=== PATIENT | female | born 1935 | race Caucasian/White ===

== ENCOUNTER → 2017-02-10 | Outpatient (CLI) | payer BC ==
[~2017-02-10] MED LIST: ACET-1311 PO; ADVIN50/60 INH; AMOX500T PO; APIX1TAB3 PO; ASPITAB71 PO; BUPR-79 PO; CLBCRM30 EXT; CLR10 PO; CYNI1000 IM; DIPH1TAB PO; DOCU100C31 PO; ENOX100I SC; ESCI10TA17 PO; ESTR10TA PV; FRRS300 PO; GABA-112 PO; IPRA1AER2 INH; LCTX PO; LEVO100T35 PO; LEVO75TA PO; LISI5TAB3 PO; LORA-741 PO; LSX20 PO; LTHSR/300 PO; LVNIS100 SQ; MICO4CRE PV; MYR25 PO; NMN10 PO; POTA20TA16 PO; PRLSR20 PO; RIVA6CAP4 PO; SNG10 PO; SYN88 PO; TIOTCAP INH; TRIA1SPR10 NAE; VNCAQN NAE; [UNRECOGNIZED DRUG - CODE] PO
[2017-02-10 16:46] LABS: BASO % 0.5 %; BASO ABS # 0.04 K/uL (0-0.2); COMPLETE YES; EOS % 4.1 %; HEMATOCRIT 44.2 % (37-47); IG% 0.3 %; LYMPH % 18.2 %; LYMPH ABS # 1.59 K/uL (1.2-3.4); MEAN CELL VOLUME 98.2 fL (80-100); MEAN CORPUSCULAR HEMOGLOBIN 32.7 pg (25-34); MEAN CORPUSCULAR HGB CONC 33.3 g/dl (32-36); MEAN PLATELET VOLUME 10.4 fL (7.4-10.4); MONO % 9.1 %; NEUT % 67.8 %; PLATELET COUNT 213 K/uL (130-400); WHITE BLOOD COUNT 8.75 K/uL (4.8-10.8)
[2017-02-10 17:20] LABS: ALT/SGPT 23 U/L (12-78); BLOOD UREA NITROGEN 21 mg/dl (7-18); CARBON DIOXIDE 23 mmol/L (21-32); CHLORIDE 110 mmol/L (98-107); CHOLESTEROL 225 mg/dl (0-200); GLUCOSE 123 mg/dl (70-99); POTASSIUM 3.9 mmol/L (3.5-5.1); SODIUM 143 mmol/L (136-145)
[2017-02-10 17:30] LABS: ALB/GLOB RATIO 1.2 (0.9-2); ALKALINE PHOSPHATASE 77 U/L (45-117); AST/SGOT 27 U/L (15-37); CHOLESTEROL/HDL RATIO 3.5; HDL CHOLESTEROL 64 mg/dl; LDL CHOLESTEROL CALCULATED 125 mg/dl; TRIGLYCERIDES 180 mg/dl (0-150); VERY LOW DENSITY LIPOPROT CALC 36 mg/dl
[2017-02-10 17:39] LABS: CALCIUM 10.2 mg/dl (8.5-10.1)
== END | disposition home or self-care (01) ==
LOC: C.LAB 16:19
PROVIDERS: ATTEND Nurse Practitioner Family
DX: E03.9 Hypothyroidism, unspecified (principal); I10 Essential (primary) hypertension; F03.90 Unspecified dementia, unspecified severity, without behavioral disturbance, psychotic disturbance, mood disturbance, and anxiety; E78.5 Hyperlipidemia, unspecified; R10.9 Unspecified abdominal pain

== ENCOUNTER → 2017-02-11 | Outpatient (CLI) | payer BC ==
--- NOTE | 2017-02-11 16:37 | DIAGNOSTIC IMAGING REPORT ---
ABDOMEN 2VIEW W/PA CHEST RTN CLINICAL HISTORY: K59.09 Chronic constipation LLQ abd pain and tenderness. R/o con COMPARISON STUDY: 02/10/2016 FINDINGS: nonobstructive bowel pattern. Mild fecal material throughout the colon. No secondary signs of free air. Mild bibasilar atelectatic change. Lungs otherwise appear clear. IMPRESSION: Nonobstructive bowel pattern. Mild bibasilar atelectasis. Electronically signed by: Luigi Peters M.D. 02/11/2017 4:35 PM Dictated Date/Time: 02/11/2017 4:34 PM
[2017-02-11 17:03] LABS: URINE APPEARANCE CLEAR (CLEAR); URINE BILIRUBIN NEG (NEG); URINE COLOR YELLOW; URINE EPITHELIAL CELL AUTO 0-5 /lpf (0-5); URINE NITRITE NEG (NEG); URINE PH 5.5 (4.5-7.5); URINE SPECIFIC GRAVITY 1.007 (1.000-1.030); UROBILINOGEN NEG (NEG)
[2017-02-11 17:06] LABS: MANUAL MICROSCOPIC REQUIRED? NO; REVIEW REQ? NO
== END | disposition home or self-care (01) ==
LOC: C.RAD 15:47
PROVIDERS: ATTEND Family Medicine
DX: R10.9 Unspecified abdominal pain (principal); K59.09 Other constipation

== ENCOUNTER → 2017-03-26 | Outpatient (CLI) | payer BC ==
[2017-03-26 11:01] LABS: BLOOD UREA NITROGEN 23 mg/dl (7-18); GLUCOSE 103 mg/dl (70-99)
[2017-03-26 11:02] LABS: BUN/CREATININE RATIO 19.3 (10-20); CALCIUM 9.2 mg/dl (8.5-10.1); CARBON DIOXIDE 23 mmol/L (21-32); CHLORIDE 114 mmol/L (98-107); POTASSIUM 3.9 mmol/L (3.5-5.1); SODIUM 145 mmol/L (136-145)
== END | disposition home or self-care (01) ==
LOC: C.LAB 09:31
PROVIDERS: ATTEND Student in an Organized Health Care Education/Training Program
DX: Z79.899 Other long term (current) drug therapy (principal)

== ENCOUNTER → 2017-04-28 | Outpatient (CLI) | payer BC ==
[~2017-04-28] MED LIST changes: -ACET-1311 PO; -AMOX500T PO; -CYNI1000 IM; -DIPH1TAB PO; -ENOX100I SC; -FRRS300 PO; -LSX20 PO; -LVNIS100 SQ; -MICO4CRE PV; -MYR25 PO; -POTA20TA16 PO; -SYN88 PO; -VNCAQN NAE
[2017-04-28 17:28] LABS: URINE APPEARANCE CLEAR (CLEAR); URINE BILIRUBIN NEG (NEG); URINE COLOR YELLOW; URINE EPITHELIAL CELL AUTO >30 /lpf (0-5); URINE NITRITE NEG (NEG); URINE SPECIFIC GRAVITY 1.014 (1.000-1.030); UROBILINOGEN NEG (NEG)
[2017-04-28 17:36] LABS: MANUAL MICROSCOPIC REQUIRED? NO; REVIEW REQ? YES
== END | disposition home or self-care (01) ==
LOC: C.LABSPEC 16:52
PROVIDERS: ATTEND Nurse Practitioner Family
DX: R30.0 Dysuria (principal)

== ENCOUNTER 2017-07-04 14:58 | Emergency (ER) | payer BC ==
[~2017-07-04] VITALS: Ht 165.1 cm; Wt 89.1 kg
[~2017-07-04 14:58] MED LIST changes: -APIX1TAB3 PO; -ASPITAB71 PO; -CLBCRM30 EXT; -CLR10 PO; -DOCU100C31 PO; -ESCI10TA17 PO; -ESTR10TA PV; -GABA-112 PO; -LEVO75TA PO; -LTHSR/300 PO; -NMN10 PO; -PRLSR20 PO; -SNG10 PO; -TRIA1SPR10 NAE; -[UNRECOGNIZED DRUG - CODE] PO
[2017-07-04 15:06] VITALS: TEMP 36.6; Ht 165.1 cm; Wt 89.1 kg
[2017-07-04] MEDS ORDERED: NMN10 PO (15:11)
[2017-07-04] MEDS ORDERED: LTHSR/300 PO (15:12)
--- NOTE | 2017-07-04 15:21 | EMERGENCY ROOM VISIT NOTE ---
History Report prepared by Damaris: Annita Thornton Under the Supervision of: Dr. Grabiel Breen M.D. First contact with patient: 15:10 Chief Complaint: CALF PAIN Stated Complaint: PAIN IN R CALF, HX OF BLOOD CLOTS History of Present Illness The patient is an 81 year old female who presents to the Emergency Room with complaints of persistent right calf pain for the past 2 days. She reports she was up to use the bathroom 2 nights ago, when she began to feel a "pulled muscle sensation" in her right calf. She rates her discomfort as a 1/10 in severity. The patient admits to a history of 2 previous DVT's, but states the most recent one was "at least 10 years ago". She is not on daily blood thinners but notes she has taken them in the past "as needed" when she's experienced a clot. She denies any recent falls or trauma to her right leg. She denies any fevers. She admits to some recent difficulty breathing but states "it's always bad". Source of History: patient Onset: 2 days HELMET [employer] Position: leg (right) Symptom Intensity: 1/10 Timing: other (persistent) Associated Symptoms: + SOB, No fevers Review of Systems See HPI for pertinent positives & negatives. A total of 10 systems reviewed and were otherwise negative. Past Medical & Surgical Medical Problems: (1) Asthma (2) Bipolar disorder (3) Carpal tunnel surgery (4) Chest pain (5) COPD (chronic obstructive pulmonary disease) (6) Dizziness (7) Dyspnea on exertion (8) GERD (gastroesophageal reflux disease) (9) History of DVT (deep vein thrombosis) (10) Hypertension (11) Hypothyroidism (12) Irritable bowel syndrome (13) Mild dementia (14) Pneumonia (15) Shock therapy (16) Urinary tract infection (17) Urinary tract infection Surgical Problems: (1) History of hysterectomy (2) Hx of cholecystectomy Family History FH: cancer Social History Smoking Status: Former Smoker Alcohol Use: none Drug Use: none Marital Status: single Housing Status: unknown Occupation Status: retired Current/Historical Medications Scheduled Apixaban (Eliquis), 10 MG PO BID Apixaban (Eliquis), 5 MG PO BID Aspirin Effervescent (Shanae-[place]), 1 TAB PO PRN Bupropion (Wellbutrin Sr), 150 MG PO BID Clobetasol Propionate (Clobetasol Propionate Cream 0.05%), 1 APPLN EXT BID Docusate Sodium (Docusate Sodium), 1 CAP PO BID Escitalopram (Lexapro), 1 TAB PO DAILY Estradiol Vaginal (Vagifem), 1 TAB PV 2XWK Gabapentin (Neurontin), 100 MG PO DAILY Ipratropium-Albuterol (Combivent Respimat), 1 PUFFS INH QID Levothyroxine Sodium (Synthroid), 75 MCG PO DAILY [place] Carbonate ([place] Carbonate), 300 MG PO BID Loratadine (Claritin), 10 MG PO DAILY Memantine (Namenda), 10 MG PO BID Omeprazole (Prilosec), 20 MG PO DAILY Rivastigmine Tartrate (Rivastigmine Tartrate), 6 MG PO BID Simethicone (Gas-X Extra Strength), 1 CAP PO PRN Triamcinolone Acetonide (Nasal (Nasal Allergy 24 Hour), 1 SPRAY ANUPAM PRN UD Allergies Coded Allergies: Clarithromycin (Verified Allergy, Severe, ANAPHYLAXIS, 06/27/14) Fluoxetine (Verified Allergy, Unknown, 06/23/14) Gabapentin (Verified Allergy, Unknown, RASH, 06/23/14) Hydrocortisone (Verified Allergy, Unknown, CORTIZONE, 06/23/14) Nitrofurantoin (Verified Allergy, Unknown, RASH, 06/23/14) Sulfa Drugs (Verified Allergy, Unknown, rash, 06/23/14) Moxifloxacin (Unverified Adverse Reaction, Unknown, "very shakey", 06/27/14) Physical Exam Vital Signs Date Time Temp Pulse Resp B/P (MAP) Pulse Ox O2 Delivery O2 Flow Rate FiO2 07/04/17 18:47 68 18 183/107 96 Room Air 07/04/17 17:46 63 20 146/80 96 Room Air 07/04/17 16:13 64 20 156/81 96 Room Air 07/04/17 15:06 36.6 90 20 148/77 93 Room Air Physical Exam GENERAL: Patient is in no acute distress. HEENT: No acute trauma, normocephalic atraumatic, mucous membranes moist, no nasal congestion, no scleral icterus. NECK: No stridor, no adenopathy, no meningismus, trachea is midline. LUNGS: Clear to auscultation bilaterally, no wheeze, no rhonchi, breath sounds equal. HEART: Without murmurs gallops or rubs, regular rate and rhythm. ABDOMEN: Soft, nontender, bowel sounds positive, no hernias, no peritonitis. EXTREMITIES: No cellulitis or significant edema. Varicose veins noted in both calves. Some mild discomfort to palpate the proximal posterior right calf, no contusion. NEUROLOGIC: Oriented x 3, no acute motor or sensory deficits, no focal weakness. SKIN: No rash, no jaundice, no diaphoresis. Medical Decision & Procedures ER Provider Diagnostic Interpretation: Radiology results as stated below per my review and radiologist interpretation: RIGHT LOWER EXTREMITY VENOUS DOPPLER HISTORY: Right leg pain, swelling, hist of dvt Right COMPARISON STUDY: None. FINDINGS: There is thrombus seen within one of 2 posterior tibial veins which is occlusive. Otherwise, the remaining deep venous structures demonstrate normal compressibility, flow, and augmentation. IMPRESSION: Occlusive thrombus within one of 2 posterior tibial veins consistent with a deep venous thrombosis. Electronically signed by: Edward Dave M.D. 07/04/2017 5:41 PM Medications Administered Medications (Trade) Dose Ordered Sig/Della Route Start Time Stop Time Status Last Admin Dose Admin Apixaban (Eliquis Tab) 10 mg NOW STAT PO 07/04/17 18:30 07/04/17 18:32 DC 07/04/17 18:47 10 MG ED Course 1511: The patient was evaluated in room C1. A complete history and physical exam was performed. 1754: I reevaluated the patient. She is feeling well and resting comfortably. 0: Eliquis 10 mg PO. 183: I reevaluated the patient. I discussed her results and discharge instructions and she verbalized complete understanding and agreement. Medical Decision The differential diagnoses considered include DVT, cellulitis, muscle strain and superficial thrombophlebitis. The patient presents with some pain behind her right proximal calf. She has a history of DVT. There was no cellulitis on exam, no significant leg edema. Right leg ultrasound does show a DVT in one of 2 calf veins. The patient will be discharged on anticoagulation. We will use Eliquis as recommended by our pharmacist. She will need to follow with her doctors office. Leg elevation was suggested. If she is worsening or feels short of breath, she will need to return to the ER. Medication Reconcilliation Current Medication List: was personally reviewed by me Blood Pressure Screening Patient's blood pressure: Elevated blood pressure Blood pressure disposition: Elevated BP felt to be situational Impression Primary Impression: Deep vein thrombosis (DVT) Scribe Attestation The scribe's documentation has been prepared under my direction and personally reviewed by me in its entirety. I confirm that the note above accurately reflects all work, treatment, procedures, and medical decision making performed by me. Departure Information Dispostion Home / Self-Care Prescriptions Apixaban (ELIQUIS) 5 Mg Tab 5 MG PO BID for 7 Days, #14 TAB Prov: Grabiel Breen M.D. 07/04/17 Apixaban (ELIQUIS) 5 Mg Tab 10 MG PO BID for 7 Days, #14 TAB Prov: Grabiel Breen M.D. 07/04/17 Referrals Susan Garcia DO (PCP) Patient Instructions My [facility] Additional Instructions Eliquis 10 mg 2x per day for 1 week and then 5 mg 2x per day until your doctor makes any changes you have been given scripts for 2 weeks of the blood thinner, your doctor will need to write prescriptions for the rest of the course return for worsening symptoms no aspirin, aleve, motrin, ibuprofen, advil while on the Eliquis see your doctor this week for a followup appt and further advice
[2017-07-04] MEDS ORDERED: LEVO75TA PO (15:32)
[2017-07-04] MEDS ORDERED: GABA-112 PO (16:29)
[2017-07-04] MEDS ORDERED: CLBCRM30 EXT (16:29)
[2017-07-04] MEDS ORDERED: CLR10 PO (16:29)
[2017-07-04] MEDS ORDERED: DOCU100C31 PO (16:29)
[2017-07-04] MEDS ORDERED: IPRA1AER2 INH (16:29)
[2017-07-04] MEDS ORDERED: PRLSR20 PO (16:29)
[2017-07-04] MEDS ORDERED: TRIA1SPR10 NAE (16:29)
[2017-07-04] MEDS ORDERED: ASPITAB71 PO (16:29)
[2017-07-04] MEDS ORDERED: ESCI10TA17 PO (16:29)
[2017-07-04] MEDS ORDERED: [UNRECOGNIZED DRUG - CODE] PO (16:29)
[2017-07-04] MEDS ORDERED: ESTR10TA PV (16:29)
--- NOTE | 2017-07-04 17:43 | DIAGNOSTIC IMAGING REPORT ---
RIGHT LOWER EXTREMITY VENOUS DOPPLER HISTORY: Right leg pain, swelling, hist of dvt Right COMPARISON STUDY: None. FINDINGS: There is thrombus seen within one of 2 posterior tibial veins which is occlusive. Otherwise, the remaining deep venous structures demonstrate normal compressibility, flow, and augmentation. IMPRESSION: Occlusive thrombus within one of 2 posterior tibial veins consistent with a deep venous thrombosis. Electronically signed by: Edward Dave M.D. 07/04/2017 5:41 PM Dictated Date/Time: 07/04/2017 5:40 PM
[2017-07-04] MEDS ORDERED: APIXABAN 2.5 MG TAB PO STA (18:30)
[2017-07-04] MEDS ORDERED: APIX1TAB3 PO (18:36)
[2017-07-04 18:47] VITALS: BP 183/107; PULSE 68; O2SAT 96
== END 2017-07-04 18:56 | disposition home or self-care (01) ==
LOC: C.EDB 15:00 → C.EDC 18:56
DX: I82.4Z1 Acute embolism and thrombosis of unspecified deep veins of right distal lower extremity (principal); Z86.718 Personal history of other venous thrombosis and embolism; J45.909 Unspecified asthma, uncomplicated; F31.9 Bipolar disorder, unspecified; J44.9 Chronic obstructive pulmonary disease, unspecified; K21.9 Gastro-esophageal reflux disease without esophagitis; I10 Essential (primary) hypertension; E03.9 Hypothyroidism, unspecified; K58.9 Irritable bowel syndrome, unspecified; F03.90 Unspecified dementia, unspecified severity, without behavioral disturbance, psychotic disturbance, mood disturbance, and anxiety; Z87.01 Personal history of pneumonia (recurrent); Z87.440 Personal history of urinary (tract) infections; Z80.9 Family history of malignant neoplasm, unspecified; Z87.891 Personal history of nicotine dependence; Z79.899 Other long term (current) drug therapy

== ENCOUNTER → 2017-07-06 | Outpatient (CLI) | payer BC ==
[~2017-07-06] MED LIST changes: -ADVIN50/60 INH; +APIX1TAB3 PO; +ASPITAB71 PO; +CLBCRM30 EXT; +CLR10 PO; +CYNI1000 IM; +DOCU100C31 PO; +ESCI10TA17 PO; +ESTR10TA PV; +FRRS300 PO; +GABA-112 PO; -LCTX PO; -LEVO100T35 PO; +LEVO75TA PO; -LISI5TAB3 PO; -LORA-741 PO; +LSX20 PO; +LTHSR/300 PO; +LVNIS100 SQ; +MYR25 PO; +NMN10 PO; +PRLSR20 PO; +SNG10 PO; +SYN88 PO; -TIOTCAP INH; +TRIA1SPR10 NAE; +[UNRECOGNIZED DRUG - CODE] PO
--- NOTE | 2017-07-06 12:45 | DIAGNOSTIC IMAGING REPORT ---
HEAD WITHOUT CONTRAST (CT) CLINICAL HISTORY: 81 years-old Female presenting with headache after starting blood thinner 2 days ago. TECHNIQUE: Multidetector CT imaging of the head was performed without the use of intravenous contrast. IV contrast: None. A dose lowering technique was used consistent with the principles of ALARA (as low as reasonably achievable). COMPARISON: 04/10/2013. CT DOSE (mGy.cm): The estimated cumulative dose is 638.56 mGycm. FINDINGS: Business Support Specialist topogram: Unremarkable. Proportional ventricular and sulcal prominence, likely age-related parenchymal volume loss. Slight asymmetry of the occipital horns of the lateral ventricles likely within the range of normal. Brain parenchyma normal in appearance with preserved smiley-white differentiation. No mass effect or midline shift. No hemorrhage or acute territorial infarct. No extra-axial fluid collection. Paranasal sinuses and mastoid air cells clear. Calvarium intact. IMPRESSION: 1. No acute intracranial pathology. Electronically signed by: Reymundo Ram M.D. 07/06/2017 12:44 PM Dictated Date/Time: 07/06/2017 12:35 PM
== END | disposition home or self-care (01) ==
LOC: C.CTS 12:22
PROVIDERS: ATTEND Nurse Practitioner Family
DX: R51 Headache (principal)

== ENCOUNTER → 2017-07-07 | Outpatient (CLI) | payer BC ==
[~2017-07-07] MED LIST changes: -CYNI1000 IM; -FRRS300 PO; -LSX20 PO; -LVNIS100 SQ; -SYN88 PO
[2017-07-07 15:36] LABS: BASO % 0.4 %; BASO ABS # 0.04 K/uL (0-0.2); COMPLETE YES; EOS % 5.1 %; HEMATOCRIT 44.8 % (37-47); IG% 0.5 %; LYMPH % 17.9 %; LYMPH ABS # 1.69 K/uL (1.2-3.4); MEAN CELL VOLUME 98.9 fL (80-100); MEAN CORPUSCULAR HEMOGLOBIN 32.5 pg (25-34); MEAN CORPUSCULAR HGB CONC 32.8 g/dl (32-36); MEAN PLATELET VOLUME 10.4 fL (7.4-10.4); NEUT % 68.1 %; PLATELET COUNT 221 K/uL (130-400); RED BLOOD COUNT 4.53 M/uL (4.2-5.4); WHITE BLOOD COUNT 9.45 K/uL (4.8-10.8)
[2017-07-07 15:57] LABS: PROTHROMBIN TIME (PATIENT) 10.4 SECONDS (9.0-12.0)
[2017-07-07 16:13] LABS: ALT/SGPT 24 U/L (12-78); AST/SGOT 26 U/L (15-37); BLOOD UREA NITROGEN 24 mg/dl (7-18); BUN/CREATININE RATIO 18.7 (10-20); CALCIUM 9.4 mg/dl (8.5-10.1); CARBON DIOXIDE 25 mmol/L (21-32); CHLORIDE 112 mmol/L (98-107); GLUCOSE 91 mg/dl (70-99); SODIUM 143 mmol/L (136-145)
[2017-07-07 16:15] LABS: ALKALINE PHOSPHATASE 77 U/L (45-117)
== END | disposition home or self-care (01) ==
LOC: C.LAB 14:22
PROVIDERS: ATTEND Family Medicine Adult Medicine
DX: R31.9 Hematuria, unspecified (principal)

== ENCOUNTER → 2017-07-12 | Outpatient (CLI) | payer BC ==
[~2017-07-12] MED LIST changes: +CYNI1000 IM; +FRRS300 PO; +LSX20 PO; +LVNIS100 SQ; +SYN88 PO
--- NOTE | 2017-07-12 14:03 | DIAGNOSTIC IMAGING REPORT ---
CT SCAN OF THE ABDOMEN AND PELVIS WITHOUT IV CONTRAST CLINICAL HISTORY: Hematuria. COMPARISON STUDY: Abdominal radiographs dated 02/11/2017. Chest CT dated 02/01/2013. TECHNIQUE: CT scan of the abdomen and pelvis is performed from the lung bases to the proximal femora. Images are reviewed in the axial, sagittal, and coronal planes. IV contrast was not administered for this examination as per the referring clinician. A dose lowering technique was utilized adhering to the principles of ALARA. CT DOSE: 1004.90 mGycm FINDINGS: Lung bases: The heart is normal in size and without pericardial effusion. There are coronary artery calcifications. No airspace consolidation or pleural effusion is seen. There is evidence of chronic interstitial lung disease at both lung bases. A 5 m pleural-based nodules present at the right lung base on image #2. This is unchanged from the [address] and of doubtful significance. Liver: The unenhanced liver is normal in size, contour, and attenuation. There is no intrahepatic biliary ductal dilatation. Gallbladder: Surgically absent. Spleen: Normal in size and attenuation. Pancreas: The unenhanced pancreas is atrophic and grossly unremarkable. Adrenal glands: Unremarkable. Kidneys: The unenhanced kidneys are atrophic and without hydronephrosis. There are no renal calculi identified. A 1.5 cm cyst is noted in the interpolar right kidney. Additional subcentimeter cortical hypodensities also likely represent cysts but are too small for definitive characterization. Abdominal vasculature: The abdominal aorta is normal in course and caliber noting advanced atherosclerotic calcification. Bowel: A large duodenal diverticulum is identified. No bowel obstruction is seen. There is moderate colonic diverticulosis without CT evidence of acute diverticulitis. The appendix is normal in appearance. Peritoneum: There is no intraperitoneal free air or abdominal ascites. Lymphadenopathy: None. Pelvic viscera: The the bladder is decompressed. Asymmetric bladder wall thickening suggested posteriorly on the right, best seen on axial image #395. The uterus is surgically absent. No adnexal lesion is seen. Skeletal structures: The skeletal structures are heterogeneously osteopenic. There is moderate to advanced lumbosacral spondylosis. Degenerative change is also seen in the sacroiliac joints and hips. No lytic or blastic lesions are seen. IMPRESSION: 1. No renal calculi are identified. 2. Although the bladder is decompressed, asymmetric bladder wall thickening is suggested posteriorly on the right. This is indeterminant, and a bladder neoplasm is not excluded. Correlation with urine cytology is recommended. Consider follow-up with urology for definitive characterization with cystoscopy 3. Moderate colonic diverticulosis without CT evidence of acute diverticulitis. 4. Additional findings as above. Electronically signed by: Grabiel Urena M.D. 07/12/2017 2:01 PM Dictated Date/Time: 07/12/2017 1:51 PM
== END | disposition home or self-care (01) ==
LOC: C.CTS 13:23
PROVIDERS: ATTEND Family Medicine Adult Medicine
DX: R31.9 Hematuria, unspecified (principal); K57.30 Diverticulosis of large intestine without perforation or abscess without bleeding

== ENCOUNTER 2017-07-20 15:00 | Inpatient (IN) | payer BC, OTHER ==
[~2017-07-20] VITALS: Ht 165.1 cm; Wt 96.7 kg
[~2017-07-20 15:00] MED LIST changes: -APIX1TAB3 PO; -CYNI1000 IM; -FRRS300 PO; -LSX20 PO; -LVNIS100 SQ; -MYR25 PO; -SNG10 PO; -SYN88 PO
[2017-07-20] MEDS ORDERED: SNG10 PO (16:17)
[2017-07-20] MEDS ORDERED: APIX1TAB3 PO (16:17)
[2017-07-20 16:39] LABS: BASO % 0.6 %; BASO ABS # 0.05 K/uL (0-0.2); COMPLETE YES; EOS % 4.7 %; IG% 0.3 %; LYMPH % 18.4 %; LYMPH ABS # 1.65 K/uL (1.2-3.4); MEAN CELL VOLUME 97.7 fL (80-100); MEAN CORPUSCULAR HEMOGLOBIN 32.8 pg (25-34); MEAN CORPUSCULAR HGB CONC 33.6 g/dl (32-36); MEAN PLATELET VOLUME 10.3 fL (7.4-10.4); MONO % 10.2 %; NEUT % 65.8 %; PLATELET COUNT 201 K/uL (130-400); WHITE BLOOD COUNT 8.96 K/uL (4.8-10.8)
[2017-07-20 16:48] LABS: INR 0.9 (0.9-1.1); PARTIAL THROMBOPLASTIN RATIO 0.9; PROTHROMBIN TIME (PATIENT) 9.8 SECONDS (9.0-12.0)
[2017-07-20 17:12] LABS: ALKALINE PHOSPHATASE 84 U/L (45-117); ALT/SGPT 28 U/L (12-78); BLOOD UREA NITROGEN 19 mg/dl (7-18); BUN/CREATININE RATIO 14.8 (10-20); CALCIUM 9.8 mg/dl (8.5-10.1); CARBON DIOXIDE 21 mmol/L (21-32); CHLORIDE 113 mmol/L (98-107); GLUCOSE 85 mg/dl (70-99)
[2017-07-20 17:14] LABS: POTASSIUM 4.1 mmol/L (3.5-5.1); SODIUM 144 mmol/L (136-145)
[2017-07-20 17:19] LABS: AST/SGOT 29 U/L (15-37)
--- NOTE | 2017-07-20 17:47 | DIAGNOSTIC IMAGING REPORT ---
VENOUS DOPPLER LW EXT BILAT HISTORY: Pain. Edema. lle pain and known clot on r not taking meds COMPARISON STUDY: 07/04/2017 FINDINGS: Venous Doppler right leg currently is unremarkable. Previously described thrombus is no longer identified. Evaluation of left leg shows evidence for echogenic thrombus within left common femoral vein, proximal to distal femoral vein, as well as popliteal vein. This appears to be a combination of acute and chronic thrombophlebitis. IMPRESSION: 1. 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 2. The right leg currently is negative for acute DVT The above report was generated using voice recognition software. It may contain grammatical, syntax or spelling errors. Electronically signed by: Luigi Peters M.D. 07/20/2017 5:45 PM Dictated Date/Time: 07/20/2017 5:42 PM
[2017-07-20] MEDS ORDERED: HEPARIN IV LOW DOSE NO BOLUS STA (18:17)
[2017-07-20] MEDS ORDERED: OPTIRAY 320 IV PRN (18:30)
--- NOTE | 2017-07-20 18:50 | DIAGNOSTIC IMAGING REPORT ---
(CHEST FOR PE) ANGIO WITH CLINICAL HISTORY: 81 years-old Female presenting with shortness of breath with deep venous thrombosis, not taking factor X a. TECHNIQUE: Multidetector CT angiography of the chest was performed after administration of intravenous contrast. 3-D volumetric and/or maximum intensity projection (MIP) images were subsequently reconstructed for review. IV contrast: Optiray 320. A dose lowering technique was used consistent with the principles of ALARA (as low as reasonably achievable). COMPARISON: 02/01/2013. CT DOSE (mGy.cm): The estimated cumulative dose is 559.46 mGycm. FINDINGS: Loader Demolder topogram: Unremarkable. Pulmonary vasculature: The study is suboptimal secondary to patient body habitus. No filling defect within the pulmonary arteries to suggest embolus. Main pulmonary artery is not enlarged. No flattening of the interventricular septum. No intracardiac intracardiac filling defect. No reflux of contrast into the hepatic veins. Remaining chest: On soft tissue windows, normal thyroid and thoracic inlet. No axillary, supraclavicular, hilar, or mediastinal lymphadenopathy. Atherosclerosis of aortic arch. Normal heart size. Coronary stents may be in place. Normal coronary artery calcification. No pericardial or pleural effusion. Upper abdomen normal. On lung windows, scattered bandlike opacities likely atelectasis or scarring. Minimal subpleural consolidation in the right middle lobe likely also scarring or atelectasis. No other focal infiltrate. Airways patent. On bone windows, degenerative changes of the bilateral glenohumeral joints. Degenerative changes of the thoracic spine. IMPRESSION: 1. No evidence of pulmonary embolus. 2. Scattered areas of scarring or atelectasis. No convincing evidence of acute intrathoracic pathology. Electronically signed by: Reymundo Ram M.D. 07/20/2017 6:49 PM Dictated Date/Time: 07/20/2017 6:42 PM
--- NOTE | 2017-07-20 18:59 | History and Physical ---
History & Physical Date & Time of Service: Jul 20, 2017 at 18:59 Chief Complaint: Possible Cbt -Blood Currently Has A Blood Clot Primary Care Physician: Sima Zaragoza MD History of Present Illness Source: patient, family The patient is an 81-year-old female who presents to the emergency department with left calf pain that began earlier in the day prior to arrival. She was diagnosed with a right lower extremity DVT on July 04 at this emergency department, and had similar pain at that time. The patient has been started on Eliquis on July 05, had was thought to be vaginal bleeding at that time, and then the patient stopped taking the Eliquis and the bleeding stopped. In the interim she has had a normal pelvic examination. She reportedly also had an ultrasound of her kidneys did not show kidney stones. In the emergency department tonight, she had a CT suggestive of bladder lesion. Past Medical/Surgical History Medical Problems: (1) Asthma Status: Chronic (2) Bipolar disorder Status: Chronic (3) Carpal tunnel surgery Status: Resolved (4) Chest pain Status: Resolved (5) COPD (chronic obstructive pulmonary disease) Status: Chronic (6) Dizziness Status: Resolved (7) Dyspnea on exertion Status: Resolved (8) GERD (gastroesophageal reflux disease) Status: Chronic (9) History of DVT (deep vein thrombosis) Status: Resolved (10) Hypertension Status: Chronic (11) Hypothyroidism Status: Chronic (12) Irritable bowel syndrome Status: Chronic (13) Mild dementia Status: Chronic (14) Pneumonia Status: Resolved (15) Shock therapy Status: Resolved (16) Urinary tract infection Status: Resolved (17) Urinary tract infection Status: Resolved Surgical Problems: (1) History of hysterectomy Status: Resolved (2) Hx of cholecystectomy Status: Resolved Family History FH: cancer Social History Smoking Status: Former Smoker Smokeless Tobacco Use: No Alcohol Use: none Drug Use: none Marital Status: single Housing status: lives alone Occupational Status: retired Immunizations History of Influenza Vaccine: No History of Tetanus Vaccine?: No History of Pneumococcal: Yes Pneumococcal Date: Nov 21, 2009 History of Hepatitis B Vaccine: No Multi-Drug Resistant Organisms History of MDRO: No Allergies Coded Allergies: Clarithromycin (Verified Allergy, Severe, ANAPHYLAXIS, 07/20/17) Fluoxetine (Verified Allergy, Unknown, 07/20/17) Gabapentin (Verified Allergy, Unknown, RASH, 07/20/17) Hydrocortisone (Verified Allergy, Unknown, CORTIZONE, 07/20/17) Nitrofurantoin (Verified Allergy, Unknown, RASH, 07/20/17) Sulfa Drugs (Verified Allergy, Unknown, rash, 07/20/17) Moxifloxacin (Unverified Adverse Reaction, Unknown, "very shakey", 07/20/17 ) Home Medications Scheduled Apixaban (Eliquis), 5 MG PO UNKNOWN Aspirin Effervescent (Shanae-[place]), 1 TAB PO PRN Bupropion (Wellbutrin Sr), 150 MG PO BID Clobetasol Propionate (Clobetasol Propionate Cream 0.05%), 1 APPLN EXT BID Docusate Sodium (Docusate Sodium), 1 CAP PO BID Escitalopram (Lexapro), 1 TAB PO DAILY Estradiol Vaginal (Vagifem), 1 TAB PV 2XWK Gabapentin (Neurontin), 100 MG PO DAILY Ipratropium-Albuterol (Combivent Respimat), 1 PUFFS INH QID Levothyroxine Sodium (Synthroid), 75 MCG PO DAILY [place] Carbonate ([place] Carbonate), 300 MG PO BID Memantine (Namenda), 10 MG PO BID Montelukast Sod (Montelukast Sodium), 10 MG PO DAILY Omeprazole (Prilosec), 20 MG PO DAILY Rivastigmine Tartrate (Rivastigmine Tartrate), 6 MG PO BID Simethicone (Gas-X Extra Strength), 1 CAP PO PRN Triamcinolone Acetonide (Nasal (Nasal Allergy 24 Hour), 1 SPRAY ANUPAM PRN UD Scheduled PRN Loratadine (Claritin), 10 MG PO DAILY PRN for ALLERGIC REACTION Review of Systems The patient denies chest pain, palpitations, shortness of breath, cough, vision change, hearing change, sore throat, fevers, chills, sweats, weight change, fatigue, nausea, vomiting, diarrhea or constipation, abdominal pain, pelvic pain, blood in stool, dysuria, urinary frequency or urgency, lightheadedness, dizziness, headache, memory loss, rash, abnormal bruising, imbalance, focal or generalized weakness, numbness or tingling in arms or legs, generalized arthralgias or myalgias, back or neck pain, night sweats, or allergy symptoms. The review of systems is otherwise negative other than for that already noted above, and at least 10 systems have been reviewed. Physical Exam Vital Signs Date Time Temp Pulse Resp B/P (MAP) Pulse Ox O2 Delivery O2 Flow Rate FiO2 07/20/17 18:07 86 18 152/79 94 Room Air 07/20/17 15:03 36.8 89 18 128/65 95 Room Air The patient is awake, well-developed and adequately nourished, alert and oriented 3, normocephalic and atraumatic, lying in bed and in no acute distress. HEENT--PERRL, EOMI, mucous membranes and oropharynx dry. Neck--supple, no JVD or bruits, thyroid normal, trachea midline, no adenopathy. Heart--normal S1 and S2, no extra beats, no murmurs, rubs or gallops. Lungs--clear bilaterally with good air movement, no respiratory distress, no accessory muscle use. Abdomen--normal bowel sounds and soft, nontender and nondistended, no hernias or masses, no organomegaly. Extremities--no cyanosis, clubbing or edema. There are good distal pulses b/l. Dermatologic--normal skin turgor, normal color, warm and dry, no abnormal lymph nodes, no rash. Neurologic--cranial nerves II through XII grossly intact. Rheumatologic--normal range of motion, nontender, muscles and joints. Psychiatric--normal affect. Diagnostics Laboratory Results Results Past 24 Hours Test 07/20/17 16:27 Range/Units White Blood Count 8.96 4.8-10.8 K/uL Red Blood Count 4.30 4.2-5.4 M/uL Hemoglobin 14.1 12.0-16.0 g/dL Hematocrit 42.0 37-47 % Mean Corpuscular Volume 97.7 80-100 fL Mean Corpuscular Hemoglobin 32.8 25-34 pg Mean Corpuscular Hemoglobin Concent 33.6 32-36 g/dl Platelet Count 201 130-400 K/uL Mean Platelet Volume 10.3 7.4-10.4 fL Neutrophils (%) (Auto) 65.8 % Lymphocytes (%) (Auto) 18.4 % Monocytes (%) (Auto) 10.2 % Eosinophils (%) (Auto) 4.7 % Basophils (%) (Auto) 0.6 % Neutrophils # (Auto) 5.90 1.4-6.5 K/uL Lymphocytes # (Auto) 1.65 1.2-3.4 K/uL Monocytes # (Auto) 0.91 0.11-0.59 K/uL Eosinophils # (Auto) 0.42 0-0.5 K/uL Basophils # (Auto) 0.05 0-0.2 K/uL RDW Standard Deviation 47.4 36.4-46.3 fL RDW Coefficient of Variation 13.3 11.5-14.5 % Immature Granulocyte % (Auto) 0.3 % Immature Granulocyte # (Auto) 0.03 0.00-0.02 K/uL Prothrombin Time 9.8 9.0-12.0 SECONDS Prothromb Time International Ratio 0.9 0.9-1.1 Activated Partial Thromboplast Time 22.7 21.0-31.0 SECONDS Partial Thromboplastin Ratio 0.9 Sodium Level 144 136-145 mmol/L Potassium Level 4.1 3.5-5.1 mmol/L Chloride Level 113 98-107 mmol/L Carbon Dioxide Level 21 21-32 mmol/L Anion Gap 10.0 3-11 mmol/L Blood Urea Nitrogen 19 7-18 mg/dl Creatinine 1.30 0.60-1.20 mg/dl Est Creatinine Clear Calc Drug Dose 37.8 ml/min Estimated GFR () 44.9 Estimated GFR (Non- 38.7 BUN/Creatinine Ratio 14.8 10-20 Random Glucose 85 70-99 mg/dl Calcium Level 9.8 8.5-10.1 mg/dl Total Bilirubin 0.1 0.2-1 mg/dl Direct Bilirubin < 0.1 0-0.2 mg/dl Aspartate Amino Transf (AST/SGOT) 29 15-37 U/L Alanine Aminotransferase (ALT/SGPT) 28 12-78 U/L Alkaline Phosphatase 84 45-117 U/L Total Protein 6.9 6.4-8.2 gm/dl Albumin 3.7 3.4-5.0 gm/dl Lipase 604 73-393 U/L Diagnostic Radiology Patient Name: MAIK FOLEY Unit Number: [id number] Dictated: 07/20/171741 Transcribed: 07/20/171741 MS Printed Date/Time: [~ rep prt dt]/[~ rep prt tm] [~ rep ct labl] - [~ rep ct ivnm] [facility] Radiology Department [place], [place] [id number] Dictated: 07/20/171741 Transcribed: 07/20/171741 MS Printed Date/Time: [~ rep prt dt]/[~ rep prt tm] [~ rep ct labl] - [~ rep ct ivnm] [~ rep ct add3]] VENOUS DOPPLER LW EXT BILAT HISTORY: Pain. Edema. lle pain and known clot on r not taking meds COMPARISON STUDY: 07/04/2017 FINDINGS: Venous Doppler right leg currently is unremarkable. Previously described thrombus is no longer identified. Evaluation of left leg shows evidence for echogenic thrombus within left common femoral vein, proximal to distal femoral vein, as well as popliteal vein. This appears to be a combination of acute and chronic thrombophlebitis. IMPRESSION: 1. 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 2. The right leg currently is negative for acute DVT The above report was generated using voice recognition software. It may contain grammatical, syntax or spelling errors. Electronically signed by: Luigi Peters M.D. 07/20/2017 5:45 PM Dictated Date/Time: 07/20/2017 5:42 PM The status of this report is Signed. Draft = Not yet reviewed or approved by Radiologist. Signed = Reviewed and approved by Radiologist. <AttendingPhy></AttendingPhy> <FamilyPhy>Sima Zaragoza MD</FamilyPhy> < PrimaryPhy>Sima Zaragoza MD</PrimaryPhy> <UnitNumber>[id number]</UnitNumber > <VisitNumber>[id number]</VisitNumber> <PatientName>MAIK FOLEY</ PatientName> <DateOfBirth>1935</DateOfBirth> <Location>[facility]</Location> < ServiceDate>07/20/17</ServiceDate> <MNE>ESINDI</MNE> <OrderingPhy>Dieter Lockett DO</OrderingPhy> <OrderingPhyMNE>f rep ord dr mne</OrderingPhyMNE> < DictatingPhyMNE>f rep dict dr cooney</DictatingPhyMNE> <CCListMNE>f rep ct mne</ CCListMNE> <AdmittingPhyMNE>f pt admit dr cooney</AdmittingPhyMNE> <AttendingPhyMNE >f pt attend dr cooney</AttendingPhyMNE> <ConsultingPhyMNE>f pt consult dr cooney</ConsultingPhyMNE> <FamilyPhyMNE>f pt fam dr cooney</FamilyPhyMNE> <OtherPhyMNE>f pt other dr cooney</OtherPhyMNE> < PrimaryPhyMNE>f pt prim care dr cooney</PrimaryPhyMNE> <ReferringPhyMNE>f pt referring dr cooney</ReferringPhyMNE> Patient Name: MAIK FOLEY Unit Number: [id number] Dictated: 07/20/171841 Transcribed: 07/20/171846 PBS Printed Date/Time: [~ rep prt dt]/[~ rep prt tm] [~ rep ct labl] - [~ rep ct ivnm] [facility] [place] [address] Dictated: 07/20/171841 Transcribed: 07/20/171846 PBS Printed Date/Time: [~ rep prt dt]/[~ rep prt tm] [~ rep ct labl] - [~ rep ct ivnm] (CHEST FOR PE) ANGIO WITH CLINICAL HISTORY: 81 years-old Female presenting with shortness of breath with deep venous thrombosis, not taking factor X a. TECHNIQUE: Multidetector CT angiography of the chest was performed after administration of intravenous contrast. 3-D volumetric and/or maximum intensity projection (MIP) images were subsequently reconstructed for review. IV contrast: Optiray 320. A dose lowering technique was used consistent with the principles of ALARA (as low as reasonably achievable). COMPARISON: 02/01/2013. CT DOSE (mGy.cm): The estimated cumulative dose is 559.46 mGycm. FINDINGS: Senior User Experience Architect topogram: Unremarkable. Pulmonary vasculature: The study is suboptimal secondary to patient body habitus. No filling defect within the pulmonary arteries to suggest embolus. Main pulmonary artery is not enlarged. No flattening of the interventricular septum. No intracardiac intracardiac filling defect. No reflux of contrast into the hepatic veins. Remaining chest: On soft tissue windows, normal thyroid and thoracic inlet. No axillary, supraclavicular, hilar, or mediastinal lymphadenopathy. Atherosclerosis of aortic arch. Normal heart size. Coronary stents may be in place. Normal coronary artery calcification. No pericardial or pleural effusion. Upper abdomen normal. On lung windows, scattered bandlike opacities likely atelectasis or scarring. Minimal subpleural consolidation in the right middle lobe likely also scarring or atelectasis. No other focal infiltrate. Airways patent. On bone windows, degenerative changes of the bilateral glenohumeral joints. Degenerative changes of the thoracic spine. IMPRESSION: 1. No evidence of pulmonary embolus. 2. Scattered areas of scarring or atelectasis. No convincing evidence of acute intrathoracic pathology. Electronically signed by: Reymundo Ram M.D. 07/20/2017 6:49 PM Dictated Date/Time: 07/20/2017 6:42 PM The status of this report is Signed. Draft = Not yet reviewed or approved by Radiologist. Signed = Reviewed and approved by Radiologist. <AttendingPhy></AttendingPhy> <FamilyPhy>Sima Zaragoza MD</FamilyPhy> < PrimaryPhy>Sima Zaragoza MD</PrimaryPhy> <UnitNumber>[id number]</UnitNumber > <VisitNumber>[id number]</VisitNumber> <PatientName>FOLEYMAIK</ PatientName> <DateOfBirth>1935</DateOfBirth> <Location>[facility]</Location> < ServiceDate>07/20/17</ServiceDate> <MNE>ESINDI</MNE> <OrderingPhy>Dieter Lockett DO</OrderingPhy> <OrderingPhyMNE>f rep ord dr cooney</OrderingPhyMNE> < DictatingPhyMNE>f rep dict dr cooney</DictatingPhyMNE> <CCListMNE>f rep ct jeanninee</ CCListMNE> <AdmittingPhyMNE>f pt admit dr cooney</AdmittingPhyMNE> <AttendingPhyMNE >f pt attend dr cooney</AttendingPhyMNE> <ConsultingPhyMNE>f pt consult dr cooney</ConsultingPhyMNE> <FamilyPhyMNE>f pt fam dr cooney</FamilyPhyMNE> <OtherPhyMNE>f pt other dr cooney</OtherPhyMNE> < PrimaryPhyMNE>f pt prim care dr cooney</PrimaryPhyMNE> <ReferringPhyMNE>f pt referring dr cooney</ReferringPhyMNE> Patient Name: MAIK FOLEY Unit Number: [id number] Dictated: 07/20/171901 Transcribed: 07/20/171901 MS Printed Date/Time: [~ rep prt dt]/[~ rep prt tm] [~ rep ct labl] - [~ rep ct ivnm] [facility] [place] [address] Dictated: 07/20/171901 Transcribed: 07/20/171901 MS Printed Date/Time: [~ rep prt dt]/[~ rep prt tm] [~ rep ct labl] - [~ rep ct ivnm] [~ rep ct add3]] (BLADE) RETROPERITONEAL LTD CLINICAL HISTORY: abnormal CT, possible bladder neoplasm TECHNIQUE: Ultrasound COMPARISON STUDY: CT dated 07/12/2017 FINDINGS: Possible nodule posterior aspect bladder on the right measuring 2.5 x 2.3 cm. Remainder the bladder is unremarkable by ultrasound criteria. IMPRESSION: Potential polypoid lesion right posterior inferior bladder wall measuring 2.5 x 2.3 cm. Cystoscopy is again recommended. The above report was generated using voice recognition software. It may contain grammatical, syntax or spelling errors. Electronically signed by: Luigi Peters M.D. 07/20/2017 7:04 PM Dictated Date/Time: 07/20/2017 7:02 PM The status of this report is Signed. Draft = Not yet reviewed or approved by Radiologist. Signed = Reviewed and approved by Radiologist. <AttendingPhy></AttendingPhy> <FamilyPhy>Sima Zaragoza MD</FamilyPhy> < PrimaryPhy>Sima Zaragoza MD</PrimaryPhy> <UnitNumber>[id number]</UnitNumber > <VisitNumber>[id number]</VisitNumber> <PatientName>MAIK FOLEY</ PatientName> <DateOfBirth>1935</DateOfBirth> <Location>[facility]</Location> < ServiceDate>07/20/17</ServiceDate> <MNE>ESINDI</MNE> <OrderingPhy>Anup Wall M.D.</OrderingPhy> <OrderingPhyMNE>f rep ord dr cooney</OrderingPhyMNE> < DictatingPhyMNE>f rep dict dr cooney</DictatingPhyMNE> <CCListMNE>f rep ct eros</ CCListMNE> <AdmittingPhyMNE>f pt admit dr cooney</AdmittingPhyMNE> <AttendingPhyMNE >f pt attend dr cooney</AttendingPhyMNE> <ConsultingPhyMNE>f pt consult dr cooney</ConsultingPhyMNE> <FamilyPhyMNE>f pt fam dr cooney</FamilyPhyMNE> <OtherPhyMNE>f pt other dr cooney</OtherPhyMNE> < PrimaryPhyMNE>f pt prim care dr cooney</PrimaryPhyMNE> <ReferringPhyMNE>f pt referring dr cooney</ReferringPhyMNE> EKG EKG shows normal sinus rhythm at 68 bpm, first-degree heart block, no acute ST- T changes Impression Assessment and Plan DVT left lower extremity, new since July 04/DVT right lower extremity seen on July 04 no longer present-- We did order a CT angiography of the chest, which was negative for PE. Anticoagulation will be held tonight, as patient has had hematuria when on one treatment of Eliquis. Patient will kept at relative bedrest. Bladder lesion will need to be further assessed to see if this is a cause of bleeding. Patient may need to be considered for an IVC filter if she cannot be put on anticoagulation. Bladder lesion-- Demonstrated on both CT and bladder ultrasound. Consult urology for possible cystoscopy. That this is a type of bladder cancer, this may also be the source of her hypercoagulability. The patient will be nothing by mouth except medications after midnight for possible procedure. Depression/dementia-- Continue bupropion, Lexapro, gabapentin, lithium carbonate, Namenda, Exelon. Hypothyroidism-- Continue levothyroxine sodium. GERD-- Change omeprazole to pantoprazole. COPD-- Continue Combivent and montelukast. Level of Care Telemetry Advanced Directives Existing Advance Directive: No Existing Living Will: No Existing Power of Chief Of Anesthesiology: No Resuscitation Status FULL RESUSCITATION VTE Prophylaxis VTE Risk Assessment Done? Y/N: Yes Risk Level: High Given or contraindicated: Contraindicated
--- NOTE | 2017-07-20 19:05 | DIAGNOSTIC IMAGING REPORT ---
(BLADE) RETROPERITONEAL LTD CLINICAL HISTORY: abnormal CT, possible bladder neoplasm TECHNIQUE: Ultrasound COMPARISON STUDY: CT dated 07/12/2017 FINDINGS: Possible nodule posterior aspect bladder on the right measuring 2.5 x 2.3 cm. Remainder the bladder is unremarkable by ultrasound criteria. IMPRESSION: Potential polypoid lesion right posterior inferior bladder wall measuring 2.5 x 2.3 cm. Cystoscopy is again recommended. The above report was generated using voice recognition software. It may contain grammatical, syntax or spelling errors. Electronically signed by: Luigi Peters M.D. 07/20/2017 7:04 PM Dictated Date/Time: 07/20/2017 7:02 PM
--- NOTE | 2017-07-20 19:46 | EMERGENCY ROOM VISIT NOTE ---
History Report prepared by Damaris: Jono Louis Under the Supervision of: Dr. Dieter Lockett D.O. First contact with patient: 15:50 Chief Complaint: ABNORMAL LABS Stated Complaint: POSSIBLE CBT -BLOOD CURRENTLY HAS A BLOOD CLOT History of Present Illness The patient is an 81 year old female who presents to the Emergency Room with complaints of persistent left calf pain that started earlier today. She was diagnosed with a right calf blood clot on July 04 here, and she notes that she was having pain in that leg at that time. The patient says that she is now having pain in the left calf, and wants to know if she has a blood clot in that leg. Per the patient's daughter, the patient last took Eliquis on July 05 due to some vaginal bleeding on the , and the patient notes that the bleeding ceased after stopping the Eliquis. The patient recently saw her primary care physician and had a pelvic exam done, and was sent for an ultrasound, which ruled out any kidney stones or brain bleed. She did have a CT scan of her abdomen/pelvis on the . The patient denies any chest pain, worsened shortness of breath, or urinary symptoms. She also denies any recent trauma or falls Source of History: patient, family Onset: Earlier today Position: leg (left calf) Timing: other (persistent) Associated Symptoms: No chest pain, No SOB (any worsened), No urinary symptoms Note: No other associated symptoms noted. Review of Systems See HPI for pertinent positives & negatives. A total of 10 systems reviewed and were otherwise negative. Past Medical & Surgical Medical Problems: (1) Asthma (2) Bipolar disorder (3) Carpal tunnel surgery (4) Chest pain (5) COPD (chronic obstructive pulmonary disease) (6) Dizziness (7) Dyspnea on exertion (8) GERD (gastroesophageal reflux disease) (9) History of DVT (deep vein thrombosis) (10) Hypertension (11) Hypothyroidism (12) Irritable bowel syndrome (13) Left leg DVT (14) Lesion of bladder (15) Mild dementia (16) Pneumonia (17) Shock therapy (18) Urinary tract infection (19) Urinary tract infection Surgical Problems: (1) History of hysterectomy (2) Hx of cholecystectomy Family History FH: cancer Social History Smoking Status: Former Smoker Alcohol Use: none Drug Use: none Marital Status: single Housing Status: unknown Occupation Status: retired Current/Historical Medications Scheduled Apixaban (Eliquis), 5 MG PO UNKNOWN Aspirin Effervescent (Shanae-[place]), 1 TAB PO PRN Bupropion (Wellbutrin Sr), 150 MG PO BID Clobetasol Propionate (Clobetasol Propionate Cream 0.05%), 1 APPLN EXT BID Docusate Sodium (Docusate Sodium), 1 CAP PO BID Escitalopram (Lexapro), 1 TAB PO DAILY Estradiol Vaginal (Vagifem), 1 TAB PV 2XWK Gabapentin (Neurontin), 100 MG PO DAILY Ipratropium-Albuterol (Combivent Respimat), 1 PUFFS INH QID Levothyroxine Sodium (Synthroid), 75 MCG PO DAILY [place] Carbonate ([place] Carbonate), 300 MG PO BID Memantine (Namenda), 10 MG PO BID Montelukast Sod (Montelukast Sodium), 10 MG PO DAILY Omeprazole (Prilosec), 20 MG PO DAILY Rivastigmine Tartrate (Rivastigmine Tartrate), 6 MG PO BID Simethicone (Gas-X Extra Strength), 1 CAP PO PRN Triamcinolone Acetonide (Nasal (Nasal Allergy 24 Hour), 1 SPRAY ANUPAM PRN UD Scheduled PRN Loratadine (Claritin), 10 MG PO DAILY PRN for ALLERGIC REACTION Allergies Coded Allergies: Clarithromycin (Verified Allergy, Severe, ANAPHYLAXIS, 07/20/17) Fluoxetine (Verified Allergy, Unknown, 07/20/17) Gabapentin (Verified Allergy, Unknown, RASH, 07/20/17) Hydrocortisone (Verified Allergy, Unknown, CORTIZONE, 07/20/17) Nitrofurantoin (Verified Allergy, Unknown, RASH, 07/20/17) Sulfa Drugs (Verified Allergy, Unknown, rash, 07/20/17) Moxifloxacin (Unverified Adverse Reaction, Unknown, "very shakey", 07/20/17 ) Physical Exam Vital Signs Date Time Temp Pulse Resp B/P (MAP) Pulse Ox O2 Delivery O2 Flow Rate FiO2 07/20/17 18:07 86 18 152/79 94 Room Air 07/20/17 15:03 36.8 89 18 128/65 95 Room Air Physical Exam GENERAL: sitting up in bed, disheveled, chronically ill-appearing EYE EXAM: normal conjunctiva OROPHARYNX: no exudate, no erythema, lips, buccal mucosa, and tongue normal and mucous membranes are moist NECK: supple, no nuchal rigidity, no adenopathy, non-tender LUNGS: Clear to auscultation. Normal chest wall mechanics HEART: no murmurs, S1 normal and S2 normal ABDOMEN: abdomen soft, non-tender, normo-active bowel sounds, no masses, no rebound or guarding. BACK: Back is symmetrical on inspection and there is no deformity, no midline tenderness, no CVA tenderness. SKIN: no rashes and no bruising UPPER EXTREMITIES: upper extremities are grossly normal. LOWER EXTREMITIES: Left calf larger than right. NEURO EXAM: Normal sensorium, cranial nerves II-XII grossly intact, normal speech, no gross weakness of arms, no gross weakness of legs. Medical Decision & Procedures ER Provider Diagnostic Interpretation: CT:Per my review, radiologist interpretation. VENOUS DOPPLER LW EXT BILAT HISTORY: Pain. Edema. lle pain and known clot on r not taking meds COMPARISON STUDY: 07/04/2017 FINDINGS: Venous Doppler right leg currently is unremarkable. Previously described thrombus is no longer identified. Evaluation of left leg shows evidence for echogenic thrombus within left common femoral vein, proximal to distal femoral vein, as well as popliteal vein. This appears to be a combination of acute and chronic thrombophlebitis. IMPRESSION: 1. 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 2. The right leg currently is negative for acute DVT The above report was generated using voice recognition software. It may contain grammatical, syntax or spelling errors. Electronically signed by: Luigi Peters M.D. 07/20/2017 5:45 PM Dictated Date/Time: 07/20/2017 5:42 PM Laboratory Results 07/20/17 16:27 Red Blood Count 4.30, Mean Corpuscular Volume 97.7, Mean Corpuscular Hemoglobin 32.8, Mean Corpuscular Hemoglobin Concent 33.6, Mean Platelet Volume 10.3, Neutrophils (%) (Auto) 65.8, Lymphocytes (%) (Auto) 18.4, Monocytes (%) (Auto) 10.2, Eosinophils (%) (Auto) 4.7, Basophils (%) (Auto) 0.6, Neutrophils # (Auto ) 5.90, Lymphocytes # (Auto) 1.65, Monocytes # (Auto) 0.91, Eosinophils # (Auto ) 0.42, Basophils # (Auto) 0.05 07/20/17 16:27 Test 07/20/17 16:27 White Blood Count 8.96 K/uL (4.8-10.8) Red Blood Count 4.30 M/uL (4.2-5.4) Hemoglobin 14.1 g/dL (12.0-16.0) Hematocrit 42.0 % (37-47) Mean Corpuscular Volume 97.7 fL (80-100) Mean Corpuscular Hemoglobin 32.8 pg (25-34) Mean Corpuscular Hemoglobin Concent 33.6 g/dl (32-36) Platelet Count 201 K/uL (130-400) Mean Platelet Volume 10.3 fL (7.4-10.4) Neutrophils (%) (Auto) 65.8 % Lymphocytes (%) (Auto) 18.4 % Monocytes (%) (Auto) 10.2 % Eosinophils (%) (Auto) 4.7 % Basophils (%) (Auto) 0.6 % Neutrophils # (Auto) 5.90 K/uL (1.4-6.5) Lymphocytes # (Auto) 1.65 K/uL (1.2-3.4) Monocytes # (Auto) 0.91 K/uL (0.11-0.59) Eosinophils # (Auto) 0.42 K/uL (0-0.5) Basophils # (Auto) 0.05 K/uL (0-0.2) RDW Standard Deviation 47.4 fL (36.4-46.3) RDW Coefficient of Variation 13.3 % (11.5-14.5) Immature Granulocyte % (Auto) 0.3 % Immature Granulocyte # (Auto) 0.03 K/uL (0.00-0.02) Prothrombin Time 9.8 SECONDS (9.0-12.0) Prothromb Time International Ratio 0.9 (0.9-1.1) Activated Partial Thromboplast Time 22.7 SECONDS (21.0-31.0) Partial Thromboplastin Ratio 0.9 Anion Gap 10.0 mmol/L (3-11) Est Creatinine Clear Calc Drug Dose 37.8 ml/min Estimated GFR () 44.9 Estimated GFR (Non- 38.7 BUN/Creatinine Ratio 14.8 (10-20) Calcium Level 9.8 mg/dl (8.5-10.1) Total Bilirubin 0.1 mg/dl (0.2-1) Direct Bilirubin < 0.1 mg/dl (0-0.2) Aspartate Amino Transf (AST/SGOT) 29 U/L (15-37) Alanine Aminotransferase (ALT/SGPT) 28 U/L (12-78) Alkaline Phosphatase 84 U/L (45-117) Total Protein 6.9 gm/dl (6.4-8.2) Albumin 3.7 gm/dl (3.4-5.0) Lipase 604 U/L (73-393) Laboratory results per my review. ED Course ED COURSE: Vital signs were reviewed and showed normal vitals. The patients medical record was reviewed The above diagnostic studies were performed and reviewed. ED treatments and interventions as stated above. 1601: The patient was evaluated in room A4B. A complete history and physical examination was performed. 1806: Upon reevaluation, the patient is resting.I discussed my findings with the patient and she understands and agrees with the treatment plan. Based on the patients age, coexisting illnesses, exam and lab findings the decision to treat as an inpatient was made. The patient remained stable while under my care. The patient will be evaluated for further management. 1807: Ordered Heparin Sodium/Dextrose 1 ea N/A. 1816: I discussed the patient with Dr. Wall - [facility] [place] hospitalist - he will evaluate the patient for further treatment. Medical Decision Differential diagnosis: Etiologies such as DVT, musculoskeletal, infection, joint effusion, trauma, lymphedema, idiopathic, CHF, as well as others were entertained. Patient is an 81-year-old female who presents to ER complaining of left calf pain which has been worsening. She notes she was recently diagnosed with DVTs in her right calf in early June. She was placed on a Xa inhibitor. She notes that she stopped this shortly after that she was having vaginal bleeding. She denied any GI bleeding. Rectal is negative. She does have a previous hysterectomy. Previous CT was reviewed and shows a possible bladder mass. After complete workup readdress this with her and she says maybe it was urinary which can't be sure. She now thinks/favors that it was urinary. Duplex of her right lower extremity shows a resolved DVT. Left lower extremity shows a new DVT. Updated patient family. Will hold on anticoagulation at this time as discussed with internal medicine. She was admitted for DVT with recent hematuria. Medication Reconcilliation Current Medication List: was personally reviewed by me Blood Pressure Screening Patient's blood pressure: Normal blood pressure Consults Time Called: 1809 Consulting Physician: Dr. Mae ZULUAGA hospitalist Returned Call: 1815 (in person) I discussed the patient with Dr. Mae ZULUAGA hospitalist - he will evaluate the patient for further treatment. Impression Primary Impression: DVT (deep venous thrombosis) Additional Impression: Lesion of bladder Scribe Attestation The scribe's documentation has been prepared under my direction and personally reviewed by me in its entirety. I confirm that the note above accurately reflects all work, treatment, procedures, and medical decision making performed by me. Departure Information Dispostion Being Evaluated By Hospitalist Referrals Sima Zaragoza MD (PCP) Patient Instructions My [facility] Problem Qualifiers Primary Impression: DVT (deep venous thrombosis) DVT location: lower extremity Affected thrombotic vein of extremity: unspecified vein of extremity Chronicity: acute Laterality: left Qualified Codes: I82.402 - Acute embolism and thrombosis of unspecified deep veins of left lower extremity
[2017-07-20] MEDS: NSS + 20MEQ KCL 1000ML 1,000 ML IV SCH (20:43)
[2017-07-20] MEDS: RIVASTIGMINE TARTRATE (EXELON) 1.5 MG CAP PO SCH (21:10)
[2017-07-20] MEDS: MEMANTINE 10 MG TAB PO SCH (21:10)
[2017-07-20] MEDS: MONTELUKAST SOD 10 MG TAB PO SCH (21:11)
[2017-07-20] MEDS: BuPROPion SR 150 MG TABCR PO SCH (21:11)
[2017-07-20] MEDS: LITHIUM CARBONATE 300 MG TAB PO SCH (21:12)
[2017-07-20 21:28] VITALS: BP 150/71; PULSE 75; TEMP 36.5; O2SAT 94
[2017-07-20] MEDS: IPRATROPIUM BROMIDE/ALBUTEROL respimat INH INH SCH (21:46)
[2017-07-20 22:36] VITALS: BP 150/71; PULSE 75; TEMP 36.5; Ht 165.1 cm; Wt 96.7 kg
[2017-07-20 23:00] LABS: URINE APPEARANCE CLEAR (CLEAR); URINE BILIRUBIN NEG (NEG); URINE COLOR YELLOW; URINE EPITHELIAL CELL AUTO >30 /lpf (0-5); URINE NITRITE NEG (NEG); URINE SPECIFIC GRAVITY 1.037 (1.000-1.030); UROBILINOGEN NEG (NEG); ZZUR CULT IF INDIC CLEAN CATCH YES
[2017-07-20 23:15] LABS: MANUAL MICROSCOPIC REQUIRED? NO; REVIEW REQ? NO
[2017-07-21] VITALS (9 sets, daily range): BP systolic 122–147; BP diastolic 49–80; PULSE 64–81; TEMP 36.4–37.1; O2SAT 92–95
[2017-07-21] MEDS: IPRATROPIUM BROMIDE/ALBUTEROL respimat INH INH SCH ×5 (02:03→21:18)
[2017-07-21] MEDS: LEVOTHYROXINE 75 MCG TAB PO SCH ×2 (05:57→09:44)
[2017-07-21] MEDS: RIVASTIGMINE TARTRATE (EXELON) 1.5 MG CAP PO SCH ×2 (09:20→21:15)
[2017-07-21] MEDS: LITHIUM CARBONATE 300 MG TAB PO SCH ×2 (09:21→21:16)
[2017-07-21] MEDS: MEMANTINE 10 MG TAB PO SCH ×2 (09:22→21:14)
[2017-07-21] MEDS: GABAPENTIN 100 MG CAP PO SCH (09:24)
[2017-07-21] MEDS: PANTOprazole SOD 40 MG TAB PO SCH ×2 (09:25→21:16)
[2017-07-21] MEDS: BuPROPion SR 150 MG TABCR PO SCH ×2 (09:26→21:16)
[2017-07-21] MEDS: NSS + 20MEQ KCL 1000ML 1,000 ML IV SCH ×2 (09:29→22:46)
--- NOTE | 2017-07-21 09:32 | Urology Consultation ---
History General Date of Service: Jul 21, 2017. Chief Complaint: bladder lesion Primary Care Physician: Sima Zaragoza MD Pt seen a urologist before?: No History of Present Illness 81 yo female admitted for DVT and hematuria. consulted for ? bladder lesion on u/s and CT. The pt reports some intermittent bleeding that started a few weeks ago. She reports noting bleeding in the toilet, but was uncertain whether this was coming from her vagina or bladder. She is unsure if she has any hematuria today. She has had a pelvic exam and has a hx of hysterectomy. She is a former smoker. Denies other issues today. Reports she wants to restart her anticoagulation for her DVT. Imaging Imaging: Ultrasound Laboratory Last 24 Hours Test 07/20/17 16:27 07/20/17 22:15 White Blood Count 8.96 K/uL Red Blood Count 4.30 M/uL Hemoglobin 14.1 g/dL Hematocrit 42.0 % Mean Corpuscular Volume 97.7 fL Mean Corpuscular Hemoglobin 32.8 pg Mean Corpuscular Hemoglobin Concent 33.6 g/dl Platelet Count 201 K/uL Mean Platelet Volume 10.3 fL Neutrophils (%) (Auto) 65.8 % Lymphocytes (%) (Auto) 18.4 % Monocytes (%) (Auto) 10.2 % Eosinophils (%) (Auto) 4.7 % Basophils (%) (Auto) 0.6 % Neutrophils # (Auto) 5.90 K/uL Lymphocytes # (Auto) 1.65 K/uL Monocytes # (Auto) 0.91 K/uL Eosinophils # (Auto) 0.42 K/uL Basophils # (Auto) 0.05 K/uL RDW Standard Deviation 47.4 fL RDW Coefficient of Variation 13.3 % Immature Granulocyte % (Auto) 0.3 % Immature Granulocyte # (Auto) 0.03 K/uL Prothrombin Time 9.8 SECONDS Prothromb Time International Ratio 0.9 Activated Partial Thromboplast Time 22.7 SECONDS Partial Thromboplastin Ratio 0.9 Sodium Level 144 mmol/L Potassium Level 4.1 mmol/L Chloride Level 113 mmol/L Carbon Dioxide Level 21 mmol/L Anion Gap 10.0 mmol/L Blood Urea Nitrogen 19 mg/dl Creatinine 1.30 mg/dl Est Creatinine Clear Calc Drug Dose 37.8 ml/min Estimated GFR () 44.9 Estimated GFR (Non- 38.7 BUN/Creatinine Ratio 14.8 Random Glucose 85 mg/dl Calcium Level 9.8 mg/dl Total Bilirubin 0.1 mg/dl Direct Bilirubin < 0.1 mg/dl Aspartate Amino Transf (AST/SGOT) 29 U/L Alanine Aminotransferase (ALT/SGPT) 28 U/L Alkaline Phosphatase 84 U/L Total Protein 6.9 gm/dl Albumin 3.7 gm/dl Lipase 604 U/L Urine Color YELLOW Urine Appearance CLEAR Urine pH 6.0 Urine Specific [place] 1.037 Urine Protein NEG Urine Glucose (UA) NEG Urine Ketones NEG Urine Occult Blood NEG Urine Nitrite NEG Urine Bilirubin NEG Urine Urobilinogen NEG Urine Leukocyte Esterase SMALL Urine WBC (Auto) 10-30 /hpf Urine RBC (Auto) 0-4 /hpf Urine Hyaline Casts (Auto) 0 /lpf Urine Epithelial Cells (Auto) >30 /lpf Urine Bacteria (Auto) NEG Problem List Medical Problems: (1) Deep vein thrombosis (DVT) Status: Acute (2) DVT (deep venous thrombosis) Status: Acute (3) Hypothyroidism Status: Chronic Past History asthma, bipolar disorder, COPD, deep vein thrombosis, dementia, GERD, hypertension, hypothyroidism, kidney stones, lung disease, pneumonia, urinary tract infection Past Surgical History: cholecystectomy, hysterectomy, other Family History FH: cancer Social History Hx Tobacco Use In Past Year?: No Smoking: other (former smoker) Alcohol: other Drug use: none Marital status: single Housing status: lives alone Occupation status: retired Immunizations History of Influenza Vaccine: No History of Tetanus Vaccine?: No History of Pneumococcal: Yes Pneumococcal Date: Nov 21, 2009 History of Hepatitis B Vaccine: No History of MDRO No Allergies Coded Allergies: Clarithromycin (Verified Allergy, Severe, ANAPHYLAXIS, 07/20/17) Fluoxetine (Verified Allergy, Unknown, 07/20/17) Gabapentin (Verified Allergy, Unknown, RASH, 07/20/17) Hydrocortisone (Verified Allergy, Unknown, CORTIZONE, 07/20/17) Nitrofurantoin (Verified Allergy, Unknown, RASH, 07/20/17) Sulfa Drugs (Verified Allergy, Unknown, rash, 07/20/17) Moxifloxacin (Unverified Adverse Reaction, Unknown, "very shakey", 07/20/17 ) Medications Home Medications: Home Meds and Scripts Medications Dose Route/Sig Max Daily Dose Days Date Category Eliquis (Apixaban) 5 Mg Tab 5 Mg PO UNKNOWN 07/20/17 Reported Montelukast Sodium (Montelukast Sod) 10 Mg Tab 10 Mg PO DAILY 07/20/17 Reported Shanae-[place] (Aspirin Effervescent) 1 Tab Tab 1 Tab PO PRN 07/04/17 Reported Claritin (Loratadine) 10 Mg Tab 10 Mg PO DAILY PRN 07/04/17 Reported Clobetasol Propionate Cream 0.05% (Clobetasol Propionate) 90 Appln/30 Gm Cr 1 Appln EXT BID 07/04/17 Reported Combivent Respimat (Ipratropium-Albuterol) 1 Aer Aer 1 Puffs INH QID 07/04/17 Reported Docusate Sodium 100 Mg Cap 1 Cap PO BID 7 07/04/17 Reported Lexapro (Escitalopram Oxalate) Unknown Strength Tab 1 Tab PO DAILY 07/04/17 Reported Neurontin (Gabapentin) 100 Mg Cap 100 Mg PO DAILY 07/04/17 Reported Gas-X Extra Strength (Simethicone) 125 Mg Chw 1 Cap PO PRN 07/04/17 Reported Nasal Allergy 24 Hour (Triamcinolone Acetonide (Nasal) 55 Mcg/Act Spr 1 [place] ANUPAM PRN UD 07/04/17 Reported Prilosec (Omeprazole) 20 Mg Capcr 20 Mg PO DAILY 07/04/17 Reported Vagifem (Estradiol Vaginal) 10 Mcg Tab 1 Tab PV 2XWK 28 07/04/17 Reported Synthroid (Levothyroxine Sodium) 75 Mcg Tab 75 Mcg PO DAILY 07/04/17 Reported Rivastigmine Tartrate 6 Mg Cap 6 Mg PO BID 06/19/14 Reported Wellbutrin Sr (Bupropion HCl) 150 Mg Ertab 150 Mg PO BID 06/19/14 Reported [place] Carbonate 300 Mg Cap 300 Mg PO BID 12/21/06 Reported Namenda (Memantine) 10 Mg Tab 10 Mg PO BID 12/21/06 Reported Inpatient Medications: Current Inpatient Medications Medications (Trade) Dose Ordered Sig/Della Route Start Time Stop Time Status Last Admin Dose Admin Ioversol (Optiray 320) 111 ml UD PRN IV 07/20/17 18:30 07/24/17 18:29 Potassium Chloride/Sodium Chloride 1,000 ml @ 75 mls/hr [id number] IV 07/20/17 20:30 08/19/17 20:29 07/20/17 20:43 75 MLS/HR Acetaminophen (Tylenol Tab) 650 mg Q4H PRN PO 07/20/17 19:00 08/19/17 18:59 Bupropion HCl (Wellbutrin-Sr Tab) 150 mg BID PO 07/20/17 21:00 08/19/17 20:59 07/20/17 21:11 150 MG Gabapentin (Neurontin Cap) 100 mg DAILY PO 07/21/17 09:00 08/20/17 08:59 Albuterol/ Ipratropium (Combivent Respimat Inh) 1 puffs QID INH 07/20/17 21:00 08/19/17 20:59 07/21/17 02:03 1 PUFFS Levothyroxine Sodium (Synthroid Tab) 75 mcg DAILYBB PO 07/21/17 06:30 08/20/17 06:29 Memantine (Namenda Tab) 10 mg BID PO 07/20/17 21:00 08/19/17 20:59 07/20/17 21:10 10 MG Montelukast Sodium (Singulair Tab) 10 mg HS PO 07/20/17 21:00 08/19/17 20:59 07/20/17 21:11 10 MG Triamcinolone Acetonide (Nasacort Allergy 24hr) 1 sprays BID PRN ANUPAM 07/20/17 19:00 08/19/17 18:59 Rivastigmine Tartrate ([place] Cap) 6 mg BID PO 07/20/17 21:00 08/19/17 20:59 07/20/17 21:10 6 MG [place] Carbonate ([place] Carbonate Tab) 300 mg BID PO 07/20/17 21:00 08/19/17 20:59 07/20/17 21:12 300 MG Pantoprazole Sodium (Protonix Tab) 40 mg QAM PO 07/21/17 09:00 08/20/17 08:59 Review of Systems Review of Systems Constitutional: No fever, No chills Eyes: No double vision Neurological: No dizzy Endocrine: No excessive thirst Gastrointestinal: No abdominal pain, No nausea, No vomiting Cardiovascular: No chest pain Respiratory: No shortness of breath Skin: No rash Musculoskeletal: + arthritis Female : + blood in urine, No painful urination Physical Exam Vital Signs: Vital Signs Past 12 Hours Date Time Temp Pulse Resp B/P (MAP) Pulse Ox O2 Delivery O2 Flow Rate FiO2 07/21/17 08:00 Room Air 07/21/17 07:22 36.7 69 20 137/67 (90) 94 Room Air 07/21/17 04:00 36.7 81 18 131/74 (93) 92 Room Air 07/21/17 04:00 Room Air 07/21/17 00:54 36.4 64 18 147/49 (81) 95 Room Air 07/21/17 00:00 Room Air 07/20/17 22:36 36.5 75 18 150/71 Room Air 07/20/17 21:28 36.5 75 18 150/71 (97) 94 Room Air Physical Exam: General Appearance: no apparent distress, + obese Eyes: bilateral eyes normal inspection ENT: hearing grossly normal Neck: no JVD Respiratory/Chest: no respiratory distress, no accessory muscle use Cardiovascular: no JVD Extremities: normal inspection Neurologic/Psychiatric: alert, normal mood/affect, oriented x 3 Skin: normal color Assessment & Plan Assessment & Plan A/P: ? hematuria, ? bladder lesion on imaging AFVSS. UC&S and cytology pending. Will need an outpatient cysto for further evaluation of lesion. Will arrange. As for her anticoagulation, may resume once active bleeding stops. Thanks for the consult. No further management at this time. Recall PRN issues.
--- NOTE | 2017-07-21 09:59 | Hospitalist Progress Note ---
Hospitalist Progress Note Date of Service Jul 21, 2017. (Tanesha Ellison CRNP) Subjective Pt evaluation today including: conversation w/ patient, physical exam, chart review, lab review, conversation w/ systems security consultant Voiding: no voiding problems Respiratory: No cough, No shortness of breath Cardiovascular: No chest pain Abdomen: No pain, No nausea, No vomiting, No diarrhea Female : No dysuria All Other Systems: Reviewed and Negative (Tanesha Ellison CRNP) Medications Medications (Trade) Dose Ordered Sig/Della Route Start Time Stop Time Status Last Admin Dose Admin Potassium Chloride/Sodium Chloride 1,000 ml @ 75 mls/hr [id number] IV 07/20/17 20:30 08/19/17 20:29 07/21/17 09:29 75 MLS/HR Bupropion HCl (Wellbutrin-Sr Tab) 150 mg BID PO 07/20/17 21:00 08/19/17 20:59 07/21/17 09:26 150 MG Gabapentin (Neurontin Cap) 100 mg DAILY PO 07/21/17 09:00 08/20/17 08:59 07/21/17 09:24 100 MG Albuterol/ Ipratropium (Combivent Respimat Inh) 1 puffs QID INH 07/20/17 21:00 08/19/17 20:59 07/21/17 09:19 1 PUFFS Levothyroxine Sodium (Synthroid Tab) 75 mcg DAILYBB PO 07/21/17 06:30 08/20/17 06:29 07/21/17 09:44 75 MCG Memantine (Namenda Tab) 10 mg BID PO 07/20/17 21:00 08/19/17 20:59 07/21/17 09:22 10 MG Montelukast Sodium (Singulair Tab) 10 mg HS PO 07/20/17 21:00 08/19/17 20:59 07/20/17 21:11 10 MG Rivastigmine Tartrate (Exelon Cap) 6 mg BID PO 07/20/17 21:00 08/19/17 20:59 07/21/17 09:20 6 MG [place] Carbonate ([place] Carbonate Tab) 300 mg BID PO 07/20/17 21:00 08/19/17 20:59 07/21/17 09:21 300 MG Pantoprazole Sodium (Protonix Tab) 40 mg QAM PO 07/21/17 09:00 08/20/17 08:59 07/21/17 09:25 40 MG (Tanesha Ellison CRNP) Objective Vital Signs Date Time Temp Pulse Resp B/P (MAP) Pulse Ox O2 Delivery O2 Flow Rate FiO2 07/21/17 08:00 Room Air 07/21/17 07:22 36.7 69 20 137/67 (90) 94 Room Air 07/21/17 04:00 36.7 81 18 131/74 (93) 92 Room Air 07/21/17 04:00 Room Air 07/21/17 00:54 36.4 64 18 147/49 (81) 95 Room Air 07/21/17 00:00 Room Air 07/20/17 22:36 36.5 75 18 150/71 Room Air 07/20/17 21:28 36.5 75 18 150/71 (97) 94 Room Air 07/20/17 18:07 86 18 152/79 94 Room Air 07/20/17 15:03 36.8 89 18 128/65 95 Room Air (Tanesha Ellison CRNP) Physical Exam Notes: General: no distress Eyes: normal inspection, PERLL Respiratory: chest non tender, clear to auscultation, normal breath sounds, no respiratory distress, no accessory muscle use Cardiac: regular rate and rhythm, no rub or gallop, no murmur, no edema, no jvd GI/: active bowel sounds, no abd pain or tenderness, soft, non distended, tenderness over suprapubic area to palpation Extremities: normal range of motion, normal strength, non tender Neuro/Psych: alert and oriented x 3, normal mood and affect Skin: normal color, dry (Tanesha Ellison CRNP) Laboratory Results Last 24 Hours Test 07/20/17 16:27 07/20/17 22:15 White Blood Count 8.96 K/uL Red Blood Count 4.30 M/uL Hemoglobin 14.1 g/dL Hematocrit 42.0 % Mean Corpuscular Volume 97.7 fL Mean Corpuscular Hemoglobin 32.8 pg Mean Corpuscular Hemoglobin Concent 33.6 g/dl Platelet Count 201 K/uL Mean Platelet Volume 10.3 fL Neutrophils (%) (Auto) 65.8 % Lymphocytes (%) (Auto) 18.4 % Monocytes (%) (Auto) 10.2 % Eosinophils (%) (Auto) 4.7 % Basophils (%) (Auto) 0.6 % Neutrophils # (Auto) 5.90 K/uL Lymphocytes # (Auto) 1.65 K/uL Monocytes # (Auto) 0.91 K/uL Eosinophils # (Auto) 0.42 K/uL Basophils # (Auto) 0.05 K/uL RDW Standard Deviation 47.4 fL RDW Coefficient of Variation 13.3 % Immature Granulocyte % (Auto) 0.3 % Immature Granulocyte # (Auto) 0.03 K/uL Prothrombin Time 9.8 SECONDS Prothromb Time International Ratio 0.9 Activated Partial Thromboplast Time 22.7 SECONDS Partial Thromboplastin Ratio 0.9 Sodium Level 144 mmol/L Potassium Level 4.1 mmol/L Chloride Level 113 mmol/L Carbon Dioxide Level 21 mmol/L Anion Gap 10.0 mmol/L Blood Urea Nitrogen 19 mg/dl Creatinine 1.30 mg/dl Est Creatinine Clear Calc Drug Dose 37.8 ml/min Estimated GFR () 44.9 Estimated GFR (Non- 38.7 BUN/Creatinine Ratio 14.8 Random Glucose 85 mg/dl Calcium Level 9.8 mg/dl Total Bilirubin 0.1 mg/dl Direct Bilirubin < 0.1 mg/dl Aspartate Amino Transf (AST/SGOT) 29 U/L Alanine Aminotransferase (ALT/SGPT) 28 U/L Alkaline Phosphatase 84 U/L Total Protein 6.9 gm/dl Albumin 3.7 gm/dl Lipase 604 U/L Urine Color YELLOW Urine Appearance CLEAR Urine pH 6.0 Urine Specific [place] 1.037 Urine Protein NEG Urine Glucose (UA) NEG Urine Ketones NEG Urine Occult Blood NEG Urine Nitrite NEG Urine Bilirubin NEG Urine Urobilinogen NEG Urine Leukocyte Esterase SMALL Urine WBC (Auto) 10-30 /hpf Urine RBC (Auto) 0-4 /hpf Urine Hyaline Casts (Auto) 0 /lpf Urine Epithelial Cells (Auto) >30 /lpf Urine Bacteria (Auto) NEG (Tanesha Ellison CRNP) Assessment and Plan Ms. Gillespie is an 81 year old woman here for left lower leg dvt after cessation of Eliquis for right lower extremity dvt. She took the Eliquis x1 dose on 07/05 after diagnosis of a DVT in her right lower extremity 07/04. She had been having urinary or vaginal bleeding for months before taking the Eliquis which made the problem worse. Acute left lower leg DVT with resolved right lower leg DVT - there is a risk for bleeding so heparin gtt will be initiated. If bleeding restarts, we will stop the drip. At that point we may want to consider IVC filter. Bladder lesion with history of hematuria - demonstrated on both CT and bladder ultrasound. - Urology saw the patient this morning and felt that her cystoscopy could be held off until out patient. Urine cytology pending. UTI - Keflex BID Depression/dementia-- Continue bupropion, Lexapro, gabapentin, lithium carbonate, Namenda, Exelon. Hypothyroidism-- Continue levothyroxine sodium. GERD-- Change omeprazole to pantoprazole. COPD-- Continue Combivent and montelukast. Diarrhea - patient is having multiple bowel movements per day. Check C diff. This may also be due to patient's long standing constipation. May need miralax or other laxative if C diff is negative. DVT prophylaxis - heparin gtt Code status - full resuscitation (Tanesha Ellison ., STEFANY) KEYBOARDING CLERK Physician Supervision Note: I interviewed and examined the patient. Discussed with Sammi Ellison KEYBOARDING CLERK and agree with findings and plan as documented in the note. Any exceptions or clarifications are listed here: None Patient is here with hematuria and acute DVT with a possible bladder mass she may have a urinary tract infection present on admission. Vital signs are stable no further hematuria but she has not been anticoagulated yet initiating intravenous heparin therapy at this point Abdomen normoactive bowel sounds soft and nontender Acute DVT in the setting of recent DVT and bladder mass of undetermined diagnosis plan to institute heparin therapy if she has no bleeding we'll transition her to a more long-term anticoagulant with outpatient workup of her bladder mass been coronary by urology, if she has rebleeding of possible latter mass we'll remain on IV heparin and coordinate with urology for possible inpatient evaluation Documented By: Nazario Carlos (Nazario Carlos M.D.)
[2017-07-21] MEDS ORDERED: APIXABAN 2.5 MG TAB PO ONE (11:20)
[2017-07-21] MEDS ORDERED: CEPHALEXIN MONOHYDRATE 500 MG CAP PO ONE (11:20)
[2017-07-21] MEDS ORDERED: HEPARIN IV BOLUS 6,000 UNIT in SYRINGE 0 ML IV ONE (14:00)
[2017-07-21 14:12] LABS: BASO % 0.4 %; BASO ABS # 0.03 K/uL (0-0.2); EOS % 4.1 %; HEMATOCRIT 40.3 % (37-47); IG% 0.4 %; LYMPH % 14.5 %; LYMPH ABS # 1.14 K/uL (1.2-3.4); MEAN CELL VOLUME 97.3 fL (80-100); MEAN CORPUSCULAR HEMOGLOBIN 32.6 pg (25-34); MEAN PLATELET VOLUME 10.3 fL (7.4-10.4); MONO % 7.2 %; NEUT % 73.4 %; PLATELET COUNT 182 K/uL (130-400); RED BLOOD COUNT 4.14 M/uL (4.2-5.4); WHITE BLOOD COUNT 7.87 K/uL (4.8-10.8)
[2017-07-21 14:30] LABS: COMPLETE YES; MEAN CORPUSCULAR HGB CONC 33.5 g/dl (32-36)
[2017-07-21 14:37] LABS: PARTIAL THROMBOPLASTIN RATIO 0.9; PROTHROMBIN TIME (PATIENT) 10.7 SECONDS (9.0-12.0)
[2017-07-21] MEDS: HEPARIN 25,000 UNIT/500ML D5W 500 ML IV PRN ×2 (15:27→22:41)
[2017-07-21] MEDS ORDERED: APIXABAN 2.5 MG TAB PO SCH (21:00)
[2017-07-21] MEDS: CEPHALEXIN MONOHYDRATE 500 MG CAP PO SCH (21:14)
[2017-07-21] MEDS: MONTELUKAST SOD 10 MG TAB PO SCH (21:16)
[2017-07-21 22:34] LABS: PARTIAL THROMBOPLASTIN RATIO 2.7
[2017-07-22] VITALS (16 sets, daily range): BP systolic 101–180; BP diastolic 62–90; PULSE 67–84; TEMP 36.5–37.6; O2SAT 91–98
[2017-07-22 04:52] LABS: HEMATOCRIT 40.5 % (37-47); MEAN CELL VOLUME 98.8 fL (80-100); MEAN CORPUSCULAR HEMOGLOBIN 31.7 pg (25-34); MEAN CORPUSCULAR HGB CONC 32.1 g/dl (32-36); MEAN PLATELET VOLUME 10.3 fL (7.4-10.4); PLATELET COUNT 174 K/uL (130-400); WHITE BLOOD COUNT 8.06 K/uL (4.8-10.8)
[2017-07-22 05:07] LABS: BUN/CREATININE RATIO 11.2 (10-20); CALCIUM 8.5 mg/dl (8.5-10.1); CREATININE 1.3 mg/dl (0.60-1.20)
[2017-07-22 05:09] LABS: PARTIAL THROMBOPLASTIN RATIO 2.8
[2017-07-22] MEDS ORDERED: CEFAZOLIN 2000 MG/60 ML D5W IV SCH (06:00)
[2017-07-22] MEDS: LEVOTHYROXINE 75 MCG TAB PO SCH (06:15)
[2017-07-22] MEDS: HEPARIN 25,000 UNIT/500ML D5W 500 ML IV PRN (06:15)
[2017-07-22] MEDS ORDERED: NURSING VERBAL MED ORDER ONE (06:26)
--- NOTE | 2017-07-22 07:02 | Progress Note ---
Progress Note Date of Service Jul 22, 2017. Progress Note Nursing reports that patient has some urinary bleeding Noted that she has had a history of bleeding on anticoagulation Patient is currently on IV heparin for DVT treatment I instructed nursing to hold heparin until re-assessed by day team Patient is otherwise stable
[2017-07-22] MEDS: BuPROPion SR 150 MG TABCR PO SCH ×2 (08:47→20:38)
[2017-07-22] MEDS: IPRATROPIUM BROMIDE/ALBUTEROL respimat INH INH SCH ×4 (08:47→20:36)
[2017-07-22] MEDS: LITHIUM CARBONATE 300 MG TAB PO SCH ×2 (08:48→20:38)
[2017-07-22] MEDS: GABAPENTIN 100 MG CAP PO SCH (08:49)
[2017-07-22] MEDS: MEMANTINE 10 MG TAB PO SCH ×2 (08:49→20:38)
[2017-07-22] MEDS: RIVASTIGMINE TARTRATE (EXELON) 1.5 MG CAP PO SCH ×2 (08:49→20:37)
[2017-07-22] MEDS: PANTOprazole SOD 40 MG TAB PO SCH (08:49)
[2017-07-22] MEDS: CEPHALEXIN MONOHYDRATE 500 MG CAP PO SCH ×2 (08:50→20:37)
[2017-07-22] MEDS ORDERED: PSYLLIUM 58.6% PWD PACK S\\F PO SCH (09:00)
--- NOTE | 2017-07-22 09:04 | Surgery Consultation ---
Consultation Date of Service Jul 22, 2017. (Rema Arboleda, YUMIKO) Chief Complaint DVT, hematuria from bladder mass (Rema Arboleda, YUMIKO) History of Present Illness The patient is a 81 year old female with hx of DVT, mild dementia, and hypothyroidism, admitted with bleeding from bladder mass and DVT, seen in consultation today for possible IVC filter insertion. Pt was started on anticoagulation a few weeks ago after DVT noted in RLE, then eliquis stopped d/ t hematuria. Upon admission, noted to have acute and chronic DVT in LLE and heparin drip started, however, hematuria began and heparin stopped now. Pt has large bladder mass noted on imaging. Pt denies SAAB, fever, chills, chest pain, SOB, abd pain, N/V, rest pain, claudication, other complaints. (Rema Arboleda, YUMIKO) Vitals Vital Signs Past 12 Hours Date Time Temp Pulse Resp B/P (MAP) Pulse Ox O2 Delivery O2 Flow Rate FiO2 07/22/17 08:16 Room Air 07/22/17 07:08 36.7 71 20 124/73 (90) 94 Room Air 07/22/17 04:00 Room Air 07/22/17 03:58 36.6 78 16 118/68 (85) 98 Room Air 07/22/17 00:00 Room Air 07/21/17 23:49 37.1 69 20 131/76 (94) 92 Room Air (Rema Arboleda, YUMIKO) Allergies Coded Allergies: Clarithromycin (Verified Allergy, Severe, ANAPHYLAXIS, 07/20/17) Fluoxetine (Verified Allergy, Unknown, 07/20/17) Gabapentin (Verified Allergy, Unknown, RASH, 07/20/17) Hydrocortisone (Verified Allergy, Unknown, CORTIZONE, 07/20/17) Nitrofurantoin (Verified Allergy, Unknown, RASH, 07/20/17) Sulfa Drugs (Verified Allergy, Unknown, rash, 07/20/17) Moxifloxacin (Unverified Adverse Reaction, Unknown, "very shakey", 07/20/17 ) Home Medications Scheduled Apixaban (Eliquis), 5 MG PO UNKNOWN Aspirin Effervescent ([place]), 1 TAB PO PRN Bupropion (Wellbutrin Sr), 150 MG PO BID Clobetasol Propionate (Clobetasol Propionate Cream 0.05%), 1 APPLN EXT BID Docusate Sodium (Docusate Sodium), 1 CAP PO BID Escitalopram (Lexapro), 1 TAB PO DAILY Estradiol Vaginal (Vagifem), 1 TAB PV 2XWK Gabapentin (Neurontin), 100 MG PO DAILY Ipratropium-Albuterol (Combivent Respimat), 1 PUFFS INH QID Levothyroxine Sodium (Synthroid), 75 MCG PO DAILY [place] Carbonate ([place] Carbonate), 300 MG PO BID Memantine (Namenda), 10 MG PO BID Montelukast Sod (Montelukast Sodium), 10 MG PO DAILY Omeprazole (Prilosec), 20 MG PO DAILY Rivastigmine Tartrate (Rivastigmine Tartrate), 6 MG PO BID Simethicone (Gas-X Extra Strength), 1 CAP PO PRN Triamcinolone Acetonide (Nasal (Nasal Allergy 24 Hour), 1 SPRAY ANUPAM PRN UD Scheduled PRN Loratadine (Claritin), 10 MG PO DAILY PRN for ALLERGIC REACTION Problem List Medical Problems: (1) Asthma (2) Bipolar disorder (3) Carpal tunnel surgery (4) Chest pain (5) COPD (chronic obstructive pulmonary disease) (6) Dizziness (7) Dyspnea on exertion (8) GERD (gastroesophageal reflux disease) (9) History of DVT (deep vein thrombosis) (10) Hypertension (11) Hypothyroidism (12) Irritable bowel syndrome (13) Left leg DVT (14) Lesion of bladder (15) Mild dementia (16) Pneumonia (17) Shock therapy (18) Urinary tract infection (19) Urinary tract infection Surgical Problems: (1) History of hysterectomy (2) Hx of cholecystectomy (Rema Arboleda PA-C) Surgical / Medical History Hx Cardiac Surgery: No Hx Abdominal Surgery: Yes (gallbladder, hysterectomy) Hx Cancer Surgery: No Hx Thoracic Surgery: No Hx Orthopedic: Yes (left knee total) Hx Urinary Tract Surgery: No HX Other Surgery: No Past Medical/Surgical History: Other Psy. Disorders, Thyroid Disease (Rema Arboleda PA-C) Family History FH: cancer (Rema Arboleda PA-C) FH: cancer (Yohannes Sheehan M.D.) Social History Smoking Status: Former Smoker Hx Tobacco Use In Past Year?: No Hx Alcohol Use - Type & Amnt: No Hx Substance Use -Type & Amnt: No (Rema Arboleda PA-C) Review of Systems Constitutional: No chills, No fever, No malaise Skin: No change in color Eyes: No visual changes ENMT: No sore throat Respiratory: No cough, No WALKER, No hemoptysis, No short of breath Cardiovascular: + edema (mild chronic), No chest pain, No palpitations, No intermittent claudication Gastrointestinal: No abdominal pain, No nausea, No vomiting Genitourinary - Female: + hematuria, No dysuria Neurologic: No dizziness, No headache, No numbness, No tingling (Rema Arboleda PA-C) Physical Exam Constitutional: General Apperance: well-nourished, well-developed Level of Distress: chronically ill (mildly) Ambulation: ambulating normally Psychiatric: Mental Status: active & alert, normal mood, normal affect Orientation: oriented except where noted, to time, to place, to person Memory: recent memory normal, remote memory normal Head: normocephalic, atraumatic Eyes: EOM: EOMI ENMT: normal ENT inspection, hearing grossly normal Neck: supple, trachea midline Lungs: Respiratory effort: no dyspnea Auscultation: no wheezing, no rales/crackles, no rhonchi Cardiovascular: Apical Impulse: not displaced Heart Auscultation: RRR, no rubs, no gallops Peripheral Pulses: Pulses: full and equal, in all extremities except if noted Bruits: none appreciated Carotid Pulse: normal on the left, normal on the right Brachial Pulses: normal on the left, normal on the right Radial Pulse: normal on the left, normal on the right Femoral Pulse: normal on the left, normal on the right Posterior Tibialis Pulse: decreased on the left, decreased on the right Dorsalis Pedis Pulse: decreased on the left, decreased on the right Abdomen: Bowel Sounds: normal Inspection & Palpation: soft, non-distended, no tenderness, guarding & rebound Musculoskeletal: normal strength (5/5 throughout), normal tone Extremities: Upper Right: no cyanosis, no edema, no varicosities Upper Left: no cyanosis, no edema, no varicosities Lower Right: no cyanosis, no varicosities, no palpable cord, edema Lower Left: no cyanosis, no varicosities, no palpable cord, edema Neurologic: Cranial Nerves: grossly intact Sensation: grossly intact (Rema Arboleda, PA-C) Assessment and Plan ASSESSMENT and PLAN: DVT Bladder mass with hematuria Pt discussed with Dr Sheehan, recommends IVC filter insertion. Pt unsure if she is willing to have IVC filter insertion unless it is removable. Assured pt that we typically reassess patients who receive a filter in 3-4 months to determine whether it is safe to be removed, but that not all patients are candidates for filter removal. Procedure and risks were discussed with pt's daughter by phone at pt's request, daughter is agreeable to procedure. After further discussion with pt, she is also agreeable. Planning for IVC filter insertion this afternoon. (Rema Arboleda, PA-C) Patient was seen, examined, and chart reviewed. Agree with exam and treatment plan of the Vascular PA. Patient for insertion of filter. I have discussed the risks options and benefits of the procedure with the patient. The patient understands the risks options and benefits and agrees to the procedure. (Yohannes Sheehan M.D.)
--- NOTE | 2017-07-22 09:41 | Progress Note ---
Subjective Date of Service: Jul 22, 2017. Subjective Pt evaluation today including: conversation w/ family, chart review, lab review , review of studies 81 year old female with very large bladder mass with continued hematuria. She has been anticoagulated for DVT Hemodynamically stable. Creatinine stable. Vascular surgery consulted for IVC filter placement. AFVSS. Problem List Medical Problems: (1) Deep vein thrombosis (DVT) Status: Acute (2) DVT (deep venous thrombosis) Status: Acute (3) Hypothyroidism Status: Chronic Review of Systems Constitutional: No fever, No chills ENT: No hearing loss Respiratory: No cough Abdomen: No pain, No nausea Female : + hematuria Heme: + see HPI Objective Vital Signs Date Time Temp Pulse Resp B/P (MAP) Pulse Ox O2 Delivery O2 Flow Rate FiO2 07/22/17 08:16 Room Air 07/22/17 07:08 36.7 71 20 124/73 (90) 94 Room Air 07/22/17 04:00 Room Air 07/22/17 03:58 36.6 78 16 118/68 (85) 98 Room Air 07/22/17 00:00 Room Air 07/21/17 23:49 37.1 69 20 131/76 (94) 92 Room Air 07/21/17 20:20 Room Air 07/21/17 19:31 36.6 70 20 130/80 (97) 94 Room Air 07/21/17 16:00 Room Air 07/21/17 15:55 36.4 71 18 122/76 (91) 94 Room Air 07/21/17 12:00 Room Air 07/21/17 12:00 Room Air 07/21/17 11:17 36.9 76 18 122/66 (84) 93 Room Air 07/21/17 10:39 94 Room Air 07/21/17 09:59 94 Room Air Physical Exam General Appearance: WD/WN, no apparent distress Respiratory/Chest: no respiratory distress, no accessory muscle use Neurologic/Psychiatric: alert, normal mood/affect Laboratory Results Last 24 Hours Test 07/21/17 14:02 07/21/17 21:50 07/22/17 04:29 White Blood Count 7.87 K/uL 8.06 K/uL Red Blood Count 4.14 M/uL 4.10 M/uL Hemoglobin 13.5 g/dL 13.0 g/dL Hematocrit 40.3 % 40.5 % Mean Corpuscular Volume 97.3 fL 98.8 fL Mean Corpuscular Hemoglobin 32.6 pg 31.7 pg Mean Corpuscular Hemoglobin Concent 33.5 g/dl 32.1 g/dl Platelet Count 182 K/uL 174 K/uL Mean Platelet Volume 10.3 fL 10.3 fL Neutrophils (%) (Auto) 73.4 % Lymphocytes (%) (Auto) 14.5 % Monocytes (%) (Auto) 7.2 % Eosinophils (%) (Auto) 4.1 % Basophils (%) (Auto) 0.4 % Neutrophils # (Auto) 5.78 K/uL Lymphocytes # (Auto) 1.14 K/uL Monocytes # (Auto) 0.57 K/uL Eosinophils # (Auto) 0.32 K/uL Basophils # (Auto) 0.03 K/uL RDW Standard Deviation 47.2 fL 48.3 fL RDW Coefficient of Variation 13.3 % 13.4 % Immature Granulocyte % (Auto) 0.4 % Immature Granulocyte # (Auto) 0.03 K/uL Prothrombin Time 10.7 SECONDS Prothromb Time International Ratio 1.0 Activated Partial Thromboplast Time 24.2 SECONDS 70.9 SECONDS 72.3 SECONDS Partial Thromboplastin Ratio 0.9 2.7 2.8 Sodium Level 145 mmol/L Potassium Level 4.0 mmol/L Chloride Level 115 mmol/L Carbon Dioxide Level 23 mmol/L Anion Gap 7.0 mmol/L Blood Urea Nitrogen 15 mg/dl Creatinine 1.30 mg/dl Est Creatinine Clear Calc Drug Dose 38.0 ml/min Estimated GFR () 44.9 Estimated GFR (Non- 38.7 BUN/Creatinine Ratio 11.2 Random Glucose 136 mg/dl Calcium Level 8.5 mg/dl Assessment and Plan Hematuria related to bladder mass. We will continue to monitor her closely. Currently we are not planning on urgent TURBT. Vascular surgery planning on IVC filter today. We will reassess her tomorrow for need for TURBT- will most likely plan on this in the next few days. Will continue to follow along with primary service. Please notify if hematuria worsens.
--- NOTE | 2017-07-22 11:27 | Hospitalist Progress Note ---
Hospitalist Progress Note Date of Service Jul 22, 2017. (Tanesha Ellison CRNP) Subjective Pt evaluation today including: conversation w/ patient, physical exam, chart review, lab review, review of inpatient medication list Voiding: no voiding problems Ms. Gillespie does not have complaints this morning. She does not have pain or increased sob. She did have some hematuria overnight. Constitutional: No fever, No chills Respiratory: + shortness of breath (baseline), No cough Cardiovascular: No chest pain, No palpitations Abdomen: No pain, No nausea, No vomiting All Other Systems: Reviewed and Negative (Tanesha Ellison CRNP) Medications Medications (Trade) Dose Ordered Sig/Della Route Start Time Stop Time Status Last Admin Dose Admin Cephalexin Monohydrate (Keflex Cap) 500 mg BID PO 07/21/17 21:00 07/26/17 20:59 07/22/17 08:50 500 MG Heparin Sodium (Porcine) 6000 unit/Syringe 6 ml @ 10 mls/min TODAY@1400 ONCE IV 07/21/17 14:00 07/21/17 14:01 DC 07/21/17 15:27 10 MLS/MIN Heparin Sodium/ Dextrose 500 ml @ 23 mls/hr [id number] PRN IV 07/21/17 14:00 07/22/17 06:32 DC 07/22/17 06:15 23 MLS/HR (Tanesha Ellison CRNP) Objective Vital Signs Date Time Temp Pulse Resp B/P (MAP) Pulse Ox O2 Delivery O2 Flow Rate FiO2 07/22/17 08:16 Room Air 07/22/17 07:08 36.7 71 20 124/73 (90) 94 Room Air 07/22/17 04:00 Room Air 07/22/17 03:58 36.6 78 16 118/68 (85) 98 Room Air 07/22/17 00:00 Room Air 07/21/17 23:49 37.1 69 20 131/76 (94) 92 Room Air 07/21/17 20:20 Room Air 07/21/17 19:31 36.6 70 20 130/80 (97) 94 Room Air 07/21/17 16:00 Room Air 07/21/17 15:55 36.4 71 18 122/76 (91) 94 Room Air 07/21/17 12:00 Room Air 07/21/17 12:00 Room Air (Tanesha Ellison CRNP) Physical Exam Notes: General: no distress Eyes: normal inspection, PERLL Respiratory: chest non tender, clear to auscultation, normal breath sounds, no respiratory distress, no accessory muscle use Cardiac: regular rate and rhythm, no rub or gallop, no murmur, no edema, no jvd GI/: active bowel sounds, no abd pain or tenderness, soft, non distended Extremities: normal range of motion, normal strength, non tender Neuro/Psych: alert and oriented x 3, normal mood and affect Skin: normal color, dry (Tanesha Ellison CRNP) Laboratory Results Last 24 Hours Test 07/21/17 14:02 07/21/17 21:50 07/22/17 04:29 White Blood Count 7.87 K/uL 8.06 K/uL Red Blood Count 4.14 M/uL 4.10 M/uL Hemoglobin 13.5 g/dL 13.0 g/dL Hematocrit 40.3 % 40.5 % Mean Corpuscular Volume 97.3 fL 98.8 fL Mean Corpuscular Hemoglobin 32.6 pg 31.7 pg Mean Corpuscular Hemoglobin Concent 33.5 g/dl 32.1 g/dl Platelet Count 182 K/uL 174 K/uL Mean Platelet Volume 10.3 fL 10.3 fL Neutrophils (%) (Auto) 73.4 % Lymphocytes (%) (Auto) 14.5 % Monocytes (%) (Auto) 7.2 % Eosinophils (%) (Auto) 4.1 % Basophils (%) (Auto) 0.4 % Neutrophils # (Auto) 5.78 K/uL Lymphocytes # (Auto) 1.14 K/uL Monocytes # (Auto) 0.57 K/uL Eosinophils # (Auto) 0.32 K/uL Basophils # (Auto) 0.03 K/uL RDW Standard Deviation 47.2 fL 48.3 fL RDW Coefficient of Variation 13.3 % 13.4 % Immature Granulocyte % (Auto) 0.4 % Immature Granulocyte # (Auto) 0.03 K/uL Prothrombin Time 10.7 SECONDS Prothromb Time International Ratio 1.0 Activated Partial Thromboplast Time 24.2 SECONDS 70.9 SECONDS 72.3 SECONDS Partial Thromboplastin Ratio 0.9 2.7 2.8 Sodium Level 145 mmol/L Potassium Level 4.0 mmol/L Chloride Level 115 mmol/L Carbon Dioxide Level 23 mmol/L Anion Gap 7.0 mmol/L Blood Urea Nitrogen 15 mg/dl Creatinine 1.30 mg/dl Est Creatinine Clear Calc Drug Dose 38.0 ml/min Estimated GFR () 44.9 Estimated GFR (Non- 38.7 BUN/Creatinine Ratio 11.2 Random Glucose 136 mg/dl Calcium Level 8.5 mg/dl (Tanesha Ellison CRNP) Assessment and Plan Ms. Gillespie is an 81 year old woman here for left lower leg dvt after cessation of Eliquis for right lower extremity dvt. She took the Eliquis x1 dose on 07/05 after diagnosis of a DVT in her right lower extremity 07/04. She had been having urinary or vaginal bleeding for months before taking the Eliquis which made the problem worse. Acute left lower leg DVT with resolved right lower leg DVT - heparin drip initiated yesterday afternoon but patient developed hematuria over the night. Heparin was discontinued and vascular surgery consulted. I have IVC filter placed today. Bladder lesion with history of hematuria - demonstrated on both CT and bladder ultrasound. - Urology following, they recommend cystoscopy held off until out patient. Urine cytology pending. UTI - Keflex BID Depression/dementia-- Continue bupropion, Lexapro, gabapentin, lithium carbonate, Namenda, Exelon. Hypothyroidism-- Continue levothyroxine sodium. GERD-- Change omeprazole to pantoprazole. COPD-- Continue Combivent and montelukast. Diarrhea - patient is having multiple bowel movements per day. Check C diff. This may also be due to patient's long standing constipation. May need miralax or other laxative if C diff is negative. DVT prophylaxis - none, unable to tolerate anticoagulant Code status - full resuscitation (Tanesha Ellison CRNP) BROOMCORN THRESHER Physician Supervision Note: I interviewed and examined the patient. Discussed with Sammi Ellison NP and agree with findings and plan as documented in the note. 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
[2017-07-22] MEDS: NSS + 20MEQ KCL 1000ML 1,000 ML IV SCH (12:37)
[2017-07-22] MEDS ORDERED: MIDAZOLAM HCL 1 MG/ML 2ML VIAL ONE (15:48)
[2017-07-22] MEDS ORDERED: FENTANYL CITRATE INJ 50 MCG/1 ML 2 ML VIAL ONE (15:48)
--- NOTE | 2017-07-22 15:48 | Procedure Note ---
Pre-Mod Sedation Assessment General Date of Moderate Sedation: Jul 22, 2017. Vital Signs: Vital Signs Past 12 Hours Date Time Temp Pulse Resp B/P (MAP) Pulse Ox O2 Delivery O2 Flow Rate FiO2 07/22/17 15:43 36.9 67 20 130/81 92 Room Air 07/22/17 15:06 36.9 67 20 130/81 (97) 92 Room Air 07/22/17 12:04 36.5 77 16 101/64 95 Room Air 07/22/17 12:00 Room Air 07/22/17 11:50 36.5 77 16 101/64 95 Room Air 07/22/17 11:21 36.5 77 16 101/64 (76) 95 07/22/17 08:16 Room Air 07/22/17 07:08 36.7 71 20 124/73 (90) 94 Room Air 07/22/17 04:00 Room Air 07/22/17 03:58 36.6 78 16 118/68 (85) 98 Room Air Pre-Sedation Airway Assessment Oral Cavity: Dentures Short Thick Neck: No Hx of Sleep Apnea: No Smoking Status: Former Smoker Mallampati Classification: Class I ASA Classification: Class III Notes The planned sedation has been discussed with the patient and consent obtained. I have identified the patient, determined the appropriateness of sedation and have assessed the patient immediately prior to the procedure. All medicine(s) and interventions are by my order.
[2017-07-22] MEDS ORDERED: FENTANYL CITRATE INJ 50 MCG/1 ML 2 ML VIAL IV ONE (16:36)
[2017-07-22] MEDS ORDERED: MIDAZOLAM HCL 1 MG/ML 2ML VIAL IV ONE (16:36)
[2017-07-22] MEDS ORDERED: LIDOCAINE HCL 1% 20 ML VIAL INJ ONE (16:38)
[2017-07-22] MEDS ORDERED: IODIXANOL (VISIPAQUE) 270 MG/ML 150ML FLUSH ONE (17:14)
--- NOTE | 2017-07-22 17:17 | [facility] Operative Report ---
Operative Report Operative Date Jul 22, 2017. Pre-Operative Diagnosis DVT with acute bleeding Post-Operative Diagnosis Same Procedure(s) Performed Insertion of IVC filter, jug approach Conscious sedation [id number] Surgeon Sissy Blockers Skiver Surgeon(s) Debra Dela Cruz MD Estimated Blood Loss 5 Findings upright in infrarenal IVC Specimens none Anesthesia local with sedation Complication(s) None Disposition Indications This is an 81-year-old white female who has acute deep venous thrombosis of both lower extremities. She has acute bleeding. Heparin had to be stopped. It was recommended to place a vena cava filter. She understood the risks options and benefits and agreed to go ahead with this procedure. Description of Procedure The patient was brought to the angio suite and placed in the supine position. The right side of the neck was prepped and draped in the usual fashion. The right internal jugular vein was located with ultrasound. It was patent, compressed easily, and had no filling defects. The vein was then punctured under ultrasound visualization. A guidewire was then passed centrally into the inferior vena cava under fluoroscopic guidance. The puncture site was then dilated and the filter sheath inserted. It was passed to the infra renal vena cava. A venacavagram was done which showed no cava clot and an acceptable size. The renal veins were identified. The filter was then passed through the sheath and deployed in the infra renal vena cava. The filter did not open. It appeared that the struts were crossed. A wire was reinserted and the sheath was removed and replaced with the retrieval sheath. The filter was then removed with the filter removal catheter and snare. A new filter was then placed. The filter was then passed through the sheath and deployed in the infra renal vena cava in an upright position. Satisfied with the positioning of the filter , the sheath was removed. Pressure was applied to the puncture site. Adequate hemostatsis was obtained and a sterile dressing was applied. The patient left the angio suite in good condition and tolerated the procedure well. I attest to the content of the Intraoperative Record and any orders documented therein. Any exceptions are noted below.
[2017-07-22] MEDS: MONTELUKAST SOD 10 MG TAB PO SCH (20:38)
[2017-07-23] VITALS (9 sets, daily range): BP systolic 114–145; BP diastolic 63–80; PULSE 65–81; TEMP 36.3–37.1; O2SAT 90–96
[2017-07-23] MEDS: NSS + 20MEQ KCL 1000ML 1,000 ML IV SCH ×2 (02:10→15:17)
[2017-07-23] MEDS: ACETAMINOPHEN 325 MG TAB PO PRN (05:20)
[2017-07-23] MEDS: LEVOTHYROXINE 75 MCG TAB PO SCH (05:21)
[2017-07-23] MEDS ORDERED: CEFAZOLIN IV 1,000 MG in DEXTROSE 5% 50ML 50 ML IV SCH (06:00)
[2017-07-23] MEDS: LITHIUM CARBONATE 300 MG TAB PO SCH ×2 (07:59→20:33)
[2017-07-23] MEDS: BuPROPion SR 150 MG TABCR PO SCH ×2 (07:59→20:33)
[2017-07-23] MEDS: PANTOprazole SOD 40 MG TAB PO SCH (07:59)
[2017-07-23] MEDS: IPRATROPIUM BROMIDE/ALBUTEROL respimat INH INH SCH ×4 (07:59→20:34)
[2017-07-23] MEDS: GABAPENTIN 100 MG CAP PO SCH (08:00)
[2017-07-23] MEDS: CEPHALEXIN MONOHYDRATE 500 MG CAP PO SCH (08:00)
[2017-07-23] MEDS: MEMANTINE 10 MG TAB PO SCH ×2 (08:00→20:33)
[2017-07-23] MEDS: RIVASTIGMINE TARTRATE (EXELON) 1.5 MG CAP PO SCH ×2 (08:00→20:33)
[2017-07-23 08:01] LABS: HEMATOCRIT 41.3 % (37-47); MEAN CELL VOLUME 97.6 fL (80-100); MEAN CORPUSCULAR HEMOGLOBIN 32.9 pg (25-34); MEAN CORPUSCULAR HGB CONC 33.7 g/dl (32-36); PLATELET COUNT 161 K/uL (130-400); RED BLOOD COUNT 4.23 M/uL (4.2-5.4); WHITE BLOOD COUNT 7.79 K/uL (4.8-10.8)
[2017-07-23 08:07] LABS: PARTIAL THROMBOPLASTIN RATIO 0.9
[2017-07-23 08:28] LABS: BUN/CREATININE RATIO 9.7 (10-20); CALCIUM 9.4 mg/dl (8.5-10.1); CREATININE 1.1 mg/dl (0.60-1.20); POTASSIUM 4.2 mmol/L (3.5-5.1)
--- NOTE | 2017-07-23 11:52 | Progress Note ---
Subjective Date of Service: Jul 23, 2017. Subjective Pt evaluation today including: conversation w/ patient, physical exam, lab review pt with some dementia - but interacts appropriately - denies significant abdominal pain - has had hematuria for some time - reports it is not too significant at the moment - voiding ok - IVC filter placed yesterday Problem List Medical Problems: (1) Deep vein thrombosis (DVT) Status: Acute (2) DVT (deep venous thrombosis) Status: Acute (3) Hypothyroidism Status: Chronic Review of Systems Constitutional: No see HPI, No fever, No chills, No sweats, No weight loss, No weakness, No fatigue, No problem reported Eyes: No see HPI, No worsening of vision, No eye pain, No redness, No discharge , No diplopia, No problem reported Abdomen: No see HPI, No pain, No nausea, No vomiting, No diarrhea, No constipation, No GI bleeding, No problem reported Female : + hematuria Objective Vital Signs Date Time Temp Pulse Resp B/P (MAP) Pulse Ox O2 Delivery O2 Flow Rate FiO2 07/23/17 08:00 Room Air 07/23/17 07:39 37.1 67 16 127/74 (91) 95 Room Air 07/23/17 04:00 Room Air 07/23/17 03:14 36.9 75 20 144/63 (90) 95 Room Air 07/23/17 02:08 81 145/78 (100) 07/23/17 00:00 Room Air 07/22/17 23:44 37.1 84 20 171/90 (117) 92 Room Air 07/22/17 21:20 37.1 78 18 180/84 (116) 93 07/22/17 20:15 37.1 73 18 159/81 (107) 94 Room Air 07/22/17 20:00 Room Air 07/22/17 19:15 36.7 74 18 150/73 (98) 93 Room Air 07/22/17 18:45 36.8 76 18 135/78 (97) 92 Room Air 07/22/17 18:16 36.9 76 18 154/71 (98) 92 07/22/17 18:01 37.6 74 20 125/62 (83) 91 Room Air 07/22/17 17:44 37.3 73 20 149/80 (103) 92 Room Air 07/22/17 17:30 67 20 163/75 (104) 95 Room Air 07/22/17 17:14 68 20 159/73 94 Nasal Cannula 2 07/22/17 16:10 Room Air 07/22/17 15:43 36.9 67 20 130/81 92 Room Air 07/22/17 15:06 36.9 67 20 130/81 (97) 92 Room Air 07/22/17 12:04 36.5 77 16 101/64 95 Room Air 07/22/17 12:00 Room Air 07/22/17 11:50 36.5 77 16 101/64 95 Room Air Physical Exam General Appearance: WD/WN, no apparent distress Eyes: normal inspection Cardiovascular: no edema Abdomen: non tender, soft Extremities: non-tender Neurologic/Psychiatric: alert Skin: warm/dry Lymphatic: no adenopathy Laboratory Results Last 24 Hours Test 07/23/17 07:45 White Blood Count 7.79 K/uL Red Blood Count 4.23 M/uL Hemoglobin 13.9 g/dL Hematocrit 41.3 % Mean Corpuscular Volume 97.6 fL Mean Corpuscular Hemoglobin 32.9 pg Mean Corpuscular Hemoglobin Concent 33.7 g/dl RDW Standard Deviation 47.0 fL RDW Coefficient of Variation 13.2 % Platelet Count 161 K/uL Mean Platelet Volume 10.0 fL Activated Partial Thromboplast Time 24.0 SECONDS Partial Thromboplastin Ratio 0.9 Sodium Level 143 mmol/L Potassium Level 4.2 mmol/L Chloride Level 114 mmol/L Carbon Dioxide Level 22 mmol/L Anion Gap 7.0 mmol/L Blood Urea Nitrogen 11 mg/dl Creatinine 1.10 mg/dl Est Creatinine Clear Calc Drug Dose 44.9 ml/min Estimated GFR () 54.9 Estimated GFR (Non- 47.4 BUN/Creatinine Ratio 9.7 Random Glucose 103 mg/dl Calcium Level 9.4 mg/dl Assessment and Plan Hematuria; suspected bladder tumor; DVT - IVC filter yesterday - hematuria mild - discussed her US findings and my suspicion of TCC - discussed need for cysto and pos TURBT in the future (no graham) - likely can avoid addressing these things during her current hospitalization and plan to address them as an outpt - will need to discuss things further with her daughter in the future
--- NOTE | 2017-07-23 14:38 | Hospitalist Progress Note ---
Hospitalist Progress Note Date of Service Jul 23, 2017. (Tanesha Ellison .STEFANY) Subjective Pt evaluation today including: conversation w/ patient, physical exam, lab review, review of studies, review of inpatient medication list Voiding: no voiding problems Ms. Gillespie is tearful this morning. She feels she is "making trouble" and that someone was trying to get rid of her last night. She doesn't seem concerned for her safety at this time, just concerned that people would think she was trying to hurt someone. Physically she has not complaints, she is not sure if she has had any further hematuria. Constitutional: No fever Respiratory: No cough, No sputum, No shortness of breath (baseline) ( Tanesha Ellison .STEFANY) Objective Vital Signs Date Time Temp Pulse Resp B/P (MAP) Pulse Ox O2 Delivery O2 Flow Rate FiO2 07/23/17 12:24 36.9 79 16 114/72 (86) 96 Room Air 07/23/17 12:00 Room Air 07/23/17 08:00 Room Air 07/23/17 07:39 37.1 67 16 127/74 (91) 95 Room Air 07/23/17 04:00 Room Air 07/23/17 03:14 36.9 75 20 144/63 (90) 95 Room Air 07/23/17 02:08 81 145/78 (100) 07/23/17 00:00 Room Air 07/22/17 23:44 37.1 84 20 171/90 (117) 92 Room Air 07/22/17 21:20 37.1 78 18 180/84 (116) 93 07/22/17 20:15 37.1 73 18 159/81 (107) 94 Room Air 07/22/17 20:00 Room Air 07/22/17 19:15 36.7 74 18 150/73 (98) 93 Room Air 07/22/17 18:45 36.8 76 18 135/78 (97) 92 Room Air 07/22/17 18:16 36.9 76 18 154/71 (98) 92 07/22/17 18:01 37.6 74 20 125/62 (83) 91 Room Air 07/22/17 17:44 37.3 73 20 149/80 (103) 92 Room Air 07/22/17 17:30 67 20 163/75 (104) 95 Room Air 07/22/17 17:14 68 20 159/73 94 Nasal Cannula 2 07/22/17 16:10 Room Air 07/22/17 15:43 36.9 67 20 130/81 92 Room Air 07/22/17 15:06 36.9 67 20 130/81 (97) 92 Room Air (Tanesha Ellison CRNP) Physical Exam Notes: General: no distress Eyes: normal inspection, PERLL Respiratory: chest non tender, clear to auscultation, normal breath sounds, no respiratory distress, no accessory muscle use Cardiac: regular rate and rhythm, no rub or gallop, no murmur, no edema, no jvd GI/: active bowel sounds, no abd pain or tenderness, soft, non distended Extremities: normal range of motion, normal strength, non tender Neuro/Psych: alert and oriented though having some paranoid delusions Skin: normal color, dry (Tanesha Ellison CRNP) Laboratory Results Last 24 Hours Test 07/23/17 07:45 White Blood Count 7.79 K/uL Red Blood Count 4.23 M/uL Hemoglobin 13.9 g/dL Hematocrit 41.3 % Mean Corpuscular Volume 97.6 fL Mean Corpuscular Hemoglobin 32.9 pg Mean Corpuscular Hemoglobin Concent 33.7 g/dl RDW Standard Deviation 47.0 fL RDW Coefficient of Variation 13.2 % Platelet Count 161 K/uL Mean Platelet Volume 10.0 fL Activated Partial Thromboplast Time 24.0 SECONDS Partial Thromboplastin Ratio 0.9 Sodium Level 143 mmol/L Potassium Level 4.2 mmol/L Chloride Level 114 mmol/L Carbon Dioxide Level 22 mmol/L Anion Gap 7.0 mmol/L Blood Urea Nitrogen 11 mg/dl Creatinine 1.10 mg/dl Est Creatinine Clear Calc Drug Dose 44.9 ml/min Estimated GFR () 54.9 Estimated GFR (Non- 47.4 BUN/Creatinine Ratio 9.7 Random Glucose 103 mg/dl Calcium Level 9.4 mg/dl (Tanesha Ellison CRNP) Assessment and Plan Ms. Gillespie is an 81 year old woman here for left lower leg dvt after cessation of Eliquis for right lower extremity dvt. She took the Eliquis x1 dose on 07/05 after diagnosis of a DVT in her right lower extremity 07/04. She had been having urinary or vaginal bleeding for months before taking the Eliquis which made the problem worse. Acute left lower leg DVT with resolved right lower leg DVT - heparin drip initiated yesterday afternoon but patient developed hematuria over the night. Heparin was discontinued and vascular surgery consulted. I have IVC filter placed 07/22. Bladder lesion with history of hematuria - demonstrated on both CT and bladder ultrasound. - Urology following, they recommend cystoscopy held off until out patient. 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 UTI - Keflex BID Depression/dementia-- Continue bupropion, Lexapro, gabapentin, lithium carbonate, Namenda, Exelon. Hypothyroidism-- Continue levothyroxine sodium. GERD-- Change omeprazole to pantoprazole. COPD-- Continue Combivent and montelukast. Diarrhea - patient is having multiple bowel movements per day however she has a long history of diarrhea and constipation. Check C diff. Will arrange D/C to [facility] or SNF for rehavb per PT/OT recommendation DVT prophylaxis - none, unable to tolerate anticoagulant Code status - full resuscitation (Tanesha Ellison ., YOUTH TEACHER) Attending Attestation: Pt seen/examined, chart reviewed, care plan d/w YOUTH TEACHER Tanesha Ellison. I agree w/ the garcia components of her documentation. Pt w/o abd pain, cp, sob. c/o leg pain. VSS no fever gen - wearing sunglasses, NAD neck - no JVD mouth - MMM heart - RRR lungs - CTA b/l abd - soft, NT, BS+ ext - minimal edema left leg, none on right, pulses 2+ b/l Cr 1.1 Hb 13.9 A/P: 1. gross hematuria 2nd to high-grade bladder ca - hematuria resolved, to have outpatient cystoscopy and management. Appreciate urology consult. 2. acute DVT, LLE - s/p IVC filter due to hematuria. Appreciate vascular consultation. 3. acute kidney injury - resolved. 4. hypothyroidism - TSH in am. 5. check lithium level in am. 6. dispo - rehab. PT, OT. Krystyna GUTIERREZ MD (Julian Gutierrez MD)
[2017-07-23] MEDS: MONTELUKAST SOD 10 MG TAB PO SCH (20:34)
[2017-07-24] VITALS (9 sets, daily range): BP systolic 117–162; BP diastolic 66–96; PULSE 64–79; TEMP 36.5–37.2; O2SAT 90–98
[2017-07-24] MEDS: LEVOTHYROXINE 75 MCG TAB PO SCH (05:54)
[2017-07-24 06:50] LABS: CALCIUM 9.4 mg/dl (8.5-10.1); CREATININE 1.2 mg/dl (0.60-1.20); POTASSIUM 4.3 mmol/L (3.5-5.1)
[2017-07-24 07:00] LABS: THYROID STIMULATING HORMONE 6.81 uIu/ml (0.300-4.500)
[2017-07-24] MEDS: GABAPENTIN 100 MG CAP PO SCH (08:01)
[2017-07-24] MEDS: MEMANTINE 10 MG TAB PO SCH ×2 (08:01→21:09)
[2017-07-24] MEDS: BuPROPion SR 150 MG TABCR PO SCH ×2 (08:02→21:09)
[2017-07-24] MEDS: LITHIUM CARBONATE 300 MG TAB PO SCH ×2 (08:02→21:09)
[2017-07-24] MEDS: PANTOprazole SOD 40 MG TAB PO SCH (08:02)
[2017-07-24] MEDS: IPRATROPIUM BROMIDE/ALBUTEROL respimat INH INH SCH ×4 (08:03→21:08)
[2017-07-24] MEDS: RIVASTIGMINE TARTRATE 1.5 MG PO SCH ×2 (08:03→21:09)
--- NOTE | 2017-07-24 09:40 | Progress Note ---
Subjective Date of Service: Jul 24, 2017. Subjective Pt evaluation today including: conversation w/ patient, physical exam, lab review Voiding: no voiding problems No hematuria overnight - no abdominal pain Problem List Medical Problems: (1) Deep vein thrombosis (DVT) Status: Acute (2) DVT (deep venous thrombosis) Status: Acute (3) Hypothyroidism Status: Chronic Review of Systems Constitutional: No see HPI, No fever, No chills, No sweats, No weight loss, No weakness, No fatigue, No problem reported Musculoskeletal: No see HPI, No joint pain, No muscle pain, No swelling, No calf pain, No problem reported Female : No see HPI, No dysuria, No urinary frequency, No hematuria, No incontinence, No abnormal vaginal bleeding, No vaginal discharge, No problem reported Objective Vital Signs Date Time Temp Pulse Resp B/P (MAP) Pulse Ox O2 Delivery O2 Flow Rate FiO2 07/24/17 07:26 36.6 65 16 128/77 (94) 98 Room Air 07/24/17 04:00 Room Air 07/24/17 04:00 36.7 73 20 143/80 (101) 93 Room Air 07/24/17 00:00 Room Air 07/23/17 23:32 36.9 73 20 128/75 (92) 93 Room Air 07/23/17 20:00 90 Room Air 07/23/17 19:59 36.9 80 20 133/80 (97) 95 Room Air 07/23/17 16:00 90 Room Air 07/23/17 15:59 36.3 65 22 115/69 (84) 90 Room Air 07/23/17 12:24 36.9 79 16 114/72 (86) 96 Room Air 07/23/17 12:00 Room Air Physical Exam General Appearance: no apparent distress Eyes: normal inspection ENT: hearing grossly normal Abdomen: non tender, soft Extremities: normal inspection Laboratory Results Last 24 Hours Test 07/24/17 05:57 Sodium Level 143 mmol/L Potassium Level 4.3 mmol/L Chloride Level 112 mmol/L Carbon Dioxide Level 22 mmol/L Anion Gap 9.0 mmol/L Blood Urea Nitrogen 14 mg/dl Creatinine 1.20 mg/dl Est Creatinine Clear Calc Drug Dose 41.2 ml/min Estimated GFR () 49.4 Estimated GFR (Non- 42.7 BUN/Creatinine Ratio 12.0 Random Glucose 104 mg/dl Calcium Level 9.4 mg/dl Thyroid Stimulating Hormone (TSH) 6.810 uIu/ml [place] Level 0.6 mMOL/L Assessment and Plan Hematuria; suspected bladder tumor; DVT - cytology matches US - high grade TCC - plan for cysto and TURBT in the near future - not on anticoagulation right now? - perhaps could do the TURBT as early as Tuesday if she is still in the hospital
--- NOTE | 2017-07-24 13:31 | Hospitalist Progress Note ---
Hospitalist Progress Note Date of Service Jul 24, 2017. (Yudith Hamlin ., YUMIKO) Subjective Pt evaluation today including: conversation w/ patient, physical exam, lab review, review of studies, review of inpatient medication list Voiding: no voiding problems Patient feeling well. Eating and drinking OK. Denies hematuria. Discussed rehab- agreeable. Patient denies any fever, chills, sweats, lightheadedness, dizziness, vision changes, CP, palpitations, edema, SOB, wheezing, cough, abdominal pain, nausea, vomiting, diarrhea, urinary symptoms, melena, numbness/tingling, weakness, muscle/joint pain, anxiety/depression, active bleeding, or new skin discoloration/changes. (Yudith Hamlin ., BOBBYC) Medications Current Inpatient Medications Medications (Trade) Dose Ordered Sig/Della Route Start Time Stop Time Status Last Admin Dose Admin Ioversol (Optiray 320) 111 ml UD PRN IV 07/20/17 18:30 07/24/17 18:29 Acetaminophen (Tylenol Tab) 650 mg Q4H PRN PO 07/20/17 19:00 08/19/17 18:59 07/23/17 05:20 650 MG Bupropion HCl (Wellbutrin-Sr Tab) 150 mg BID PO 07/20/17 21:00 08/19/17 20:59 07/24/17 08:02 150 MG Gabapentin (Neurontin Cap) 100 mg DAILY PO 07/21/17 09:00 08/20/17 08:59 07/24/17 08:01 100 MG Albuterol/ Ipratropium (Combivent Respimat Inh) 1 puffs QID INH 07/20/17 21:00 08/19/17 20:59 07/24/17 08:03 1 PUFFS Levothyroxine Sodium (Synthroid Tab) 75 mcg DAILYBB PO 07/21/17 06:30 08/20/17 06:29 07/24/17 05:54 75 MCG Memantine (Namenda Tab) 10 mg BID PO 07/20/17 21:00 08/19/17 20:59 07/24/17 08:01 10 MG Montelukast Sodium (Singulair Tab) 10 mg HS PO 07/20/17 21:00 08/19/17 20:59 07/23/17 20:34 10 MG Triamcinolone Acetonide (Nasacort Allergy 24hr) 1 sprays BID PRN ANUPAM 07/20/17 19:00 08/19/17 18:59 [place] Carbonate ([place] Carbonate Tab) 300 mg BID PO 07/20/17 21:00 08/19/17 20:59 07/24/17 08:02 300 MG Pantoprazole Sodium (Protonix Tab) 40 mg QAM PO 07/21/17 09:00 08/20/17 08:59 07/24/17 08:02 40 MG Rivastigmine Tartrate (Exelon) 6 mg BID PO 07/24/17 09:00 08/23/17 08:59 07/24/17 08:03 6 MG (Yudith Hamlin PA-C) Objective Vital Signs Date Time Temp Pulse Resp B/P (MAP) Pulse Ox O2 Delivery O2 Flow Rate FiO2 07/24/17 12:00 98 Room Air 07/24/17 11:14 37.2 64 16 162/96 (118) 90 Room Air 07/24/17 08:00 98 Room Air 2.0 07/24/17 07:26 36.6 65 16 128/77 (94) 98 Room Air 07/24/17 04:00 Room Air 07/24/17 04:00 36.7 73 20 143/80 (101) 93 Room Air 07/24/17 00:00 Room Air 07/23/17 23:32 36.9 73 20 128/75 (92) 93 Room Air 07/23/17 20:00 90 Room Air 07/23/17 19:59 36.9 80 20 133/80 (97) 95 Room Air 07/23/17 16:00 90 Room Air 07/23/17 15:59 36.3 65 22 115/69 (84) 90 Room Air (Yudith Hamlin PA-C) Physical Exam General Appearance: no apparent distress, + obese Eyes: PERRL ENT: hearing grossly normal Neck: supple Respiratory/Chest: lungs clear, no respiratory distress, no accessory muscle use Cardiovascular: regular rate, rhythm Abdomen: normal bowel sounds, non tender, soft Extremities: no pedal edema, no calf tenderness Neurologic/Psychiatric: alert, normal mood/affect, oriented x 3 Skin: normal color, warm/dry, no rash (Yudith Hamlin PA-C) Laboratory Results Last 24 Hours Test 07/24/17 05:57 Sodium Level 143 mmol/L Potassium Level 4.3 mmol/L Chloride Level 112 mmol/L Carbon Dioxide Level 22 mmol/L Anion Gap 9.0 mmol/L Blood Urea Nitrogen 14 mg/dl Creatinine 1.20 mg/dl Est Creatinine Clear Calc Drug Dose 41.2 ml/min Estimated GFR () 49.4 Estimated GFR (Non- 42.7 BUN/Creatinine Ratio 12.0 Random Glucose 104 mg/dl Calcium Level 9.4 mg/dl Thyroid Stimulating Hormone (TSH) 6.810 uIu/ml [place] Level 0.6 mMOL/L (Yudith Hamlin PA-C) Assessment and Plan Ms. Gillespie is an 81 year old woman here for left lower leg dvt after cessation of Eliquis for right lower extremity dvt. She took the Eliquis x1 dose on 07/05 after diagnosis of a DVT in her right lower extremity 07/04. She had been having urinary or vaginal bleeding for months before taking the Eliquis which made the problem worse. Acute LLE DVT s/p IVC filter due to hematuria: Vascular consultation- f/u in 3- 4 months Bladder lesion w/ h/o hematuria- demonstrated on both CT and bladder ultrasound secondary to high grade TCC: - Admitted to tele for cardiac monitoring- no acute events- transfer to med/ surg - Urology consulted- planning for cysto and TURBT - Avoid anticoagulation due to recurrent hematuria - H&H- STABLE UTI- RESOLVED: Treated w/ Keflex BID RAFAEL- RESOLVED Depression/dementia: - Continue Bupropion, Lexapro, Gabapentin, [place] carbonate, Namenda, Exelon - [place] WNL Hypothyroidism- TSH 6.810: Continue Synthroid 75 mcg daily- follow up w/ PCP COPD- STABLE: Continue Combivent and Montelukast Diarrhea - patient is having multiple bowel movements per day however she has a long history of diarrhea and constipation. Check C diff. GERD: Protonix- resume Prilosec at discharge DVT prophylaxis: Chemical anticoagulation contraindicated due to hematuria- IVC filter Code Status: LEVEL I, FULL Dispo: Medically stable for discharge pending placement- PT/OT and CM consulted (Yudith Hamlin PA-C) Attending Attestation: Pt seen/examined, chart reviewed, care plan d/w ROSEMARY Hamlin. I agree w/ the garcia components of her documentation. Pt w/o abd pain, cp, sob, hematuria. She was very distraught during my visit, stating she had changed her mind about rehab and was insistent on "going home." States "I am dying - I know it." VSS no fever gen - NAD neck - no JVD mouth - MMM heart - RRR lungs - CTA b/l abd - soft, NT, BS+ ext - 2+ pulses Cr 1.2 TSH 6 [place] wnl A/P: 1. gross hematuria 2nd to high-grade bladder ca - hematuria resolved, to have outpatient cystoscopy and management. Appreciate urology consult.. H/H stable. 2. acute DVT, LLE - s/p IVC filter due to hematuria. Appreciate vascular consultation. 3. acute kidney injury - resolved. 4. hypothyroidism - TSH high; last TSH several months ago also high; will increase synthroid to 88mcg daily; TSH in 6 weeks. 5. lithium level acceptable. 6. dispo - not safe to be alone at home per OT and PT. I discussed with pt's daughter by phone that her mother is refusing placement. Daughter and son to d/w the patient the need for rehab. Hopefully she will be agreeable. Pt otherwise is medically fit for discharge home. Krystyna GUTIERREZ MD (Julian Gutierrez MD)
[2017-07-24] MEDS: MONTELUKAST SOD 10 MG TAB PO SCH (21:09)
[2017-07-25 03:38] VITALS: BP 114/76; PULSE 84; TEMP 36.9; O2SAT 96
[2017-07-25] MEDS: LEVOTHYROXINE 88 MCG TAB PO SCH (06:08)
[2017-07-25 07:57] VITALS: BP 114/71; PULSE 75; TEMP 36.8; O2SAT 92
[2017-07-25 08:07] LABS: HEMATOCRIT 44.6 % (37-47); MEAN CELL VOLUME 98.7 fL (80-100); MEAN CORPUSCULAR HEMOGLOBIN 31.9 pg (25-34); MEAN CORPUSCULAR HGB CONC 32.3 g/dl (32-36); MEAN PLATELET VOLUME 10.1 fL (7.4-10.4); PLATELET COUNT 173 K/uL (130-400); RED BLOOD COUNT 4.52 M/uL (4.2-5.4); WHITE BLOOD COUNT 9.71 K/uL (4.8-10.8)
[2017-07-25] MEDS: RIVASTIGMINE TARTRATE 1.5 MG PO SCH ×2 (08:11→21:39)
[2017-07-25] MEDS: PANTOprazole SOD 40 MG TAB PO SCH (08:11)
[2017-07-25] MEDS: IPRATROPIUM BROMIDE/ALBUTEROL respimat INH INH SCH ×4 (08:11→21:39)
[2017-07-25] MEDS: BuPROPion SR 150 MG TABCR PO SCH ×2 (08:12→21:42)
[2017-07-25] MEDS: LITHIUM CARBONATE 300 MG TAB PO SCH ×2 (08:12→21:41)
[2017-07-25] MEDS: GABAPENTIN 100 MG CAP PO SCH (08:12)
[2017-07-25] MEDS: MEMANTINE 10 MG TAB PO SCH ×2 (08:12→21:41)
[2017-07-25] MEDS: POLYETHYLENE (MIRALAX) 17 GM PACK PO SCH (08:12)
[2017-07-25 08:35] LABS: BUN/CREATININE RATIO 12.1 (10-20); CALCIUM 9.9 mg/dl (8.5-10.1); CREATININE 1.4 mg/dl (0.60-1.20)
[2017-07-25 08:51] VITALS: O2SAT 94
--- NOTE | 2017-07-25 09:34 | Progress Note ---
Subjective Date of Service: Jul 25, 2017. Subjective Pt evaluation today including: conversation w/ patient, conversation w/ family , chart review, lab review Voiding: no voiding problems 81 yo female with bladder lesion. Cytology showing high grade urothelial carcinoma. Pt denies pain or hematuria today. Problem List Medical Problems: (1) Deep vein thrombosis (DVT) Status: Acute (2) DVT (deep venous thrombosis) Status: Acute (3) Hypothyroidism Status: Chronic Review of Systems Constitutional: No fever, No chills Respiratory: No shortness of breath Cardiac: No chest pain Abdomen: No pain, No nausea, No vomiting Female : No dysuria, No hematuria Heme: No abnormal bleeding/bruising Objective Vital Signs Date Time Temp Pulse Resp B/P (MAP) Pulse Ox O2 Delivery O2 Flow Rate FiO2 07/25/17 08:51 94 Room Air 07/25/17 08:00 Room Air 07/25/17 07:57 36.8 75 20 114/71 (85) 92 07/25/17 04:00 Room Air 07/25/17 03:38 36.9 84 16 114/76 (89) 96 Room Air 07/25/17 00:00 Room Air 07/24/17 23:44 36.5 76 18 117/66 (83) 92 Room Air 07/24/17 20:00 93 Room Air 07/24/17 16:00 93 Room Air 07/24/17 14:59 37.0 79 20 123/69 (87) 93 07/24/17 12:00 98 Room Air 07/24/17 11:14 37.2 64 16 162/96 (118) 90 Room Air Physical Exam General Appearance: no apparent distress, + obese Eyes: normal inspection ENT: hearing grossly normal Neck: no JVD Respiratory/Chest: no respiratory distress, no accessory muscle use Cardiovascular: no JVD Extremities: normal inspection Neurologic/Psychiatric: alert, normal mood/affect, oriented x 3 Skin: normal color Laboratory Results Last 24 Hours Test 07/25/17 07:50 White Blood Count 9.71 K/uL Red Blood Count 4.52 M/uL Hemoglobin 14.4 g/dL Hematocrit 44.6 % Mean Corpuscular Volume 98.7 fL Mean Corpuscular Hemoglobin 31.9 pg Mean Corpuscular Hemoglobin Concent 32.3 g/dl RDW Standard Deviation 48.4 fL RDW Coefficient of Variation 13.5 % Platelet Count 173 K/uL Mean Platelet Volume 10.1 fL Sodium Level 141 mmol/L Potassium Level 4.0 mmol/L Chloride Level 110 mmol/L Carbon Dioxide Level 21 mmol/L Anion Gap 10.0 mmol/L Blood Urea Nitrogen 17 mg/dl Creatinine 1.40 mg/dl Est Creatinine Clear Calc Drug Dose 35.0 ml/min Estimated GFR () 41.0 Estimated GFR (Non- 35.4 BUN/Creatinine Ratio 12.1 Random Glucose 107 mg/dl Cal[place] Level 9.9 mg/dl Assessment and Plan A/P: Bladder lesion AFVSS. Will plan for the OR tomorrow for a cysto and TURBT. Risks and benefits of the procedure discussed with both the pt and her daughter Sandi via telephone today. Both are agreeable. Consent obtained. NPO after midnight for OR tomorrow. Will continue to follow along with primary service at this time.
--- NOTE | 2017-07-25 11:41 | Hospitalist Progress Note ---
Hospitalist Progress Note Date of Service Jul 25, 2017. (Yoana Page PA-C) Subjective Pt evaluation today including: conversation w/ patient, physical exam, chart review, lab review, review of studies Pain: None PO Intake: Fair Voiding: no voiding problems The patient was seen and examined this morning. Pt reports no hematuria, no dysuria. She reports having on and off nausea, but that this has been ongoing for several years and it doesn't always bother her. Pt is having loose bowel movements, last was this morning. She anticipated urological procedure for biopsy tomorrow morning. Then is agreeable to [facility] at time of discharge. Constitutional: No fever, No chills, No sweats Eyes: No redness, No diplopia ENT: No nasal symptoms, No trouble swallowing Respiratory: No cough, No wheezing, No shortness of breath Cardiovascular: No chest pain, No edema Abdomen: + see HPI, + nausea, + diarrhea, No pain, No vomiting, No constipation Musculoskeletal: No joint pain, No muscle pain, No swelling Female : + see HPI Neurologic: No weakness, No numbness/tingling Skin: No rash, No itch (Yoana Page PA-C) Objective Vital Signs Date Time Temp Pulse Resp B/P (MAP) Pulse Ox O2 Delivery O2 Flow Rate FiO2 07/25/17 08:51 94 Room Air 07/25/17 08:00 Room Air 07/25/17 07:57 36.8 75 20 114/71 (85) 92 07/25/17 04:00 Room Air 07/25/17 03:38 36.9 84 16 114/76 (89) 96 Room Air 07/25/17 00:00 Room Air 07/24/17 23:44 36.5 76 18 117/66 (83) 92 Room Air 07/24/17 20:00 93 Room Air 07/24/17 16:00 93 Room Air 07/24/17 14:59 37.0 79 20 123/69 (87) 93 07/24/17 12:00 98 Room Air (Yoana Page PA-C) Physical Exam General Appearance: WD/WN, no apparent distress, + obese Eyes: PERRL, EOMI, + pertinent finding (+presbiopia R eye) ENT: hearing grossly normal, pharynx normal Neck: supple, no JVD Respiratory/Chest: lungs clear, no respiratory distress, no accessory muscle use Cardiovascular: regular rate, rhythm, no murmur Abdomen: normal bowel sounds, non tender, soft, + pertinent finding (minor tenderness with deep palpation in the RLQ) Extremities: no pedal edema, no calf tenderness Neurologic/Psychiatric: alert, oriented x 3 Skin: normal color, warm/dry (Yoana Page PA-C) Laboratory Results Last 24 Hours Test 07/25/17 07:50 White Blood Count 9.71 K/uL Red Blood Count 4.52 M/uL Hemoglobin 14.4 g/dL Hematocrit 44.6 % Mean Corpuscular Volume 98.7 fL Mean Corpuscular Hemoglobin 31.9 pg Mean Corpuscular Hemoglobin Concent 32.3 g/dl RDW Standard Deviation 48.4 fL RDW Coefficient of Variation 13.5 % Platelet Count 173 K/uL Mean Platelet Volume 10.1 fL Sodium Level 141 mmol/L Potassium Level 4.0 mmol/L Chloride Level 110 mmol/L Carbon Dioxide Level 21 mmol/L Anion Gap 10.0 mmol/L Blood Urea Nitrogen 17 mg/dl Creatinine 1.40 mg/dl Est Creatinine Clear Calc Drug Dose 35.0 ml/min Estimated GFR () 41.0 Estimated GFR (Non- 35.4 BUN/Creatinine Ratio 12.1 Random Glucose 107 mg/dl Calcium Level 9.9 mg/dl (Yoana Page PA-C) Assessment and Plan 81 yo F here for left lower leg dvt after cessation of Eliquis for right lower extremity dvt. She took the Eliquis x1 dose on 07/05 after diagnosis of a DVT in her right lower extremity 07/04. She had been having urinary or vaginal bleeding for months before taking the Eliquis which made the problem worse. Acute LLE DVT s/p IVC filter due to hematuria: - Vascular consultation IVC placed on 07/22 - f/u in 3-4 months. Will ask urology if ok with resuming lovenox (with malignancy) after procedure to anticoagulate. Currently not on any chemical anticoagulation. Urology plans to determine time frame of when safe to anticoagulate after procedure tomorrow/ assessment of how extensive carcinoma is. - Will likely plan on 1.5 mg/kg once daily as an outpatient. - Discussed with daughter and she is agreeable to doing daily injections for the patient. 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 - Pt is not looking for invasive surgical intervention if this is more extensive than currently known. - Avoid anticoagulation due to recurrent hematuria for now, will address with uro as mentioned abve - H&H- STABLE UTI- RESOLVED: Treated w/ Keflex BID RAFAEL- RESOLVED Depression/dementia: - Continue Bupropion 150 mg BID, Lexapro (pt has not gotten this since being admitted due to unknown strength ), Gabapentin 100 mg daily, [place] carbonate 300 mg BID, Namenda 10 mg BID, Exelon 6 mg BID - discussed with [facility] - pt does not use [facility] for psych meds and likely only uses mail order so unable to confirm lexapro dosage. - [place] WNL Hypothyroidism- TSH 6.810: Increased Synthroid to 88 mcg on 07/24- will need repeat TSH in 6 weeks - follow up w/ PCP COPD- STABLE: Continue Combivent and Montelukast Diarrhea - patient is having multiple bowel movements per day however she has a long history of diarrhea and constipation. Check C diff. GERD: Protonix- resume Prilosec at discharge DVT ppx: Chemical anticoagulation contraindicated due to hematuria- IVC filter Code Status: LEVEL I, FULL Disposition: From home, discharge tomorrow after TURBT and biopsy scheduled tomorrow morning, CM setting up d/c to [facility] (Yoana Page PA-C) Reviewed: Pt Seen/Exam by Me (Josiane Lake MD) History Physician House Sitter Supervision Note: I interviewed and examined the patient. Discussed with ROSEMARY Page and agree with findings and plan as documented in the note. Any exceptions or clarifications are listed here: Pt feels fine, no new problems. Awaiting TURBT tomorrow. States if her cancer is spread outside the bladder, she would not want cystectomy or any other surgery. She denies CP and has her baseline SOB. Reports in outpt chart and confirmed by pt that she had severe headache after starting Eliquis (CT head neg). Pt also reports she got a moderate SAAB when on heparin gtt this admission initially. 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 Hgb remains in normal range at 14, no anemia despite hematuria -Discussed with Urology MATTRESS STRIPPER today who recommends ok to start Lovenox 2-3 days post-op as long as urine is clear of blood -Would recommend at least 3 months of Lovenox 1.5mg/kg daily or indefinitely while has bladder CA-depends on extent of CA. 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
[2017-07-25 14:49] VITALS: BP 125/74; PULSE 93; TEMP 36.8; O2SAT 92
[2017-07-25 16:00] VITALS: O2SAT 92
[2017-07-25] MEDS: MONTELUKAST SOD 10 MG TAB PO SCH (21:42)
[2017-07-25] MEDS: D5W AND 1/2NSS 1,000 ML IV SCH (21:53)
[2017-07-25 23:51] VITALS: BP 100/68; PULSE 91; TEMP 36.4; O2SAT 94
[2017-07-26] VITALS (8 sets, daily range): BP systolic 115–153; BP diastolic 65–83; PULSE 66–77; TEMP 36.3–36.6; O2SAT 91–95
[2017-07-26 05:47] LABS: MEAN CELL VOLUME 99.3 fL (80-100); MEAN CORPUSCULAR HEMOGLOBIN 32.1 pg (25-34); MEAN CORPUSCULAR HGB CONC 32.3 g/dl (32-36); MEAN PLATELET VOLUME 10.6 fL (7.4-10.4); PLATELET COUNT 154 K/uL (130-400); RED BLOOD COUNT 4.33 M/uL (4.2-5.4); WHITE BLOOD COUNT 10.13 K/uL (4.8-10.8)
[2017-07-26] MEDS ORDERED: CEFAZOLIN IV 2,000 MG in DEXTROSE 5% 50ML 50 ML IV SCH (06:00)
[2017-07-26] MEDS ORDERED: CEFAZOLIN 2000 MG/60 ML D5W IV SCH (06:00)
[2017-07-26] MEDS: LEVOTHYROXINE 88 MCG TAB PO SCH (06:10)
--- NOTE | 2017-07-26 07:48 | Progress Note ---
Subjective Date of Service: Jul 26, 2017. Subjective Pt evaluation today including: conversation w/ patient, chart review, lab review Voiding: no voiding problems 81 yo female with bladder mass on CT. Pending TURBT with Dr. Farrell today. States she feels weak and dizzy this morning. She says she had to get up several times overnight to pass flatus, which caused abdominal pain. Feeling better now. Denies n/v. H&H are stable. Problem List Medical Problems: (1) Deep vein thrombosis (DVT) Status: Acute (2) DVT (deep venous thrombosis) Status: Acute (3) Hypothyroidism Status: Chronic Review of Systems Constitutional: + weakness, + problem reported (dizziness), No fever, No chills Respiratory: No shortness of breath Cardiac: No chest pain Abdomen: No pain, No nausea, No vomiting Female : No dysuria, No hematuria Heme: No abnormal bleeding/bruising Objective Vital Signs Date Time Temp Pulse Resp B/P (MAP) Pulse Ox O2 Delivery O2 Flow Rate FiO2 07/26/17 07:23 36.6 77 16 116/77 (90) 95 Room Air 07/26/17 00:00 Room Air 07/25/17 23:51 36.4 91 20 100/68 (79) 94 Room Air 07/25/17 16:00 92 Room Air 07/25/17 14:49 36.8 93 20 125/74 (91) 92 Room Air 07/25/17 08:51 94 Room Air 07/25/17 08:00 Room Air 07/25/17 07:57 36.8 75 20 114/71 (85) 92 Physical Exam General Appearance: no apparent distress Eyes: normal inspection ENT: hearing grossly normal Neck: no JVD Respiratory/Chest: no respiratory distress, no accessory muscle use Cardiovascular: no JVD Abdomen: + pertinent finding (No abdominal tenderness on exam this morning. ) Extremities: normal inspection Neurologic/Psychiatric: alert, normal mood/affect, oriented x 3 Skin: normal color Laboratory Results Last 24 Hours Test 07/25/17 07:50 07/26/17 05:18 White Blood Count 9.71 K/uL 10.13 K/uL Red Blood Count 4.52 M/uL 4.33 M/uL Hemoglobin 14.4 g/dL 13.9 g/dL Hematocrit 44.6 % 43.0 % Mean Corpuscular Volume 98.7 fL 99.3 fL Mean Corpuscular Hemoglobin 31.9 pg 32.1 pg Mean Corpuscular Hemoglobin Concent 32.3 g/dl 32.3 g/dl RDW Standard Deviation 48.4 fL 48.8 fL RDW Coefficient of Variation 13.5 % 13.5 % Platelet Count 173 K/uL 154 K/uL Mean Platelet Volume 10.1 fL 10.6 fL Sodium Level 141 mmol/L Potassium Level 4.0 mmol/L Chloride Level 110 mmol/L Carbon Dioxide Level 21 mmol/L Anion Gap 10.0 mmol/L Blood Urea Nitrogen 17 mg/dl Creatinine 1.40 mg/dl Est Creatinine Clear Calc Drug Dose 35.0 ml/min Estimated GFR () 41.0 Estimated GFR (Non- 35.4 BUN/Creatinine Ratio 12.1 Random Glucose 107 mg/dl Calcium Level 9.9 mg/dl Assessment and Plan A/P: Bladder mass AFVSS. Pt with c/o weakness and dizziness this morning. H&H stable. Will check a bedside glucose and EKG pre-op this morning. Plan for OR later today with Dr. Farrell for a cystoscopy with transurethral resection of bladder tumor. Risks and benefits of the procedure discussed with the pt. All questions answered. Pt agrees to the procedure at this time. Hopeful to resume Lovenox MARSHA after the procedure as long as urine is clear. Prognosis and management of suspected bladder cancer pending pathology results. Will arrange for post-op visit with Dr. Farrell to discuss pathology results. Will continue to follow along with primary service at this time. Discharge planning: senior living facility ([facility])
--- NOTE | 2017-07-26 08:16 | Hospitalist Progress Note ---
Hospitalist Progress Note Date of Service Jul 26, 2017. (Yoana Page PA-C) Subjective Pt evaluation today including: conversation w/ patient, conversation w/ family , physical exam, chart review, lab review, review of studies Pain: None PO Intake: NPO prior to procedure Voiding: crandall catheter in place (draingin clear pink urine) The patient was seen and examined after TURBT, her son is present at bedside. She is actively dry heaving while I'm in the room, and son reports that anesthesia always has made her nauseous. She denies any acute complaints other than feeling bladder fullness and like she needs to use the bathroom. Results of surgery were discussed with the son by Dr. Farrell and he has no questions or concerns. Son reports plan will be to do chemotherapy as an outpatient, as 95 % of the tumor was resected. Constitutional: No fever, No chills, No fatigue Eyes: No diplopia ENT: No nasal symptoms, No trouble swallowing Respiratory: No cough, No shortness of breath Cardiovascular: No chest pain, No edema Abdomen: + nausea, + vomiting, No pain, No diarrhea, No constipation Musculoskeletal: No joint pain, No swelling Neurologic: No weakness, No numbness/tingling Endo: No fatigue Skin: No rash, No itch (Yoana Page PA-C) Objective Vital Signs Date Time Temp Pulse Resp B/P (MAP) Pulse Ox O2 Delivery O2 Flow Rate FiO2 07/26/17 07:23 36.6 77 16 116/77 (90) 95 Room Air 07/26/17 00:00 Room Air 07/25/17 23:51 36.4 91 20 100/68 (79) 94 Room Air 07/25/17 16:00 92 Room Air 07/25/17 14:49 36.8 93 20 125/74 (91) 92 Room Air 07/25/17 08:51 94 Room Air (Yoana Page PA-C) Physical Exam General Appearance: WD/WN, + moderate distress (nauseous and dry heaving) Eyes: PERRL, EOMI, + pertinent finding (+presbyopia of R eye) ENT: hearing grossly normal, pharynx normal Neck: supple, no JVD Respiratory/Chest: lungs clear, no respiratory distress, no accessory muscle use Cardiovascular: regular rate, rhythm, no murmur Abdomen: normal bowel sounds, non tender, soft, + pertinent finding (crandall catheter in place draining clear light pink urine.) Extremities: non-tender, no pedal edema, no calf tenderness Neurologic/Psychiatric: alert, oriented x 3 Skin: normal color, warm/dry (Yoana Page PA-C) Laboratory Results Last 24 Hours Test 07/26/17 05:18 White Blood Count 10.13 K/uL Red Blood Count 4.33 M/uL Hemoglobin 13.9 g/dL Hematocrit 43.0 % Mean Corpuscular Volume 99.3 fL Mean Corpuscular Hemoglobin 32.1 pg Mean Corpuscular Hemoglobin Concent 32.3 g/dl RDW Standard Deviation 48.8 fL RDW Coefficient of Variation 13.5 % Platelet Count 154 K/uL Mean Platelet Volume 10.6 fL (Yoana Page PA-C) Assessment and Plan 81 yo F with 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 Presented after cessation of Eliquis due to severe headache. She had been having urinary or vaginal bleeding for month, but not anemic despite hematuria. Acute LLE DVT s/p IVC filter due to hematuria: - Vascular consultation IVC placed on 07/22 - f/u in 3-4 months. - Plan to resume anticoagulation with lovenox 1.5 mg/kg in 3-4 days, in the setting of malignancy, after procedure to anticoagulate. Currently not on any chemical anticoagulation. - Daughter agreeable to doing daily injections for the patient. Discussion held with son, Oziel today and he understands the plan as well. Bladder lesion w/ h/o hematuria- demonstrated on both CT and bladder ultrasound secondary to high grade TCC: - high grade urothelial carcinoma - s/p cysto and TURBT on 07/26 , POD 0. - Papillary tumor was almost all resected, Dr. Farrell to determine if needs for chemotherapy, likely as outpatient. - Avoid anticoagulation due to recurrent hematuria for now, will address with uro as mentioned abve - H&H- STABLE UTI- RESOLVED: Treated w/ Keflex BID RAFAEL- RESOLVED Depression/dementia: - Continue Bupropion 150 mg BID, Lexapro (pt has not gotten this since being admitted due to unknown strength ), Gabapentin 100 mg daily, [place] carbonate 300 mg BID, Namenda 10 mg BID, Exelon 6 mg BID - discussed with [facility] pharmacy - pt does not use [facility] for psych meds and likely only uses mail order so unable to confirm lexapro dosage. - [place] WNL Hypothyroidism- TSH 6.810: Increased Synthroid to 88 mcg on 07/24- will need repeat TSH in 6 weeks - follow up w/ PCP COPD- STABLE: Continue Combivent and Montelukast Diarrhea - patient is having multiple bowel movements per day however she has a long history of diarrhea and constipation. C diff negative. Continue immodium. GERD: Protonix- resume Prilosec at discharge DVT ppx: Chemical anticoagulation contraindicated due to hematuria- IVC filter Code Status: LEVEL I, FULL Disposition: From home, discharge tomorrow after TURBT and biopsy scheduled tomorrow morning, accepted to [facility]. Plan for discharge there tomorrow. (Yoana Page, YUMIKO) Attending Attestation: Pt seen/examined, chart reviewed, care plan d/w ROSEMARY Page. I agree w/ the garcia components of her documentation. Saw the patient post-op. Was in a deep sleep. I awoke her and within minutes was having dry heaves. No abd pain, however. VSS no fever gen - NAD neck - no JVD mouth - MMM heart - RRR lungs - CTA b/l abd - soft, slightly distended, NT, BS+ but decreased ext - 2+ pulses Cr 1.4 A/P: 1. gross hematuria 2nd to high-grade bladder ca - hematuria resolved, s/p TURBT today by Dr. Farrell. Appreciate urology consult and assistance. H/H stable. Crandall management per urology. 2. acute DVT, LLE - s/p IVC filter due to hematuria. Appreciate vascular consultation. Pending urological clearance reasonable to start lovenox injections at discharge. 3. acute kidney injury - resolved. BMP am for stability. 4. hypothyroidism - TSH high; last TSH several months ago also high; increased synthroid to 88mcg daily; TSH in 6 weeks. 5. lithium level acceptable. 6. dispo - not safe to be alone at home per OT and PT. Thus, [facility]. 7. nausea/emesis - likely due to anesthesias from TURBT. Watch for ileus. daughter updated by phone Krystyna GUTIERREZ MD (Julian Gutierrez MD)
[2017-07-26] MEDS: POLYETHYLENE (MIRALAX) 17 GM PACK PO SCH (09:00)
[2017-07-26] MEDS: IPRATROPIUM BROMIDE/ALBUTEROL respimat INH INH SCH ×4 (09:05→21:24)
[2017-07-26] MEDS: RIVASTIGMINE TARTRATE 1.5 MG PO SCH ×2 (09:08→21:25)
[2017-07-26] MEDS: LITHIUM CARBONATE 300 MG TAB PO SCH ×2 (09:10→21:26)
[2017-07-26] MEDS: MEMANTINE 10 MG TAB PO SCH ×2 (09:11→21:26)
[2017-07-26] MEDS: PANTOprazole SOD 40 MG TAB PO SCH (09:12)
[2017-07-26] MEDS: GABAPENTIN 100 MG CAP PO SCH (09:12)
[2017-07-26] MEDS: BuPROPion SR 150 MG TABCR PO SCH ×2 (09:13→21:25)
[2017-07-26] MEDS ORDERED: FENTANYL CITRATE INJ 50 MCG/1 ML 2 ML VIAL IV PRN (09:30)
[2017-07-26] MEDS ORDERED: ATROPINE SULFATE 0.1 MG/ML 5ML SYR IV PRN (09:30)
[2017-07-26] MEDS ORDERED: ONDANSETRON INJ 2 MG/ML 2 ML VIAL IV PRN (09:30)
[2017-07-26] MEDS ORDERED: EpHEDrine SULFATE INJ 50 MG/ML AMP IV PRN (09:30)
[2017-07-26] MEDS ORDERED: MIDAZOLAM HCL 1 MG/ML 2ML VIAL ONE (10:19)
[2017-07-26] MEDS ORDERED: LIDOCAINE HCL 2% 2 ML VIAL (20MG/ML) ONE (10:19)
[2017-07-26] MEDS ORDERED: ONDANSETRON INJ 2 MG/ML 2 ML VIAL ONE (10:19)
[2017-07-26] MEDS ORDERED: FENTANYL CITRATE INJ 50 MCG/1 ML 2 ML VIAL ONE (10:19)
[2017-07-26] MEDS ORDERED: PROPOFOL IV EMULSION 10 MG/ML 20 ML VIAL IV ONE (10:19)
--- NOTE | 2017-07-26 10:46 | History & Physical Bridge Note ---
H&P Re-Evaluation Bridge Note: I have examined the patient, reviewed the History & Physical and in the interval since the performance of the History & Physical I have noted the following changes of clinical significance: No changes noted
[2017-07-26] MEDS ORDERED: CIPROFLOXACIN 400MG / 200ML D5W ONE (10:53)
[2017-07-26] MEDS ORDERED: PHENYLEPHRINE 100MCG/ML 5ML SYR ONE (11:22)
[2017-07-26] MEDS ORDERED: PHENAZOPYRIDINE HCL 200 MG TAB PO PRN (12:00)
--- NOTE | 2017-07-26 12:02 | [facility] Operative Report ---
Operative Report Operative Date Jul 26, 2017. Pre-Operative Diagnosis Bladder tumor Post-Operative Diagnosis Same Procedure(s) Performed Cystoscopy, transurethral resection of bladder tumor (large) Surgeon Dr Farrell Automatic Splicing Machine Operator Surgeon(s) none Estimated Blood Loss 5 ML Findings Multifocal, papillary bladder tumors - total surface area in excess of 7 cm Specimens a. bladder tumor Drains 20 Pashto Mcintosh catheter Anesthesia Gen. Complication(s) None Disposition Recovery Room / PACU Indications Hematuria;bladder tumor on imaging Description of Procedure Patient was identified in the preoperative holding area, appropriate informed consent reviewed and completed and the patient was transported to the operating suite. Upon arrival she received appropriate preoperative antibiotics in the form of ciprofloxacin. Adequate general anesthesia was achieved, and she was placed in dorsal lithotomy position where she was sterilely prepped and draped in standard fashion. I begin the case by passing a 24 Pashto resectoscope with 30 lens and visual obturator. Inspection of the bladder was subsequent carried out utilizing both a 30 and 70 lens. Photographs were taken documenting numerous papillary appearing bladder tumors. The largest was arising from the right lateral wall immediately adjacent to the right ureteral orifice and incorporating the portion of the bladder neck. There was another tumor immediately posterior to this as well as a third tumor on the posterior wall from these other 2 tumors by approximately 3-4 cm. There were small papillary fronds protruding from numerous areas around the bladder including an area on the left lateral wall adjacent to the left ureteral orifice. Following my full visual inspection, I exchanged the visual obturator for resecting loop. I begin at the posterior most tumor and resected this flush with the bladder wall. I moved further anterior and continue to resect the other 2 tumors. All specimens were extracted and passed off the table. I then proceeded to fulgurate the numerous areas with small papillary fronds. After feeling that all visible tumor was adequately resected, I ensured excellent hemostasis before leaving the bladder full withdrawing cystoscope. Given the sheer volume of tumor resected, I elected to avoid mitomycin-C. A Mcintosh catheter was inserted, and the case concluded. Patient seemed to tolerate the procedure very well and was taken to the PACU in stable condition. I attest to the content of the Intraoperative Record and any orders documented therein. Any exceptions are noted below.
--- NOTE | 2017-07-26 12:32 | Anesthesiology Progress Note ---
Anesthesia Post Op Note Date & Time Jul 26, 2017 at 12:32 Vital Signs Pain Intensity: 0 Vital Signs Past 12 Hours Date Time Temp Pulse Resp B/P (MAP) Pulse Ox O2 Delivery O2 Flow Rate FiO2 07/26/17 12:25 69 16 128/73 94 Nasal Cannula 2 07/26/17 12:15 36.1 69 16 132/72 94 Nasal Cannula 2 07/26/17 12:05 69 18 133/82 94 Nasal Cannula 2 07/26/17 11:55 72 18 112/68 97 Oxymask 10 07/26/17 11:49 37.1 71 16 105/65 99 Oxymask 10 07/26/17 08:00 Room Air 07/26/17 07:23 36.6 77 16 116/77 (90) 95 Room Air Notes Mental Status: alert / awake / arousable, participated in evaluation Pt Amnestic to Procedure: Yes Nausea / Vomiting: adequately controlled Pain: adequately controlled Airway Patency, RR, SpO2: stable & adequate BP & HR: stable & adequate Hydration State: stable & adequate Anesthetic Complications: no major complications apparent
[2017-07-26] MEDS: D5W AND 1/2NSS 1,000 ML IV SCH (13:06)
[2017-07-26] MEDS ORDERED: ONDANSETRON INJ 2 MG/ML 2 ML VIAL IV ONE (13:45)
[2017-07-26] MEDS ORDERED: METOCLOPRAMIDE HCL INJ 5 MG/ML 2 ML VIAL IV STA (15:00)
[2017-07-26] MEDS: MONTELUKAST SOD 10 MG TAB PO SCH (21:25)
[2017-07-27] MEDS: D5W AND 1/2NSS 1,000 ML IV SCH ×2 (00:44→13:23)
[2017-07-27] MEDS: LEVOTHYROXINE 88 MCG TAB PO SCH (05:34)
[2017-07-27 05:48] LABS: HEMATOCRIT 41.7 % (37-47); MEAN CELL VOLUME 99.3 fL (80-100); MEAN CORPUSCULAR HGB CONC 31.2 g/dl (32-36); MEAN PLATELET VOLUME 10.5 fL (7.4-10.4); PLATELET COUNT 133 K/uL (130-400); WHITE BLOOD COUNT 10.71 K/uL (4.8-10.8)
[2017-07-27 06:17] LABS: BUN/CREATININE RATIO 11.9 (10-20); CALCIUM 9.1 mg/dl (8.5-10.1); CREATININE 1.1 mg/dl (0.60-1.20); MAGNESIUM 2.1 mg/dl (1.8-2.4); POTASSIUM 3.6 mmol/L (3.5-5.1)
[2017-07-27 07:08] VITALS: BP 110/71; PULSE 75; TEMP 37.1; O2SAT 94
--- NOTE | 2017-07-27 07:16 | Progress Note ---
Subjective Date of Service: Jul 27, 2017. Subjective Pt evaluation today including: conversation w/ patient, chart review, lab review Voiding: crandall catheter in place (patent, draining ortiz colored urine with some old clot) 81 yo female s/p TURBT of multiple bladder tumors. Pt c/o n/v overnight. Verified with RN. Pt denies pain this morning. Cr has normalized. H&H is stable. Problem List Medical Problems: (1) Deep vein thrombosis (DVT) Status: Acute (2) DVT (deep venous thrombosis) Status: Acute (3) Hypothyroidism Status: Chronic Review of Systems Constitutional: No fever, No chills Respiratory: + shortness of breath (pt reports her breathing is labored) Cardiac: No chest pain Abdomen: + nausea, + vomiting, No pain Female : + hematuria Objective Vital Signs Date Time Temp Pulse Resp B/P (MAP) Pulse Ox O2 Delivery O2 Flow Rate FiO2 07/27/17 07:08 37.1 75 18 110/71 (84) 94 Room Air 07/27/17 00:00 Room Air 07/26/17 23:45 36.6 76 16 123/69 (87) 94 Room Air 07/26/17 16:00 94 Room Air 07/26/17 14:56 36.4 75 18 115/74 (88) 94 Room Air 07/26/17 14:19 36.3 72 18 131/83 (99) 92 Room Air 07/26/17 13:50 70 18 141/65 (90) 91 Room Air 07/26/17 13:15 36.3 66 18 153/81 (105) 93 Room Air 07/26/17 12:45 36.3 69 20 148/79 (102) 93 Room Air 07/26/17 12:25 69 16 128/73 94 Nasal Cannula 2 07/26/17 12:15 36.1 69 16 132/72 94 Nasal Cannula 2 07/26/17 12:05 69 18 133/82 94 Nasal Cannula 2 07/26/17 11:55 72 18 112/68 97 Oxymask 10 07/26/17 11:49 37.1 71 16 105/65 99 Oxymask 10 07/26/17 08:00 Room Air 07/26/17 07:23 36.6 77 16 116/77 (90) 95 Room Air Physical Exam General Appearance: no apparent distress, + obese Eyes: normal inspection ENT: hearing grossly normal Neck: no JVD Respiratory/Chest: no respiratory distress, no accessory muscle use Cardiovascular: no JVD Extremities: normal inspection Neurologic/Psychiatric: alert, normal mood/affect, oriented x 3 Skin: normal color Laboratory Results Last 24 Hours Test 07/27/17 05:21 White Blood Count 10.71 K/uL Red Blood Count 4.20 M/uL Hemoglobin 13.0 g/dL Hematocrit 41.7 % Mean Corpuscular Volume 99.3 fL Mean Corpuscular Hemoglobin 31.0 pg Mean Corpuscular Hemoglobin Concent 31.2 g/dl RDW Standard Deviation 48.8 fL RDW Coefficient of Variation 13.6 % Platelet Count 133 K/uL Mean Platelet Volume 10.5 fL Sodium Level 142 mmol/L Potassium Level 3.6 mmol/L Chloride Level 111 mmol/L Carbon Dioxide Level 23 mmol/L Anion Gap 8.0 mmol/L Blood Urea Nitrogen 13 mg/dl Creatinine 1.10 mg/dl Est Creatinine Clear Calc Drug Dose 44.5 ml/min Estimated GFR () 54.9 Estimated GFR (Non- 47.4 BUN/Creatinine Ratio 11.9 Random Glucose 120 mg/dl Calcium Level 9.1 mg/dl Magnesium Level 2.1 mg/dl Assessment and Plan POD #1 s/p TURBT AFVSS. Large bladder tumor resection in OR yesterday. Will plan to leave crandall in place for now. TOV Tuesday if she remains inpatient, or will plan for TOTuesday as an outpatient if she is discharged. Resume Lovenox in 48hrs if urine is clearing. The pt will f/u with Dr. Farrell as an outpatient in 2 weeks to discuss bladder pathology and plan of care. Will continue to follow along with primary service. Discharge planning: [facility] facility [facility]
--- NOTE | 2017-07-27 07:45 | Anesthesiology Progress Note ---
Anesthesia Post Op Note Date & Time Jul 27, 2017 at 07:44 Vital Signs Pain Intensity: 0.0 Vital Signs Past 12 Hours Date Time Temp Pulse Resp B/P (MAP) Pulse Ox O2 Delivery O2 Flow Rate FiO2 07/27/17 07:08 37.1 75 18 110/71 (84) 94 Room Air 07/27/17 00:00 Room Air 07/26/17 23:45 36.6 76 16 123/69 (87) 94 Room Air Notes Mental Status: alert / awake / arousable, participated in evaluation Pt Amnestic to Procedure: Yes Nausea / Vomiting: adequately controlled, see Notes Pain: adequately controlled Airway Patency, RR, SpO2: stable & adequate BP & HR: stable & adequate Hydration State: stable & adequate Anesthetic Complications: no major complications apparent + PONV since surgery. now under control after treatment.
[2017-07-27] MEDS: RIVASTIGMINE TARTRATE 1.5 MG PO SCH ×2 (08:25→20:27)
[2017-07-27] MEDS: POLYETHYLENE (MIRALAX) 17 GM PACK PO SCH (08:25)
[2017-07-27] MEDS: LITHIUM CARBONATE 300 MG TAB PO SCH ×2 (08:25→20:28)
[2017-07-27] MEDS: IPRATROPIUM BROMIDE/ALBUTEROL respimat INH INH SCH ×4 (08:25→20:27)
[2017-07-27] MEDS: BuPROPion SR 150 MG TABCR PO SCH ×2 (08:25→20:30)
[2017-07-27] MEDS: MEMANTINE 10 MG TAB PO SCH ×2 (08:25→20:28)
[2017-07-27] MEDS: GABAPENTIN 100 MG CAP PO SCH (08:25)
[2017-07-27] MEDS: PANTOprazole SOD 40 MG TAB PO SCH (08:25)
[2017-07-27 11:40] VITALS: BP 122/78; PULSE 66; TEMP 36.4; O2SAT 96
--- NOTE | 2017-07-27 11:45 | Hospitalist Progress Note ---
Hospitalist Progress Note Date of Service Jul 27, 2017. (Yoana Page PA-C) Subjective Pt evaluation today including: conversation w/ patient, physical exam, chart review, lab review, review of studies Pain: None PO Intake: Poor Voiding: crandall catheter in place The patient was seen and examined this morning. Pt seems confused. She reports thinking she pulled her crandall out overnight while she defecated on the floor. She reports being nauseous and vomiting overnight. She is unable to tell me the date, but knows she is in the hospital and oriented to self. A friend of hers, Spencer Radford is present at bedside and she is able to remember his last name but not his first. Pt admits to feeling slightly nauseous but denies vomiting this morning. Constitutional: No fever, No chills, No sweats Eyes: No redness, No discharge ENT: No nasal symptoms Respiratory: No cough, No wheezing, No shortness of breath, No dyspnea on exertion Cardiovascular: No chest pain, No palpitations Abdomen: No pain, No nausea, No vomiting, No diarrhea, No constipation Musculoskeletal: No joint pain, No muscle pain, No swelling Female : + hematuria Neurologic: No weakness, No numbness/tingling Skin: No rash, No itch (Yoana Page PA-C) Objective Vital Signs Date Time Temp Pulse Resp B/P (MAP) Pulse Ox O2 Delivery O2 Flow Rate FiO2 07/27/17 08:00 Room Air 07/27/17 07:08 37.1 75 18 110/71 (84) 94 Room Air 07/27/17 00:00 Room Air 07/26/17 23:45 36.6 76 16 123/69 (87) 94 Room Air 07/26/17 16:00 94 Room Air 07/26/17 14:56 36.4 75 18 115/74 (88) 94 Room Air 07/26/17 14:19 36.3 72 18 131/83 (99) 92 Room Air 07/26/17 13:50 70 18 141/65 (90) 91 Room Air 07/26/17 13:15 36.3 66 18 153/81 (105) 93 Room Air 07/26/17 12:45 36.3 69 20 148/79 (102) 93 Room Air 07/26/17 12:25 69 16 128/73 94 Nasal Cannula 2 07/26/17 12:15 36.1 69 16 132/72 94 Nasal Cannula 2 07/26/17 12:05 69 18 133/82 94 Nasal Cannula 2 07/26/17 11:55 72 18 112/68 97 Oxymask 10 07/26/17 11:49 37.1 71 16 105/65 99 Oxymask 10 (Yoana Page PA-C) Physical Exam Notes: General Appearance: WD/WN, NAD Eyes: PERRL, EOMI, + pertinent finding (+presbyopia of R eye) ENT: hearing grossly normal, pharynx normal Neck: supple, no JVD Respiratory/Chest: lungs clear, no respiratory distress, no accessory muscle use Cardiovascular: regular rate, rhythm, no murmur Abdomen: normal bowel sounds, non tender, soft, + pertinent finding (crandall catheter in place draining dark red urine, + small clots) Extremities: non-tender, no pedal edema, no calf tenderness Neurologic/Psychiatric: alert, oriented to self and place, not time. Skin: normal color, warm/dry (Yoana Page PA-C) Laboratory Results Last 24 Hours Test 07/27/17 05:21 White Blood Count 10.71 K/uL Red Blood Count 4.20 M/uL Hemoglobin 13.0 g/dL Hematocrit 41.7 % Mean Corpuscular Volume 99.3 fL Mean Corpuscular Hemoglobin 31.0 pg Mean Corpuscular Hemoglobin Concent 31.2 g/dl RDW Standard Deviation 48.8 fL RDW Coefficient of Variation 13.6 % Platelet Count 133 K/uL Mean Platelet Volume 10.5 fL Sodium Level 142 mmol/L Potassium Level 3.6 mmol/L Chloride Level 111 mmol/L Carbon Dioxide Level 23 mmol/L Anion Gap 8.0 mmol/L Blood Urea Nitrogen 13 mg/dl Creatinine 1.10 mg/dl Est Creatinine Clear Calc Drug Dose 44.5 ml/min Estimated GFR () 54.9 Estimated GFR (Non- 47.4 BUN/Creatinine Ratio 11.9 Random Glucose 120 mg/dl Calcium Level 9.1 mg/dl Magnesium Level 2.1 mg/dl (Yoana Page PA-C) Assessment and Plan 81 yo F with 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 Presented after cessation of Eliquis due to severe headache. She had been having urinary or vaginal bleeding for month, but not anemic despite hematuria. Acute LLE DVT s/p IVC filter due to hematuria: - Vascular consultation IVC placed on 07/22 - f/u in 3-4 months. - Plan to resume anticoagulation with lovenox 1.5 mg/kg in 3-4 days, in the setting of malignancy, after procedure to anticoagulate. Currently not on any chemical anticoagulation. - Daughter agreeable to doing daily injections for the patient. Son update on . Bladder lesion w/ h/o hematuria- demonstrated on both CT and bladder ultrasound secondary to high grade TCC: - high grade urothelial carcinoma - s/p cysto and TURBT on 07/26 , POD 0. - Papillary tumor was almost all resected, Dr. Farrell to determine if needs for chemotherapy, likely as outpatient. - Avoid anticoagulation due to recurrent hematuria for now, will address with uro as mentioned abve - Hgb 13.0, down from high 13s=14. Follow H&H Nausea/vomitting - Still nauseous this morning, continue antiemetics with zofran and reglan - Will trial clear liquids for lunch, advance if tolerated Increased confusion - Continue to monitor - pt stating she pulled out crandall overnight, defecated on floor, reported low BP this morning, not oriented to time. - Possible hospital acquired delirium evolving in the setting of dementia with no infectious source? UTI- RESOLVED: Treated w/ Keflex BID RAFAEL- RESOLVED Depression/dementia: - Continue Bupropion 150 mg BID, Lexapro (pt has not gotten this since being admitted due to unknown strength ), Gabapentin 100 mg daily, [place] carbonate 300 mg BID, Namenda 10 mg BID, Exelon 6 mg BID - discussed with [facility] - pt does not use [facility] for psych meds and likely only uses mail order so unable to confirm lexapro dosage. - [place] WNL Hypothyroidism- TSH 6.810: Increased Synthroid to 88 mcg on 07/24- will need repeat TSH in 6 weeks - follow up w/ PCP COPD- STABLE: Continue Combivent and Montelukast Diarrhea - patient is having multiple bowel movements per day however she has a long history of diarrhea and constipation. C diff negative. Continue immodium. GERD: Protonix- resume Prilosec at discharge DVT ppx: Chemical anticoagulation contraindicated due to hematuria- IVC filter, Plan to start lovenox 3-4 days after 07/26 when TURBT and cysto completed per urology. Code Status: LEVEL I, FULL Disposition: From home, possible dc within 1-2 days. (Yoana Page, YUMIKO) Attending Attestation: Pt seen/examined, chart reviewed, care plan d/w ROSEMARY Page. I agree w/ the garcia components of her documentation. Pt w/o c/o abd pain, nausea, emesis. Thinks she is "short of breath because I didn't get my inhaler." Crandall with gross hematuria. VSS no fever gen - NAD neck - no JVD mouth - MMM heart - RRR lungs - CTA b/l; slight wheeze heard at end of expiration abd - soft, NT, BS+ with improved bowel sounds today ext - 2+ pulses Cr 1.1 A/P: 1. gross hematuria 2nd to high-grade bladder ca - s/p TURBT by Dr. Farrell - POD #1. Appreciate urology consult and assistance. H/H stable despite hematuria. Crandall management per urology. CBC am. 2. acute DVT, LLE - s/p IVC filter due to hematuria. Appreciate vascular consultation. Pending urological clearance reasonable to start lovenox injections in future but would defer now due to hematuria. 3. acute kidney injury - resolved. 4. hypothyroidism - TSH high; last TSH several months ago also high; increased synthroid to 88mcg daily; TSH in 6 weeks. 5. lithium level acceptable. 6. dispo - not safe to be alone at home per OT and PT. Thus, [facility]. 7. nausea/emesis - resolved; no signs of ileus today; start clears. Krystyna GUTIERREZ MD (Julian Gutierrez MD)
[2017-07-27 15:41] VITALS: BP 116/79; PULSE 77; TEMP 36.6; O2SAT 94
[2017-07-27] MEDS: MONTELUKAST SOD 10 MG TAB PO SCH (20:29)
[2017-07-27] MEDS: ACETAMINOPHEN 325 MG TAB PO PRN (22:05)
[2017-07-27 22:56] VITALS: BP 118/76; PULSE 90; TEMP 36.9; O2SAT 93
[2017-07-28] MEDS: D5W AND 1/2NSS 1,000 ML IV SCH ×2 (02:18→16:12)
[2017-07-28] MEDS: LEVOTHYROXINE 88 MCG TAB PO SCH (05:35)
[2017-07-28 07:16] LABS: HEMATOCRIT 38.9 % (37-47); MEAN CELL VOLUME 98.7 fL (80-100); MEAN CORPUSCULAR HEMOGLOBIN 32.2 pg (25-34); MEAN CORPUSCULAR HGB CONC 32.6 g/dl (32-36); MEAN PLATELET VOLUME 10.7 fL (7.4-10.4); PLATELET COUNT 100 K/uL (130-400); RED BLOOD COUNT 3.94 M/uL (4.2-5.4); WHITE BLOOD COUNT 13.26 K/uL (4.8-10.8)
--- NOTE | 2017-07-28 07:22 | Progress Note ---
Subjective Date of Service: Jul 28, 2017. Subjective Pt evaluation today including: conversation w/ patient, chart review, lab review Voiding: crandall catheter in place (patent, draining dark ortiz colored urine) 81 yo female s/p TURBT. Pt c/o persistent nausea and gas pains this morning. Urine remains dark ortiz colored. Labs pending. Pathology showing high-grade cancer invading the lamina propria. Problem List Medical Problems: (1) Deep vein thrombosis (DVT) Status: Acute (2) DVT (deep venous thrombosis) Status: Acute (3) Hypothyroidism Status: Chronic Review of Systems Constitutional: No fever, No chills Respiratory: No shortness of breath Cardiac: No chest pain Abdomen: + pain, + nausea, No vomiting Female : + hematuria Objective Vital Signs Date Time Temp Pulse Resp B/P (MAP) Pulse Ox O2 Delivery O2 Flow Rate FiO2 07/28/17 00:00 Room Air 07/27/17 22:56 36.9 90 18 118/76 (90) 93 Room Air 07/27/17 20:00 Room Air 07/27/17 16:00 Room Air 07/27/17 15:41 36.6 77 22 116/79 (91) 94 Room Air 07/27/17 11:40 36.4 66 20 122/78 (93) 96 Nasal Cannula 4.0 07/27/17 08:00 Room Air Physical Exam General Appearance: no apparent distress, + obese Eyes: normal inspection ENT: hearing grossly normal Neck: no JVD Respiratory/Chest: no respiratory distress, no accessory muscle use Cardiovascular: no JVD Extremities: normal inspection Neurologic/Psychiatric: alert, normal mood/affect, oriented x 3 Skin: normal color Laboratory Results Last 24 Hours Test 07/28/17 07:02 Assessment and Plan POD #2 s/p TURBT; high-grade papillary urothelial carcinoma AFVSS. Large bladder tumor resection in OR. Will plan to leave crandall in place for now. TOV tomorrow if urine clears, otherwise will plan for a TOV on Tuesday most likely. Continue to hold Lovenox with active bleeding. Resume when urine clears. The pt will f/u with Dr. Farrell as an outpatient in 2 weeks to discuss bladder pathology and plan of care. Will continue to follow along with primary service. Discharge planning: shelter facility ([facility])
[2017-07-28 07:44] LABS: BUN/CREATININE RATIO 11.2 (10-20); CALCIUM 8.9 mg/dl (8.5-10.1); CREATININE 1.2 mg/dl (0.60-1.20); POTASSIUM 3.6 mmol/L (3.5-5.1)
[2017-07-28 07:46] VITALS: BP 126/79; PULSE 79; TEMP 36.8; O2SAT 94
[2017-07-28 08:00] VITALS: O2SAT 94
[2017-07-28] MEDS: POLYETHYLENE (MIRALAX) 17 GM PACK PO SCH (08:15)
[2017-07-28] MEDS: IPRATROPIUM BROMIDE/ALBUTEROL respimat INH INH SCH ×4 (08:16→21:01)
[2017-07-28] MEDS: RIVASTIGMINE TARTRATE 1.5 MG PO SCH ×2 (08:17→21:02)
[2017-07-28] MEDS: BuPROPion SR 150 MG TABCR PO SCH ×2 (08:18→21:03)
[2017-07-28] MEDS: LITHIUM CARBONATE 300 MG TAB PO SCH ×2 (08:18→21:03)
[2017-07-28] MEDS: MEMANTINE 10 MG TAB PO SCH ×2 (08:18→21:03)
--- NOTE | 2017-07-28 08:18 | Hospitalist Progress Note ---
Hospitalist Progress Note Date of Service Jul 28, 2017. (Yoana Page PA-C) Subjective Pt evaluation today including: conversation w/ patient, physical exam, chart review, lab review, review of studies Pain: None PO Intake: Poor Voiding: crandall catheter in place (draining dark red urine + clots) The patient was seen and examined this morning. Pt reports feeling extremely weak today. She was not able to walk by herself to the bathroom without assistance. While walking she felt short of breath and felt like she was "huffing and puffing". Pt has not required supplemental O2. Her mood is down today, as she feels like shes been in the hospital forever. Pt denies acute pain, lightheadedness, dizziness, chest pain, palpitations, fever, chills or sweats. Additional Comments: ROS: 6 point ROS reviewed and negative, otherwise listed above. (Yoana Page PA-C) Objective Vital Signs Date Time Temp Pulse Resp B/P (MAP) Pulse Ox O2 Delivery O2 Flow Rate FiO2 07/28/17 07:46 36.8 79 18 126/79 (95) 94 Room Air 07/28/17 00:00 Room Air 07/27/17 22:56 36.9 90 18 118/76 (90) 93 Room Air 07/27/17 20:00 Room Air 07/27/17 16:00 Room Air 07/27/17 15:41 36.6 77 22 116/79 (91) 94 Room Air 07/27/17 11:40 36.4 66 20 122/78 (93) 96 Nasal Cannula 4.0 (Yoana Page PA-C) Physical Exam Notes: General Appearance: WD/WN, NAD Eyes: PERRL, EOMI, + pertinent finding (+presbyopia of R eye) ENT: hearing grossly normal, pharynx normal Neck: supple, no JVD Respiratory/Chest: lungs clear, no respiratory distress, no accessory muscle use Cardiovascular: regular rate, rhythm, no murmur Abdomen: normal bowel sounds, non tender, soft, + pertinent finding (crandall catheter in place draining dark red urine, + small clots) Extremities: non-tender, no pedal edema, no calf tenderness Neurologic/Psychiatric: alert, +mood depressed, oriented to self and place, knows president, knows year. Skin: normal color, warm/dry (Yoana Page PA-C) Laboratory Results Last 24 Hours Test 07/28/17 07:02 White Blood Count 13.26 K/uL Red Blood Count 3.94 M/uL Hemoglobin 12.7 g/dL Hematocrit 38.9 % Mean Corpuscular Volume 98.7 fL Mean Corpuscular Hemoglobin 32.2 pg Mean Corpuscular Hemoglobin Concent 32.6 g/dl RDW Standard Deviation 49.5 fL RDW Coefficient of Variation 13.8 % Platelet Count 100 K/uL Mean Platelet Volume 10.7 fL Sodium Level 138 mmol/L Potassium Level 3.6 mmol/L Chloride Level 109 mmol/L Carbon Dioxide Level 20 mmol/L Anion Gap 9.0 mmol/L Blood Urea Nitrogen 13 mg/dl Creatinine 1.20 mg/dl Est Creatinine Clear Calc Drug Dose 40.8 ml/min Estimated GFR () 49.4 Estimated GFR (Non- 42.7 BUN/Creatinine Ratio 11.2 Random Glucose 131 mg/dl Calcium Level 8.9 mg/dl (Yoana Pgae PA-C) Assessment and Plan 81 yo F with 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 Presented after cessation of Eliquis due to severe headache. She had been having urinary or vaginal bleeding for month, but not anemic despite hematuria. Acute LLE DVT s/p IVC filter due to hematuria: - Vascular consultation IVC placed on 07/22 - f/u in 3-4 months. - At this time not sure we will resume anticoagulation at all 2/2 hematuria. ideally would proceed with anticoagulation with lovenox 1.5 mg/kg 3-4 days after procedure if hematuria stops. Currently not on any chemical anticoagulation. Bladder lesion w/ h/o hematuria- demonstrated on both CT and bladder ultrasound secondary to high grade TCC: - POD #2 : high grade urothelial carcinoma - s/p cysto and TURBT on 07/26 - Papillary tumor was almost all resected, Dr. Farrell to determine if needs for chemotherapy, likely as outpatient. - Avoid anticoagulation due to recurrent hematuria for now, will address with uro as mentioned above - Hgb 12.7, down from high 13s-14. Follow H&H - pt feeling weak with some shortness of breath possible secondary to acute blood loss anemia - Once urine clears with do voiding trial Nausea/vomiting - continue antiemetics with zofran and reglan - allow full liquids today, pt tolerated clears last night well but did not eat breakfast this am. Increased confusion - Possible hospital acquired delirium evolving in the setting of dementia with no infectious source? Seems to wax and wane UTI- RESOLVED: Treated w/ Keflex BID RAFAEL- RESOLVED Depression/dementia: - Continue Bupropion 150 mg BID, Lexapro (pt has not gotten this since being admitted due to unknown strength ), Gabapentin 100 mg daily, [place] carbonate 300 mg BID, Namenda 10 mg BID, Exelon 6 mg BID - discussed with [facility] - pt does not use [facility] for psych meds and likely only uses mail order so unable to confirm lexapro dosage. - [place] WNL - Target Process with mental health hx in process. Hypothyroidism- TSH 6.810: Increased Synthroid to 88 mcg on 07/24- will need repeat TSH in 6 weeks - follow up w/ PCP COPD- STABLE: Continue Combivent and Montelukast Diarrhea - patient is having multiple bowel movements per day however she has a long history of diarrhea and constipation. C diff negative. Continue immodium. GERD: Protonix- resume Prilosec at discharge DVT ppx: Chemical anticoagulation contraindicated due to hematuria- IVC filter, if urine clears plan to start lovenox 3-4 days after 07/26 when TURBT and cysto completed per urology. Code Status: LEVEL I, FULL Disposition: From home, discharge unknown currently, await clearance of hematuria. (Yoana Page, YUMIKO) Attending Attestation: Pt seen/examined, chart reviewed, care plan d/w ROSEMARY Page. I agree w/ the garcia components of her documentation. Pt with ongoing nausea and poor appetite. Feels poorly overall - depressed in general. Ongoing hematuria via crandall. VSS no fever gen - NAD neck - no JVD mouth - MMM heart - RRR lungs - CTA b/l; slight wheeze heard at end of expiration abd - soft, NT, BS+, distended ext - 2+ pulses abd x-rays - distension of colon, stool in rectum (my reading) A/P: 1. gross hematuria 2nd to high-grade bladder ca - s/p TURBT by Dr. Farrell - POD #2. Appreciate urology consult and assistance. H/H stable despite hematuria. Crandall management per urology. CBC am for stability. 2. acute DVT, LLE - s/p IVC filter due to hematuria. Appreciate vascular consultation. 3. acute kidney injury - resolved. 4. hypothyroidism - TSH high; last TSH several months ago also high; increased synthroid to 88mcg daily; TSH in 6 weeks. 5. colonic ileus - reduce diet back to clears; continue IVF. Keep lytes stable. Recheck c. diff to be complete. 6. dispo - not safe to be alone at home per OT and PT. Thus, [facility] at discharge. 7. depression with h/o bipolar disorder - psych consult. daughter updated by phone Krystyna GUTIERREZ MD (Julian Gutierrez MD)
[2017-07-28] MEDS: GABAPENTIN 100 MG CAP PO SCH (08:19)
[2017-07-28] MEDS: PANTOprazole SOD 40 MG TAB PO SCH (08:19)
[2017-07-28] MEDS: ONDANSETRON INJ 2 MG/ML 2 ML VIAL IV PRN ×3 (08:23→23:30)
[2017-07-28 15:16] VITALS: BP 98/69; PULSE 93; TEMP 37.2; O2SAT 91
[2017-07-28 16:00] VITALS: O2SAT 96
[2017-07-28] MEDS ORDERED: FEXOFENADINE HCL 60 MG TAB PO ONE (16:15)
--- NOTE | 2017-07-28 17:02 | DIAGNOSTIC IMAGING REPORT ---
ABDOMEN 2VIEW W/PA CHEST RTN HISTORY: 81 years-old Female abd distension, bloating, nausea; eval for ileus acute generalized abdominal pain and bloating. COMPARISON: Chest radiograph 02/11/2017, CT abdomen and pelvis 07/12/2017 TECHNIQUE: Frontal view of the chest with left lateral decubitus and supine views of the abdomen FINDINGS: Cardiac silhouette is within normal limits. There is atherosclerosis of the aorta. No pneumothorax. Linear subsegmental bibasilar opacities are unchanged suggesting scarring/atelectasis with some subpleural reticulation. No large pleural effusion. Bones of the chest appear grossly intact. IVC filter noted at the level of L2-L3. Surgical clips are seen within the right upper abdomen. Increased density is seen within the region of the previous described large duodenal diverticulum. Bowel gas pattern is nonobstructive. No pneumoperitoneum. There is mild gaseous distention of colon with a few air-fluid levels. IMPRESSION: 1. Nonobstructive bowel gas pattern without pneumoperitoneum. 2. Mild gaseous distention of the colon is noted with a few scattered air-fluid levels, nonspecific. 3. No acute cardiopulmonary process. Unchanged bibasilar scarring and atelectasis. The above report was generated using voice recognition software. It may contain grammatical, syntax or spelling errors. Electronically signed by: Haresh Uriostegui M.D. 07/28/2017 5:00 PM Dictated Date/Time: 07/28/2017 4:56 PM
[2017-07-28] MEDS ORDERED: BISACODYL 5 MG TABEC PO ONE (17:45)
[2017-07-28 19:39] VITALS: BP 121/79; PULSE 87; TEMP 37.4; O2SAT 92
[2017-07-28] MEDS: TRIAMCINOLONE ACET NASAL SPRAY 10.8ML BTL NAE SCH (21:01)
[2017-07-28] MEDS: MONTELUKAST SOD 10 MG TAB PO SCH (21:03)
--- NOTE | 2017-07-28 21:08 | Progress Note ---
Progress Note Date of Service Jul 28, 2017. Progress Note Patient is post TURBT The nurse on the floor called and said her urine had gone from Myles to sort of dark red Apparently the Mcintosh had not been irrigated for some time Irrigated the Mcintosh with 1 L of normal saline until it was light pink I got a few clots I discussed with the nurse that they need to irrigate the Mcintosh periodically especially if it was starting to get more bloody I went over over the irrigation technique with the night nurse showing her the proper irrigation technique
[2017-07-28] MEDS ORDERED: NURSING VERBAL MED ORDER ONE ×2 (22:15→22:45)
[2017-07-28] MEDS: LORAZEPAM 0.5 MG TAB PO PRN (23:30)
[2017-07-28 23:31] VITALS: BP 120/63; PULSE 95; TEMP 37.4; O2SAT 92
[2017-07-29] VITALS: O2SAT 96
[2017-07-29] MEDS: LEVOTHYROXINE 88 MCG TAB PO SCH (06:39)
[2017-07-29] MEDS: D5W AND 1/2NSS 1,000 ML IV SCH ×2 (06:39→19:49)
[2017-07-29 07:19] VITALS: BP 110/72; PULSE 89; TEMP 37; O2SAT 95
[2017-07-29] MEDS: TRIAMCINOLONE ACET NASAL SPRAY 10.8ML BTL NAE SCH (07:47)
[2017-07-29] MEDS: IPRATROPIUM BROMIDE/ALBUTEROL respimat INH INH SCH ×4 (07:47→20:54)
[2017-07-29] MEDS: LITHIUM CARBONATE 300 MG TAB PO SCH ×2 (07:47→20:55)
[2017-07-29] MEDS: MEMANTINE 10 MG TAB PO SCH ×2 (07:47→20:55)
[2017-07-29] MEDS: PANTOprazole SOD 40 MG TAB PO SCH (07:47)
[2017-07-29] MEDS: BuPROPion SR 150 MG TABCR PO SCH ×2 (07:47→20:55)
[2017-07-29] MEDS: FEXOFENADINE HCL 60 MG TAB PO SCH ×2 (07:47→20:54)
[2017-07-29] MEDS: RIVASTIGMINE TARTRATE 1.5 MG PO SCH ×2 (07:47→20:55)
[2017-07-29] MEDS: POLYETHYLENE (MIRALAX) 17 GM PACK PO SCH (07:47)
[2017-07-29] MEDS: GABAPENTIN 100 MG CAP PO SCH (07:47)
--- NOTE | 2017-07-29 10:01 | Progress Note ---
Subjective Date of Service: Jul 29, 2017. (Yumiko Das CRNP) Subjective Pt evaluation today including: conversation w/ patient, lab review Voiding: crandall catheter in place 81 year old female who had TURBT on Jul 26 for large bladder mass. Pt continues to have significant thick merlot colored urine. Was hand irrigated with 1L NSS last evening for bloody urine w/ small amount of clots. Pt denies bothersome urinary symptoms with crandall in place. She does have complaints of pain with deep inspiration- Instructed important to take deep breaths, use pillow to brace for discomfort. Her hgb/hct have not dropped much. AFVSS. (Yumiko Das CRNP) Problem List Medical Problems: (1) Deep vein thrombosis (DVT) Status: Acute (2) DVT (deep venous thrombosis) Status: Acute (3) Hypothyroidism Status: Chronic (Yumiko Das CRNP) Review of Systems Constitutional: No fever, No chills ENT: No hearing loss Respiratory: + see HPI Cardiac: No chest pain Abdomen: + see HPI, No pain, No nausea Female : + see HPI, + hematuria Heme: + see HPI (Yumiko Das CRNP) Objective Vital Signs Date Time Temp Pulse Resp B/P (MAP) Pulse Ox O2 Delivery O2 Flow Rate FiO2 07/29/17 08:00 Room Air 07/29/17 07:19 37.0 89 18 110/72 (85) 95 Room Air 07/29/17 00:00 96 Room Air 07/28/17 23:31 37.4 95 18 120/63 (82) 92 Room Air 07/28/17 19:39 37.4 87 18 121/79 (93) 92 Room Air 07/28/17 16:00 96 Room Air 07/28/17 15:16 37.2 93 18 98/69 (79) 91 Room Air (Yumiko Das CRNP) Physical Exam General Appearance: no apparent distress ENT: hearing grossly normal Respiratory/Chest: no respiratory distress, no accessory muscle use Neurologic/Psychiatric: alert, normal mood/affect (Yumiko Das CRNP) Assessment and Plan Hematuria . Gross hematuria- merlot colored continues despite hand irrigation. Discussed case with Dr. Farrell. Recommend inserting 20-[address]andall catheter with CBI to VERY slow irrigation to prevent clot retention. If doing better will consider stopping in next day or 2 and pull crandall for TOV. She is hemodynamically stable. ADDENDUM: Spoke with Dr. Kaur- he would like to make pt NPO until he is able to evaluate her this afternoon for possible need for bladder fulguration. He will evaluate at that time. Discharge planning: fdc facility ([facility]) (Yumiko Das CRNP) pt seen with bloody urine which clears when I increase cbi . Pt with stable hct . Will feed pt tonight and make npo after midnite in case she needs to go back in am (Samuel Kaur M.D.)
--- NOTE | 2017-07-29 13:34 | Progress Note ---
Subjective Date of Service: Jul 29, 2017. 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 today bad cell provider relations manager Problem List Medical Problems: (1) Deep vein thrombosis (DVT) Status: Acute (2) DVT (deep venous thrombosis) Status: Acute (3) Hypothyroidism Status: Chronic Review of Systems Constitutional: + weakness, No fever, No chills Respiratory: No cough, No sputum, No shortness of breath Cardiac: No chest pain, No edema Abdomen: No pain, No nausea, No vomiting, No diarrhea Musculoskeletal: No joint pain, No muscle pain Female : + hematuria, No dysuria, No urinary frequency Objective Vital Signs Date Time Temp Pulse Resp B/P (MAP) Pulse Ox O2 Delivery O2 Flow Rate FiO2 07/29/17 07:19 37.0 89 18 110/72 (85) 95 Room Air 07/29/17 00:00 96 Room Air 07/28/17 23:31 37.4 95 18 120/63 (82) 92 Room Air 07/28/17 19:39 37.4 87 18 121/79 (93) 92 Room Air 07/28/17 16:00 96 Room Air 07/28/17 15:16 37.2 93 18 98/69 (79) 91 Room Air Physical Exam General Appearance: WD/WN, + mild distress Eyes: PERRL, EOMI Neck: supple, no JVD Respiratory/Chest: chest non-tender, lungs clear Cardiovascular: regular rate, rhythm, no murmur Abdomen: normal bowel sounds, soft, + guarding, + tenderness Extremities: no pedal edema, no calf tenderness Neurologic/Psychiatric: alert, oriented x 3 Assessment and Plan 81 yo F with 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 Acute LLE DVT s/p IVC filter due to hematuria: IVC placed on 07/22 - f/u in 3-4 months. - At this time not sure we will resume anticoagulation at all 2/2 hematuria. 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 Farrell to determine if needs for chemotherapy, likely as outpatient. - Avoid anticoagulation due to recurrent hematuria for now Nausea/vomiting zofran and reglan Increased confusion Possible hospital acquired delirium evolving in the setting of dementia caution with reglan for toxic encephalopathy UTI- RESOLVED: Treated w/ Keflex BID RAFAEL- RESOLVED Depression/dementia: Bupropion 150 mg BID, Lexapro (pt has not gotten this since being admitted due to unknown strength ), Gabapentin 100 mg daily, [place] carbonate 300 mg BID, Namenda 10 mg BID, Exelon 6 mg BID - Target Process with mental health hx in process. Hypothyroidism- TSH 6.810: Increased Synthroid to 88 mcg on 07/24- will need repeat TSH in 6 weeks - follow up w/ PCP COPD- STABLE: Continue Combivent and Montelukast Diarrhea - C diff negative. Continue Imodium. GERD: Protonix- resume Prilosec at discharge DVT ppx: Chemical anticoagulation contraindicated due to hematuria- IVC filter, if urine clears plan to start lovenox 3-4 days after 07/26 when TURBT and cysto completed per urology. Code Status: LEVEL I, FULL sons number [id number], [phone] Discharge planning: retirement facility ([facility])
[2017-07-29 15:21] VITALS: BP 111/61; PULSE 87; TEMP 36.8; O2SAT 95
[2017-07-29 18:51] LABS: HEMATOCRIT 33.9 % (37-47); MEAN CELL VOLUME 97.4 fL (80-100); MEAN CORPUSCULAR HGB CONC 33.9 g/dl (32-36); RED BLOOD COUNT 3.48 M/uL (4.2-5.4); WHITE BLOOD COUNT 15.99 K/uL (4.8-10.8)
[2017-07-29 19:34] LABS: MEAN PLATELET VOLUME 11.1 fL (7.4-10.4); PLATELET COUNT 90 K/uL (130-400)
[2017-07-29 19:35] LABS: PLT ESTIMATE DECREASED
[2017-07-29 19:38] LABS: INR 1.1 (0.9-1.1); PROTHROMBIN TIME (PATIENT) 11.4 SECONDS (9.0-12.0)
--- NOTE | 2017-07-29 20:37 | Progress Note ---
Subjective Date of Service: Jul 29, 2017. Subjective Pt evaluation today including: conversation w/ patient, conversation w/ family , physical exam, chart review Voiding: crandall catheter in place urine intermittently bloody on cbi . Nurses irrigated some larger clots earlier Pt w hct now 33.8 . Pt ate late this afternoon as urine appeared clearer. Discussed w pt and daughter will keep cbi overnight but have put her on schedule to do a cysto clot evacuation if she does not clear Problem List Medical Problems: (1) Deep vein thrombosis (DVT) Status: Acute (2) DVT (deep venous thrombosis) Status: Acute (3) Hypothyroidism Status: Chronic Objective Vital Signs Date Time Temp Pulse Resp B/P (MAP) Pulse Ox O2 Delivery O2 Flow Rate FiO2 07/29/17 16:00 Room Air 07/29/17 15:21 36.8 87 22 111/61 (78) 95 Room Air 07/29/17 08:00 Room Air 07/29/17 07:19 37.0 89 18 110/72 (85) 95 Room Air 07/29/17 00:00 96 Room Air 07/28/17 23:31 37.4 95 18 120/63 (82) 92 Room Air Laboratory Results Last 24 Hours Test 07/29/17 18:38 White Blood Count 15.99 K/uL Red Blood Count 3.48 M/uL Hemoglobin 11.5 g/dL Hematocrit 33.9 % Mean Corpuscular Volume 97.4 fL Mean Corpuscular Hemoglobin 33.0 pg Mean Corpuscular Hemoglobin Concent 33.9 g/dl RDW Standard Deviation 48.6 fL RDW Coefficient of Variation 13.8 % Platelet Count 90 K/uL Mean Platelet Volume 11.1 fL Platelet Estimate DECREASED Prothrombin Time 11.4 SECONDS Prothromb Time International Ratio 1.1 Activated Partial Thromboplast Time 26.1 SECONDS Partial Thromboplastin Ratio 1.0 Assessment and Plan pt seen with bloody urine which clears when I increase cbi .Given drop in hct and clots recently will make npo and have typed and crossed 2 units and added to schedule in am if urine does not clear. Will start pt on cipro as her wbc is up and she is not on antibiotics Discharge planning: correction facility ([facility])
[2017-07-29] MEDS: MONTELUKAST SOD 10 MG TAB PO SCH (20:55)
[2017-07-29] MEDS: ACETAMINOPHEN 325 MG TAB PO PRN (20:56)
[2017-07-29] MEDS: CEFTRIAXONE SOD INJ 1 GM in DEXTROSE 5% ADD-VANTAGE 50ML 50 ML IV SCH (21:44)
[2017-07-29 23:44] VITALS: BP 117/69; PULSE 83; TEMP 37.4; O2SAT 93
[2017-07-30] VITALS (11 sets, daily range): BP systolic 87–125; BP diastolic 43–78; PULSE 65–88; TEMP 36.3–37.4; O2SAT 91–100
[2017-07-30] MEDS: LEVOTHYROXINE 88 MCG TAB PO SCH (05:40)
[2017-07-30] MEDS: POLYETHYLENE (MIRALAX) 17 GM PACK PO SCH (06:46)
[2017-07-30] MEDS: FEXOFENADINE HCL 60 MG TAB PO SCH ×2 (06:46→21:58)
[2017-07-30] MEDS: LITHIUM CARBONATE 300 MG TAB PO SCH ×2 (06:46→21:57)
[2017-07-30] MEDS: RIVASTIGMINE TARTRATE 1.5 MG PO SCH ×2 (06:46→21:58)
[2017-07-30] MEDS: MEMANTINE 10 MG TAB PO SCH ×2 (06:46→22:02)
[2017-07-30] MEDS: GABAPENTIN 100 MG CAP PO SCH (06:47)
[2017-07-30] MEDS: BuPROPion SR 150 MG TABCR PO SCH ×2 (06:47→21:57)
[2017-07-30] MEDS: PANTOprazole SOD 40 MG TAB PO SCH (06:47)
[2017-07-30] MEDS: ONDANSETRON INJ 2 MG/ML 2 ML VIAL IV PRN ×2 (07:16→13:26)
[2017-07-30 07:36] LABS: BASO % 0.1 %; BASO ABS # 0.02 K/uL (0-0.2); COMPLETE YES; EOS % 0.9 %; HEMATOCRIT 32.6 % (37-47); LYMPH % 6.2 %; LYMPH ABS # 1.07 K/uL (1.2-3.4); MEAN CELL VOLUME 96.7 fL (80-100); MEAN CORPUSCULAR HEMOGLOBIN 33.5 pg (25-34); MEAN CORPUSCULAR HGB CONC 34.7 g/dl (32-36); MEAN PLATELET VOLUME 11.7 fL (7.4-10.4); MONO % 10.2 %; NEUT % 81.6 %; PLATELET COUNT 107 K/uL (130-400); RED BLOOD COUNT 3.37 M/uL (4.2-5.4); WHITE BLOOD COUNT 17.22 K/uL (4.8-10.8)
[2017-07-30] MEDS: D5W AND 1/2NSS 1,000 ML IV SCH ×2 (08:59→21:54)
[2017-07-30] MEDS: IPRATROPIUM BROMIDE/ALBUTEROL respimat INH INH SCH ×5 (09:30→22:02)
[2017-07-30] MEDS: TRIAMCINOLONE ACET NASAL SPRAY 10.8ML BTL NAE SCH (09:31)
[2017-07-30] MEDS ORDERED: FENTANYL CITRATE INJ 50 MCG/1 ML 2 ML VIAL ONE (09:33)
--- NOTE | 2017-07-30 09:46 | Progress Note ---
Subjective Date of Service: Jul 30, 2017. Subjective Pt evaluation today including: conversation w/ patient, conversation w/ family , physical exam, chart review, lab review, conversation w/ consultant internship Voiding: crandall catheter in place Pt still with gross hematuria on 3 way irrigation. Irrigated bladder this am with moderate clot and still dark off irrigation and ortiz on irrigation . Discussed with anesthesia , Dr. Carlos and pt son .Pt hct only propped 1 .4 overnight but 6 over past 24 and her bleeding is persisting at a moderate rate . Given the option that it stops overnight or proceeding to clot evacuation and fulguration I have decided to proceed and everyone I spoke with agrees. I have explained to the son that she is extremely sick and now has a wbc of 17 . I started rocephin yesterday . Unable to get urine culture on 3 way Problem List Medical Problems: (1) Deep vein thrombosis (DVT) Status: Acute (2) DVT (deep venous thrombosis) Status: Acute (3) Hypothyroidism Status: Chronic Objective Vital Signs Date Time Temp Pulse Resp B/P (MAP) Pulse Ox O2 Delivery O2 Flow Rate FiO2 07/30/17 08:00 Room Air 07/30/17 07:37 36.8 88 16 100/65 (77) 95 Room Air 07/30/17 00:00 Room Air 07/29/17 23:44 37.4 83 16 117/69 (85) 93 Room Air 07/29/17 16:00 Room Air 07/29/17 15:21 36.8 87 22 111/61 (78) 95 Room Air Laboratory Results Last 24 Hours Test 07/29/17 18:38 07/30/17 07:01 07/30/17 08:48 White Blood Count 15.99 K/uL 17.22 K/uL Red Blood Count 3.48 M/uL 3.37 M/uL Hemoglobin 11.5 g/dL 11.3 g/dL Hematocrit 33.9 % 32.6 % Mean Corpuscular Volume 97.4 fL 96.7 fL Mean Corpuscular Hemoglobin 33.0 pg 33.5 pg Mean Corpuscular Hemoglobin Concent 33.9 g/dl 34.7 g/dl RDW Standard Deviation 48.6 fL 48.1 fL RDW Coefficient of Variation 13.8 % 13.7 % Platelet Count 90 K/uL 107 K/uL Mean Platelet Volume 11.1 fL 11.7 fL Platelet Estimate DECREASED Prothrombin Time 11.4 SECONDS Prothromb Time International Ratio 1.1 Activated Partial Thromboplast Time 26.1 SECONDS Partial Thromboplastin Ratio 1.0 Neutrophils (%) (Auto) 81.6 % Lymphocytes (%) (Auto) 6.2 % Monocytes (%) (Auto) 10.2 % Eosinophils (%) (Auto) 0.9 % Basophils (%) (Auto) 0.1 % Neutrophils # (Auto) 14.05 K/uL Lymphocytes # (Auto) 1.07 K/uL Monocytes # (Auto) 1.76 K/uL Eosinophils # (Auto) 0.15 K/uL Basophils # (Auto) 0.02 K/uL Immature Granulocyte % (Auto) 1.0 % Immature Granulocyte # (Auto) 0.17 K/uL Assessment and Plan pt seen with bloody urine and drop in hct Pt to OR this am . Discharge planning: senior living facility ([facility])
[2017-07-30] MEDS ORDERED: PHENYLEPHRINE 100MCG/ML 5ML SYR ONE (10:10)
[2017-07-30] MEDS ORDERED: ONDANSETRON INJ 2 MG/ML 2 ML VIAL ONE ×2 (10:10→13:24)
[2017-07-30] MEDS ORDERED: PROPOFOL IV EMULSION 10 MG/ML 20 ML VIAL IV ONE ×7 (10:10→11:56)
[2017-07-30] MEDS ORDERED: LIDOCAINE HCL 2% 2 ML VIAL (20MG/ML) ONE (10:10)
[2017-07-30 10:59] LABS: BUN/CREATININE RATIO 12.5 (10-20); CREATININE 1.2 mg/dl (0.60-1.20); POTASSIUM 3.8 mmol/L (3.5-5.1)
[2017-07-30] MEDS ORDERED: ONDANSETRON INJ 2 MG/ML 2 ML VIAL IV PRN (11:30)
[2017-07-30] MEDS ORDERED: FENTANYL CITRATE INJ 50 MCG/1 ML 2 ML VIAL IV PRN (11:30)
[2017-07-30] MEDS ORDERED: ATROPINE SULFATE 0.1 MG/ML 5ML SYR IV PRN (11:30)
--- NOTE | 2017-07-30 12:54 | [facility] Post Operative Brief Note ---
Immediate Operative Summary Operative Date Jul 30, 2017. Pre-Operative Diagnosis Post-operative bleeding from bladder Post-Operative Diagnosis same as pre-operative Procedure(s) Performed Cystoscopy for clot evacuation and hematuria Surgeon Dr. Kaur Executive [employer] Surgeon(s) none Estimated Blood Loss 200ml Findings thick tenacious clot over r lateral wall clot from wall and one pumping vessel seen and cauterized . Area under clot that was removed cauterized large clot in bladder resected to remove difficult to identify r ureteral orifice Specimens Specimen A: Bladder tissue B: Bladder clot Disposition Recovery Room / PACU
--- NOTE | 2017-07-30 13:23 | Anesthesiology Progress Note ---
Anesthesia Post Op Note Date & Time Jul 30, 2017 at 13:22 Vital Signs Pain Intensity: 0 Vital Signs Past 12 Hours Date Time Temp Pulse Resp B/P (MAP) Pulse Ox O2 Delivery O2 Flow Rate FiO2 07/30/17 13:10 66 16 101/48 97 Room Air Oxymask 07/30/17 13:00 36.3 67 16 116/49 94 Room Air Oxymask 07/30/17 12:50 65 14 120/56 100 Oxymask 7 07/30/17 12:40 36 65 14 121/58 100 Oxymask 7 07/30/17 11:54 () 07/30/17 08:00 Room Air 07/30/17 07:37 36.8 88 16 100/65 (77) 95 Room Air Notes Mental Status: alert / awake / arousable, participated in evaluation Pt Amnestic to Procedure: Yes Nausea / Vomiting: adequately controlled Pain: adequately controlled Airway Patency, RR, SpO2: stable & adequate BP & HR: stable & adequate Hydration State: stable & adequate Anesthetic Complications: no major complications apparent
--- NOTE | 2017-07-30 13:43 | OPERATIVE REPORT ---
DATE OF OPERATION: 07/30/2017 DATE OF PROCEDURE: 07/30/2017. PROCEDURE PERFORMED: Cystoscopy, clot evacuation, fulguration of bleeding areas, status post previous bladder tumor on 07/26/2017. HISTORY OF PRESENTATION: The patient is an 81-year-old female who initially presented with blood clots in her lower extremities. She was given Eliquis and developed gross hematuria. She had on umbrella placed and then was taken off of anticoagulation. Dr. Farrell did a transurethral resection of multiple bladder tumors on 07/26/2017. Postoperatively, she initially did well but had some bleeding that began to worsen Tuesday into and Dr. Tarango had to irrigate her bladder night. Tuesday a 3-way catheter was placed. She had some clot in her bladder but continued to have bleeding and dropped her hematocrit from 38 Tuesday morning to 32 this morning with ongoing redness in her bladder. I did irrigate more clot and without irrigation the 3-way catheter urine was quite bloody. Instead of waiting another day after 4 days of ongoing bleeding that seemed to drop in hematocrit 6 points overnight I elected to take the patient to the OR to identify any bleeding areas and remove all the clots. DESCRIPTION OF THE PROCEDURE: The patient was taken to the operating room where general anesthesia was administered. She had been started yesterday on Rocephin because of a rising white blood cell count. She had had some pyuria on admission and was not on antibiotics. Because she was on 3-way catheter irrigation it was difficult to obtain a culture. She was taken to the operating room and she was given general anesthesia after she was prepped and draped in the usual sterile fashion in the dorsal lithotomy position. A 24 German resectoscope was passed and I attempted to evacuate as much clot as I could. The clot was extremely tenacious and impossible to evacuate most of it through the scope. A good deal of it was stuck to the right lateral wall of the bladder. I able to remove it by pushing the clot off of the wall remove the clot very slowly to separate it from the wall and then again I had to literally resect the clot to remove it because it was so tenacious and thick. I did see a bleeding vessel early in the case, which I cauterized and this may well have been the culprit. After this pumping vessel was cauterized there was throughout the case some oozing, but never saw any significant bleeding to account for the problem after this. However, there was 1 area where there was tenacious clot to the bladder wall where it did appear to be the deepest resection posterolateral to where I believe the right ureteral orifice was. The right ureteral orifice was very difficult to identify, had been also clot apparently tumor at the bladder neck. I was able with great difficulty to remove the clot in this area. It was difficult angle to see clearly. I cauterized this area as aggressively as I felt comfortable cauterizing, did not see any significant bleeding with the irrigation off, resected the rest of clot in the bladder to remove it all but 1 small piece. Towards the end it was tenacious and difficult to remove, but 95% of the clot was removed. I then placed a 3-way Mcintosh catheter and irrigated the urine was clear. Upon waking up with the patient coughing and straining there was some pink picking up in the urine. The patient was transferred to the recovery room with 3-way Mcintosh catheter on irrigation. I attest to the content of the Intraoperative Record and any orders documented therein. Any exception s are noted below.
--- NOTE | 2017-07-30 17:13 | Progress Note ---
Subjective Date of Service: Jul 30, 2017. Subjective this pt is in no immediate distress but still with robust gross hematuria, drop in hgb, taken to OR this am Problem List Medical Problems: (1) Deep vein thrombosis (DVT) Status: Acute (2) DVT (deep venous thrombosis) Status: Acute (3) Hypothyroidism Status: Chronic Review of Systems Constitutional: No fever, No chills Respiratory: No cough, No shortness of breath, No dyspnea on exertion Cardiac: No chest pain, No PND, No edema Abdomen: No pain, No nausea, No vomiting, No diarrhea Female : + hematuria, No dysuria, No urinary frequency Psychiatric: + depression symptoms, No anhedonism Objective Vital Signs Date Time Temp Pulse Resp B/P (MAP) Pulse Ox O2 Delivery O2 Flow Rate FiO2 07/30/17 08:00 Room Air 07/30/17 07:37 36.8 88 16 100/65 (77) 95 Room Air 07/30/17 00:00 Room Air 07/29/17 23:44 37.4 83 16 117/69 (85) 93 Room Air 07/29/17 16:00 Room Air 07/29/17 15:21 36.8 87 22 111/61 (78) 95 Room Air Physical Exam General Appearance: WD/WN, no apparent distress Eyes: PERRL, EOMI Respiratory/Chest: chest non-tender, lungs clear, + decreased breath sounds ( bases) Cardiovascular: regular rate, rhythm, no JVD Abdomen: normal bowel sounds, non tender, soft Extremities: no pedal edema, no calf tenderness Neurologic/Psychiatric: alert, + sensory deficit (hard of hearing and limited sight) Laboratory Results Last 24 Hours Test 07/29/17 18:38 07/30/17 07:01 White Blood Count 15.99 K/uL 17.22 K/uL Red Blood Count 3.48 M/uL 3.37 M/uL Hemoglobin 11.5 g/dL 11.3 g/dL Hematocrit 33.9 % 32.6 % Mean Corpuscular Volume 97.4 fL 96.7 fL Mean Corpuscular Hemoglobin 33.0 pg 33.5 pg Mean Corpuscular Hemoglobin Concent 33.9 g/dl 34.7 g/dl RDW Standard Deviation 48.6 fL 48.1 fL RDW Coefficient of Variation 13.8 % 13.7 % Platelet Count 90 K/uL 107 K/uL Mean Platelet Volume 11.1 fL 11.7 fL Platelet Estimate DECREASED Prothrombin Time 11.4 SECONDS Prothromb Time International Ratio 1.1 Activated Partial Thromboplast Time 26.1 SECONDS Partial Thromboplastin Ratio 1.0 Neutrophils (%) (Auto) 81.6 % Lymphocytes (%) (Auto) 6.2 % Monocytes (%) (Auto) 10.2 % Eosinophils (%) (Auto) 0.9 % Basophils (%) (Auto) 0.1 % Neutrophils # (Auto) 14.05 K/uL Lymphocytes # (Auto) 1.07 K/uL Monocytes # (Auto) 1.76 K/uL Eosinophils # (Auto) 0.15 K/uL Basophils # (Auto) 0.02 K/uL Immature Granulocyte % (Auto) 1.0 % Immature Granulocyte # (Auto) 0.17 K/uL Assessment and Plan 81 yo F with 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 Acute LLE DVT s/p IVC filter due to hematuria: IVC placed on 07/22 - f/u in 3-4 months. - At this time will not attempt anticoagulation due to gross hematuria Bladder lesion w/ h/o hematuria- demonstrated on both CT and bladder ultrasound secondary to high grade TCC: -surgery 07/26 : high grade urothelial carcinoma - s/p cysto and TURBT ,with hematuria, taken to OR 07/30 and large clot removed, now 3 way crandall Nausea/vomiting resolved encephalopathy or hospital delirium resolving, maybe metabolic encephalopathy improved with antibiotic treatment UTI- RESOLVED: Treated w/ Keflex BID, now on ceftriaxone RAFAEL- RESOLVED Depression/dementia: Bupropion 150 mg BID, Lexapro (pt has not gotten this since being admitted due to unknown strength ), Gabapentin 100 mg daily, [place] carbonate 300 mg BID, Namenda 10 mg BID, Exelon 6 mg BID - Target Process with mental health hx in process. Hypothyroidism- TSH 6.810: Increased Synthroid to 88 mcg on 07/24- will need repeat TSH in 6 weeks - follow up w/ PCP COPD- STABLE: Continue Combivent and Montelukast Diarrhea - C diff negative. Continue Imodium. GERD: Protonix- resume Prilosec at discharge DVT ppx: Chemical anticoagulation contraindicated due to hematuria- IVC filter, Code Status: LEVEL I, FULL sons number [phone], [phone] Discharge planning: custodial facility ([facility])
[2017-07-30] MEDS: CEFTRIAXONE SOD INJ 1 GM in DEXTROSE 5% ADD-VANTAGE 50ML 50 ML IV SCH (21:54)
[2017-07-30] MEDS: MONTELUKAST SOD 10 MG TAB PO SCH (21:57)
[2017-07-31] MEDS: LORAZEPAM 0.5 MG TAB PO PRN (01:01)
[2017-07-31 03:30] VITALS: BP 127/70; PULSE 78; TEMP 36.8; O2SAT 99
[2017-07-31] MEDS: LEVOTHYROXINE 88 MCG TAB PO SCH (06:04)
[2017-07-31 07:02] VITALS: BP 110/70; PULSE 80; TEMP 37.4; O2SAT 97
[2017-07-31 07:17] LABS: BUN/CREATININE RATIO 10.2 (10-20); CALCIUM 9.1 mg/dl (8.5-10.1); CREATININE 1.1 mg/dl (0.60-1.20); POTASSIUM 3.7 mmol/L (3.5-5.1)
[2017-07-31 07:26] LABS: BASO % 0.2 %; BASO ABS # 0.03 K/uL (0-0.2); COMPLETE YES; EOS % 2.2 %; HEMATOCRIT 30.4 % (37-47); LYMPH % 6.5 %; LYMPH ABS # 0.87 K/uL (1.2-3.4); MEAN CELL VOLUME 96.5 fL (80-100); MEAN CORPUSCULAR HEMOGLOBIN 31.7 pg (25-34); MEAN CORPUSCULAR HGB CONC 32.9 g/dl (32-36); MEAN PLATELET VOLUME 11.4 fL (7.4-10.4); MONO % 12.5 %; NEUT % 77.6 %; PLATELET COUNT 119 K/uL (130-400); RED BLOOD COUNT 3.15 M/uL (4.2-5.4); WHITE BLOOD COUNT 13.33 K/uL (4.8-10.8)
--- NOTE | 2017-07-31 07:58 | Hospitalist Progress Note ---
Hospitalist Progress Note Date of Service Jul 31, 2017. (Yoana Page PA-C) Subjective Pt evaluation today including: conversation w/ patient, physical exam, chart review, lab review, review of studies Pain: None PO Intake: Fair Voiding: crandall catheter in place The patient was seen and examined this morning. Pt appears to have a depressed mood during our conversation, she is hoping she can get out of the hospital soon. She is still having bouts of nausea but has a normal diet ordered for lunch today. She reports feeling increasingly nauseous because she gets so hungry. Constitutional: + fatigue, No fever, No chills, No sweats Eyes: No problem reported ENT: No trouble swallowing Respiratory: No cough, No shortness of breath Cardiovascular: No chest pain, No palpitations Abdomen: + nausea, No pain, No vomiting, No diarrhea, No constipation Musculoskeletal: + swelling (RLE up into her thigh) Female : + hematuria Neurologic: + weakness, No memory loss, No numbness/tingling Skin: No rash, No itch (Yoana Page PA-C) Objective Vital Signs Date Time Temp Pulse Resp B/P (MAP) Pulse Ox O2 Delivery O2 Flow Rate FiO2 07/31/17 07:02 37.4 80 20 110/70 (83) 97 Nasal Cannula 2.0 07/31/17 03:30 36.8 78 14 127/70 (89) 99 Nasal Cannula 2.0 07/30/17 23:57 Nasal Cannula 07/30/17 22:54 37.4 86 16 114/75 (88) 97 Room Air 07/30/17 20:41 37.1 83 14 125/71 (89) 99 Room Air 07/30/17 20:05 Nasal Cannula 2.0 07/30/17 18:26 121/74 (90) 07/30/17 16:46 36.3 79 14 91/57 (68) 97 Room Air 79 07/30/17 15:30 36.7 69 14 105/65 (78) 91 Room Air 69 07/30/17 14:28 72 20 119/78 (92) 99 Nasal Cannula 2.0 07/30/17 14:00 93/62 (72) 07/30/17 13:55 71 20 87/43 (58) 100 Nasal Cannula 2.0 07/30/17 13:45 100 Nasal Cannula 2.0 07/30/17 13:45 100 Nasal Cannula 2.0 07/30/17 13:45 36.3 66 16 112/68 (83) 100 Nasal Cannula 2.0 07/30/17 13:10 66 16 101/48 97 Room Air Oxymask 07/30/17 13:00 36.3 67 16 116/49 94 Room Air Oxymask 07/30/17 12:50 65 14 120/56 100 Oxymask 7 07/30/17 12:40 36 65 14 121/58 100 Oxymask 7 07/30/17 11:54 () 07/30/17 08:00 Room Air (Yoana Page PA-C) Physical Exam General Appearance: WD/WN, + mild distress, + pertinent finding (flat affect) Eyes: PERRL, EOMI, + pertinent finding (presbyopia R eye) ENT: hearing grossly normal, pharynx normal Neck: no adenopathy, no JVD Respiratory/Chest: lungs clear, normal breath sounds, no respiratory distress, no accessory muscle use Cardiovascular: regular rate, rhythm Abdomen: normal bowel sounds, non tender, soft Extremities: non-tender, no pedal edema, no calf tenderness, + pertinent finding (2+ pitting RLE edema , no edema on left. ) Neurologic/Psychiatric: alert, oriented x 3, + depressed affect Skin: normal color, warm/dry (Yoana Page, ROSEMARY-C) Laboratory Results Last 24 Hours Test 07/31/17 06:31 White Blood Count 13.33 K/uL Red Blood Count 3.15 M/uL Hemoglobin 10.0 g/dL Hematocrit 30.4 % Mean Corpuscular Volume 96.5 fL Mean Corpuscular Hemoglobin 31.7 pg Mean Corpuscular Hemoglobin Concent 32.9 g/dl Platelet Count 119 K/uL Mean Platelet Volume 11.4 fL Neutrophils (%) (Auto) 77.6 % Lymphocytes (%) (Auto) 6.5 % Monocytes (%) (Auto) 12.5 % Eosinophils (%) (Auto) 2.2 % Basophils (%) (Auto) 0.2 % Neutrophils # (Auto) 10.35 K/uL Lymphocytes # (Auto) 0.87 K/uL Monocytes # (Auto) 1.66 K/uL Eosinophils # (Auto) 0.29 K/uL Basophils # (Auto) 0.03 K/uL RDW Standard Deviation 47.5 fL RDW Coefficient of Variation 13.7 % Immature Granulocyte % (Auto) 1.0 % Immature Granulocyte # (Auto) 0.13 K/uL Sodium Level 136 mmol/L Potassium Level 3.7 mmol/L Chloride Level 106 mmol/L Carbon Dioxide Level 23 mmol/L Anion Gap 7.0 mmol/L Blood Urea Nitrogen 11 mg/dl Creatinine 1.10 mg/dl Est Creatinine Clear Calc Drug Dose 44.5 ml/min Estimated GFR () 54.9 Estimated GFR (Non- 47.4 BUN/Creatinine Ratio 10.2 Random Glucose 108 mg/dl Calcium Level 9.1 mg/dl (Yoana Page, PAStanislav) Assessment and Plan 81 yo F with 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 Acute LLE DVT s/p IVC filter due to hematuria: IVC placed on 07/22 - f/u in 3-4 months. - At this time will not attempt anticoagulation due to gross hematuria Bladder lesion w/ h/o hematuria- demonstrated on both CT and bladder ultrasound secondary to high grade TCC: -surgery 07/26 : high grade urothelial carcinoma - s/p cysto and TURBT ,with hematuria, taken to OR 07/30 and large clot removed, now 3 way crandall with CBI per Urology Nausea/vomiting- waxes and wanes - improved with antiemetics, continue to allow diet as tolerated. Encephalopathy or hospital delirium resolving, ? maybe metabolic encephalopathy improved with antibiotic treatment - ceftriaxone started 07/29 with slight leukocytosis, now trending downward. UTI- RESOLVED: Treated w/ Keflex BID, now on ceftriaxone RAFAEL- RESOLVED Depression/dementia: Bupropion 150 mg BID, Lexapro (pt has not gotten this since being admitted due to unknown strength- at this time hold at time of dc), Gabapentin 100 mg daily, [place] carbonate 300 mg BID, Namenda 10 mg BID, Exelon 6 mg BID - Target Process with mental health hx in process. Hypothyroidism- TSH 6.810: Increased Synthroid to 88 mcg on 07/24- will need repeat TSH in 6 weeks - follow up w/ PCP COPD- STABLE: Continue Combivent and Montelukast Diarrhea - C diff negative. Continue Imodium. GERD: Protonix- resume Prilosec at discharge DVT ppx: Chemical anticoagulation contraindicated due to hematuria- IVC filter Code Status: LEVEL I, FULL Disposition: Awaiting target process, CM assisting with dc (Yoana Page, YUMIKO) PA Physician Supervision Note: I interviewed and examined the patient. Discussed with Yoana Page PAC and agree with findings and plan as documented in the note. Any exceptions or clarifications are listed here: None Patient seems clinically improved after returning from the operating room portion where her bladder urine is less bloody she feels better overall Vital signs are stable Abdomen is with some tenderness in suprapubic area her right leg is painful and swollen There is pending. Right leg Given the hematuria she had will be discussed with urology when safe begin formal anticoagulation she is protected time with a Ivc filter has an active dvt Documented By: Nazario Carlos (Nazario Carlos M.D.)
[2017-07-31] MEDS: TRIAMCINOLONE ACET NASAL SPRAY 10.8ML BTL NAE SCH (08:08)
[2017-07-31] MEDS: IPRATROPIUM BROMIDE/ALBUTEROL respimat INH INH SCH ×4 (08:08→21:02)
[2017-07-31] MEDS: ACETAMINOPHEN 325 MG TAB PO PRN (08:08)
[2017-07-31] MEDS: MEMANTINE 10 MG TAB PO SCH ×2 (08:09→21:04)
[2017-07-31] MEDS: GABAPENTIN 100 MG CAP PO SCH (08:09)
[2017-07-31] MEDS: LITHIUM CARBONATE 300 MG TAB PO SCH ×2 (08:09→21:04)
[2017-07-31] MEDS: FEXOFENADINE HCL 60 MG TAB PO SCH ×2 (08:09→21:03)
[2017-07-31] MEDS: PANTOprazole SOD 40 MG TAB PO SCH (08:09)
[2017-07-31] MEDS: RIVASTIGMINE TARTRATE 1.5 MG PO SCH ×2 (08:10→21:03)
[2017-07-31] MEDS: BuPROPion SR 150 MG TABCR PO SCH ×2 (08:10→21:04)
[2017-07-31] MEDS: POLYETHYLENE (MIRALAX) 17 GM PACK PO SCH (08:11)
[2017-07-31] MEDS: D5W AND 1/2NSS 1,000 ML IV SCH (11:05)
[2017-07-31 11:26] VITALS: BP 105/67; PULSE 79; TEMP 36.7; O2SAT 99
--- NOTE | 2017-07-31 12:28 | Progress Note ---
Subjective Date of Service: Jul 31, 2017. Subjective Pt evaluation today including: conversation w/ patient, physical exam, lab review urine markedly clearer slight blood tinge on minimal CBI Pt main c/o is r leg fullness probably from clot however do not start blood thinner for a minimum of 1 week of completely clear urine as she will likely bleed and reoperating would be dangerous, Even after a week not sure risk reward of rebleed vs clot in leg with filter in place are clear Problem List Medical Problems: (1) Deep vein thrombosis (DVT) Status: Acute (2) DVT (deep venous thrombosis) Status: Acute (3) Hypothyroidism Status: Chronic Objective Vital Signs Date Time Temp Pulse Resp B/P (MAP) Pulse Ox O2 Delivery O2 Flow Rate FiO2 07/31/17 11:26 36.7 79 18 105/67 (80) 99 Nasal Cannula 2.0 07/31/17 07:55 Room Air 07/31/17 07:02 37.4 80 20 110/70 (83) 97 Nasal Cannula 2.0 07/31/17 03:30 36.8 78 14 127/70 (89) 99 Nasal Cannula 2.0 07/30/17 23:57 Nasal Cannula 07/30/17 22:54 37.4 86 16 114/75 (88) 97 Room Air 07/30/17 20:41 37.1 83 14 125/71 (89) 99 Room Air 07/30/17 20:05 Nasal Cannula 2.0 07/30/17 18:26 121/74 (90) 07/30/17 16:46 36.3 79 14 91/57 (68) 97 Room Air 79 07/30/17 15:30 36.7 69 14 105/65 (78) 91 Room Air 69 07/30/17 14:28 72 20 119/78 (92) 99 Nasal Cannula 2.0 07/30/17 14:00 93/62 (72) 07/30/17 13:55 71 20 87/43 (58) 100 Nasal Cannula 2.0 07/30/17 13:45 100 Nasal Cannula 2.0 07/30/17 13:45 100 Nasal Cannula 2.0 07/30/17 13:45 36.3 66 16 112/68 (83) 100 Nasal Cannula 2.0 07/30/17 13:10 66 16 101/48 97 Room Air Oxymask 07/30/17 13:00 36.3 67 16 116/49 94 Room Air Oxymask 07/30/17 12:50 65 14 120/56 100 Oxymask 7 07/30/17 12:40 36 65 14 121/58 100 Oxymask 7 Laboratory Results Last 24 Hours Test 07/31/17 06:31 White Blood Count 13.33 K/uL Red Blood Count 3.15 M/uL Hemoglobin 10.0 g/dL Hematocrit 30.4 % Mean Corpuscular Volume 96.5 fL Mean Corpuscular Hemoglobin 31.7 pg Mean Corpuscular Hemoglobin Concent 32.9 g/dl Platelet Count 119 K/uL Mean Platelet Volume 11.4 fL Neutrophils (%) (Auto) 77.6 % Lymphocytes (%) (Auto) 6.5 % Monocytes (%) (Auto) 12.5 % Eosinophils (%) (Auto) 2.2 % Basophils (%) (Auto) 0.2 % Neutrophils # (Auto) 10.35 K/uL Lymphocytes # (Auto) 0.87 K/uL Monocytes # (Auto) 1.66 K/uL Eosinophils # (Auto) 0.29 K/uL Basophils # (Auto) 0.03 K/uL RDW Standard Deviation 47.5 fL RDW Coefficient of Variation 13.7 % Immature Granulocyte % (Auto) 1.0 % Immature Granulocyte # (Auto) 0.13 K/uL Sodium Level 136 mmol/L Potassium Level 3.7 mmol/L Chloride Level 106 mmol/L Carbon Dioxide Level 23 mmol/L Anion Gap 7.0 mmol/L Blood Urea Nitrogen 11 mg/dl Creatinine 1.10 mg/dl Est Creatinine Clear Calc Drug Dose 44.5 ml/min Estimated GFR () 54.9 Estimated GFR (Non- 47.4 BUN/Creatinine Ratio 10.2 Random Glucose 108 mg/dl Calcium Level 9.1 mg/dl Assessment and Plan pt seen with marked improvement in urine and stabilizing Cont slow or clamped cbi . Possible crandall removal in AM Under no circumstance should anti coagulation be started for at least a week given high risk of her rebleeding unless there are life threatening circumstances Discharge planning: assisted facility ([facility])
--- NOTE | 2017-07-31 15:34 | DIAGNOSTIC IMAGING REPORT ---
R VENOUS DOPP LOWER EXT UNILAT CLINICAL HISTORY: 81 years-old Female presenting with right leg pain. TECHNIQUE: Real-time grayscale and color and spectral Doppler ultrasound imaging of the veins of the right lower extremity was performed. Compression and augmentation were also utilized. COMPARISON: 07/04/2017. FINDINGS: Right: Common femoral vein: Expansion of the vein secondary to a new nonocclusive thrombus which extends into the greater saphenous vein. Femoral vein: Thrombus in the superficial femoral vein throughout its course. Greater saphenous vein: Thrombus. Popliteal vein: Nonocclusive thrombus in the popliteal vein. Calf veins: Nonocclusive thrombus in the posterior tibial and peroneal veins. Other: None. IMPRESSION: Extensive deep venous thrombosis extending to the level of the common femoral vein, which may be occlusive in some portions. Notably, this is worsened from prior. Electronically signed by: Reymundo Ram M.D. 07/31/2017 3:33 PM Dictated Date/Time: 07/31/2017 3:30 PM
[2017-07-31] MEDS: MONTELUKAST SOD 10 MG TAB PO SCH (21:04)
[2017-07-31] MEDS: CEFTRIAXONE SOD INJ 1 GM in DEXTROSE 5% ADD-VANTAGE 50ML 50 ML IV SCH (21:10)
[2017-07-31 22:59] VITALS: BP 112/72; PULSE 86; TEMP 37.1; O2SAT 97
[2017-08-01] MEDS: D5W AND 1/2NSS 1,000 ML IV SCH ×2 (00:30→13:15)
[2017-08-01] MEDS: LORAZEPAM 0.5 MG TAB PO PRN ×2 (00:32→22:15)
[2017-08-01] MEDS: LEVOTHYROXINE 88 MCG TAB PO SCH (05:30)
[2017-08-01] MEDS: ACETAMINOPHEN 325 MG TAB PO PRN (05:32)
[2017-08-01 07:18] VITALS: BP 111/66; PULSE 74; TEMP 36.4; O2SAT 98
[2017-08-01 07:23] LABS: HEMATOCRIT 28.9 % (37-47); MEAN CORPUSCULAR HEMOGLOBIN 32.6 pg (25-34); MEAN CORPUSCULAR HGB CONC 33.9 g/dl (32-36); MEAN PLATELET VOLUME 11.1 fL (7.4-10.4); PLATELET COUNT 123 K/uL (130-400); RED BLOOD COUNT 3.01 M/uL (4.2-5.4); WHITE BLOOD COUNT 12.87 K/uL (4.8-10.8)
--- NOTE | 2017-08-01 07:55 | Progress Note ---
Subjective Date of Service: Aug 01, 2017. Subjective Pt evaluation today including: conversation w/ patient, chart review, lab review Voiding: crandall catheter in place (patent, draining clear, yellow urine with CBI clamped) 81 yo female with gross hematuria s/p TURBT on 07-26. S/p cysto and clot evacuation on 07-[address] draining clear, yellow urine this morning with CBI clamped. Urine in drainage bag noted to be light orange colored. H&H of 9.8 and 28.9 this morning. Problem List Medical Problems: (1) Deep vein thrombosis (DVT) Status: Acute (2) DVT (deep venous thrombosis) Status: Acute (3) Hypothyroidism Status: Chronic Review of Systems Constitutional: No fever, No chills Respiratory: No shortness of breath Cardiac: No chest pain Abdomen: No pain, No nausea, No vomiting Female : + see HPI, + hematuria Heme: No abnormal bleeding/bruising Objective Vital Signs Date Time Temp Pulse Resp B/P (MAP) Pulse Ox O2 Delivery O2 Flow Rate FiO2 08/01/17 07:18 36.4 74 16 111/66 (81) 98 2.0 08/01/17 00:15 Nasal Cannula 2.0 07/31/17 22:59 37.1 86 16 112/72 (85) 97 Nasal Cannula 2.0 07/31/17 16:23 Nasal Cannula 2.0 07/31/17 11:26 36.7 79 18 105/67 (80) 99 Nasal Cannula 2.0 07/31/17 07:55 Room Air Physical Exam General Appearance: no apparent distress Eyes: normal inspection ENT: hearing grossly normal Neck: no JVD Respiratory/Chest: no respiratory distress, no accessory muscle use Cardiovascular: no JVD Extremities: normal inspection Neurologic/Psychiatric: alert, normal mood/affect, oriented x 3 Skin: normal color Laboratory Results Last 24 Hours Test 08/01/17 07:02 White Blood Count 12.87 K/uL Red Blood Count 3.01 M/uL Hemoglobin 9.8 g/dL Hematocrit 28.9 % Mean Corpuscular Volume 96.0 fL Mean Corpuscular Hemoglobin 32.6 pg Mean Corpuscular Hemoglobin Concent 33.9 g/dl RDW Standard Deviation 46.9 fL RDW Coefficient of Variation 13.5 % Platelet Count 123 K/uL Mean Platelet Volume 11.1 fL Assessment and Plan POD #6 s/p TURBT; POD #2 s/p cysto and clot evacuation; high-grade papillary urothelial carcinoma AFVSS. Hematuria has improved since cysto, and clot evacuation. Will plan to keep CBI clamped today. Possible TOV this afternoon if urine remains clear. Remain off anticoagulation for at least 1 week post-op per Dr. Kaur. Will continue to follow along with primary service. [place] [facility])
[2017-08-01] MEDS: IPRATROPIUM BROMIDE/ALBUTEROL respimat INH INH SCH ×4 (09:16→22:13)
[2017-08-01] MEDS: TRIAMCINOLONE ACET NASAL SPRAY 10.8ML BTL NAE SCH (09:16)
[2017-08-01] MEDS: BuPROPion SR 150 MG TABCR PO SCH ×2 (09:16→22:15)
[2017-08-01] MEDS: PANTOprazole SOD 40 MG TAB PO SCH (09:16)
[2017-08-01] MEDS: GABAPENTIN 100 MG CAP PO SCH (09:17)
[2017-08-01] MEDS: FEXOFENADINE HCL 60 MG TAB PO SCH ×2 (09:17→22:21)
[2017-08-01] MEDS: POLYETHYLENE (MIRALAX) 17 GM PACK PO SCH (09:17)
[2017-08-01] MEDS: LITHIUM CARBONATE 300 MG TAB PO SCH ×2 (09:17→22:15)
[2017-08-01] MEDS: MEMANTINE 10 MG TAB PO SCH ×2 (09:18→22:15)
[2017-08-01] MEDS: RIVASTIGMINE TARTRATE 1.5 MG PO SCH ×2 (09:18→22:16)
[2017-08-01 15:29] VITALS: BP 114/70; PULSE 78; TEMP 36.9; O2SAT 98
--- NOTE | 2017-08-01 17:03 | Progress Note ---
Subjective Date of Service: Aug 01, 2017. Subjective this pt is doing well mostly complaining of right leg pain, there is acute DVT there. will not perform full AC until one week post procedure 08/01. still awaiting placement Problem List Medical Problems: (1) Deep vein thrombosis (DVT) Status: Acute (2) DVT (deep venous thrombosis) Status: Acute (3) Hypothyroidism Status: Chronic Review of Systems Constitutional: + weakness, + fatigue, No fever, No chills Respiratory: No cough, No shortness of breath Cardiac: No chest pain, No edema, No claudication Abdomen: No pain, No nausea, No vomiting Musculoskeletal: No joint pain, No muscle pain, No swelling Neurologic: No memory loss, No paralysis, No weakness, No numbness/tingling Psychiatric: + depression symptoms Objective Vital Signs Date Time Temp Pulse Resp B/P (MAP) Pulse Ox O2 Delivery O2 Flow Rate FiO2 08/01/17 16:10 Nasal Cannula 2.0 08/01/17 15:29 36.9 78 18 114/70 (85) 98 Nasal Cannula 2.0 08/01/17 07:40 Ambu-Bag 2.0 08/01/17 07:18 36.4 74 16 111/66 (81) 98 2.0 08/01/17 00:15 Nasal Cannula 2.0 07/31/17 22:59 37.1 86 16 112/72 (85) 97 Nasal Cannula 2.0 Physical Exam General Appearance: WD/WN, + mild distress Respiratory/Chest: chest non-tender, lungs clear, normal breath sounds Cardiovascular: regular rate, rhythm, no murmur Abdomen: normal bowel sounds, non tender, soft Extremities: + pedal edema, + swelling Neurologic/Psychiatric: alert, oriented x 3 Laboratory Results Last 24 Hours Test 08/01/17 07:02 White Blood Count 12.87 K/uL Red Blood Count 3.01 M/uL Hemoglobin 9.8 g/dL Hematocrit 28.9 % Mean Corpuscular Volume 96.0 fL Mean Corpuscular Hemoglobin 32.6 pg Mean Corpuscular Hemoglobin Concent 33.9 g/dl RDW Standard Deviation 46.9 fL RDW Coefficient of Variation 13.5 % Platelet Count 123 K/uL Mean Platelet Volume 11.1 fL Assessment and Plan 81 yo Fpresented with gross hematuria in the presence of acute DVT, found to have bladder cancer, ivc filter placed, Acute LLE DVT s/p IVC filter due to hematuria: IVC placed on 07/22 - f/u in 3-4 months. now with B/L DVT as evidenced by US on 08/01. no full ac for one week after bladder irrigation and removal of large clot 07/30 Bladder lesion w/ h/o hematuria- demonstrated on both CT and bladder ultrasound secondary to high grade TCC: -surgery 07/26 : high grade urothelial carcinoma - s/p cysto and TURBT ,with hematuria, taken to OR 07/30 and large clot removed, urine has lightened and will attempt to remove crandall Nausea/vomiting resolved encephalopathy or hospital delirium resolved, maybe metabolic encephalopathy improved with antibiotic treatment UTI- ceftriaxone with recent bladder manipulation RAFAEL- RESOLVED Depression/dementia: Bupropion 150 mg BID, Lexapro (pt has not gotten this since being admitted due to unknown strength ), Gabapentin 100 mg daily, [place] carbonate 300 mg BID, Namenda 10 mg BID, Exelon 6 mg BID - Target Process with mental health hx in process. per case management will need psychiatry evaluation Hypothyroidism- TSH 6.810: Increased Synthroid to 88 mcg on 07/24- will need repeat TSH in 6 weeks - follow up w/ PCP COPD- STABLE: Continue Combivent and Montelukast Diarrhea - C diff negative. Continue Imodium. GERD: Protonix- resume Prilosec at discharge DVT ppx: Chemical anticoagulation contraindicated due to hematuria- IVC filter, Code Status: LEVEL I, FULL sons number [id number], [phone] Discharge planning: longterm facility ([facility])
[2017-08-01] MEDS: MONTELUKAST SOD 10 MG TAB PO SCH (22:15)
[2017-08-01] MEDS: CEFTRIAXONE SOD INJ 1 GM in DEXTROSE 5% ADD-VANTAGE 50ML 50 ML IV SCH (22:15)
[2017-08-01 23:00] VITALS: BP 115/66; PULSE 87; TEMP 36.9; O2SAT 98
[2017-08-02] MEDS: D5W AND 1/2NSS 1,000 ML IV SCH ×2 (02:35→16:31)
[2017-08-02] MEDS: LEVOTHYROXINE 88 MCG TAB PO SCH (05:40)
--- NOTE | 2017-08-02 07:30 | Progress Note ---
Subjective Date of Service: Aug 02, 2017. Subjective Pt evaluation today including: conversation w/ patient, chart review, lab review Voiding: crandall catheter in place (patent, draining clear, yellow urine ) 81 yo female s/p TURBT and cysto clot evacuation. Urine remains clear, yellow in crandall with CBI clamped. H&H pending this morning. Pt c/o some SOB this morning, which she states she always has. Problem List Medical Problems: (1) Deep vein thrombosis (DVT) Status: Acute (2) DVT (deep venous thrombosis) Status: Acute (3) Hypothyroidism Status: Chronic Review of Systems Constitutional: No fever, No chills Respiratory: + shortness of breath Cardiac: No chest pain Abdomen: No pain, No nausea, No vomiting Female : No hematuria Heme: No abnormal bleeding/bruising Objective Vital Signs Date Time Temp Pulse Resp B/P (MAP) Pulse Ox O2 Delivery O2 Flow Rate FiO2 08/02/17 00:35 Nasal Cannula 2.0 08/01/17 23:00 36.9 87 16 115/66 (82) 98 Nasal Cannula 2.0 08/01/17 16:10 Nasal Cannula 2.0 08/01/17 15:29 36.9 78 18 114/70 (85) 98 Nasal Cannula 2.0 08/01/17 07:40 Ambu-Bag 2.0 Physical Exam General Appearance: no apparent distress Eyes: normal inspection ENT: hearing grossly normal Neck: no JVD Respiratory/Chest: no respiratory distress, no accessory muscle use Cardiovascular: no JVD Extremities: normal inspection Neurologic/Psychiatric: alert, normal mood/affect, oriented x 3 Skin: normal color Laboratory Results Last 24 Hours Test 08/02/17 07:04 Assessment and Plan POD #7 s/p TURBT; POD #3 s/p cysto and clot evacuation; high-grade papillary urothelial carcinoma AFVSS. Hematuria resolved. Will d/c crandall catheter, and attempt a trial of void this morning. Remain off anticoagulation for at least 1 week post-op per Dr. Kaur. Pt with SOB this morning. Dr. Carlos to obtain CT of the chest this morning to r/o PE. May need to consider anticoagulation if PE present. Pt OK for d/c to SNF when OK with primary service. Plan to f/u with Dr. Farrell for post-op appt on 08-08-17 on 2:20pm. Discharge planning: retirement facility ([facility])
[2017-08-02 07:41] VITALS: BP 103/67; PULSE 78; TEMP 36.9; O2SAT 98
[2017-08-02 07:43] LABS: HEMATOCRIT 27.1 % (37-47); MEAN CELL VOLUME 96.1 fL (80-100); MEAN CORPUSCULAR HGB CONC 34.3 g/dl (32-36); MEAN PLATELET VOLUME 10.5 fL (7.4-10.4); PLATELET COUNT 140 K/uL (130-400); RED BLOOD COUNT 2.82 M/uL (4.2-5.4); WHITE BLOOD COUNT 13.71 K/uL (4.8-10.8)
[2017-08-02 08:33] LABS: BUN/CREATININE RATIO 12.7 (10-20); CALCIUM 8.9 mg/dl (8.5-10.1); CREATININE 0.89 mg/dl (0.60-1.20); POTASSIUM 3.6 mmol/L (3.5-5.1)
[2017-08-02] MEDS: BuPROPion SR 150 MG TABCR PO SCH ×2 (08:36→20:45)
[2017-08-02] MEDS: LITHIUM CARBONATE 300 MG TAB PO SCH ×2 (08:36→20:44)
[2017-08-02] MEDS: GABAPENTIN 100 MG CAP PO SCH (08:36)
[2017-08-02] MEDS: FEXOFENADINE HCL 60 MG TAB PO SCH ×2 (08:37→20:44)
[2017-08-02] MEDS: MEMANTINE 10 MG TAB PO SCH ×2 (08:37→20:44)
[2017-08-02] MEDS: TRIAMCINOLONE ACET NASAL SPRAY 10.8ML BTL NAE SCH (08:38)
[2017-08-02] MEDS: IPRATROPIUM BROMIDE/ALBUTEROL respimat INH INH SCH ×4 (08:38→20:45)
[2017-08-02] MEDS: RIVASTIGMINE TARTRATE 1.5 MG PO SCH ×2 (08:38→20:45)
[2017-08-02] MEDS: POLYETHYLENE (MIRALAX) 17 GM PACK PO SCH (08:39)
[2017-08-02] MEDS ORDERED: OPTIRAY 320 IV PRN (09:00)
[2017-08-02] MEDS: PANTOprazole SOD 40 MG TAB PO SCH (09:06)
--- NOTE | 2017-08-02 11:52 | DIAGNOSTIC IMAGING REPORT ---
(CHEST FOR PE) ANGIO WITH CLINICAL HISTORY: 81 years-old Female presenting with cancer, IVC filter, left leg DVT, shortness of breath, clinical concern for pulmonary embolus.. TECHNIQUE: Multidetector CT angiography of the chest was performed after administration of intravenous contrast. 3-D volumetric and/or maximum intensity projection (MIP) images were subsequently reconstructed for review. IV contrast: 119 mL of Optiray 320. A dose lowering technique was used consistent with the principles of ALARA (as low as reasonably achievable). COMPARISON: 07/20/2017. CT DOSE (mGy.cm): The estimated cumulative dose is 579.72 mGycm. FINDINGS: Program Engineer topogram: Unremarkable. Pulmonary vasculature: The study is adequate for assessment of the pulmonary vascular tree. Interval development of a ulnar embolus in the right lower lobe pulmonary artery extending into segmental branches (series 4 image 153). No additional embolus is detected. Main pulmonary artery is not enlarged. No flattening of the interventricular septum. No intracardiac intracardiac filling defect. No reflux of contrast into the hepatic veins. Remaining chest: On soft tissue windows, normal thyroid and thoracic inlet. Few subcentimeter mediastinal lymph nodes noted in the precarinal region. Atherosclerosis of the aorta. Coronary artery calcification. Normal heart size. No pericardial or pleural effusion. Cholecystectomy clips. On lung windows, bandlike opacities at the lung bases, right greater than left, likely atelectasis. Evaluation of the lung parenchyma degraded by respiratory motion. Solid peripheral 4 mm nodule in the right lower lobe (series 4 image 131), unchanged since 2013 consistent with a benign etiology. Airways patent. On bone windows, degenerative changes of the spine. Degenerative changes of the bilateral glenohumeral joints. IMPRESSION: 1. Acute pulmonary embolus in the right lower lobe pulmonary artery extending into segmental branches. No CT evidence of right heart strain. 2. Extensive basilar atelectasis and/or scarring, unchanged. The report will be called/faxed according to standard departmental protocol. Electronically signed by: Reymundo Ram M.D. 08/02/2017 11:51 AM Dictated Date/Time: 08/02/2017 11:42 AM
--- NOTE | 2017-08-02 11:54 | Psychiatric Consultation ---
Psychiatric Consultation Date of Service: Aug 02, 2017. Consult placed secondary to TARGET process, requiring psychiatric clearance. The patient sees Dr. Cedrick Owen regularly. The patient has signed and ARLETTE and records have been obtained as she remains in active treatment. Records will be provided to social service. Her medication reconciliation list will need to be corrected to reflect her current psychiatric medications. This should suffice for the TARGET process. If you have additional needs please feel free to contact us.
[2017-08-02 13:06] LABS: BASO % 0.2 %; BASO ABS # 0.03 K/uL (0-0.2); EOS % 1.7 %; HEMATOCRIT 28.7 % (37-47); IG% 1.3 %; LYMPH % 5.1 %; LYMPH ABS # 0.77 K/uL (1.2-3.4); MEAN CELL VOLUME 96.6 fL (80-100); MEAN CORPUSCULAR HEMOGLOBIN 32.7 pg (25-34); MEAN PLATELET VOLUME 10.3 fL (7.4-10.4); MONO % 9.5 %; NEUT % 82.2 %; PLATELET COUNT 161 K/uL (130-400); RED BLOOD COUNT 2.97 M/uL (4.2-5.4); WHITE BLOOD COUNT 15.13 K/uL (4.8-10.8)
[2017-08-02 13:10] LABS: COMPLETE YES; MEAN CORPUSCULAR HGB CONC 33.8 g/dl (32-36)
[2017-08-02 13:16] LABS: PROTHROMBIN TIME (PATIENT) 10.7 SECONDS (9.0-12.0)
[2017-08-02] MEDS: HEPARIN 25,000 UNIT/500ML D5W 500 ML IV PRN ×4 (13:56→23:07)
--- NOTE | 2017-08-02 14:57 | Progress Note ---
Subjective Date of Service: Aug 02, 2017. Subjective this pt is feeling vargas, states she has for days but now feels it is worse, found a acute PE on CTA despite placing IVC filter Problem List Medical Problems: (1) Deep vein thrombosis (DVT) Status: Acute (2) DVT (deep venous thrombosis) Status: Acute (3) Hypothyroidism Status: Chronic Review of Systems Constitutional: + weakness, + fatigue, No fever, No chills Respiratory: + shortness of breath, + dyspnea on exertion Cardiac: + chest pain, No edema Abdomen: No pain, No nausea, No vomiting, No diarrhea Objective Vital Signs Date Time Temp Pulse Resp B/P (MAP) Pulse Ox O2 Delivery O2 Flow Rate FiO2 08/02/17 00:35 Nasal Cannula 2.0 08/01/17 23:00 36.9 87 16 115/66 (82) 98 Nasal Cannula 2.0 08/01/17 16:10 Nasal Cannula 2.0 08/01/17 15:29 36.9 78 18 114/70 (85) 98 Nasal Cannula 2.0 08/01/17 07:40 Ambu-Bag 2.0 08/01/17 07:18 36.4 74 16 111/66 (81) 98 2.0 Physical Exam General Appearance: + mild distress, + thin Eyes: PERRL, EOMI Respiratory/Chest: chest non-tender, + decreased breath sounds, + accessory muscle use Cardiovascular: regular rate, rhythm, no murmur Abdomen: normal bowel sounds, non tender, soft Extremities: no pedal edema, no calf tenderness Neurologic/Psychiatric: alert, oriented x 3 Laboratory Results Last 24 Hours Test 08/01/17 07:02 08/02/17 04:44 White Blood Count 12.87 K/uL Red Blood Count 3.01 M/uL Hemoglobin 9.8 g/dL Hematocrit 28.9 % Mean Corpuscular Volume 96.0 fL Mean Corpuscular Hemoglobin 32.6 pg Mean Corpuscular Hemoglobin Concent 33.9 g/dl RDW Standard Deviation 46.9 fL RDW Coefficient of Variation 13.5 % Platelet Count 123 K/uL Mean Platelet Volume 11.1 fL Assessment and Plan 81 yo F presented with gross hematuria in the presence of acute DVT, found to have bladder cancer, ivc filter placed, despite this is found to have acute PE 08/02 Acute LLE DVT s/p IVC filter due to hematuria: IVC placed on 07/22 - f/u in 3-4 months. now with B/L DVT as evidenced by US on 08/01. removal of large clot 07/30 given discovery of PE 08/[address] Byrd and will start heparin gtt no bolus, if bleeding does not occur, may consider lovenox as is malignancy associated VTE Bladder lesion w/ h/o hematuria- demonstrated on both CT and bladder ultrasound secondary to high grade TCC: -surgery 07/26 : high grade urothelial carcinoma - s/p cysto and TURBT ,with hematuria, taken to OR 07/30 and large clot removed, urine has lightened and removed crandall 08/01 Nausea/vomiting resolved encephalopathy or hospital delirium resolved, maybe metabolic encephalopathy improved with antibiotic treatment UTI- ceftriaxone with recent bladder manipulation RAFAEL- RESOLVED Depression/dementia: Bupropion 150 mg BID, Lexapro (pt has not gotten this since being admitted due to unknown strength ), Gabapentin 100 mg daily, [place] carbonate 300 mg BID, Namenda 10 mg BID, Exelon 6 mg BID - Target Process with mental health hx in process. per case management will need psychiatry evaluation Hypothyroidism- TSH 6.810: Increased Synthroid to 88 mcg on 07/24- will need repeat TSH in 6 weeks - follow up w/ PCP COPD- STABLE: Continue Combivent and Montelukast Diarrhea - C diff negative. Continue Imodium. GERD: Protonix- resume Prilosec at discharge DVT ppx: Chemical anticoagulation contraindicated due to hematuria- IVC filter, Code Status: LEVEL I, FULL sons number [id number], [phone] Discharge planning: [facility] facility ([facility])
[2017-08-02 15:00] VITALS: BP 119/77; PULSE 81; TEMP 36.8; O2SAT 99
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
[2017-08-02] MEDS: TRIAMCINOLONE ACET NASAL SPRAY 10.8ML BTL NAE PRN (18:30)
[2017-08-02 20:24] LABS: PARTIAL THROMBOPLASTIN RATIO 1.6
[2017-08-02] MEDS: LORAZEPAM 0.5 MG TAB PO PRN (20:43)
[2017-08-02] MEDS: MONTELUKAST SOD 10 MG TAB PO SCH (20:44)
[2017-08-02] MEDS ORDERED: HEPARIN IV BOLUS 3,000 UNIT in SYRINGE 0 ML IV ONE (20:45)
[2017-08-02] MEDS: CEFTRIAXONE SOD INJ 1 GM in DEXTROSE 5% ADD-VANTAGE 50ML 50 ML IV SCH (21:56)
[2017-08-02 22:57] VITALS: BP 116/68; PULSE 82; TEMP 36.8; O2SAT 98
[2017-08-03 03:47] LABS: PARTIAL THROMBOPLASTIN RATIO 2.8
[2017-08-03] MEDS: HEPARIN 25,000 UNIT/500ML D5W 500 ML IV PRN ×5 (04:04→15:13)
[2017-08-03] MEDS: D5W AND 1/2NSS 1,000 ML IV SCH (05:29)
[2017-08-03] MEDS: LEVOTHYROXINE 88 MCG TAB PO SCH (05:29)
[2017-08-03 07:21] LABS: HEMATOCRIT 25.8 % (37-47); MEAN CELL VOLUME 95.6 fL (80-100); MEAN CORPUSCULAR HEMOGLOBIN 31.5 pg (25-34); MEAN CORPUSCULAR HGB CONC 32.9 g/dl (32-36); MEAN PLATELET VOLUME 10.4 fL (7.4-10.4); PLATELET COUNT 188 K/uL (130-400); WHITE BLOOD COUNT 13.47 K/uL (4.8-10.8)
[2017-08-03 07:22] VITALS: BP 121/71; PULSE 75; TEMP 36.8; O2SAT 98
--- NOTE | 2017-08-03 07:52 | Progress Note ---
Subjective Date of Service: Aug 03, 2017. Subjective Pt evaluation today including: conversation w/ patient, chart review, lab review Voiding: no voiding problems 81 yo female s/p TURBT and cysto with clot evacuation. TOV yesterday. Pt voiding on her own without difficultly. Urine remains light pink. Heparin started for PE found on CT yesterday. Pt denies pain this morning. She does continue to have SOB. Slight drop in H&H from 9.7 and 28.7 this morning to 8.5 and 25.8. Problem List Medical Problems: (1) Deep vein thrombosis (DVT) Status: Acute (2) DVT (deep venous thrombosis) Status: Acute (3) Hypothyroidism Status: Chronic Review of Systems Constitutional: No fever, No chills Respiratory: + see HPI, + shortness of breath Cardiac: No chest pain Abdomen: No pain, No nausea, No vomiting Female : + hematuria Objective Vital Signs Date Time Temp Pulse Resp B/P (MAP) Pulse Ox O2 Delivery O2 Flow Rate FiO2 08/03/17 07:22 36.8 75 17 121/71 (88) 98 Room Air 08/03/17 00:00 Nasal Cannula 2.0 08/02/17 22:57 36.8 82 16 116/68 (84) 98 Room Air 08/02/17 15:40 Nasal Cannula 2.0 08/02/17 15:00 36.8 81 18 119/77 (91) 99 Nasal Cannula 2.0 Physical Exam General Appearance: no apparent distress Eyes: normal inspection ENT: hearing grossly normal Neck: no JVD Respiratory/Chest: no respiratory distress, no accessory muscle use Cardiovascular: no JVD Extremities: + swelling (RLE; non-pitting) Neurologic/Psychiatric: alert, normal mood/affect, oriented x 3 Skin: normal color Laboratory Results Last 24 Hours Test 08/02/17 12:44 08/02/17 12:52 08/02/17 19:55 08/03/17 02:48 White Blood Count 15.13 K/uL Red Blood Count 2.97 M/uL Hemoglobin 9.7 g/dL Hematocrit 28.7 % Mean Corpuscular Volume 96.6 fL Mean Corpuscular Hemoglobin 32.7 pg Mean Corpuscular Hemoglobin Concent 33.8 g/dl Platelet Count 161 K/uL Mean Platelet Volume 10.3 fL Neutrophils (%) (Auto) 82.2 % Lymphocytes (%) (Auto) 5.1 % Monocytes (%) (Auto) 9.5 % Eosinophils (%) (Auto) 1.7 % Basophils (%) (Auto) 0.2 % Neutrophils # (Auto) 12.44 K/uL Lymphocytes # (Auto) 0.77 K/uL Monocytes # (Auto) 1.44 K/uL Eosinophils # (Auto) 0.26 K/uL Basophils # (Auto) 0.03 K/uL RDW Standard Deviation 47.3 fL RDW Coefficient of Variation 13.5 % Immature Granulocyte % (Auto) 1.3 % Immature Granulocyte # (Auto) 0.19 K/uL Prothrombin Time 10.7 SECONDS Prothromb Time International Ratio 1.0 Activated Partial Thromboplast Time 26.5 SECONDS 41.5 SECONDS 73.8 SECONDS Partial Thromboplastin Ratio 1.0 1.6 2.8 Test 11/17 07:00 White Blood Count 13.47 K/uL Red Blood Count 2.70 M/uL Hemoglobin 8.5 g/dL Hematocrit 25.8 % Mean Corpuscular Volume 95.6 fL Mean Corpuscular Hemoglobin 31.5 pg Mean Corpuscular Hemoglobin Concent 32.9 g/dl RDW Standard Deviation 46.8 fL RDW Coefficient of Variation 13.4 % Platelet Count 188 K/uL Mean Platelet Volume 10.4 fL Activated Partial Thromboplast Time 77.3 SECONDS Partial Thromboplastin Ratio 3.0 Assessment and Plan POD #8 s/p TURBT; POD #4 s/p cysto and clot evacuation; high-grade papillary urothelial carcinoma AFVSS. Hematuria improved. Pt voiding without difficulty. Management of PE/DVT and heparin per primary service. Continue to observe for worsening hematuria while on heparin. Continue to monitor H&H. Pt OK for d/c to SNF when OK with primary service. Plan to f/u with Dr. Farrell for post-op appt on 08-08-17 on 2:20pm. [facility]charge planning: [facility] facility ([facility])
[2017-08-03] MEDS: TRIAMCINOLONE ACET NASAL SPRAY 10.8ML BTL NAE SCH (09:37)
[2017-08-03] MEDS: GABAPENTIN 100 MG CAP PO SCH (09:37)
[2017-08-03] MEDS: MEMANTINE 10 MG TAB PO SCH ×2 (09:38→21:37)
[2017-08-03] MEDS: PANTOprazole SOD 40 MG TAB PO SCH (09:38)
[2017-08-03] MEDS: FEXOFENADINE HCL 60 MG TAB PO SCH ×2 (09:38→21:36)
[2017-08-03] MEDS: POLYETHYLENE (MIRALAX) 17 GM PACK PO SCH ×2 (09:38→09:40)
[2017-08-03] MEDS: LITHIUM CARBONATE 300 MG TAB PO SCH ×2 (09:38→21:37)
[2017-08-03] MEDS: BuPROPion SR 150 MG TABCR PO SCH ×2 (09:39→21:37)
[2017-08-03] MEDS: RIVASTIGMINE TARTRATE 1.5 MG PO SCH ×2 (09:39→21:37)
[2017-08-03] MEDS: IPRATROPIUM BROMIDE/ALBUTEROL respimat INH INH SCH ×4 (09:39→21:37)
[2017-08-03 14:25] LABS: PARTIAL THROMBOPLASTIN RATIO 2.1
[2017-08-03 15:02] VITALS: BP 128/70; PULSE 75; TEMP 36.6; O2SAT 96
[2017-08-03] MEDS ORDERED: ESCITALOPRAM OXALATE 10 MG TAB PO ONE (18:48)
--- NOTE | 2017-08-03 18:48 | Progress Note ---
Subjective Date of Service: Aug 03, 2017. Subjective Pt evaluation today including: conversation w/ patient, conversation w/ family (daughter at bedside), physical exam, chart review, lab review, review of inpatient medication list Pain: denied PO Intake: fair Voiding: no voiding problems (no hematuria) patient again reports WALKER but no worse than previous she is quite depressed, stating "I know I am going to from this" (bladder cancer) she is aware of referral to [facility] for after discharge Problem List Medical Problems: (1) Deep vein thrombosis (DVT) Status: Acute (2) DVT (deep venous thrombosis) Status: Acute (3) Hypothyroidism Status: Chronic Review of Systems Constitutional: No fever Respiratory: No cough, No sputum Cardiac: No chest pain, No orthopnea Abdomen: No pain Objective Vital Signs Date Time Temp Pulse Resp B/P (MAP) Pulse Ox O2 Delivery O2 Flow Rate FiO2 08/03/17 15:02 36.6 75 16 128/70 (89) 96 Room Air 08/03/17 08:01 Nasal Cannula 2.0 08/03/17 07:22 36.8 75 17 121/71 (88) 98 Room Air 08/03/17 00:00 Nasal Cannula 2.0 08/02/17 22:57 36.8 82 16 116/68 (84) 98 Room Air Physical Exam General Appearance: no apparent distress ENT: pharynx normal Neck: no JVD Respiratory/Chest: no respiratory distress, no accessory muscle use, + decreased breath sounds (right base) Cardiovascular: regular rate, rhythm, no gallop, no murmur Abdomen: normal bowel sounds, non tender, soft, no organomegaly Extremities: + pedal edema, + swelling (right leg- 2-3+, none on left; right leg markedly larger than left leg; pulses 2+ b/l ) Neurologic/Psychiatric: alert, + depressed affect Laboratory Results Last 24 Hours Test 08/02/17 19:55 08/03/17 02:48 08/03/17 07:00 08/03/17 13:49 Activated Partial Thromboplast Time 41.5 SECONDS 73.8 SECONDS 77.3 SECONDS 54.6 SECONDS Partial Thromboplastin Ratio 1.6 2.8 3.0 2.1 White Blood Count 13.47 K/uL Red Blood Count 2.70 M/uL Hemoglobin 8.5 g/dL Hematocrit 25.8 % Mean Corpuscular Volume 95.6 fL Mean Corpuscular Hemoglobin 31.5 pg Mean Corpuscular Hemoglobin Concent 32.9 g/dl RDW Standard Deviation 46.8 fL RDW Coefficient of Variation 13.4 % Platelet Count 188 K/uL Mean Platelet Volume 10.4 fL Assessment and Plan 81yo female: 1. high-grade bladder ca - s/p TURBT by Dr. Farrell, then s/p cystoscopy with fulguration and clot evacuation. Appreciate urology consult and assistance. Mcintosh has been removed. No gross hematuria since discontinuation of such even in presence of heparin drip. however, has had drop in H/H overnight. Repeat cbc in am. 2. acute DVT, LLE - s/p IVC filter due to hematuria, then discovery of right- sided PEs several days ago. Now back on heparin infusion. If no recurrent hematuria/bleeding and H/H remain stable then consider d/c of heparin and transition to systemic lovenox. 3. acute kidney injury - resolved. 4. hypothyroidism - TSH high; last TSH several months ago also high; increased synthroid to 88mcg daily earlier this admission; TSH in 6 weeks. 5. colonic ileus - resolved. 6. depression with h/o bipolar disorder - psych consult appreciated. Lexapro resumed. [place] level normal. Remains on lithium. 7. FEN - d/c IVF. Diet as tolerated. BMP am. 8. dispo - [facility] [place] 9. acute blood loss anemia - start ferrous sulfate 325mg bid. CBC in am. This issue is 2nd to hematuria & blood draws. daughter updated Continued [facility] stay due to: multiple IV medications needed [facility]charge planning[facility])
[2017-08-03] MEDS: FERROUS SULFATE 325 MG TAB PO SCH (19:56)
[2017-08-03] MEDS: MONTELUKAST SOD 10 MG TAB PO SCH (21:38)
[2017-08-03 23:03] VITALS: BP 120/67; PULSE 77; TEMP 37.2; O2SAT 96
[2017-08-04 00:25] VITALS: O2SAT 96
[2017-08-04] MEDS: HEPARIN 25,000 UNIT/500ML D5W 500 ML IV PRN ×2 (05:43→23:08)
[2017-08-04] MEDS: LEVOTHYROXINE 88 MCG TAB PO SCH (05:44)
[2017-08-04 06:26] LABS: HEMATOCRIT 25.9 % (37-47); MEAN CELL VOLUME 95.6 fL (80-100); MEAN CORPUSCULAR HEMOGLOBIN 31.7 pg (25-34); MEAN CORPUSCULAR HGB CONC 33.2 g/dl (32-36); MEAN PLATELET VOLUME 9.7 fL (7.4-10.4); PLATELET COUNT 237 K/uL (130-400); RED BLOOD COUNT 2.71 M/uL (4.2-5.4); WHITE BLOOD COUNT 13.12 K/uL (4.8-10.8)
[2017-08-04 06:46] LABS: PARTIAL THROMBOPLASTIN RATIO 2.4
[2017-08-04 06:50] LABS: BUN/CREATININE RATIO 15.3 (10-20); CALCIUM 8.8 mg/dl (8.5-10.1); CREATININE 0.9 mg/dl (0.60-1.20); POTASSIUM 3.3 mmol/L (3.5-5.1)
[2017-08-04 07:17] VITALS: BP 124/76; PULSE 66; TEMP 36.8; O2SAT 95
--- NOTE | 2017-08-04 07:43 | Progress Note ---
Subjective Date of Service: Aug 04, 2017. (Lakshmi Mojica CRNP) Subjective Pt evaluation today including: conversation w/ patient, chart review, lab review Voiding: no voiding problems 81 yo female s/p TURBT and cysto with clot evacuation. On heparin drip for PE. She reports intermittent persistent SOB. Denies any difficulty voiding. Denies dysuria. She does c/o urinary urgency. Uncertain if she has any hematuria. What little urine remains in toilet hat appears light pink. H&H is stable this morning. (Lakshmi Mojica CRNP) Problem List Medical Problems: (1) Deep vein thrombosis (DVT) Status: Acute (2) DVT (deep venous thrombosis) Status: Acute (3) Hypothyroidism Status: Chronic (Lakshmi Mojica CRNP) Review of Systems Constitutional: No fever, No chills Respiratory: + see HPI, + shortness of breath Cardiac: No chest pain Abdomen: No pain, No nausea, No vomiting Female : + problem reported (urgency), No dysuria Heme: No abnormal bleeding/bruising (Lakshmi Mojica CRNP) Objective Vital Signs Date Time Temp Pulse Resp B/P (MAP) Pulse Ox O2 Delivery O2 Flow Rate FiO2 08/04/17 07:17 36.8 66 19 124/76 (92) 95 Room Air 08/04/17 00:25 96 Room Air 08/03/17 23:03 37.2 77 20 120/67 (84) 96 Room Air 08/03/17 16:20 Nasal Cannula 2.0 08/03/17 15:02 36.6 75 16 128/70 (89) 96 Room Air 08/03/17 08:01 Nasal Cannula 2.0 (Lakshmi Mojica CRNP) Physical Exam General Appearance: no apparent distress, + obese Eyes: normal inspection ENT: hearing grossly normal Neck: no JVD Respiratory/Chest: no respiratory distress, no accessory muscle use Cardiovascular: no JVD Extremities: + swelling (RLE) Neurologic/Psychiatric: alert, normal mood/affect, oriented x 3 Skin: normal color (Lakshmi Mojica CRNP) Laboratory Results Last 24 Hours Test 08/03/17 13:49 08/04/17 06:11 Activated Partial Thromboplast Time 54.6 SECONDS 61.6 SECONDS Partial Thromboplastin Ratio 2.1 2.4 White Blood Count 13.12 K/uL Red Blood Count 2.71 M/uL Hemoglobin 8.6 g/dL Hematocrit 25.9 % Mean Corpuscular Volume 95.6 fL Mean Corpuscular Hemoglobin 31.7 pg Mean Corpuscular Hemoglobin Concent 33.2 g/dl RDW Standard Deviation 47.5 fL RDW Coefficient of Variation 13.8 % Platelet Count 237 K/uL Mean Platelet Volume 9.7 fL Sodium Level 141 mmol/L Potassium Level 3.3 mmol/L Chloride Level 110 mmol/L Carbon Dioxide Level 21 mmol/L Anion Gap 10.0 mmol/L Blood Urea Nitrogen 14 mg/dl Creatinine 0.90 mg/dl Est Creatinine Clear Calc Drug Dose 54.4 ml/min Estimated GFR () 70.0 Estimated GFR (Non- 60.4 BUN/Creatinine Ratio 15.3 Random Glucose 129 mg/dl Calcium Level 8.8 mg/dl (Lakshmi Mojica CRNP) Assessment and Plan POD #9 s/p TURBT; POD #5 s/p cysto and clot evacuation; high-grade papillary urothelial carcinoma, urinary urgency AFVSS. Hematuria improved. H&H stable. Pt voiding without difficulty. Continue management of PE/DVT and heparin per primary service. Continue to observe for worsening hematuria while on heparin. Will avoid any anticholinergics for her urgency as they are likely to increase confusion. Will repeat a UC&S. Consider Myrbetriq if symptoms persist. Pt OK for d/c to SNF when OK with primary service. Plan to f/u with Dr. Farrell for post-op appt on 08-08-17 on 2:20pm. Continued [facility] stay due to: multiple IV medications needed Discharge planning: [facility] facility [facility]) (Lakshmi Mojica CRNP) pt w pink urine no clots per nurse discussed w hospitalist and would only dial heparin back for clots with worsening bleeding and difficulty voiding (Samuel Kaur M.D.)
[2017-08-04] MEDS ORDERED: POTASSIUM CHLORIDE 10 MEQ TABCR PO STA (09:09)
[2017-08-04] MEDS: IPRATROPIUM BROMIDE/ALBUTEROL respimat INH INH SCH ×4 (09:12→21:12)
[2017-08-04] MEDS: TRIAMCINOLONE ACET NASAL SPRAY 10.8ML BTL NAE SCH (09:13)
[2017-08-04] MEDS: GABAPENTIN 100 MG CAP PO SCH (09:13)
[2017-08-04] MEDS: PANTOprazole SOD 40 MG TAB PO SCH (09:13)
[2017-08-04] MEDS: FERROUS SULFATE 325 MG TAB PO SCH ×2 (09:17→18:28)
[2017-08-04] MEDS: ESCITALOPRAM OXALATE 10 MG TAB PO SCH (09:18)
[2017-08-04] MEDS: MEMANTINE 10 MG TAB PO SCH ×2 (09:18→21:13)
[2017-08-04] MEDS: RIVASTIGMINE TARTRATE 1.5 MG PO SCH ×2 (09:18→21:13)
[2017-08-04] MEDS: FEXOFENADINE HCL 60 MG TAB PO SCH ×2 (09:19→21:12)
[2017-08-04] MEDS: BuPROPion SR 150 MG TABCR PO SCH ×2 (09:19→21:13)
[2017-08-04] MEDS: LITHIUM CARBONATE 300 MG TAB PO SCH ×2 (09:21→21:13)
[2017-08-04] MEDS: CYANOCOBALAMIN 1000 MCG/ML VIAL IM SCH (11:21)
[2017-08-04 15:05] VITALS: BP 118/66; PULSE 83; TEMP 36.8; O2SAT 96
[2017-08-04 15:30] VITALS: O2SAT 97
[2017-08-04] MEDS: MONTELUKAST SOD 10 MG TAB PO SCH (21:12)
[2017-08-04 23:07] VITALS: BP 119/58; PULSE 75; TEMP 37.1; O2SAT 96
[2017-08-04] MEDS: TRIAMCINOLONE ACET NASAL SPRAY 10.8ML BTL NAE PRN (23:41)
[2017-08-05] MEDS: HEPARIN 25,000 UNIT/500ML D5W 500 ML IV PRN ×2 (03:02→06:49)
[2017-08-05] MEDS: LEVOTHYROXINE 88 MCG TAB PO SCH (06:13)
[2017-08-05 07:21] VITALS: BP 112/65; PULSE 68; TEMP 36.7; O2SAT 96
--- NOTE | 2017-08-05 07:41 | Progress Note ---
Subjective Date of Service: Aug 04, 2017. Subjective Pt evaluation today including: conversation w/ patient, physical exam, chart review, lab review, review of inpatient medication list Pain: denies PO Intake: fair Voiding: no voiding problems (by report - "[place]" urine but not grossly bloody) no issues overnight awaiting placement had blinds drawn in the room - I asked her if she wanted them open - stated "I just want to rest" no new complaints WALKER remains but not any worse than previous Problem List Medical Problems: (1) Deep vein thrombosis (DVT) Status: Acute (2) DVT (deep venous thrombosis) Status: Acute (3) Hypothyroidism Status: Chronic Review of Systems Constitutional: No fever Respiratory: + dyspnea on exertion Cardiac: No chest pain, No orthopnea Abdomen: No pain Objective Vital Signs Date Time Temp Pulse Resp B/P (MAP) Pulse Ox O2 Delivery O2 Flow Rate FiO2 08/04/17 15:30 97 Room Air 08/04/17 15:05 36.8 83 18 118/66 (83) 96 Room Air 08/04/17 08:00 Room Air 08/04/17 07:17 36.8 66 19 124/76 (92) 95 Room Air 08/04/17 00:25 96 Room Air 08/03/17 23:03 37.2 77 20 120/67 (84) 96 Room Air Physical Exam General Appearance: no apparent distress, + obese ENT: pharynx normal Neck: no JVD Respiratory/Chest: lungs clear, no respiratory distress, no accessory muscle use Cardiovascular: regular rate, rhythm, no gallop, no murmur Abdomen: normal bowel sounds, non tender, soft, no organomegaly Extremities: + pedal edema, + swelling (right leg - no change), + pertinent finding (no edema left leg) Neurologic/Psychiatric: alert, + depressed affect Laboratory Results Last 24 Hours Test 08/04/17 06:11 White Blood Count 13.12 K/uL Red Blood Count 2.71 M/uL Hemoglobin 8.6 g/dL Hematocrit 25.9 % Mean Corpuscular Volume 95.6 fL Mean Corpuscular Hemoglobin 31.7 pg Mean Corpuscular Hemoglobin Concent 33.2 g/dl RDW Standard Deviation 47.5 fL RDW Coefficient of Variation 13.8 % Platelet Count 237 K/uL Mean Platelet Volume 9.7 fL Activated Partial Thromboplast Time 61.6 SECONDS Partial Thromboplastin Ratio 2.4 Sodium Level 141 mmol/L Potassium Level 3.3 mmol/L Chloride Level 110 mmol/L Carbon Dioxide Level 21 mmol/L Anion Gap 10.0 mmol/L Blood Urea Nitrogen 14 mg/dl Creatinine 0.90 mg/dl Est Creatinine Clear Calc Drug Dose 54.4 ml/min Estimated GFR () 70.0 Estimated GFR (Non- 60.4 BUN/Creatinine Ratio 15.3 Random Glucose 129 mg/dl Calcium Level 8.8 mg/dl Vitamin B12 Level 280 pg/mL Folate 8.76 ng/mL Assessment and Plan 81yo female: 1. high-grade bladder ca - s/p TURBT by Dr. Farrell, then s/p cystoscopy with fulguration and clot evacuation. Appreciate urology consult and assistance. Mcintosh has been removed. No gross hematuria since discontinuation of such even in presence of heparin drip but urine "pink" at times. H/H stable overnight. Repeat cbc in am. 2. acute DVT, LLE - s/p IVC filter due to hematuria, then discovery of right- sided PEs several days ago. Now back on heparin infusion. If no recurrent hematuria/bleeding and H/H remain stable then consider d/c of heparin and transition to systemic lovenox 1mg/kg BID tomorrow. 3. acute kidney injury - resolved. 4. hypothyroidism - TSH high; last TSH several months ago also high; increased synthroid to 88mcg daily earlier this admission; TSH in 6 weeks. 5. colonic ileus - resolved. 6. depression with h/o bipolar disorder - psych consult appreciated. Lexapro resumed. [place] level normal. Remains on lithium. 7. FEN - Diet as tolerated. Replace low K. 8. hypokalemia - replace, repeat BMP am. 9. acute blood loss anemia - 2nd to bleeding from bladder tumor - H/H stable overnight. Remains on ferrous sulfate 325mg bid. CBC in am for stability. 10. probable b12 deficiency - in light of mental status and propensity for neuropsychiatric issues/depression will replace parenterally. Also supplement folic acid x 1 month. Target process underway dispo - SNF Continued [facility] stay due to: multiple IV medications needed Discharge planning: residential facility ([facility])
[2017-08-05 07:53] LABS: HEMATOCRIT 26.6 % (37-47); MEAN CELL VOLUME 97.1 fL (80-100); MEAN CORPUSCULAR HEMOGLOBIN 32.5 pg (25-34); MEAN CORPUSCULAR HGB CONC 33.5 g/dl (32-36); MEAN PLATELET VOLUME 9.9 fL (7.4-10.4); PLATELET COUNT 288 K/uL (130-400); RED BLOOD COUNT 2.74 M/uL (4.2-5.4); WHITE BLOOD COUNT 14.49 K/uL (4.8-10.8)
[2017-08-05 08:09] LABS: PARTIAL THROMBOPLASTIN RATIO 2.2
[2017-08-05 08:13] LABS: POTASSIUM 3.4 mmol/L (3.5-5.1)
[2017-08-05 08:16] LABS: MAGNESIUM 2.4 mg/dl (1.8-2.4)
[2017-08-05] MEDS ORDERED: POTASSIUM CHLORIDE 10 MEQ TABCR PO STA (09:12)
[2017-08-05] MEDS: RIVASTIGMINE TARTRATE 1.5 MG PO SCH ×2 (09:17→21:19)
[2017-08-05] MEDS: TRIAMCINOLONE ACET NASAL SPRAY 10.8ML BTL NAE SCH (09:18)
[2017-08-05] MEDS: GABAPENTIN 100 MG CAP PO SCH (09:18)
[2017-08-05] MEDS: BuPROPion SR 150 MG TABCR PO SCH ×2 (09:18→18:07)
[2017-08-05] MEDS: FERROUS SULFATE 325 MG TAB PO SCH ×2 (09:18→18:02)
[2017-08-05] MEDS: IPRATROPIUM BROMIDE/ALBUTEROL respimat INH INH SCH ×4 (09:19→21:18)
[2017-08-05] MEDS: CYANOCOBALAMIN 1000 MCG/ML VIAL IM SCH (09:19)
[2017-08-05] MEDS: FEXOFENADINE HCL 60 MG TAB PO SCH ×2 (09:19→21:18)
[2017-08-05] MEDS: LITHIUM CARBONATE 300 MG TAB PO SCH ×2 (09:19→21:18)
[2017-08-05] MEDS: ESCITALOPRAM OXALATE 10 MG TAB PO SCH (09:20)
[2017-08-05] MEDS: POLYETHYLENE (MIRALAX) 17 GM PACK PO SCH (09:20)
[2017-08-05] MEDS: MEMANTINE 10 MG TAB PO SCH ×2 (09:20→21:18)
[2017-08-05] MEDS: PANTOprazole SOD 40 MG TAB PO SCH (09:20)
--- NOTE | 2017-08-05 09:25 | Progress Note ---
Subjective Date of Service: Aug 05, 2017. Subjective s/p TURBT and cysto w/ fulg for large bladder mass. pt continues to complain of urinary frequency. Urine culture is negative. She reports she is very bothered by urinary frequency and stool frequency. Per nurse report pt's urine remains pink/red. Pt states she is unable to see the color of her urine. She denies pain with urination. Feels she empties well. Does not feel she is passing clots with urine. No nursing documentation noted as such. Problem List Medical Problems: (1) Deep vein thrombosis (DVT) Status: Acute (2) DVT (deep venous thrombosis) Status: Acute (3) Hypothyroidism Status: Chronic Review of Systems Constitutional: No fever, No chills Eyes: No worsening of vision ENT: No hearing loss Respiratory: No cough Cardiac: No chest pain Abdomen: + see HPI, + diarrhea Female : + see HPI, + urinary frequency, + hematuria, No dysuria, No incontinence Neurologic: No memory loss Psychiatric: No depression symptoms Heme: + see HPI Endo: + fatigue Objective Vital Signs Date Time Temp Pulse Resp B/P (MAP) Pulse Ox O2 Delivery O2 Flow Rate FiO2 08/05/17 07:21 36.7 68 18 112/65 (81) 96 Room Air 08/04/17 23:45 Room Air 08/04/17 23:07 37.1 75 18 119/58 (78) 96 Room Air 08/04/17 15:30 97 Room Air 08/04/17 15:05 36.8 83 18 118/66 (83) 96 Room Air Physical Exam General Appearance: WD/WN, no apparent distress ENT: hearing grossly normal Neck: no JVD Respiratory/Chest: no respiratory distress, no accessory muscle use Extremities: normal range of motion, normal inspection Neurologic/Psychiatric: alert, normal mood/affect, oriented x 3 Skin: normal color, warm/dry, no rash Laboratory Results Last 24 Hours Test 08/05/17 07:29 White Blood Count 14.49 K/uL Red Blood Count 2.74 M/uL Hemoglobin 8.9 g/dL Hematocrit 26.6 % Mean Corpuscular Volume 97.1 fL Mean Corpuscular Hemoglobin 32.5 pg Mean Corpuscular Hemoglobin Concent 33.5 g/dl RDW Standard Deviation 50.0 fL RDW Coefficient of Variation 14.3 % Platelet Count 288 K/uL Mean Platelet Volume 9.9 fL Nucleated RBC Absolute Count (auto) 0.04 K/uL Nucleated Red Blood Cells % 0.3 % Activated Partial Thromboplast Time 56.8 SECONDS Partial Thromboplastin Ratio 2.2 Potassium Level 3.4 mmol/L Magnesium Level 2.4 mg/dl Assessment and Plan Hematuria s/p TURBT and cysto w/ fulg for large bladder mass. Myles/pink urine continues while on Heparin. Hemodynamically stable. C/O urinary frequency. Urine culture is negative. Given her hx of confusion would avoid use of anticholinergics. Order placed for daily Myrbetriq 50 mg daily. This may take some time - up to 1 month to be effective. Plan is to d/c pt when bed available at SNF. Continued [facility] stay due to: multiple IV medications needed Discharge planning: care home facility ([facility])
[2017-08-05] MEDS: ENOXAPARIN 100 MG/1ML SYR SQ SCH ×2 (10:01→21:18)
[2017-08-05] MEDS: MIRABEGRON ER 25 MG TAB PO SCH (11:35)
[2017-08-05 15:26] VITALS: BP 104/60; PULSE 73; TEMP 37; O2SAT 97
--- NOTE | 2017-08-05 20:39 | Progress Note ---
Subjective Date of Service: Aug 05, 2017. Subjective Pt evaluation today including: conversation w/ patient, conversation w/ family (daughter by phone), physical exam, chart review, lab review Pain: none voiced Voiding: incontinence (frequency with some pink colored urine at times; no heavy gross blood ) patient again had blinds drawn during my visit she states she didn't sleep well last pm and was up much of the night again states "I know I am dying" denies any new complaints Problem List Medical Problems: (1) Deep vein thrombosis (DVT) Status: Acute (2) DVT (deep venous thrombosis) Status: Acute (3) Hypothyroidism Status: Chronic Review of Systems Constitutional: No fever Respiratory: No dyspnea at rest, No hemoptysis Cardiac: No chest pain, No orthopnea Abdomen: No pain Objective Vital Signs Date Time Temp Pulse Resp B/P (MAP) Pulse Ox O2 Delivery O2 Flow Rate FiO2 08/05/17 15:26 37.0 73 18 104/60 (75) 97 Room Air 08/05/17 08:00 Room Air 08/05/17 07:21 36.7 68 18 112/65 (81) 96 Room Air 08/04/17 23:45 Room Air 08/04/17 23:07 37.1 75 18 119/58 (78) 96 Room Air Physical Exam General Appearance: no apparent distress, + obese Eyes: + pertinent finding (strabismus right eye - chronic ) ENT: pharynx normal Neck: no JVD Respiratory/Chest: lungs clear, no respiratory distress, no accessory muscle use Cardiovascular: regular rate, rhythm, no gallop Abdomen: normal bowel sounds, non tender, soft, no organomegaly Extremities: + pedal edema, + swelling (3+ pitting edema of most of right leg; scant edema left leg) Neurologic/Psychiatric: + depressed affect Laboratory Results Last 24 Hours Test 08/05/17 07:29 White Blood Count 14.49 K/uL Red Blood Count 2.74 M/uL Hemoglobin 8.9 g/dL Hematocrit 26.6 % Mean Corpuscular Volume 97.1 fL Mean Corpuscular Hemoglobin 32.5 pg Mean Corpuscular Hemoglobin Concent 33.5 g/dl RDW Standard Deviation 50.0 fL RDW Coefficient of Variation 14.3 % Platelet Count 288 K/uL Mean Platelet Volume 9.9 fL Nucleated RBC Absolute Count (auto) 0.04 K/uL Nucleated Red Blood Cells % 0.3 % Activated Partial Thromboplast Time 56.8 SECONDS Partial Thromboplastin Ratio 2.2 Potassium Level 3.4 mmol/L Magnesium Level 2.4 mg/dl Assessment and Plan 81yo female: 1. high-grade bladder ca - s/p TURBT by Dr. Farrell, then s/p cystoscopy by Dr. Kaur with fulguration and clot evacuation. Appreciate urology consult and assistance. H/H stable overnight despite report of mildly pink urine and use of systemic anticoagulation. 2. acute DVT, LLE - s/p IVC filter due to hematuria, then discovery of right- sided PEs several days ago. Since H/H stable will d/c the heparin drip and change to lovenox 1mg/kg BID and follow CBCs carefully. 3. acute kidney injury - resolved. 4. hypothyroidism - TSH high; last TSH several months ago also high; increased synthroid to 88mcg daily earlier this admission; TSH in 6 weeks. 5. colonic ileus - resolved. 6. depression with h/o bipolar disorder - psych consult appreciated. Lexapro resumed. [place] level normal. Remains on lithium. Adding trazodone in low dose at HS for insomnia. Ativan prn as well. 7. FEN - Diet as tolerated. Replace low K once again today. BMP am. 8. hypokalemia - replace, repeat BMP am. 9. acute blood loss anemia - 2nd to bleeding from bladder tumor - H/H stable overnight. Remains on ferrous sulfate 325mg bid. CBC in am for stability. 10. probable b12 deficiency - in light of mental status and propensity for neuropsychiatric issues/depression will replace parenterally. Also supplement folic acid x 1 month. Target process underway dispo - SNF updated daughter by phone Continued [facility] stay due to: multiple IV medications needed Discharge planning: half-way facility ([facility])
[2017-08-05] MEDS: MONTELUKAST SOD 10 MG TAB PO SCH (21:18)
[2017-08-05] MEDS: TRAZODONE HCL 50 MG TAB PO SCH (21:18)
[2017-08-05] MEDS: LORAZEPAM 0.5 MG TAB PO PRN (21:25)
[2017-08-05 22:54] VITALS: BP 102/56; PULSE 70; TEMP 36.9; O2SAT 93
[2017-08-06] MEDS: LEVOTHYROXINE 88 MCG TAB PO SCH (05:47)
[2017-08-06 07:17] LABS: HEMATOCRIT 28.1 % (37-47); MEAN CELL VOLUME 98.9 fL (80-100); MEAN CORPUSCULAR HGB CONC 31.3 g/dl (32-36); MEAN PLATELET VOLUME 9.9 fL (7.4-10.4); PLATELET COUNT 322 K/uL (130-400); RED BLOOD COUNT 2.84 M/uL (4.2-5.4)
[2017-08-06 07:20] VITALS: BP 103/66; PULSE 69; TEMP 36.8; O2SAT 95
[2017-08-06 07:48] LABS: BUN/CREATININE RATIO 12.5 (10-20); CREATININE 1.1 mg/dl (0.60-1.20); POTASSIUM 3.6 mmol/L (3.5-5.1)
[2017-08-06] MEDS: FERROUS SULFATE 325 MG TAB PO SCH ×2 (07:52→17:01)
[2017-08-06 08:02] VITALS: O2SAT 95
[2017-08-06] MEDS: CYANOCOBALAMIN 1000 MCG/ML VIAL IM SCH (08:50)
[2017-08-06] MEDS: ESCITALOPRAM OXALATE 10 MG TAB PO SCH (08:51)
[2017-08-06] MEDS: BuPROPion SR 150 MG TABCR PO SCH ×2 (08:51→18:10)
[2017-08-06] MEDS: MEMANTINE 10 MG TAB PO SCH ×2 (08:52→20:51)
[2017-08-06] MEDS: GABAPENTIN 100 MG CAP PO SCH (08:53)
[2017-08-06] MEDS: ENOXAPARIN 100 MG/1ML SYR SQ SCH ×2 (08:54→20:51)
[2017-08-06] MEDS: MIRABEGRON ER 25 MG TAB PO SCH (08:55)
[2017-08-06] MEDS: FEXOFENADINE HCL 60 MG TAB PO SCH (08:56)
[2017-08-06] MEDS: LITHIUM CARBONATE 300 MG TAB PO SCH ×2 (08:56→20:51)
[2017-08-06] MEDS: PANTOprazole SOD 40 MG TAB PO SCH (08:56)
[2017-08-06] MEDS: POLYETHYLENE (MIRALAX) 17 GM PACK PO SCH (08:57)
[2017-08-06] MEDS: IPRATROPIUM BROMIDE/ALBUTEROL respimat INH INH SCH ×6 (08:58→20:52)
[2017-08-06] MEDS: RIVASTIGMINE TARTRATE 1.5 MG PO SCH ×2 (08:58→20:52)
[2017-08-06] MEDS: TRIAMCINOLONE ACET NASAL SPRAY 10.8ML BTL NAE SCH (08:58)
--- NOTE | 2017-08-06 11:41 | Progress Note ---
Progress Note Date of Service Aug 06, 2017. Progress Note Postoperative day 11 from a TURBT Patient is afebrile vital signs are stable. She does have some urinary frequency. 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 Farrell after discharge
[2017-08-06 15:13] VITALS: BP 106/72; PULSE 69; TEMP 36.8; O2SAT 95
[2017-08-06] MEDS ORDERED: POTASSIUM CHLORIDE 10 MEQ TABCR PO STA (16:25)
--- NOTE | 2017-08-06 16:29 | Progress Note ---
Subjective Date of Service: Aug 06, 2017. Subjective Pt evaluation today including: conversation w/ patient, physical exam, chart review, lab review, review of inpatient medication list Pain: none voiced PO Intake: normal; ate well at lunch Voiding: no voiding problems slept better last pm feels "ok" today c/o lights bothering her eyes (chronic issue) c/o constant runny nose with clear rhinnorhea no dysuria Problem List Medical Problems: (1) Deep vein thrombosis (DVT) Status: Acute (2) DVT (deep venous thrombosis) Status: Acute (3) Hypothyroidism Status: Chronic Review of Systems Respiratory: + dyspnea on exertion, No cough, No dyspnea at rest Cardiac: No chest pain Abdomen: No pain Objective Vital Signs Date Time Temp Pulse Resp B/P (MAP) Pulse Ox O2 Delivery O2 Flow Rate FiO2 08/06/17 15:20 Room Air 08/06/17 15:13 36.8 69 16 106/72 (83) 95 Room Air 08/06/17 08:02 95 Room Air 08/06/17 07:20 36.8 69 16 103/66 (78) 95 Room Air 08/06/17 00:20 Room Air 08/05/17 22:54 36.9 70 18 102/56 (71) 93 Room Air Physical Exam General Appearance: no apparent distress Eyes: + pertinent finding (right eye lateral strabismus) ENT: pharynx normal Neck: no JVD Respiratory/Chest: lungs clear, no respiratory distress, no accessory muscle use Cardiovascular: regular rate, rhythm, no gallop, no murmur Abdomen: normal bowel sounds, non tender, soft, no organomegaly Extremities: + pedal edema, + swelling (3+ right leg; 1+ left leg ) Neurologic/Psychiatric: alert, oriented x 3, + depressed affect Skin: + pallor Laboratory Results Last 24 Hours Test 08/06/17 06:44 White Blood Count 12.90 K/uL Red Blood Count 2.84 M/uL Hemoglobin 8.8 g/dL Hematocrit 28.1 % Mean Corpuscular Volume 98.9 fL Mean Corpuscular Hemoglobin 31.0 pg Mean Corpuscular Hemoglobin Concent 31.3 g/dl RDW Standard Deviation 50.9 fL RDW Coefficient of Variation 14.4 % Platelet Count 322 K/uL Mean Platelet Volume 9.9 fL Nucleated RBC Absolute Count (auto) 0.06 K/uL Nucleated Red Blood Cells % 0.5 % Sodium Level 141 mmol/L Potassium Level 3.6 mmol/L Chloride Level 110 mmol/L Carbon Dioxide Level 23 mmol/L Anion Gap 8.0 mmol/L Blood Urea Nitrogen 14 mg/dl Creatinine 1.10 mg/dl Est Creatinine Clear Calc Drug Dose 47.0 ml/min Estimated GFR () 54.9 Estimated GFR (Non- 47.4 BUN/Creatinine Ratio 12.5 Random Glucose 135 mg/dl Calcium Level 9.0 mg/dl Assessment and Plan 81yo female: 1. high-grade bladder ca - s/p TURBT by Dr. Farrell, then s/p cystoscopy by Dr. Kaur with fulguration and clot evacuation. Appreciate urology consult and assistance. H/H stable overnight. Mcintosh has been d/c. 2. acute DVT, LLE - s/p IVC filter due to hematuria, then discovery of right- sided PEs several days ago. Cont lovenox 1mg/kg BID and follow CBCs carefully. 3. acute kidney injury - resolved. 4. hypothyroidism - TSH high; last TSH several months ago also high; increased synthroid to 88mcg daily earlier this admission; TSH in 6 weeks. 5. colonic ileus - resolved. 6. depression with h/o bipolar disorder - psych consult appreciated. Lexapro resumed. [place] level normal. Remains on lithium. Trazodone in low dose at HS for insomnia. Ativan prn as well. 7. FEN - Diet as tolerated. BMP am. 8. hypokalemia - resolved. 9. acute blood loss anemia - 2nd to bleeding from bladder tumor - H/H stable overnight once again. Remains on ferrous sulfate 325mg bid. CBC in am for stability. 10. probable b12 deficiency - in light of mental status and propensity for neuropsychiatric issues/depression will replace parenterally. Also supplement folic acid x 1 month. 11. rhinorrhea - despite linda and nasal steroid this symptom persists. Try singulair in karis of linda. cont nasal steroid. 12. edema - due to DVT, but has gained 10 kg of weight in the hospital. Lasix 20mg po daily to help with water gain; K supplementation. Target process underway dispo - SNF ([facility] this Tuesday) updated daughter by phone 08/05/17 Discharge planning: half-way facility ([facility])
[2017-08-06] MEDS ORDERED: FUROSEMIDE 20 MG TAB PO ONE (16:30)
[2017-08-06] MEDS ORDERED: MONTELUKAST SOD 10 MG TAB PO ONE (17:00)
[2017-08-06] MEDS: MONTELUKAST SOD 10 MG TAB PO SCH (20:51)
[2017-08-06] MEDS: TRAZODONE HCL 50 MG TAB PO SCH (20:51)
[2017-08-06 23:51] VITALS: BP 106/68; PULSE 79; TEMP 37; O2SAT 95
[2017-08-07] MEDS: LEVOTHYROXINE 88 MCG TAB PO SCH (05:45)
[2017-08-07 06:55] LABS: BUN/CREATININE RATIO 14.7 (10-20); CALCIUM 8.9 mg/dl (8.5-10.1); CREATININE 0.94 mg/dl (0.60-1.20)
[2017-08-07 07:31] VITALS: BP 109/71; PULSE 70; TEMP 36.8; O2SAT 95
[2017-08-07] MEDS: POLYETHYLENE (MIRALAX) 17 GM PACK PO SCH (09:00)
[2017-08-07] MEDS: IPRATROPIUM BROMIDE/ALBUTEROL respimat INH INH SCH ×4 (09:00→20:58)
[2017-08-07] MEDS: FERROUS SULFATE 325 MG TAB PO SCH ×2 (09:25→17:46)
[2017-08-07] MEDS: CYANOCOBALAMIN 1000 MCG/ML VIAL IM SCH (09:27)
[2017-08-07] MEDS: TRIAMCINOLONE ACET NASAL SPRAY 10.8ML BTL NAE SCH (09:27)
[2017-08-07] MEDS: ESCITALOPRAM OXALATE 10 MG TAB PO SCH (09:28)
[2017-08-07] MEDS: RIVASTIGMINE TARTRATE 1.5 MG PO SCH ×2 (09:28→20:59)
[2017-08-07] MEDS: LITHIUM CARBONATE 300 MG TAB PO SCH ×2 (09:29→21:00)
[2017-08-07] MEDS: MIRABEGRON ER 25 MG TAB PO SCH (09:29)
[2017-08-07] MEDS: BuPROPion SR 150 MG TABCR PO SCH ×2 (09:30→17:46)
[2017-08-07] MEDS: MEMANTINE 10 MG TAB PO SCH ×2 (09:30→21:00)
[2017-08-07] MEDS: GABAPENTIN 100 MG CAP PO SCH (09:30)
[2017-08-07] MEDS: PANTOprazole SOD 40 MG TAB PO SCH (09:30)
[2017-08-07] MEDS: ENOXAPARIN 100 MG/1ML SYR SQ SCH ×2 (09:31→21:01)
[2017-08-07] MEDS: POTASSIUM CHLORIDE 10 MEQ TABCR PO SCH (10:22)
[2017-08-07] MEDS: FUROSEMIDE 20 MG TAB PO SCH (10:22)
[2017-08-07] MEDS: DICLOFENAC SOD 1% GEL 100 GM TUBE EXT SCH ×3 (14:09→20:58)
[2017-08-07 15:04] VITALS: BP 106/63; PULSE 70; TEMP 36.8; O2SAT 95
--- NOTE | 2017-08-07 20:32 | Progress Note ---
Subjective Date of Service: Aug 07, 2017. Subjective Pt evaluation today including: conversation w/ patient, physical exam, chart review, lab review, review of inpatient medication list PO Intake: normal Voiding: no voiding problems still with dyspnea on exertion but none at rest no cough denies feeling depressed still not sleeping well despite trazodone anxious to get out of hospital by report no significant hematuria reports that when she ambulated today her left leg felt "weak" denies pain initially but when asked further she has some pain in the left hip Problem List Medical Problems: (1) Deep vein thrombosis (DVT) Status: Acute (2) DVT (deep venous thrombosis) Status: Acute (3) Hypothyroidism Status: Chronic Review of Systems Constitutional: No fever, No chills Respiratory: + dyspnea on exertion, No cough, No dyspnea at rest Cardiac: No chest pain, No orthopnea Abdomen: No pain, No diarrhea Objective Vital Signs Date Time Temp Pulse Resp B/P (MAP) Pulse Ox O2 Delivery O2 Flow Rate FiO2 08/07/17 20:02 Room Air 08/07/17 15:04 36.8 70 18 106/63 (77) 95 Room Air 08/07/17 08:00 Room Air 08/07/17 07:31 36.8 70 16 109/71 (84) 95 Room Air 08/07/17 00:05 Room Air 08/06/17 23:51 37.0 79 16 106/68 (81) 95 Room Air Physical Exam General Appearance: no apparent distress, + obese Eyes: + pertinent finding (right eye lateral strabismus) ENT: pharynx normal Neck: no JVD Respiratory/Chest: lungs clear, no respiratory distress, no accessory muscle use Cardiovascular: regular rate, rhythm, no gallop, no murmur Abdomen: normal bowel sounds, non tender, soft, no organomegaly Extremities: + pedal edema, + swelling (3+ entire right leg; scant left leg; pulses 2+ b/l ) Neurologic/Psychiatric: no motor/sensory deficits (strength 5/5 x bilateral legs), alert, oriented x 3, + depressed affect Skin: + pertinent finding (mild plethora of right leg due to DVT) Comments: musculo: left hip - no tenderness with flexion, rotation, or abduction; minimal pain with adduction; tender to palpation over trochanteric bursa Laboratory Results Last 24 Hours Test 10/15/17 05:39 Sodium Level 142 mmol/L Potassium Level 4.0 mmol/L Chloride Level 110 mmol/L Carbon Dioxide Level 24 mmol/L Anion Gap 8.0 mmol/L Blood Urea Nitrogen 14 mg/dl Creatinine 0.94 mg/dl Est Creatinine Clear Calc Drug Dose 55.1 ml/min Estimated GFR () 66.4 Estimated GFR (Non- 57.3 BUN/Creatinine Ratio 14.7 Random Glucose 103 mg/dl Calcium Level 8.9 mg/dl Assessment and Plan 81yo female: 1. high-grade bladder ca - s/p TURBT by Dr. Farrell, then s/p cystoscopy by Dr. Kaur with fulguration and clot evacuation. Appreciate urology consult and assistance. H/H in AM. Mcintosh has been d/c and voiding w/o difficulty. Hematuria largely resolved. 2. acute b/l LE DVTs - s/p IVC filter due to hematuria, then discovery of right -sided PEs despite the filter in place. (likely she clotted on the filter with subsequent PE formation) Cont lovenox 1mg/kg BID and follow CBCs carefully. 3. acute kidney injury - resolved. 4. hypothyroidism - TSH high; last TSH several months ago also high; increased synthroid to 88mcg daily earlier this admission; TSH in 6 weeks (roughly mid- August). 5. colonic ileus - resolved. 6. depression with h/o bipolar disorder - psych consult appreciated. Lexapro resumed. [place] level normal. Remains on lithium. Trazodone in low dose at HS for insomnia. Ativan prn as well. 7. FEN - Diet as tolerated. BMP am. 8. hypokalemia - resolved. 9. acute blood loss anemia - 2nd to bleeding from bladder tumor - H/H stable last few days. Remains on ferrous sulfate 325mg bid. CBC in am for stability. 10. probable b12 deficiency - in light of mental status and propensity for neuropsychiatric issues/depression will replace parenterally. Also supplement folic acid x 1 month. Tomorrow is day #5 of IM B12. After discharge suggest once weekly x 4 weeks, then monthly thereafter. Can ultimately change to PO in a few months. 11. rhinorrhea - despite linda and nasal steroid this symptom has persisted. Trying singulair in karis of linda. cont nasal steroid. 12. edema - due to DVTs, but has gained 10 kg of weight in the hospital. Lasix 20mg po daily to help with water gain; K supplementation. 13. insomnia - increase trazodone to 50mg HS. 14. left leg discomfort - mild trochanteric bursitis? try voltaren gel QID avoid systemic NSAIDs due to recent hematuria Target process underway dispo - SNF ([facility] this Tuesday) updated daughter by phone 08/05/17 Discharge planning: halfway facility ([facility])
[2017-08-07] MEDS ORDERED: TRAZODONE HCL 50 MG TAB PO SCH (21:00)
[2017-08-07] MEDS ORDERED: MONTELUKAST SOD 10 MG TAB PO SCH (21:00)
[2017-08-07] MEDS: MONTELUKAST SOD 10 MG TAB PO SCH (21:00)
[2017-08-07] MEDS: LORAZEPAM 0.5 MG TAB PO PRN (21:01)
[2017-08-08 00:10] VITALS: BP 104/67; PULSE 76; TEMP 36.9; O2SAT 95
[2017-08-08] MEDS: LEVOTHYROXINE 88 MCG TAB PO SCH (05:32)
[2017-08-08 07:00] LABS: HEMATOCRIT 30.6 % (37-47); MEAN CELL VOLUME 99.7 fL (80-100); MEAN CORPUSCULAR HEMOGLOBIN 30.9 pg (25-34); MEAN PLATELET VOLUME 9.7 fL (7.4-10.4); PLATELET COUNT 387 K/uL (130-400); RED BLOOD COUNT 3.07 M/uL (4.2-5.4); WHITE BLOOD COUNT 13.53 K/uL (4.8-10.8)
[2017-08-08 07:09] VITALS: BP 103/68; PULSE 67; TEMP 36.8; O2SAT 94
[2017-08-08 07:32] LABS: BUN/CREATININE RATIO 16.5 (10-20); CALCIUM 9.1 mg/dl (8.5-10.1); CREATININE 1.06 mg/dl (0.60-1.20); POTASSIUM 3.8 mmol/L (3.5-5.1)
[2017-08-08] MEDS ORDERED: MYR25 PO (08:09)
--- NOTE | 2017-08-08 08:09 | Progress Note ---
Subjective Date of Service: Aug 08, 2017. Subjective Pt evaluation today including: conversation w/ patient, chart review, lab review Voiding: no voiding problems 81 yo female s/p TURBT and cysto with clot evacuation. Pt continues to void well. She is uncertain if her frequency persist this morning. She has been started on Myrbetriq 50mg. Reports her urine is the color of the wall in her room this morning. This is noted to be a light beige-orange color. Denies clots. Noted she has been receiving Pyridium. She is pending placement at [facility] today. Post-op appt with Dr. Farrell originally scheduled for later today. Problem List Medical Problems: (1) Deep vein thrombosis (DVT) Status: Acute (2) DVT (deep venous thrombosis) Status: Acute (3) Hypothyroidism Status: Chronic Review of Systems Constitutional: No fever, No chills Respiratory: No shortness of breath Cardiac: No chest pain Abdomen: No pain, No nausea, No vomiting Female : + hematuria, No dysuria Heme: No abnormal bleeding/bruising Objective Vital Signs Date Time Temp Pulse Resp B/P (MAP) Pulse Ox O2 Delivery O2 Flow Rate FiO2 08/08/17 07:09 36.8 67 15 103/68 (80) 94 Room Air 08/08/17 00:10 36.9 76 18 104/67 (79) 95 Room Air 08/07/17 23:45 Room Air 08/07/17 20:02 Room Air 08/07/17 15:04 36.8 70 18 106/63 (77) 95 Room Air Physical Exam General Appearance: no apparent distress, + obese Eyes: normal inspection ENT: hearing grossly normal Neck: no JVD Respiratory/Chest: no respiratory distress, no accessory muscle use Cardiovascular: no JVD Extremities: + swelling (BLE, L>R) Neurologic/Psychiatric: alert, normal mood/affect, oriented x 3 Skin: normal color Laboratory Results Last 24 Hours Test 08/08/17 06:31 White Blood Count 13.53 K/uL Red Blood Count 3.07 M/uL Hemoglobin 9.5 g/dL Hematocrit 30.6 % Mean Corpuscular Volume 99.7 fL Mean Corpuscular Hemoglobin 30.9 pg Mean Corpuscular Hemoglobin Concent 31.0 g/dl RDW Standard Deviation 52.4 fL RDW Coefficient of Variation 14.7 % Platelet Count 387 K/uL Mean Platelet Volume 9.7 fL Nucleated RBC Absolute Count (auto) 0.10 K/uL Nucleated Red Blood Cells % 0.7 % Sodium Level 141 mmol/L Potassium Level 3.8 mmol/L Chloride Level 109 mmol/L Carbon Dioxide Level 25 mmol/L Anion Gap 8.0 mmol/L Blood Urea Nitrogen 18 mg/dl Creatinine 1.06 mg/dl Est Creatinine Clear Calc Drug Dose 48.7 ml/min Estimated GFR () 57.4 Estimated GFR (Non- 49.6 BUN/Creatinine Ratio 16.5 Random Glucose 109 mg/dl Calcium Level 9.1 mg/dl Assessment and Plan POD #13 s/p TURBT; POD #9 s/p cysto and clot evacuation; high-grade papillary urothelial carcinoma, urinary urgency AFVSS. Hematuria improved. H&H stable. Pt voiding without difficulty. Continue management of PE/DVT per primary service. Observe for worsening hematuria. Repeat UC&S negative. Will continue Myrbetriq. Rx placed on chart. Pt OK for d/c to SNF when OK with primary service. Plan to f/u with Dr. Farrell for post-op appt. Will reschedule her appt originally scheduled with him today to later this week or early next week. Discharge planning: nursing home facility ([facility])
[2017-08-08] MEDS: POLYETHYLENE (MIRALAX) 17 GM PACK PO SCH (09:00)
[2017-08-08 09:08] VITALS: BP 125/53
[2017-08-08] MEDS: FERROUS SULFATE 325 MG TAB PO SCH (09:09)
[2017-08-08] MEDS: IPRATROPIUM BROMIDE/ALBUTEROL respimat INH INH SCH ×2 (09:10→13:35)
[2017-08-08] MEDS: DICLOFENAC SOD 1% GEL 100 GM TUBE EXT SCH ×2 (09:10→13:35)
[2017-08-08] MEDS: TRIAMCINOLONE ACET NASAL SPRAY 10.8ML BTL NAE SCH (09:11)
[2017-08-08] MEDS: RIVASTIGMINE TARTRATE 1.5 MG PO SCH (09:11)
[2017-08-08] MEDS: FUROSEMIDE 20 MG TAB PO SCH (09:13)
[2017-08-08] MEDS: ESCITALOPRAM OXALATE 10 MG TAB PO SCH (09:13)
[2017-08-08] MEDS: LITHIUM CARBONATE 300 MG TAB PO SCH (09:14)
[2017-08-08] MEDS: MIRABEGRON ER 25 MG TAB PO SCH (09:14)
[2017-08-08] MEDS: GABAPENTIN 100 MG CAP PO SCH (09:15)
[2017-08-08] MEDS: PANTOprazole SOD 40 MG TAB PO SCH (09:15)
[2017-08-08] MEDS: BuPROPion SR 150 MG TABCR PO SCH (09:15)
[2017-08-08] MEDS: MEMANTINE 10 MG TAB PO SCH (09:15)
[2017-08-08] MEDS: POTASSIUM CHLORIDE 10 MEQ TABCR PO SCH (09:16)
[2017-08-08] MEDS: ENOXAPARIN 100 MG/1ML SYR SQ SCH (09:18)
[2017-08-08] MEDS: CYANOCOBALAMIN 1000 MCG/ML VIAL IM SCH (09:24)
--- NOTE | 2017-08-08 11:14 | Discharge Summary ---
Discharge Summary Date of Service Aug 07, 2017. 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 acute blood loss anemia 2nd to hematuria 2. b/l lower extremity DVT 3. right-sided PEs 4. IVC filter status 5. bipolar disorder 6. mild cognitive impairment/mild dementia 7. vitamin b12 deficiency 8. acute kidney injury - resolved 9. CKD stage 4 10. significant deconditioning 11. hypothyroidism 12. asthma 13. GERD 14. strabismus, right eye 15. colonic ileus, resolved Immunizations: Have You Had Influenza Vaccine: No History of Tetanus Vaccine?: No History of Pneumococcal: Yes Pneumococcal Date: Nov 21, 2009 History of Hepatitis B Vaccine: No Procedures: 1. venous duplex study - 07/20/17 - FINDINGS: Venous Doppler right leg currently is unremarkable. Previously described thrombus is no longer identified. Evaluation of left leg shows evidence for echogenic thrombus within left common femoral vein, proximal to distal femoral vein, as well as popliteal vein. This appears to be a combination of acute and chronic thrombophlebitis. 2. CTA chest - 07/20/17 - IMPRESSION: 1. No evidence of pulmonary embolus. 2. Scattered areas of scarring or atelectasis. No convincing evidence of acute intrathoracic pathology. 3. bladder ultrasound - bladder lesion identified 4. IVC filter placement - Yohannes Sheehan MD 5. venous duplex study, right leg - 07/31/17 - IMPRESSION: Extensive deep venous thrombosis extending to the level of the common femoral vein, which may be occlusive in some portions. Notably, this is worsened from prior. 6. CTA chest - 08/02/17 - IMPRESSION: 1. Acute pulmonary embolus in the right lower lobe pulmonary artery extending into segmental branches. No CT evidence of right heart strain. 2. Extensive basilar atelectasis and/or scarring, unchanged. 7. Cystoscopy, transurethral resection of bladder tumor (large - 7cm) - Maximus Farrell MD - 07/26/17 8. Cystoscopy, clot evacuation, fulguration of bleeding areas, status post previous bladder tumor on 07/26/17 - Samuel Kaur MD Consultations: 1. PT, OT 2. urology - Maximus Farrell MD 3. vascular surgery - Yohannes Sheehan MD 4. psychiatry Hospital Course HISTORY OF PRESENT ILLNESS: The patient is an 81-year-old female who presents to the emergency department with left calf pain that began earlier in the day prior to arrival. She was diagnosed with a right lower extremity DVT on July 04 at this emergency department, and had similar pain at that time. The patient has been started on Eliquis on July 05, had was thought to be vaginal bleeding at that time, and then the patient stopped taking the Eliquis and the bleeding stopped. In the interim she has had a normal pelvic examination. She reportedly also had an ultrasound of her kidneys did not show kidney stones. In the emergency department tonight, she had an ultrasound suggestive of bladder lesion and venous duplex study showed evidence of left-sided DVT. HOSPITAL COURSE: 1. high-grade papillary urethelial bladder cancer - s/p TURBT by Dr. Farrell on 07/26/17 followed by cystoscopy, clot evacuation, and fulguration by Dr. Kaur on 07/30/17 due to ongoing hematuria. Following the latter procedure she was resumed on systemic anticoagulation and fortunately tolerated such with minimal hematuria and stable CBC. Her crandall was ultimately discontinued and she was voiding without difficulty prior to discharge. 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 She will need close follow-up with Dr. Farrell as an outpatient to formulate a plan for ongoing cancer treatment. 2. acute bilateral LE DVTs - due to ongoing hematuria early on in her hospitalization she underwent IVC filter placement by Dr. Yohannes Sheehan. Unfortunately the patient developed additional right-sided lower extremity DVTs later on in her stay while off anticoagulation. She also developed acute PEs on 08/02/17 despite the presence of her IVC filter. Because of ongoing VTE she was cautiously resumed on a heparin drip on . For several days she was observed carefully for any recurrent hematuria and had none. The heparin drip was ultimately transitioned to lovenox 1mg/kg BID. In light of her recurrent VTE and cancer it is recommended, if at all possible, that the lovenox be continued indefinitely. She will need to be watched closely for any hematuria. 3. acute kidney injury - resolved with hydration during her stay. 4. hypothyroidism - TSH was high during this hospitalization; last TSH several months ago was also high; her synthroid was increased to 88mcg daily earlier this admission; TSH will be needed in 6 weeks (roughly mid-August). 5. colonic ileus - resolved with supportive care. This issue occurred after her initial TURBT. 6. depression with h/o bipolar disorder - psychiatry was consulted. She remained on lexapro and lithium. [employer] [place] level was normal while here. Trazodone was used for insomnia. "TARGET" process was completed due to SNF placement. 7. acute blood loss anemia - 2nd to bleeding from bladder tumor - H/H were stable the last few days prior to discharge. She should remain on ferrous sulfate 325mg bid for several months. Repeat CBC in 3-4 days after discharge recommended. 8. probable b12 deficiency - in light of mental status and propensity for neuropsychiatric issues/depression she was replaced parenterally while here. Also recommended supplementation with folic acid for 1 month. After discharge suggest once weekly b12 shots x 4 weeks, then monthly thereafter. Can ultimately change to PO in a few months. 9. rhinorrhea - she used a combination of linda, singulair, and nasal steroid during this hospital stay with relief. Total Time Spent: Greater than 30 minutes This includes examination of the patient, discharge planning, medication reconciliation, and communication with other providers. Discharge Instructions Please refer to the electronic Patient Visit Report (Discharge Instructions) for additional information. Follow-Up 1. Dr. Maximus Farrell, [facility], within 1 week of discharge 2. [facility] within 48 hours 3. Psychiatry within 2 weeks of discharge for ongoing surveillance of bipolar disorder Additional Copies To Yohannes Sheehan M.D.; Maximus Farrell M.D.; Sima Zaragoza MD
[2017-08-08] MEDS ORDERED: SYN88 PO (14:05)
[2017-08-08] MEDS ORDERED: LSX20 PO (14:05)
[2017-08-08] MEDS ORDERED: LVNIS100 SQ (14:05)
[2017-08-08] MEDS ORDERED: FRRS300 PO (14:05)
[2017-08-08] MEDS ORDERED: CYNI1000 IM (14:05)
--- NOTE | 2017-08-08 14:22 | Discharge Instructions ---
Discharge Instructions Date of Service Aug 08, 2017. Admission Reason for Admission: Left Leg Dvt, Lesion Of Bladder Discharge Discharge Diagnosis / Problem: urohelial carcinoma Discharge Goals Goal(s): Decrease discomfort, Improve function Activity Recommendations Activity Level: Assistance Required Therapies: Physical Therapy, Occupational Therapy Lifting Limitations: gradually increase as tolerated Shower/Bathe: no limitations . Additional Information Patient informed of condition: Yes Advance Directives: Yes DNR: No Level of Care: Skilled Communicable Disease: No Prognosis: Stable [place] Catheter: No Instructions / Follow-Up Instructions / Follow-Up high-grade papillary urethelial bladder cancer - s/p TURBT by Dr. Farrell on 07/26/17 followed by cystoscopy, clot evacuation, and fulguration by Dr. Kaur on 07/30/17 due to ongoing hematuria which resolved at time of discharge. -On mybirteq for detrusor instability -Needs close follow-up with Dr. Farrell as an outpatient to formulate a plan for ongoing cancer treatment Acute bilateral LE DVTs - s/p IVC filter placement by Dr. Yohannes Sheehan. -developed additional right-sided lower extremity DVTs s/p IVC filter while off anticoagulation. -also developed acute PEs on 08/02/17 -On therapeutic Lovenox currently -watch closely for any hematuria hypothyroidism - TSH was high at 6.8 during this hospitalization; last TSH several months ago was also high -Synthroid increased to 88mcg daily -Recheck TSH in 6 weeks (roughly mid-August). acute blood loss anemia - 2nd to bleeding from bladder tumor - H/H on discharge stable at 9.5/30.6 -on ferrous sulfate 325mg bid for several months. -Repeat CBC in 3-4 days after discharge recommended. B12 deficiency - -Suggest b12 shots x 4 weeks, then monthly thereafter. Can ultimately change to PO in a few months. All other co-morbidities managed appropriately please see discharge summary Current Hospital Diet Patient's current hospital diet: Regular Diet Discharge Diet Recommended Diet: Regular Diet, AHA Diet (Heart Healthy) Procedures Procedures Performed: Cystoscopy for clot evacuation and hematuria Pending Studies Studies pending at discharge: no Medical Emergencies . Who to Call and When: Medical Emergencies: If at any time you feel your situation is an emergency, please call 911 immediately. . Non-Emergent Contact Non-Emergency issues call your: Primary Care Provider Call Non-Emergent contact if: temperature is above 100.5, your pain is not controlled . . "Provider Documentation" section prepared by Ginger Mcdonald. . Core Measure Problem Core Measures: VTE VTE Core Measures Date of VTE Diagnosis: Jul 20, 2017 Time of VTE Diagnosis: 06:00 Reason no anticoag overlap I/P: Treatment provided - N/A Reason no anticoag overlap @DC: Treatment provided - N/A
[2017-08-08 14:37] VITALS: BP 125/53; PULSE 67; TEMP 36.8; O2SAT 94
[2017-08-08 14:57] VITALS: BP 105/57; PULSE 78; TEMP 37.1; O2SAT 93
== END 2017-08-08 15:50 | DRG 252 ==
LOC: C.EDB 15:01 → C.MED 18:56 → ENRESERV 19:15 → C.MSW 07-30 13:52
PROVIDERS: ADMIT Hospitalist; ATTEND Family Medicine
PROC: 06H03DZ Insertion of Intraluminal Device into Inferior Vena Cava, Percutaneous Approach (ICD-10-PCS; principal; 2017-07-22 14:30)
PROC: 0TBB8ZZ Excision of Bladder, Via Natural or Artificial Opening Endoscopic (ICD-10-PCS; 2017-07-26 11:00)
DX: I82.4Z2 Acute embolism and thrombosis of unspecified deep veins of left distal lower extremity (principal); I26.99 Other pulmonary embolism without acute cor pulmonale; N17.9 Acute kidney failure, unspecified; N39.0 Urinary tract infection, site not specified; D62 Acute posthemorrhagic anemia; N18.4 Chronic kidney disease, stage 4 (severe); I12.9 Hypertensive chronic kidney disease with stage 1 through stage 4 chronic kidney disease, or unspecified chronic kidney disease; N32.9 Bladder disorder, unspecified; J45.909 Unspecified asthma, uncomplicated; E03.9 Hypothyroidism, unspecified; E78.5 Hyperlipidemia, unspecified; J44.9 Chronic obstructive pulmonary disease, unspecified; K58.9 Irritable bowel syndrome, unspecified; F03.90 Unspecified dementia, unspecified severity, without behavioral disturbance, psychotic disturbance, mood disturbance, and anxiety; R19.7 Diarrhea, unspecified; F32.9 Major depressive disorder, single episode, unspecified; K21.9 Gastro-esophageal reflux disease without esophagitis; H50.9 Unspecified strabismus; E53.8 Deficiency of other specified B group vitamins; Z87.891 Personal history of nicotine dependence; Z87.440 Personal history of urinary (tract) infections; Z79.82 Long term (current) use of aspirin; Z90.49 Acquired absence of other specified parts of digestive tract; Z90.710 Acquired absence of both cervix and uterus; Z80.9 Family history of malignant neoplasm, unspecified

== ENCOUNTER → 2017-08-12 | Outpatient (CLI) | payer BC ==
[~2017-08-12] MED LIST changes: +ACET-1311 PO; +AMOX500T PO; +CYNI1000 IM; +DIPH1TAB PO; +ENOX100I SC; +FRRS300 PO; -LEVO75TA PO; +LSX20 PO; +LVNIS100 SQ; +MICO4CRE PV; +MYR25 PO; +POTA20TA16 PO; +SNG10 PO; +SYN88 PO; +VNCAQN NAE
[2017-08-12 09:43] LABS: HEMATOCRIT 29.8 % (37-47); MEAN CORPUSCULAR HEMOGLOBIN 31.2 pg (25-34); MEAN CORPUSCULAR HGB CONC 30.9 g/dl (32-36); MEAN PLATELET VOLUME 9.9 fL (7.4-10.4); PLATELET COUNT 293 K/uL (130-400); RED BLOOD COUNT 2.95 M/uL (4.2-5.4); WHITE BLOOD COUNT 11.67 K/uL (4.8-10.8)
== END | disposition home or self-care (01) ==
LOC: C.LABCC 09:01
PROVIDERS: ATTEND Internal Medicine
DX: D64.9 Anemia, unspecified (principal)

== ENCOUNTER → 2017-08-16 | Outpatient (CLI) | payer BC ==
[2017-08-16 08:12] LABS: HEMATOCRIT 32.4 % (37-47); MEAN CELL VOLUME 100.3 fL (80-100); MEAN CORPUSCULAR HEMOGLOBIN 30.3 pg (25-34); MEAN CORPUSCULAR HGB CONC 30.2 g/dl (32-36); PLATELET COUNT 258 K/uL (130-400); RED BLOOD COUNT 3.23 M/uL (4.2-5.4); WHITE BLOOD COUNT 8.72 K/uL (4.8-10.8)
[2017-08-16 08:20] LABS: BLOOD UREA NITROGEN 12 mg/dl (7-18); BUN/CREATININE RATIO 11.7 (10-20); CALCIUM 8.8 mg/dl (8.5-10.1); CARBON DIOXIDE 23 mmol/L (21-32); CHLORIDE 112 mmol/L (98-107); CREATININE 1.05 mg/dl (0.60-1.20); GLUCOSE 100 mg/dl (70-99); POTASSIUM 3.4 mmol/L (3.5-5.1); SODIUM 143 mmol/L (136-145)
== END ==
LOC: C.LABCC 07:49
PROVIDERS: ATTEND Internal Medicine
DX: I26.99 Other pulmonary embolism without acute cor pulmonale (principal)

== ENCOUNTER 2017-08-19 09:47 | Inpatient (IN) | payer BC, OTHER ==
[~2017-08-19] VITALS: Ht 165.1 cm; Wt 94.2 kg
[2017-08-19] VITALS (45 sets, daily range): BP systolic 60–104; BP diastolic 36–79; PULSE 90–102; TEMP 36.3–36.9; O2SAT 86–100; Ht 165.1 cm; Wt 94.2 kg
[~2017-08-19 09:47] MED LIST changes: -ACET-1311 PO; -AMOX500T PO; -DIPH1TAB PO; -ENOX100I SC; -MICO4CRE PV; -POTA20TA16 PO; -VNCAQN NAE
[2017-08-19] MEDS ORDERED: SODIUM CHLORIDE 0.9% 1000ML 1,000 ML IV STA ×2 (09:54→10:19)
--- NOTE | 2017-08-19 10:14 | DIAGNOSTIC IMAGING REPORT ---
CHEST ONE VIEW PORTABLE HISTORY: Sepsis COMPARISON: Chest 07/28/2017. FINDINGS: No pneumothorax. No pleural effusions. Old, healed right clavicle fracture. The heart is normal in size. Bibasilar subsegmental atelectasis has slightly improved. No new focal lung consolidations to suggest pneumonia. IMPRESSION: No acute process. Slight improvement in the bibasilar subsegmental atelectasis. Electronically signed by: Edward Dave M.D. 08/19/2017 10:12 AM Dictated Date/Time: 08/19/2017 10:03 AM
[2017-08-19] MEDS ORDERED: LEVAQUIN 750MG / 150ML D5W IV STA (10:23)
[2017-08-19 10:36] LABS: VENOUS BLOOD GAS PCO2 34 mmHg (38.0-50.0); VENOUS BLOOD GAS PO2 31 mmHg
[2017-08-19 10:37] LABS: VEN BLD GAS O2 SATURATION < 60.0 %
[2017-08-19] MEDS ORDERED: OXYCODONE HCL IR 5 MG TAB (IMMEDIATE RELEASE) PO STA (10:39)
[2017-08-19 10:44] LABS: INR 1.3 (0.9-1.1); PARTIAL THROMBOPLASTIN RATIO 0.8; PROTHROMBIN TIME (PATIENT) 13.6 SECONDS (9.0-12.0)
[2017-08-19 10:46] LABS: MEAN CORPUSCULAR HEMOGLOBIN 32.1 pg (25-34); MEAN CORPUSCULAR HGB CONC 31.5 g/dl (32-36); MEAN PLATELET VOLUME 10.4 fL (7.4-10.4); PLATELET COUNT 325 K/uL (130-400); RED BLOOD COUNT 1.96 M/uL (4.2-5.4)
[2017-08-19 10:53] LABS: ALT/SGPT 28 U/L (12-78); BLOOD UREA NITROGEN 23 mg/dl (7-18); BUN/CREATININE RATIO 11.4 (10-20); C-REACTIVE PROTEIN 8.56 mg/dl (0-0.29); CALCIUM 8.3 mg/dl (8.5-10.1); CARBON DIOXIDE 17 mmol/L (21-32); CHLORIDE 111 mmol/L (98-107); CREATININE 2.01 mg/dl (0.60-1.20); GLUCOSE 183 mg/dl (70-99); MAGNESIUM 2.2 mg/dl (1.8-2.4); POTASSIUM 4.5 mmol/L (3.5-5.1); SODIUM 141 mmol/L (136-145)
[2017-08-19 10:54] LABS: MANUAL MICROSCOPIC REQUIRED? YES; URINE APPEARANCE SL CLOUDY (CLEAR); URINE BILIRUBIN NEG (NEG); URINE COLOR RED; URINE NITRITE POS (NEG); URINE SPECIFIC GRAVITY >= 1.030 (1.000-1.030); UROBILINOGEN NEG (NEG)
[2017-08-19 10:55] LABS: REVIEW REQ? NO
[2017-08-19 10:56] LABS: SULFASALICYLIC ACID POS (NEG)
[2017-08-19 10:57] LABS: ALB/GLOB RATIO 0.8 (0.9-2); ALKALINE PHOSPHATASE 65 U/L (45-117); AST/SGOT 57 U/L (15-37); CKMB/CK RATIO 0.4 (0-3.0); PHOSPHORUS 5.5 mg/dl (2.5-4.9)
[2017-08-19] MEDS ORDERED: VNCAQN NAE (10:57)
[2017-08-19] MEDS ORDERED: DIPH1TAB PO (10:57)
[2017-08-19] MEDS ORDERED: POTA20TA16 PO (10:57)
[2017-08-19] MEDS ORDERED: MICO4CRE PV (10:57)
[2017-08-19] MEDS ORDERED: ACET-1311 PO (10:57)
[2017-08-19] MEDS ORDERED: AMOX500T PO (10:57)
[2017-08-19] MEDS ORDERED: ENOX100I SC (10:57)
[2017-08-19 10:58] LABS: ANISOCYTOSIS PRESENT; BASO % 0.1 %; BASO ABS # 0.02 K/uL (0-0.2); COMPLETE YES; IG% 1.3 %; LYMPH % 5.8 %; LYMPH ABS # 1.34 K/uL (1.2-3.4); MONO % 9.7 %; NEUT % 83.1 %; POLYCHROMASIA 1+; TEAR DROP CELLS 1+
[2017-08-19 11:01] LABS: URINE RBC >30 /hpf (0-4); URINE WBC >30 /hpf (0-5)
[2017-08-19 11:02] LABS: URINE AMORPHOUS SEDIMENT PRESENT (NONE PRSENT)
[2017-08-19 11:04] LABS: URINE BACTERIA 1+ (NEG)
[2017-08-19 11:09] LABS: ZZURINE CULT IF INDIC CATH YES
[2017-08-19] MEDS ORDERED: ONDANSETRON INJ 2 MG/ML 2 ML VIAL IV STA ×2 (11:18→12:34)
--- NOTE | 2017-08-19 11:22 | EMERGENCY ROOM VISIT NOTE ---
History Report prepared by Damaris: Luis Ortiz Under the Supervision of: Dr. Wang Ashraf D.O. First contact with patient: 09:41 History of Present Illness The patient is a 81 year old female who presents to the Emergency Room with complaints of persistent hypotension and hypoxia beginning today. She is receiving physical therapy at [facility]. She was found to be hypotensive and hypoxic today at [facility]. The patient's blood oxygen saturation was found to be in the 70's with a blood pressure of 69/49. She was found to have right sided PE and right sided DVT a few weeks ago. She had an IVF placed last month. The patient is on Lovenox. Per EMS, the patient was complaining of shortness of breath this morning. They note that the patient does not appear to be significantly confused. They state that she denies chest pain. Nursing staff states that the patient has complained of some pelvic pain and chills. Source of History: EMS, nursing staff Onset: Today Symptom Intensity: blood pressure of 69/49 with a O2 saturation in the 70's. Quality: other (hypotension and hypoxia) Timing: other (persistent) Associated Symptoms: + chills, + SOB, No chest pain Note: Additional symptoms: pelvic pain. Review of Systems See HPI for pertinent positives & negatives. A total of 10 systems reviewed and were otherwise negative. Past Medical & Surgical Medical Problems: (1) Acute blood loss anemia (2) Asthma (3) Bipolar disorder (4) Carpal tunnel surgery (5) Chest pain (6) COPD (chronic obstructive pulmonary disease) (7) Dizziness (8) Dyspnea on exertion (9) GERD (gastroesophageal reflux disease) (10) History of DVT (deep vein thrombosis) (11) Hypertension (12) Hypothyroidism (13) Irritable bowel syndrome (14) Left leg DVT (15) Lesion of bladder (16) Mild dementia (17) Pneumonia (18) Severe sepsis (19) Shock therapy (20) Urinary tract infection (21) Urinary tract infection Surgical Problems: (1) History of hysterectomy (2) Hx of cholecystectomy Family History FH: cancer Social History Smoking Status: Former Smoker Alcohol Use: none Drug Use: none Marital Status: single Housing Status: unknown Occupation Status: retired Current/Historical Medications Scheduled Amoxicillin & Pot Clavulanate (Augmentin 500MG), 1 TAB PO BID Bupropion (Wellbutrin Sr), 150 MG PO BID Clobetasol Propionate (Clobetasol Propionate Cream 0.05%), 1 APPLN EXT BID Cyanocobalamin (Cyanocobalamin), 1,000 MCG IM WK Docusate Sodium (Docusate Sodium), 1 CAP PO BID Enoxaparin (Lovenox), 90 MG SC Q12 Escitalopram (Lexapro), 5 MG PO DAILY Estradiol Vaginal (Vagifem), 1 TAB PV 2XWK Ferrous Sulfate (Ferrous Sulfate), 325 MG PO BIDM Furosemide (Furosemide), 20 MG PO QAM Gabapentin (Neurontin), 100 MG PO DAILY Ipratropium-Albuterol (Combivent Respimat), 1 PUFFS INH QID Levothyroxine Sodium (Synthroid), 88 MCG PO DAILYBB [place] Carbonate ([place] Carbonate), 300 MG PO BID Memantine (Namenda), 10 MG PO BID Miconazole Nitrate Vaginal (Miconazole 3), 1 APPL PV AMPM Mirabegron (Myrbetriq Er), 50 MG PO DAILY Montelukast Sod (Montelukast Sodium), 10 MG PO DAILY Omeprazole (Prilosec), 20 MG PO DAILY Potassium Ext Rel (Klor-Con), 20 MEQ PO DAILY Rivastigmine Tartrate (Rivastigmine Tartrate), 6 MG PO BID Triamcinolone Acetonide (Nasal (Nasal Allergy 24 Hour), 1 SPRAY ANUPAM PRN UD Scheduled PRN Acetaminophen (Tylenol), 650 MG PO Q6 PRN for Pain or Fever Beclomethasone Dip (Beconase Aq), 1 SPRAY ANUPAM DAILY PRN for ALLERGIES Diphenhydramine Hcl ([place]anae[place] Plus Allergy), 1 TAB PO Q4H PRN for Dyspepsia Loratadine (Claritin), 10 MG PO DAILY PRN for ALLERGIES Simethicone (Gas-X Extra Strength), 1 CAP PO Q6H PRN for GAS Allergies Coded Allergies: Clarithromycin (Verified Allergy, Severe, ANAPHYLAXIS, 07/20/17) Sulfa Antibiotics (Verified Allergy, Intermediate, RASH, 07/25/17) Fluoxetine (Verified Allergy, Unknown, 07/20/17) Gabapentin (Verified Allergy, Unknown, RASH, 07/20/17) Hydrocortisone (Verified Allergy, Unknown, CORTIZONE, 07/20/17) Nitrofurantoin (Verified Allergy, Unknown, RASH, 07/20/17) Apixaban (Unverified Adverse Reaction, Severe, severe headache, 07/26/17) Heparin (Unverified Adverse Reaction, Intermediate, headache, 07/26/17) Moxifloxacin (Unverified Adverse Reaction, Unknown, "very shakey", 07/20/17 ) Physical Exam Vital Signs Date Time Temp Pulse Resp B/P (MAP) Pulse Ox O2 Delivery O2 Flow Rate FiO2 08/19/17 12:17 87/37 08/19/17 12:09 96 19 100 Mask 5.0 08/19/17 12:03 96 21 94/59 100 Mask 5.0 08/19/17 12:01 94/59 08/19/17 11:59 83/52 08/19/17 11:56 82/70 08/19/17 11:55 57/44 08/19/17 11:54 91 25 94 08/19/17 11:49 92 21 96/48 100 Mask 5.0 08/19/17 11:33 107/64 Mask 5.0 08/19/17 11:32 08/19/17 11:19 94 27 91/62 Mask 5.0 08/19/17 11:14 08/19/17 11:02 91 26 08/19/17 10:47 91 24 100 Mask 5.0 08/19/17 10:32 91 20 100 Non-Rebreather 08/19/17 10:31 109/58 08/19/17 10:17 91 23 100 Non-Rebreather 08/19/17 10:16 103/72 08/19/17 10:06 100/72 08/19/17 10:02 98 27 100 Non-Rebreather 08/19/17 10:01 107/41 08/19/17 09:58 101 08/19/17 09:52 165/121 08/19/17 09:49 101 23 107/41 100 Non-Rebreather 08/19/17 09:49 100 Non-Rebreather Physical Exam GENERAL: Listless, appears to be in significant distress. Responds to verbal questions, but slowly. EYES: The pupils are round and reactive. Pale conjunctiva. PERRL. EOMI. EARS, NOSE, MOUTH AND THROAT: The nose is without any evidence of any deformity. Mucous membranes are dry. Tongue is midline. NECK: The neck is nontender and supple. RESPIRATORY: Lung sound diminished throughout with scattered rales. Mild tachypnea noted. CARDIOVASCULAR: Tachycardic but regular. No definite murmur to auscultation. GASTROINTESTINAL: Mildly distended but soft. No specific guarding or rigidity noted. PELVIS: The Pelvis is stable. No tenderness to palpation is noted. BACK: No midline tenderness or or step-off noted range of motion in flexion extension as well as rotation no signs of muscle spasm noted RECTAL: Green stool. Trace heme positive. MUSCULOSKELETAL/EXTREMITIES: There is no evidence of gross deformity full range of motion is noted in the hips and shoulders SKIN: Pedal edema bilaterally, right greater than left. Significant erythema noted to the RLE in a pattern consistent with cellulitis vs DVT. NEUROLOGIC: Awake, and oriented to person and situation. Follows commands. Strength diminished but symmetric. Medical Decision & Procedures ER Provider Diagnostic Interpretation: X-ray results as stated below per interpretation by me and the radiologist. CHEST ONE VIEW PORTABLE FINDINGS: No pneumothorax. No pleural effusions. Old, healed right clavicle fracture. The heart is normal in size. Bibasilar subsegmental atelectasis has slightly improved. No new focal lung consolidations to suggest pneumonia. IMPRESSION: No acute process. Slight improvement in the bibasilar subsegmental atelectasis. Electronically signed by: Edward Dave M.D. 08/19/2017 10:12 AM Laboratory Results 08/19/17 10:15 Red Blood Count 1.96, Mean Corpuscular Volume 102.0, Mean Corpuscular Hemoglobin 32.1, Mean Corpuscular Hemoglobin Concent 31.5, Mean Platelet Volume 10.4, Neutrophils (%) (Auto) 83.1, Lymphocytes (%) (Auto) 5.8, Monocytes (%) ( Auto) 9.7, Eosinophils (%) (Auto) 0.0, Basophils (%) (Auto) 0.1, Neutrophils # ( Auto) 19.29, Lymphocytes # (Auto) 1.34, Monocytes # (Auto) 2.24, Eosinophils # ( Auto) 0.00, Basophils # (Auto) 0.02 08/19/17 10:15 Test 08/19/17 10:15 08/19/17 10:22 08/19/17 10:31 White Blood Count 23.20 K/uL (4.8-10.8) Red Blood Count 1.96 M/uL (4.2-5.4) Hemoglobin 6.3 g/dL (12.0-16.0) Hematocrit 20.0 % (37-47) Mean Corpuscular Volume 102.0 fL (80-100) Mean Corpuscular Hemoglobin 32.1 pg (25-34) Mean Corpuscular Hemoglobin Concent 31.5 g/dl (32-36) Platelet Count 325 K/uL (130-400) Mean Platelet Volume 10.4 fL (7.4-10.4) Neutrophils (%) (Auto) 83.1 % Lymphocytes (%) (Auto) 5.8 % Monocytes (%) (Auto) 9.7 % Eosinophils (%) (Auto) 0.0 % Basophils (%) (Auto) 0.1 % Neutrophils # (Auto) 19.29 K/uL (1.4-6.5) Lymphocytes # (Auto) 1.34 K/uL (1.2-3.4) Monocytes # (Auto) 2.24 K/uL (0.11-0.59) Eosinophils # (Auto) 0.00 K/uL (0-0.5) Basophils # (Auto) 0.02 K/uL (0-0.2) RDW Standard Deviation 61.0 fL (36.4-46.3) RDW Coefficient of Variation 16.7 % (11.5-14.5) Immature Granulocyte % (Auto) 1.3 % Immature Granulocyte # (Auto) 0.31 K/uL (0.00-0.02) Nucleated RBC Absolute Count (auto) 0.04 K/uL (0-0) Nucleated Red Blood Cells % 0.2 % Polychromasia 1+ Anisocytosis PRESENT Tear Drop Cells 1+ Erythrocyte Sedimentation Rate 6 mm/hr (0-21) Prothrombin Time 13.6 SECONDS (9.0-12.0) Prothromb Time International Ratio 1.3 (0.9-1.1) Activated Partial Thromboplast Time 20.5 SECONDS (21.0-31.0) Partial Thromboplastin Ratio 0.8 Venous Blood pH 7.30 (7.36-7.41) Venous Blood Partial Pressure CO2 34 mmHg (38.0-50.0) Venous Blood Partial Pressure O2 31 mmHg Venous Blood HCO3 17 mmol/L Venous Blood Oxygen Saturation < 60.0 % Venous Blood Base Excess mEq/L Anion Gap 13.0 mmol/L (3-11) Est Creatinine Clear Calc Drug Dose 25.3 ml/min Estimated GFR () 26.5 Estimated GFR (Non- 22.9 BUN/Creatinine Ratio 11.4 (10-20) Calcium Level 8.3 mg/dl (8.5-10.1) Phosphorus Level 5.5 mg/dl (2.5-4.9) Magnesium Level 2.2 mg/dl (1.8-2.4) Total Bilirubin 0.6 mg/dl (0.2-1) Aspartate Amino Transf (AST/SGOT) 57 U/L (15-37) Alanine Aminotransferase (ALT/SGPT) 28 U/L (12-78) Alkaline Phosphatase 65 U/L (45-117) Total Creatine Kinase 483 U/L (26-192) Creatine Kinase MB 1.9 ng/ml (0.5-3.6) Creatine Kinase MB Ratio 0.4 (0-3.0) Troponin I < 0.015 ng/ml (0-0.045) C-Reactive Protein 8.56 mg/dl (0-0.29) Pro-B-Type Natriuretic Peptide 739 pg/ml (0-1800) Total Protein 4.8 gm/dl (6.4-8.2) Albumin 2.2 gm/dl (3.4-5.0) Globulin 2.6 gm/dl (2.5-4.0) Albumin/Globulin Ratio 0.8 (0.9-2) Lipase 115 U/L (73-393) [place] Level 0.7 mMOL/L (0.6-1.2) Bedside Lactic Acid Venous 7.93 mmol/L (0.90-1.70) Urine Color RED Urine Appearance SL CLOUDY (CLEAR) Urine pH 5.0 (4.5-7.5) Urine Specific [place] >= 1.030 (1.000-1.030) Urine Protein 2+ (NEG) Urine Glucose (UA) NEG (NEG) Urine Ketones NEG (NEG) Urine Occult Blood 3+ (NEG) Urine Nitrite POS (NEG) Urine Bilirubin NEG (NEG) Urine Urobilinogen NEG (NEG) Urine Leukocyte Esterase NEG (NEG) Urine RBC >30 /hpf (0-4) Urine WBC >30 /hpf (0-5) Urine Epithelial Cells 10-20 /lpf (0-5) Urine Renal Cells 0-5 /lpf (FEW) Urine Amorphous Sediment PRESENT (NONE PRSENT) Urine Bacteria 1+ (NEG) Laboratory results per my review. Medications Administered Medications (Trade) Dose Ordered Sig/Della Route Start Time Stop Time Status Last Admin Dose Admin Sodium Chloride 1,000 ml @ 999 mls/hr Q1H1M STAT IV 08/19/17 09:54 08/19/17 10:54 DC 08/19/17 10:12 999 MLS/HR Sodium Chloride 1,000 ml @ 999 mls/hr Q1H1M STAT IV 08/19/17 10:19 08/19/17 11:19 DC 08/19/17 10:43 999 MLS/HR Levofloxacin (Levaquin / D5W) 750 mg NOW STAT IV 08/19/17 10:23 08/19/17 10:24 DC 08/19/17 11:03 750 MG Ondansetron HCl (Zofran Inj) 4 mg NOW STAT IV 08/19/17 11:18 08/19/17 11:19 DC 08/19/17 11:26 4 MG Procedure Femoral Central Venous Catheter Indication: hypoxia, hypotension. Catheter Type: triple lumen Location: Left femoral vein. Verbal consent was obtained after the risks and benefits were explained, including but not limited to intra-abdominal injury, vessel injury, bleeding, scarring, infection, pain, and bone/joint/nerve damage. At this time, the risks of the procedure are less than the risks of NOT performing the procedure. A time out was taken and the correct patient and site identified. The patient was placed in the supine position and the skin was prepped in the standard fashion with chlorhexidine and full sterile drapes applied. The proper landmarks were identified with ultrasound, anesthetized with 1% lidocaine without epinephrine, and the needle was inserted through the skin in the standard fashion. The needle was carefully advanced into blood vessel lumen with ultrasound guidance. The guidewire was placed uneventfully. The vessel is dilated and the catheter was placed. It was sutured into position. There was good blood return from all ports. The patient tolerated the procedure well and there were no complications. ECG Indication: SOB/dyspnea Rate (beats per minute): 100 Rhythm: normal sinus Findings: no ectopy, other (Diffuse T-wave flattening) Comparison ECG Date: Jul 26, 2017 Change: no significant change ED Course 0948: The patient was evaluated in room B9. A complete history and physical examination were performed. 0954: Ordered NSS 1,000 ml @ 999 mls/hr IV. 0958: I placed the femoral central venous catheter. See the procedure note for details. 1019: Ordered NSS 1,000 ml @ 999 mls/hr IV 1023: Ordered Levaquin / D5W 750 mg IV. 1039: Ordered Roxicodone Immediate Rel Tab 5 mg PO. 1053: I reassessed the patient. She consented to receiving blood transfusions. 1100: Upon reevaluation, the patient is resting comfortably. I discussed results and treatment plan with her. She verbalizes agreement and understanding. I spoke with Dr. Lake [place] [facility] The patient will be evaluated for further management and care. 1118: Ordered Zofran Inj 4 mg IV. Medical Decision Differential diagnosis: Etiologies such as sepsis, UTI, pneumonia, metabolic, electrolyte abnormalities , cardiac sources, intracerebral event, toxicologic, neurologic, as well as others were entertained. Nursing notes reviewed. Additional history is obtained from the patient's family members. Additional history is obtained from the prehospital personnel. The patient's prison documentation was reviewed. The patient is an 81-year-old female who presented to the emergency department for altered mental status hypoxia and hypotension. The patient was recently diagnosed with pulmonary embolism and is currently receiving Lovenox. The patient presented to the emergency department in extremis. She initially denied any abdominal tenderness but she was also confused. The patient was resuscitated in the emergency department with IV fluids. She was also given IV antibiotics for presumed sepsis with her hypotension. Her hypoxia improved significantly on supplemental oxygen. The patient was resuscitated she was much more awake and alert. I discussed her case with the on-call [facility] hospitalist. At that time she did have some abdominal tenderness. Because of her elevation in creatinine a CT was done without IV or by mouth contrast. This revealed significant rectus sheath hematoma. This likely explains the patient's anemia as well as her hypotension. She was resuscitated with blood products as well. I discussed the patient's laboratory and radiographic studies with her. I discussed her case with the plating technician group. The patient was reevaluated multiple times. A central line was placed. Medication Reconcilliation Current Medication List: was personally reviewed by me Blood Pressure Screening Patient's blood pressure: Normal blood pressure Blood pressure disposition: Did not require urgent referral Consults Time Called: 1055 Consulting Physician: Dr. Lake -[facility] Returned Call: 1100 I discussed the patient's case with Dr. Lake. The patient will be evaluated for further management. Additional Consults: Time Called: 1153 Consulted Physician: Yumiko MCCALL -Urology Returned Call: 1157 Additional Comments: I discussed the patient's case with Yumiko MCCALL. Urology will evaluate the patient. Time Called: 1200 Consulted Physician: Grabiel Weller PA-C -ICU Returned Call: 1205 Additional Comments: I discussed the patient's case with Grabiel Weller PA-C. The patient will be evaluated for further management. Impression Primary Impression: Sepsis Additional Impressions: Anemia Hypoxia Respiratory distress Hypotension RAFAEL (acute kidney injury) Metabolic acidosis UTI (urinary tract infection) Hematuria Rectus sheath hematoma Critical Care I have personally spent greater than 120 minutes of critical care time in the direct management of this patient. This includes bedside care, interpretation of diagnostic studies, and testing, discussion with consultants, patient, and family members, and other required patient management activities. This 120 minutes is in excess of all separately billable procedures. Scribe Attestation The scribe's documentation has been prepared under my direction and personally reviewed by me in its entirety. I confirm that the note above accurately reflects all work, treatment, procedures, and medical decision making performed by me. Departure Information Dispostion Being Evaluated By Hospitalist Referrals [facility] (PCP) Problem Qualifiers Primary Impression: Sepsis Sepsis type: sepsis due to unspecified organism Qualified Codes: A41.9 - Sepsis, unspecified organism Additional Impressions: Anemia Anemia type: unspecified type Qualified Codes: D64.9 - Anemia, unspecified Hypotension Hypotension type: unspecified hypotension type Qualified Codes: I95.9 - Hypotension, unspecified UTI (urinary tract infection) Urinary tract infection type: site unspecified Hematuria presence: with hematuria Qualified Codes: N39.0 - Urinary tract infection, site not specified ; R31.9 - Hematuria, unspecified Hematuria Hematuria type: unspecified type Qualified Codes: R31.9 - Hematuria, unspecified Rectus sheath hematoma Encounter type: initial encounter Qualified Codes: S30.1XXA - Contusion of abdominal wall, initial encounter
--- NOTE | 2017-08-19 11:59 | DIAGNOSTIC IMAGING REPORT ---
ABDOMEN AND PELVIS CT WITHOUT CONTRAST CT DOSE: 1407.38 mGy.cm HISTORY: Lower abdominal pain, anemia TECHNIQUE: Multiaxial CT images of the abdomen and pelvis were performed without contrast. A dose lowering technique was utilized adhering to the principles of ALARA. COMPARISON STUDY: Abdomen and pelvis CT 07/12/2017. FINDINGS: Bibasilar linear densities consistent with subsegmental atelectasis. No pneumoperitoneum. No pneumatosis. No acute fractures within the visualized osseous structures. Cholecystectomy. No hepatic or splenic masses. Mild acromion the adrenal glands is likely age-related. Calcifications at the pancreatic head, unchanged. Postoperative changes at the proximal duodenum remains stable. No retroperitoneal lymphadenopathy. IVC filter is noted. Normal caliber abdominal aorta. No renal stones or hydronephrosis. Stable 1.5 cm hypodense lesion within the right kidney. This favors a cyst. There is a catheter seen within the left common femoral vein extending into the left external iliac vein. Large heterogeneous collection seen within the midline of the abdominal wall at the rectus sheath. This is consistent with a rectus sheath hematoma. This measures 19 x 16 x 11 cm. This appears to demonstrate extraperitoneal extension within the deep pelvis and anterior to the bladder. The hematoma anterior to the bladder measures 11 x 4 cm and results in mass effect along the bladder. The bladder is decompressed by Mcintosh catheter. Trace perihepatic fluid which appears to be low density. Subcutaneous edema seen within the right leg likely due to the extensive DVT seen on the prior venous Doppler. Suboptimal evaluation for bowel pathology due to the lack of intravenous and oral contrast. However, there is no definite bowel wall thickening or obstruction. Fluid-filled colon. Normal appendix. Hysterectomy. IMPRESSION: 1. Large lower rectus sheath hematoma which measures approximately 19 x 16 x 11 cm. This demonstrates extraperitoneal extension within the deep pelvis. This results in mass effect along the bladder. The bladder is decompressed by Mcintosh catheter. 2. Subcutaneous edema within the right pelvis/lower extremity due to the extensive right lower extremity DVT which is better appreciated on the prior venous Doppler study. Electronically signed by: Edward Dave M.D. 08/19/2017 11:57 AM Dictated Date/Time: 08/19/2017 11:47 AM
[2017-08-19] MEDS ORDERED: ICU PROTOCOL FOR HYPERGLYCEMIA PRN (12:15)
[2017-08-19] MEDS ORDERED: ONDANSETRON INJ 2 MG/ML 2 ML VIAL IV PRN (12:15)
[2017-08-19] MEDS ORDERED: LEVOFLOXACIN / D5W 500 MG in PREMIXED IN D5W 100 ML IV SCH (12:30)
--- NOTE | 2017-08-19 12:30 | History and Physical ---
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 intermediate reports a pulse ox of 79% on room air when EMS arrived, and her blood pressure was in the 70s over 50s. She was found upon arrival to have a metabolic acidosis, lactate of 7.9, acute kidney injury with creatinine up to 2.0 from 1.0. She continued to be hypotensive, and was requiring a nonrebreather mask to keep her oxygen saturations in an acceptable range. Her hemoglobin was down to 6.3 from 9.8 just 3 days prior. She was given 2 L of IV fluids and blood pressures were in the 100 systolic after that. Her urinalysis appeared to have evidence of infection and she was given IV Levaquin. Patient reported having some lower abdominal pain. She also reported some recent diarrhea and vomiting, she thinks some of her stool and vomit was black in color, no bright red blood. Her stool was light green in color but slightly Hemoccult positive as per the ER M.D. She does report having blood in her urine. The ER nurse called over to [facility] and confirmed her last dose of Lovenox was actually the morning of admission (despite the medication administration record stating that it was several days ago). A Mcintosh was placed in the ER and had small amount of urine and gross hematuria. Her abdomen was markedly distended and tender in the lower portion on exam. A stat noncontrast CT scan was performed which showed large rectus sheath hematoma extending into the extraperitoneal region anterior to the bladder and compressing the bladder. Of note, the patient also recently was taking a prolonged course of Augmentin [facility] a [facility]. Patient reports that it looks improved. She will be admitted for acute blood loss anemia secondary to large rectus sheath hematoma with extraperitoneal extension in the context of therapeutic anticoagulation with Lovenox, severe metabolic and lactic acidosis, urinary tract infection with severe sepsis. Past Medical/Surgical History PMH: Asthma/COPD Bipolar disorder GERD (gastroesophageal reflux disease) History of DVT (deep vein thrombosis) and pulmonary embolism Hypertension Hypothyroidism Irritable bowel syndrome Mild dementia Depression History of recurrent Urinary tract infection CKD Stage III Vitamin B12 deficiency Strabismus right eye Colon polyps PSH: Hysterectomy Cholecystectomy TURBT IVC filter placement Bilateral carpal tunnel surgery Left knee replacement Family History FH: cancer Noncontributory Social History Smoking Status: Former Smoker Alcohol Use: none Drug Use: none Marital Status: single Housing status: prison Occupational Status: retired Immunizations History of Influenza Vaccine: No History of Tetanus Vaccine?: No History of Pneumococcal: Yes Pneumococcal Date: Nov 21, 2009 History of Hepatitis B Vaccine: No Multi-Drug Resistant Organisms History of MDRO: No Allergies Coded Allergies: Clarithromycin (Verified Allergy, Severe, ANAPHYLAXIS, 07/20/17) Sulfa Antibiotics (Verified Allergy, Intermediate, RASH, 07/25/17) Fluoxetine (Verified Allergy, Unknown, 07/20/17) Gabapentin (Verified Allergy, Unknown, RASH, 07/20/17) Hydrocortisone (Verified Allergy, Unknown, CORTIZONE, 07/20/17) Nitrofurantoin (Verified Allergy, Unknown, RASH, 07/20/17) Apixaban (Unverified Adverse Reaction, Severe, severe headache, 07/26/17) Heparin (Unverified Adverse Reaction, Intermediate, headache, 07/26/17) Moxifloxacin (Unverified Adverse Reaction, Unknown, "very shakey", 07/20/17 ) Home Medications Scheduled Amoxicillin & Pot Clavulanate (Augmentin 500MG), 1 TAB PO BID Bupropion (Wellbutrin Sr), 150 MG PO BID Clobetasol Propionate (Clobetasol Propionate Cream 0.05%), 1 APPLN EXT BID Cyanocobalamin (Cyanocobalamin), 1,000 MCG IM WK Docusate Sodium (Docusate Sodium), 1 CAP PO BID Enoxaparin (Lovenox), 90 MG SC Q12 Escitalopram (Lexapro), 5 MG PO DAILY Estradiol Vaginal (Vagifem), 1 TAB PV 2XWK Ferrous Sulfate (Ferrous Sulfate), 325 MG PO BIDM Furosemide (Furosemide), 20 MG PO QAM Gabapentin (Neurontin), 100 MG PO DAILY Ipratropium-Albuterol (Combivent Respimat), 1 PUFFS INH QID Levothyroxine Sodium (Synthroid), 88 MCG PO DAILYBB Porter Carbonate (Porter Carbonate), 300 MG PO BID Memantine (Namenda), 10 MG PO BID Miconazole Nitrate Vaginal (Miconazole 3), 1 APPL PV AMPM Mirabegron (Myrbetriq Er), 50 MG PO DAILY Montelukast Sod (Montelukast Sodium), 10 MG PO DAILY Omeprazole (Prilosec), 20 MG PO DAILY Potassium Ext Rel (Klor-Con), 20 MEQ PO DAILY Rivastigmine Tartrate (Rivastigmine Tartrate), 6 MG PO BID Triamcinolone Acetonide (Nasal (Nasal Allergy 24 Hour), 1 SPRAY ANUPAM PRN UD Scheduled PRN Acetaminophen (Tylenol), 650 MG PO Q6 PRN for Pain or Fever Beclomethasone Dip (Beconase Aq), 1 SPRAY ANUPAM DAILY PRN for ALLERGIES Diphenhydramine Hcl (Shanae-[place] Plus Allergy), 1 TAB PO Q4H PRN for Dyspepsia Loratadine (Claritin), 10 MG PO DAILY PRN for ALLERGIES Simethicone (Gas-X Extra Strength), 1 CAP PO Q6H PRN for GAS Review of Systems Constitutional: + fatigue, No fever, No chills, No sweats Eyes: No problem reported ENT: No problem reported Respiratory: + shortness of breath Cardiovascular: No chest pain Abdomen: + pain, + nausea, + vomiting, + diarrhea, + GI bleeding (questionable) Musculoskeletal: + problem reported (lower back pain) Genitourinary - Female: + hematuria Neurologic: No problem reported Psychiatric: + depression symptoms Endocrine: No problem reported Hematologic / Lymphatic: + abnormal bleeding/bruising, + clotting problems Integumentary: + problem reported (right leg erythema which patient reports is improving from previous) Allergic / Immunologic: No problem reported Physical Exam Vital Signs Date Time Temp Pulse Resp B/P (MAP) Pulse Ox O2 Delivery O2 Flow Rate FiO2 08/19/17 11:14 08/19/17 11:02 91 26 08/19/17 10:47 91 24 100 Mask 5.0 08/19/17 10:32 91 20 100 Non-Rebreather 08/19/17 10:31 109/58 08/19/17 10:17 91 23 100 Non-Rebreather 08/19/17 10:16 103/72 08/19/17 10:06 100/72 08/19/17 10:02 98 27 100 Non-Rebreather 08/19/17 10:01 107/41 08/19/17 09:58 101 08/19/17 09:52 165/121 08/19/17 09:49 101 23 107/41 100 Non-Rebreather 08/19/17 09:49 100 Non-Rebreather General Appearance: no apparent distress (appears pale and frail) Head: normocephalic, atraumatic Eyes: PERRL, sclerae normal, + pertinent finding (pale conjunctiva) ENT: hearing grossly normal, + pertinent finding (dry mucous membranes) Neck: no adenopathy, no JVD, trachea midline Respiratory/Chest: lungs clear, normal breath sounds, no respiratory distress, no accessory muscle use Cardiovascular: regular rate, rhythm, no murmur, + pertinent finding (2+ pitting edema in the right leg and foot, mottled from the foot up to the knee, unable to palpate dorsalis pedis pulse manually, left leg with trace pitting edema, 1+ dorsalis pedis pulse on the left) Abdomen/GI: + tenderness (distended abdomen, firm throughout entire periumbilical and lower quadrants with tenderness with some guarding), + fecal occult blood (as per ER M.D.) Genitourinary - Female: external genitalia normal (with Mcintosh catheter in place with small amount of urine and gross hematuria in Mcintosh bag) Extremities/Musculoskelatal: normal inspection, + pertinent finding (left inguinal region with central venous catheter in place) Neurologic/Psych: alert, normal mood/affect, oriented x 3 (including she knew the day of the week, she refused to answer the months of the year backwards stating that she was too tired to do that) Skin: + rash (right leg with nonblanching erythematous rash, not hot to the touch from ankle to the knee anteriorly) Diagnostics Laboratory Results Results Past 24 Hours Test 08/19/17 10:15 08/19/17 10:22 08/19/17 10:31 Range/Units White Blood Count 23.20 4.8-10.8 K/uL Red Blood Count 1.96 4.2-5.4 M/uL Hemoglobin 6.3 12.0-16.0 g/dL Hematocrit 20.0 37-47 % Mean Corpuscular Volume 102.0 80-100 fL Mean Corpuscular Hemoglobin 32.1 25-34 pg Mean Corpuscular Hemoglobin Concent 31.5 32-36 g/dl Platelet Count 325 130-400 K/uL Mean Platelet Volume 10.4 7.4-10.4 fL Neutrophils (%) (Auto) 83.1 % Lymphocytes (%) (Auto) 5.8 % Monocytes (%) (Auto) 9.7 % Eosinophils (%) (Auto) 0.0 % Basophils (%) (Auto) 0.1 % Neutrophils # (Auto) 19.29 1.4-6.5 K/uL Lymphocytes # (Auto) 1.34 1.2-3.4 K/uL Monocytes # (Auto) 2.24 0.11-0.59 K/uL Eosinophils # (Auto) 0.00 0-0.5 K/uL Basophils # (Auto) 0.02 0-0.2 K/uL RDW Standard Deviation 61.0 36.4-46.3 fL RDW Coefficient of Variation 16.7 11.5-14.5 % Immature Granulocyte % (Auto) 1.3 % Immature Granulocyte # (Auto) 0.31 0.00-0.02 K/uL Nucleated RBC Absolute Count (auto) 0.04 0-0 K/uL Nucleated Red Blood Cells % 0.2 % Polychromasia 1+ Anisocytosis PRESENT Tear Drop Cells 1+ Erythrocyte Sedimentation Rate 6 0-21 mm/hr Prothrombin Time 13.6 9.0-12.0 SECONDS Prothromb Time International Ratio 1.3 0.9-1.1 Activated Partial Thromboplast Time 20.5 21.0-31.0 SECONDS Partial Thromboplastin Ratio 0.8 Venous Blood pH 7.30 7.36-7.41 Venous Blood Partial Pressure CO2 34 38.0-50.0 mmHg Venous Blood Partial Pressure O2 31 mmHg Venous Blood HCO3 17 mmol/L Venous Blood Oxygen Saturation < 60.0 % Venous Blood Base Excess mEq/L Sodium Level 141 136-145 mmol/L Potassium Level 4.5 3.5-5.1 mmol/L Chloride Level 111 98-107 mmol/L Carbon Dioxide Level 17 21-32 mmol/L Anion Gap 13.0 3-11 mmol/L Blood Urea Nitrogen 23 7-18 mg/dl Creatinine 2.01 0.60-1.20 mg/dl Est Creatinine Clear Calc Drug Dose 25.3 ml/min Estimated GFR () 26.5 Estimated GFR (Non- 22.9 BUN/Creatinine Ratio 11.4 10-20 Random Glucose 183 70-99 mg/dl Calcium Level 8.3 8.5-10.1 mg/dl Phosphorus Level 5.5 2.5-4.9 mg/dl Magnesium Level 2.2 1.8-2.4 mg/dl Total Bilirubin 0.6 0.2-1 mg/dl Aspartate Amino Transf (AST/SGOT) 57 15-37 U/L Alanine Aminotransferase (ALT/SGPT) 28 12-78 U/L Alkaline Phosphatase 65 45-117 U/L Total Creatine Kinase 483 26-192 U/L Creatine Kinase MB 1.9 0.5-3.6 ng/ml Creatine Kinase MB Ratio 0.4 0-3.0 Troponin I < 0.015 0-0.045 ng/ml C-Reactive Protein 8.56 0-0.29 mg/dl Pro-B-Type Natriuretic Peptide 739 0-1800 pg/ml Total Protein 4.8 6.4-8.2 gm/dl Albumin 2.2 3.4-5.0 gm/dl Globulin 2.6 2.5-4.0 gm/dl Albumin/Globulin Ratio 0.8 0.9-2 Lipase 115 73-393 U/L Porter Level 0.7 0.6-1.2 mMOL/L Bedside Lactic Acid Venous 7.93 0.90-1.70 mmol/L Urine Color RED Urine Appearance SL CLOUDY CLEAR Urine pH 5.0 4.5-7.5 Urine Specific [place] >= 1.030 1.000-1.030 Urine Protein 2+ NEG Urine Glucose (UA) NEG NEG Urine Ketones NEG NEG Urine Occult Blood 3+ NEG Urine Nitrite POS NEG Urine Bilirubin NEG NEG Urine Urobilinogen NEG NEG Urine Leukocyte Esterase NEG NEG Urine RBC >30 0-4 /hpf Urine WBC >30 0-5 /hpf Urine Epithelial Cells 10-20 0-5 /lpf Urine Renal Cells 0-5 FEW /lpf Urine Amorphous Sediment PRESENT NONE PRSENT Urine Bacteria 1+ NEG Microbiology Results 08/19/17 Blood Culture, Received Pending 08/19/17 Blood Culture, Received Pending 08/19/17 Urine Culture, Received Pending Diagnostic Radiology CHEST ONE VIEW PORTABLE HISTORY: Sepsis COMPARISON: Chest 07/28/2017. FINDINGS: No pneumothorax. No pleural effusions. Old, healed right clavicle fracture. The heart is normal in size. Bibasilar subsegmental atelectasis has slightly improved. No new focal lung consolidations to suggest pneumonia. IMPRESSION: No acute process. Slight improvement in the bibasilar subsegmental atelectasis. ABDOMEN AND PELVIS CT WITHOUT CONTRAST CT DOSE: 1407.38 mGy.cm HISTORY: Lower abdominal pain, anemia TECHNIQUE: Multiaxial CT images of the abdomen and pelvis were performed without contrast. A dose lowering technique was utilized adhering to the principles of ALARA. COMPARISON STUDY: Abdomen and pelvis CT 07/12/2017. FINDINGS: Bibasilar linear densities consistent with subsegmental atelectasis. No pneumoperitoneum. No pneumatosis. No acute fractures within the visualized osseous structures. Cholecystectomy. No hepatic or splenic masses. Mild acromion the adrenal glands is likely age-related. Calcifications at the pancreatic head, unchanged. Postoperative changes at the proximal duodenum remains stable. No retroperitoneal lymphadenopathy. IVC filter is noted. Normal caliber abdominal aorta. No renal stones or hydronephrosis. Stable 1.5 cm hypodense lesion within the right kidney. This favors a cyst. There is a catheter seen within the left common femoral vein extending into the left external iliac vein. Large heterogeneous collection seen within the midline of the abdominal wall at the rectus sheath. This is consistent with a rectus sheath hematoma. This measures 19 x 16 x 11 cm. This appears to demonstrate extraperitoneal extension within the deep pelvis and anterior to the bladder. The hematoma anterior to the bladder measures 11 x 4 cm and results in mass effect along the bladder. The bladder is decompressed by Mcintosh catheter. Trace perihepatic fluid which appears to be low density. Subcutaneous edema seen within the right leg likely due to the extensive DVT seen on the prior venous Doppler. Suboptimal evaluation for bowel pathology due to the lack of intravenous and oral contrast. However, there is no definite bowel wall thickening or obstruction. Fluid-filled colon. Normal appendix. Hysterectomy. IMPRESSION: 1. Large lower rectus sheath hematoma which measures approximately 19 x 16 x 11 cm. This demonstrates extraperitoneal extension within the deep pelvis. This results in mass effect along the bladder. The bladder is decompressed by Mcintosh catheter. 2. Subcutaneous edema within the right pelvis/lower extremity due to the extensive right lower extremity DVT which is better appreciated on the prior venous Doppler study. 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 intermediate reports a pulse ox of 79% on room air when EMS arrived, and her blood pressure was in the 70s over 50s. She was found upon arrival to have a metabolic acidosis, lactate of 7.9, acute kidney injury with creatinine up to 2.0 from 1.0 , and hemoglobin of 6.3 down from 9.83 days prior. She continued to be hypotensive, and was requiring a nonrebreather mask to keep her oxygen saturations in an acceptable range. Gross blood noted in the Mcintosh catheter in the ER. She was given 2 L of IV fluids and blood pressures were in the 100 systolic after that. Her urinalysis appeared to have evidence of infection and she was given IV Levaquin. Patient also reported having some lower abdominal pain. A noncontrast CT scan was performed which showed large rectus sheath hematoma extending into the extraperitoneal region anterior to the bladder and compressing the bladder. Acute blood loss anemia secondary to large rectus sheath hematoma with extraperitoneal extension in context of Lovenox use/Metabolic and lactic acidosis/Urinary tract infection with severe sepsis: Unclear if rectus sheath hematoma secondary to Lovenox injections versus origin from the bladder given recent surgery. Will need urology consultation to further explore this. She also has evidence of a urinary tract infection on urinalysis and has had multiple catheterizations in the past month. Her lactate is severely elevated at 7.9. Will need general surgery in case of need for evacuation of rectus sheath hematoma and packing. -Case discussed at length with director market research and will admit to the ICU-appreciate critical care management -Hold all anticoagulation-[facility] dose [facility] on [facility] morning of 08/19 -Serial H&H's -Appreciate urology and general surgery consultations -Transfused 2 units of PRBCs now-May need Lasix between doses based on clinical exam -Initially given Levaquin, but will switch to Rocephin for treatment of her UTI given renal dysfunction -Follow urine and blood cultures -Repeat lactate in 4 hours Acute hypoxemic respiratory failure-chest x-ray clear, does have a history of asthma and COPD but there is no wheezing on exam. This is likely secondary to acute blood loss and hypotension, sepsis -Supplemental O2 as needed to keep pulse ox greater than 92% -Appreciate director market research management High-grade papillary urothelial cancer of the bladder-stage TI-now status post TURBT-no evidence of spread beyond the bladder, was to have repeat cystoscopy in 3 months -Now with possibility of bleeding outside the bladder, urology consultation appreciated as above Recent acute bilateral DVTs and PE-was on therapeutic Lovenox, has IVC filter in place. She actually developed a PE with IVC filter in place. -Holding all anticoagulation for now given acute blood loss and hematoma as above -Restart anticoagulation when more stable Acute kidney injury on CKD stage III-creatinine up to 2.0 from 1.0 a few days ago, likely secondary to hypotension and severe sepsis -Hydrated with IV fluids -Follow PRP in the morning -Renally dose medications -Avoid nephrotoxins -Holding her usual by mouth Lasix except on a day by day basis Hypothyroidism-TSH mildly elevated last admission at 6.8, Synthroid dose was adjusted -Continue current Synthroid dose -Follow-up TSH as an outpatient when not acutely ill Asthma/COPD-stable at this time, acute hypoxemic respiratory failure as above likely secondary to sepsis and anemia -Continue Combivent 1 puff 4 times a day as per home dosing MCI/depression-stable this time -Continue Lexapro and Wellbutrin -Hold Namenda and Exelon at this time-restart when more stable GERD/Hemoccult positive stool/reported history of possible melena and hematemesis-blood loss seems to be more secondary to the rectus sheath hematoma and not a GI bleed although by history, albeit if reliable, she may also have had a GI bleed -Increase PPI to twice a day -Observation and serial H&H's -No need to consult GI at this time unless has active gross GI bleeding Vitamin B12 deficiency-was receiving intramuscular B12 as an outpatient -Hold for now and restart as an outpatient Prophylaxis-MADISON juan only, chemical prophylaxis contraindicated today Disposition-ICU management this time -Full code as discussed with both the patient and her son at the bedside, although patient reports if she is ever in a vegetative like state, she would not want prolonged life support Level of Care Critical Care Resuscitation Status FULL RESUSCITATION VTE Prophylaxis VTE Risk Assessment Done? Y/N: Yes Risk Level: High Given or contraindicated: Anusha Lockhart Social Service Consult Lives in Residential Note Total Time: Critical Care 30 - 74 minutes Additional Copies To Cedrick Krishna M.D. ; [facility]
[2017-08-19] MEDS ORDERED: PANTOprazole SOD 40 MG TAB PO STA (12:40)
[2017-08-19] MEDS ORDERED: MoRPHine SULFATE 4 MG/ML 1 ML CARP\\VIAL IV PRN (12:45)
[2017-08-19] MEDS: IPRATROPIUM BROMIDE/ALBUTEROL respimat INH INH SCH ×3 (13:00→21:00)
[2017-08-19] MEDS ORDERED: CEFTRIAXONE SOD INJ 1000 MG in DEXTROSE 5% 50ML IV SCH (14:45)
[2017-08-19 15:27] LABS: HEMATOCRIT 24.1 % (37-47)
[2017-08-19] MEDS ORDERED: INFLUENZA VACCINE HIGH DOSE 65+ 0.5 ML SYR IM. ONE (15:30)
[2017-08-19] MEDS ORDERED: INFLUENZA ADMINISTRATION CHARGE ONE (15:30)
--- NOTE | 2017-08-19 15:35 | Urology Consultation ---
History General Date of Service: Aug 19, 2017. Chief Complaint: Gross hematuria, hypotension, blood loss anemia Primary Care Physician: Erin Finley Pt seen a urologist before?: Yes If yes, why?: Our service for [facility] History of Present Illness 81 yo female with a recent diagnosis of pT1 high grade bladder cancer admitted due to hypotension, acute renal failure and SOB at her rehab facility. She has been discharged from [facility] 11 days ago, an eventful admission with events including a DVT, IVC filter placement, gross hematuria on anticoagulation with the discovered of her diagnosis of high grade bladder cancer, tumor resection and return to OR for hemostasis due to persistent bleeding. She was in rehab and it seems that she recently developed hematuria again, followed thereafter by hypotension, lower abdominal pain, nausea. Her prior notes are reviewed. She was noted to be anemic and is currently in the ICU receiving fluid resuscitation and blood products. CT scan imaging has been done and these images are reviewed by myself showing an extraperitoneal, anterior, large suspected hematoma, crandall within a decompressed bladder with perivesical inflammation. Patient has stabilized since her admission and family is in room. consultation is requested to assist with her acute care. Imaging Imaging: CT Laboratory Last 24 Hours Test 08/19/17 10:15 08/19/17 10:22 08/19/17 10:31 08/19/17 15:13 White Blood Count 23.20 K/uL Red Blood Count 1.96 M/uL Hemoglobin 6.3 g/dL Hematocrit 20.0 % Mean Corpuscular Volume 102.0 fL Mean Corpuscular Hemoglobin 32.1 pg Mean Corpuscular Hemoglobin Concent 31.5 g/dl Platelet Count 325 K/uL Mean Platelet Volume 10.4 fL Neutrophils (%) (Auto) 83.1 % Lymphocytes (%) (Auto) 5.8 % Monocytes (%) (Auto) 9.7 % Eosinophils (%) (Auto) 0.0 % Basophils (%) (Auto) 0.1 % Neutrophils # (Auto) 19.29 K/uL Lymphocytes # (Auto) 1.34 K/uL Monocytes # (Auto) 2.24 K/uL Eosinophils # (Auto) 0.00 K/uL Basophils # (Auto) 0.02 K/uL RDW Standard Deviation 61.0 fL RDW Coefficient of Variation 16.7 % Immature Granulocyte % (Auto) 1.3 % Immature Granulocyte # (Auto) 0.31 K/uL Nucleated RBC Absolute Count (auto) 0.04 K/uL Nucleated Red Blood Cells % 0.2 % Polychromasia 1+ Anisocytosis PRESENT Tear Drop Cells 1+ Erythrocyte Sedimentation Rate 6 mm/hr Prothrombin Time 13.6 SECONDS Prothromb Time International Ratio 1.3 Activated Partial Thromboplast Time 20.5 SECONDS Partial Thromboplastin Ratio 0.8 Venous Blood pH 7.30 Venous Blood Partial Pressure CO2 34 mmHg Venous Blood Partial Pressure O2 31 mmHg Venous Blood HCO3 17 mmol/L Venous Blood Oxygen Saturation < 60.0 % Venous Blood Base Excess mEq/L Sodium Level 141 mmol/L Potassium Level 4.5 mmol/L Chloride Level 111 mmol/L Carbon Dioxide Level 17 mmol/L Anion Gap 13.0 mmol/L Blood Urea Nitrogen 23 mg/dl Creatinine 2.01 mg/dl Est Creatinine Clear Calc Drug Dose 25.3 ml/min Estimated GFR () 26.5 Estimated GFR (Non- 22.9 BUN/Creatinine Ratio 11.4 Random Glucose 183 mg/dl Calcium Level 8.3 mg/dl Phosphorus Level 5.5 mg/dl Magnesium Level 2.2 mg/dl Total Bilirubin 0.6 mg/dl Aspartate Amino Transf (AST/SGOT) 57 U/L Alanine Aminotransferase (ALT/SGPT) 28 U/L Alkaline Phosphatase 65 U/L Total Creatine Kinase 483 U/L Creatine Kinase MB 1.9 ng/ml Creatine Kinase MB Ratio 0.4 Troponin I < 0.015 ng/ml C-Reactive Protein 8.56 mg/dl Pro-B-Type Natriuretic Peptide 739 pg/ml Total Protein 4.8 gm/dl Albumin 2.2 gm/dl Globulin 2.6 gm/dl Albumin/Globulin Ratio 0.8 Lipase 115 U/L Philo Level 0.7 mMOL/L Bedside Lactic Acid Venous 7.93 mmol/L Urine Color RED Urine Appearance SL CLOUDY Urine pH 5.0 Urine Specific [place] >= 1.030 Urine Protein 2+ Urine Glucose (UA) NEG Urine Ketones NEG Urine Occult Blood 3+ Urine Nitrite POS Urine Bilirubin NEG Urine Urobilinogen NEG Urine Leukocyte Esterase NEG Urine RBC >30 /hpf Urine WBC >30 /hpf Urine Epithelial Cells 10-20 /lpf Urine Renal Cells 0-5 /lpf Urine Amorphous Sediment PRESENT Urine Bacteria 1+ Problem List Medical Problems: (1) RAFAEL (acute kidney injury) Status: Acute (2) Anemia Status: Acute (3) Deep vein thrombosis (DVT) Status: Acute (4) DVT (deep venous thrombosis) Status: Acute (5) Hematuria Status: Acute (6) Hypotension Status: Acute (7) Hypothyroidism Status: Chronic (8) Hypoxia Status: Acute (9) Metabolic acidosis Status: Acute (10) Rectus sheath hematoma Status: Acute (11) Respiratory distress Status: Acute (12) Sepsis Status: Acute (13) UTI (urinary tract infection) Status: Acute Past History asthma, bipolar disorder, COPD, deep vein thrombosis, dementia, GERD, hypertension, hypothyroidism, kidney stones, lung disease, pneumonia, urinary tract infection Past Surgical History: cholecystectomy, hysterectomy, vasectomy (TURBT), other Family History FH: cancer Social History Hx Tobacco Use In Past Year?: No Smoking: other Alcohol: other Drug use: none Marital status: single Housing status: [facility] Occupation status: retired Immunizations History of Influenza Vaccine: No History of Tetanus Vaccine?: No History of Pneumococcal: Yes Pneumococcal Date: Nov 21, 2009 History of Hepatitis B Vaccine: No History of MDRO No Allergies Coded Allergies: Clarithromycin (Verified Allergy, Severe, ANAPHYLAXIS, 07/20/17) Sulfa Antibiotics (Verified Allergy, Intermediate, RASH, 07/25/17) Fluoxetine (Verified Allergy, Unknown, 07/20/17) Gabapentin (Verified Allergy, Unknown, RASH, 07/20/17) Hydrocortisone (Verified Allergy, Unknown, CORTIZONE, 07/20/17) Nitrofurantoin (Verified Allergy, Unknown, RASH, 07/20/17) Apixaban (Unverified Adverse Reaction, Severe, severe headache, 07/26/17) Heparin (Unverified Adverse Reaction, Intermediate, headache, 07/26/17) Moxifloxacin (Unverified Adverse Reaction, Unknown, "very shakey", 07/20/17 ) Medications Home Medications: Home Meds and Scripts Medications Dose Route/Sig Max Daily Dose Days Date Category Dose Instructions Klor-Con (Potassium Chloride) 20 Meq Tabcr 20 Meq PO DAILY 08/19/17 Reported Miconazole 3 (Miconazole Nitrate Vaginal) 4 % Cre 1 Appl PV AMPM 08/19/17 Reported ONLY USE ON TUESDAY & TUESDAY Lovenox (Enoxaparin) 100 Mg/Ml Inj 90 Mg SC Q12 08/19/17 Reported DO NOT HOLD UNLESS RESIDENT HAS SIGNIFICANT GROSS HEMATURIA. PT STARTED 08/16/17 Beconase Aq (Beclomethasone Dip) 200 Sprays/37895 Mg Aers 1 [place] ANUPAM DAILY PRN 08/19/17 Reported Augmentin 500MG (Amoxicillin & Pot Clavulanate) 1 Tab Tab 1 Tab PO BID 10 08/19/17 Reported START DATE 08/16/17 Shanae-Independence Plus Allergy (Diphenhydramine Hcl) 25 Mg Tab 1 Tab PO Q4H PRN 08/19/17 Reported Tylenol (Acetaminophen) 325 Mg Tab 650 Mg PO Q6 PRN 08/19/17 Reported Cyanocobalamin 1,000 Mcg/Ml Inj 1,000 Mcg IM WK 08/08/17 Rx Synthroid (Levothyroxine Sodium) 88 Mcg Tab 88 Mcg PO DAILYBB 30 08/08/17 Rx Furosemide 20 Mg Tab 20 Mg PO QAM 30 08/08/17 Rx Ferrous Sulfate 325 Mg Tab 325 Mg PO BIDM 30 08/08/17 Rx Myrbetriq Er (Mirabegron) 25 Mg Tab 50 Mg PO DAILY 08/08/17 Rx Montelukast Sodium (Montelukast Sod) 10 Mg Tab 10 Mg PO DAILY 07/20/17 Reported Claritin (Loratadine) 10 Mg Tab 10 Mg PO DAILY PRN 07/04/17 Reported Clobetasol Propionate Cream 0.05% (Clobetasol Propionate) 90 Appln/30 Gm Cr 1 Appln EXT BID 07/04/17 Reported Combivent Respimat (Ipratropium-Albuterol) 1 Aer Aer 1 Puffs INH QID 07/04/17 Reported Docusate Sodium 100 Mg Cap 1 Cap PO BID 7 07/04/17 Reported Lexapro (Escitalopram Oxalate) 10 Mg Tab 5 Mg PO DAILY 90 07/04/17 Reported Neurontin (Gabapentin) 100 Mg Cap 100 Mg PO DAILY 07/04/17 Reported Gas-X Extra Strength (Simethicone) 125 Mg Chw 1 Cap PO Q6H PRN 07/04/17 Reported Nasal Allergy 24 Hour (Triamcinolone Acetonide (Nasal) 55 Mcg/Act Spr 1 [place] ANUPAM PRN UD 07/04/17 Reported Prilosec (Omeprazole) 20 Mg Capcr 20 Mg PO DAILY 07/04/17 Reported Vagifem (Estradiol Vaginal) 10 Mcg Tab 1 Tab PV 2XWK 28 07/04/17 Reported Rivastigmine Tartrate 6 Mg Cap 6 Mg PO BID 06/19/14 Reported Wellbutrin Sr (Bupropion HCl) 150 Mg Ertab 150 Mg PO BID 90 06/19/14 Reported Philo Carbonate 300 Mg Cap 300 Mg PO BID 90 12/21/06 Reported Namenda (Memantine) 10 Mg Tab 10 Mg PO BID 12/21/06 Reported Inpatient Medications: Current Inpatient Medications Medications (Trade) Dose Ordered Sig/Della Route Start Time Stop Time Status Last Admin Dose Admin Ondansetron HCl (Zofran Inj) 4 mg Q6H PRN IV 08/19/17 12:15 09/18/17 12:14 Pantoprazole Sodium (Protonix Tab) 40 mg BID PO 08/19/17 21:00 09/18/17 20:59 Miscellaneous Information (Icu Protocol For Hyperglycemia) 1 ea PRN PRN N/A 08/19/17 12:15 08/21/17 12:14 Bupropion HCl (Wellbutrin-Sr Tab) 150 mg BID PO 08/19/17 21:00 09/18/17 20:59 Escitalopram Oxalate (Lexapro Tab) 5 mg DAILY PO 08/20/17 09:00 09/19/17 08:59 Albuterol/ Ipratropium (Combivent Respimat Inh) 1 puffs QID INH 08/19/17 13:00 09/18/17 12:59 Levothyroxine Sodium (Synthroid Tab) 88 mcg DAILYBB PO 08/20/17 06:00 09/19/17 06:59 Montelukast Sodium (Singulair Tab) 10 mg DAILY PO 08/20/17 09:00 09/19/17 08:59 Morphine Sulfate (MoRPHine SULFATE INJ) 4 mg Q15M PRN IV 08/19/17 12:45 09/02/17 12:44 08/19/17 13:00 4 MG Ceftriaxone Sodium 1 gm/ Dextrose 50 ml @ 100 mls/hr DAILY@1400 IV 08/19/17 14:45 08/29/17 14:44 08/19/17 14:57 100 MLS/HR Influenza Virus Vaccine (Fluzone High-Dose Pf 0.5 ml) 0.5 ml ONCE ONCE IM. 08/19/17 15:30 08/19/17 15:31 Review of Systems Review of Systems Constitutional: No fever, No chills Neurological: + dizzy Endocrine: + tired/sluggish Gastrointestinal: + abdominal pain, + nausea, + vomiting Cardiovascular: No palpitations Respiratory: No coughing up blood Musculoskeletal: + arthritis Blood / Lymphatic: + bleed easily Psychologic / Mental: + trouble remembering Female : + see HPI, + blood in urine Physical Exam Vital Signs: Vital Signs Past 12 Hours Date Time Temp Pulse Resp B/P (MAP) Pulse Ox O2 Delivery O2 Flow Rate FiO2 08/19/17 14:52 36.6 91 92/58 08/19/17 14:49 36.6 94 20 92/58 98 08/19/17 14:33 36.6 90 16 92/58 93 08/19/17 13:45 36.6 92 20 84/58 99 Nasal Cannula 5.0 08/19/17 13:07 36.9 92 19 102/68 100 08/19/17 13:06 92 19 102/68 100 5.0 08/19/17 13:01 102/68 08/19/17 12:54 96 21 100 Mask 5.0 08/19/17 12:46 84/59 08/19/17 12:39 94 18 96 Mask 5.0 08/19/17 12:39 36.9 95 16 93/63 100 5.0 08/19/17 12:37 93/63 08/19/17 12:33 103 08/19/17 12:31 84/52 08/19/17 12:24 94 21 100 Mask 5.0 08/19/17 12:17 87/37 08/19/17 12:09 96 19 100 Mask 5.0 08/19/17 12:03 96 21 94/59 100 Mask 5.0 08/19/17 12:01 94/59 08/19/17 11:59 83/52 08/19/17 11:56 82/70 08/19/17 11:55 57/44 08/19/17 11:54 91 25 94 08/19/17 11:49 92 21 96/48 100 Mask 5.0 08/19/17 11:33 107/64 Mask 5.0 08/19/17 11:32 08/19/17 11:19 94 27 91/62 Mask 5.0 08/19/17 11:14 08/19/17 11:02 91 26 08/19/17 10:47 91 24 100 Mask 5.0 08/19/17 10:32 91 20 100 Non-Rebreather 08/19/17 10:31 109/58 08/19/17 10:17 91 23 100 Non-Rebreather 08/19/17 10:16 103/72 08/19/17 10:06 100/72 08/19/17 10:02 98 27 100 Non-Rebreather 08/19/17 10:01 107/41 08/19/17 09:58 101 08/19/17 09:52 165/121 08/19/17 09:49 101 23 107/41 100 Non-Rebreather 08/19/17 09:49 100 Non-Rebreather Physical Exam: General Appearance: + mild distress, + obese Neck: supple, no adenopathy Respiratory/Chest: no accessory muscle use Cardiovascular: no JVD Neurologic/Psychiatric: + pertinent finding (somnolent, appropriate questions.) Skin: + pallor Assessment & Plan Assessment & Plan A/P 81 yo female with extraperitoneal lower abdominal hematuria, history of TURBT and pT1 high grade bladder cancer. Findings reviewed with ICU service and family. I suspect the most likely etiology of her clinical and imaging findings are a bleed from her bladder, either through a small, occult perforation or a delayed bladder rupture due to bladder distension / passage of clots, into the space of Retzius. At this time her crandall is draining old blood and her bladder seems to be adequately decompressed and drained on CT scan. Especially in light of her resolving instability I would tend towards conservative management - I suspect in the context of an limited, extraperitoneal rupture closure should not be needed and odds of healing with crandall drainage are high. Would consider a cystogram prior to crandall removal. I would leave the crandall in for a couple of weeks at least. I suspect attempts at closed drain placement for drainage of her hematoma to be futile - open drainage would likely be needed to adequately decompress and I suspect the risks of such intervention to outweigh the benefits for now. Will follow with primary service. Thank you for allowing us to participate in this patient's inpatient care.
--- NOTE | 2017-08-19 16:46 | Critical Care Consultation ---
Critical Care Consultation Date of Consultation: Aug 19, 2017. Attending Physician: Josiane Lake MD Reason for Consultation: Hypotension secondary to blood loss anemia History of Present Illness Freight Rate Clerk: Dr. Pacheco Is an 81-year-old female recently discharged from [facility] on August 07, 2017. She is admitted for acute bilateral lower extremity DVTs. Incidental finding demonstrated a possible lesion on the bladder which was later identified as high-grade papillary urothelial bladder cancer. She was status post TURBT by Dr. Farrell on 07/26/17 followed by cystoscopy with clot evacuation and fulguration by Dr. Kaur on 07/30/17 due to ongoing hematuria. The patient was discharged to [facility] for rehabilitation and was started on therapeutic doses of Lovenox 90 mg subcutaneous twice a day. This morning patient was noted to have nausea and vomiting with associated shortness of breath and was found to be hypotensive. [facility]P reported a pulse oximetry of 79% room air. EMS report systolic pressures 70/50. She received IV fluids and was transferred to the emergency department where she was found to have a lactate of 7.9. Creatinine was 2.0 with a BUN of 20. Reportedly, creatinine is 1.0 a few days ago. Hemoglobin was 6.3 down from 9.83 days ago. A Mcintosh catheter was placed and had only about 10 mL of urine which was grossly hematuric. A noncontrast CT scan of the abdomen and pelvis revealed a large rectus sheath hematoma extending into the extraperitoneal region with complete collapse of the bladder. Patient denies loss of bladder or bowel function. She has no back pain or flank pain. She does report abdominal pain at rest as well as with light or deep palpation. She has been nauseous since arrival to the [facility] but has had no vomiting. She appears very pale and states that she is cold and cannot warmup. When asking for ROS the patient on more than one occasion stated that she was "too tired to answer". Past Medical/Surgical History Medical Problems: (1) Acute blood loss anemia (2) Asthma (3) Bipolar disorder (4) Carpal tunnel surgery (5) Chest pain (6) COPD (chronic obstructive pulmonary disease) (7) Dizziness (8) Dyspnea on exertion (9) GERD (gastroesophageal reflux disease) (10) History of DVT (deep vein thrombosis) (11) Hypertension (12) Hypothyroidism (13) Irritable bowel syndrome (14) Left leg DVT (15) Lesion of bladder (16) Mild dementia (17) Pneumonia (18) Severe sepsis (19) Shock therapy (20) Urinary tract infection (21) Pulmonary embolus Surgical Problems: (1) History of hysterectomy (2) Hx of cholecystectomy (3) Hx of IVC filter placement (4) TURBT (5) Cystoscopy Family History FH: cancer Social History Smoking Status: Former Smoker Smokeless Tobacco Use: Unknown Alcohol Use: none Drug Use: none Marital Status: single Housing Status: unknown Occupation Status: retired Allergies Coded Allergies: Clarithromycin (Verified Allergy, Severe, ANAPHYLAXIS, 07/20/17) Sulfa Antibiotics (Verified Allergy, Intermediate, RASH, 07/25/17) Fluoxetine (Verified Allergy, Unknown, 07/20/17) Gabapentin (Verified Allergy, Unknown, RASH, 07/20/17) Hydrocortisone (Verified Allergy, Unknown, CORTIZONE, 07/20/17) Nitrofurantoin (Verified Allergy, Unknown, RASH, 07/20/17) Apixaban (Unverified Adverse Reaction, Severe, severe headache, 07/26/17) Heparin (Unverified Adverse Reaction, Intermediate, headache, 07/26/17) Moxifloxacin (Unverified Adverse Reaction, Unknown, "very shakey", 07/20/17 ) Home Medications Scheduled Amoxicillin & Pot Clavulanate (Augmentin 500MG), 1 TAB PO BID Bupropion (Wellbutrin Sr), 150 MG PO BID Clobetasol Propionate (Clobetasol Propionate Cream 0.05%), 1 APPLN EXT BID Cyanocobalamin (Cyanocobalamin), 1,000 MCG IM WK Docusate Sodium (Docusate Sodium), 1 CAP PO BID Enoxaparin (Lovenox), 90 MG SC Q12 Escitalopram (Lexapro), 5 MG PO DAILY Estradiol Vaginal (Vagifem), 1 TAB PV 2XWK Ferrous Sulfate (Ferrous Sulfate), 325 MG PO BIDM Furosemide (Furosemide), 20 MG PO QAM Gabapentin (Neurontin), 100 MG PO DAILY Ipratropium-Albuterol (Combivent Respimat), 1 PUFFS INH QID Levothyroxine Sodium (Synthroid), 88 MCG PO DAILYBB [place] Carbonate ([place] Carbonate), 300 MG PO BID Memantine (Namenda), 10 MG PO BID Miconazole Nitrate Vaginal (Miconazole 3), 1 APPL PV AMPM Mirabegron (Myrbetriq Er), 50 MG PO DAILY Montelukast Sod (Montelukast Sodium), 10 MG PO DAILY Omeprazole (Prilosec), 20 MG PO DAILY Potassium Ext Rel (Klor-Con), 20 MEQ PO DAILY Rivastigmine Tartrate (Rivastigmine Tartrate), 6 MG PO BID Triamcinolone Acetonide (Nasal (Nasal Allergy 24 Hour), 1 SPRAY ANUPAM PRN UD Scheduled PRN Acetaminophen (Tylenol), 650 MG PO Q6 PRN for Pain or Fever Beclomethasone Dip (Beconase Aq), 1 SPRAY ANUPAM DAILY PRN for ALLERGIES Diphenhydramine Hcl (Shanae-[place] Plus Allergy), 1 TAB PO Q4H PRN for Dyspepsia Loratadine (Claritin), 10 MG PO DAILY PRN for ALLERGIES Simethicone (Gas-X Extra Strength), 1 CAP PO Q6H PRN for GAS Current Inpatient Medications Current Inpatient Medications Medications (Trade) Dose Ordered Sig/Della Route Start Time Stop Time Status Last Admin Dose Admin Ondansetron HCl (Zofran Inj) 4 mg Q6H PRN IV 08/19/17 12:15 09/18/17 12:14 Pantoprazole Sodium (Protonix Tab) 40 mg BID PO 08/19/17 21:00 09/18/17 20:59 Miscellaneous Information (Icu Protocol For Hyperglycemia) 1 ea PRN PRN N/A 08/19/17 12:15 08/21/17 12:14 Bupropion HCl (Wellbutrin-Sr Tab) 150 mg BID PO 08/19/17 21:00 09/18/17 20:59 Escitalopram Oxalate (Lexapro Tab) 5 mg DAILY PO 08/20/17 09:00 09/19/17 08:59 Albuterol/ Ipratropium (Combivent Respimat Inh) 1 puffs QID INH 08/19/17 13:00 09/18/17 12:59 Levothyroxine Sodium (Synthroid Tab) 88 mcg DAILYBB PO 08/20/17 06:00 09/19/17 06:59 Montelukast Sodium (Singulair Tab) 10 mg DAILY PO 08/20/17 09:00 09/19/17 08:59 Morphine Sulfate (MoRPHine SULFATE INJ) 4 mg Q15M PRN IV 08/19/17 12:45 09/02/17 12:44 08/19/17 13:00 4 MG Ceftriaxone Sodium 1 gm/ Dextrose 50 ml @ 100 mls/hr DAILY@1400 IV 08/19/17 14:45 08/29/17 14:44 08/19/17 14:57 100 MLS/HR Review of Systems Constitutional: + chills, + fatigue, No fever, No sweats ENT: No unusual epistaxis, No trouble swallowing Respiratory: + shortness of breath, + dyspnea on exertion, + dyspnea at rest, No cough, No sputum, No wheezing, No hemoptysis Cardiovascular: + edema (RLE persistent since DVT), No chest pain Abdomen: + pain, + nausea, + diarrhea, No vomiting, No constipation, No GI bleeding Musculoskeletal: No joint pain, No muscle pain, No calf pain Genitourinary - Female: + hematuria Neurologic: No paralysis, No numbness/tingling, No vertigo Endocrine: + fatigue, No excessive thirst, No excessive urination Hematologic / Lymphatic: + abnormal bleeding/bruising, + clotting problems, No swollen lymph nodes, No night sweats Integumentary: + rash (RLE - persistent cellulitis) Allergic / Immunologic: No food allergies Physical Exam Date Time Temp Pulse Resp B/P (MAP) Pulse Ox O2 Delivery O2 Flow Rate FiO2 08/19/17 14:52 36.6 91 92/58 08/19/17 14:49 36.6 94 20 92/58 98 08/19/17 14:33 36.6 90 16 92/58 93 08/19/17 13:45 36.6 92 20 84/58 99 Nasal Cannula 5.0 08/19/17 13:07 36.9 92 19 102/68 100 08/19/17 13:06 92 19 102/68 100 5.0 08/19/17 13:01 102/68 08/19/17 12:54 96 21 100 Mask 5.0 08/19/17 12:46 84/59 08/19/17 12:39 94 18 96 Mask 5.0 08/19/17 12:39 36.9 95 16 93/63 100 5.0 08/19/17 12:37 93/63 08/19/17 12:33 103 08/19/17 12:31 84/52 08/19/17 12:24 94 21 100 Mask 5.0 08/19/17 12:17 87/37 08/19/17 12:09 96 19 100 Mask 5.0 08/19/17 12:03 96 21 94/59 100 Mask 5.0 08/19/17 12:01 94/59 08/19/17 11:59 83/52 08/19/17 11:56 82/70 08/19/17 11:55 57/44 08/19/17 11:54 91 25 94 08/19/17 11:49 92 21 96/48 100 Mask 5.0 08/19/17 11:33 107/64 Mask 5.0 08/19/17 11:32 08/19/17 11:19 94 27 91/62 Mask 5.0 08/19/17 11:14 08/19/17 11:02 91 26 08/19/17 10:47 91 24 100 Mask 5.0 08/19/17 10:32 91 20 100 Non-Rebreather 08/19/17 10:31 109/58 08/19/17 10:17 91 23 100 Non-Rebreather 08/19/17 10:16 103/72 08/19/17 10:06 100/72 08/19/17 10:02 98 27 100 Non-Rebreather 08/19/17 10:01 107/41 08/19/17 09:58 101 08/19/17 09:52 165/121 08/19/17 09:49 101 23 107/41 100 Non-Rebreather 08/19/17 09:49 100 Non-Rebreather General Appearance: uncomfortable, mild distress Head: normocephalic, atraumatic Eyes: PERRLA, EOMI, sclerae normal, conjunctivae normal ENT: normal nasal exam, normal mouth exam, normal throat exam Neck: normal range of motion, no tenderness, trachea midline, no stridor, supple Respiratory: breath sounds normal, accessory muscle use Cardiovasular: regular rate/rhythm (Slightly tachycardic in the 90s) Abdomen: hypoactive bowel sounds, rebound, guarding (Acutely tender to light palpation in all 4 quadrants) Upper Extremities: no edema Lower Extremities: edema (RLE. No calf tenderness bilaterally) Pulses: dorsalis pedis (R) (1+), dorsalis pedis (L) (1+) Neuro: alert, oriented x 3, normal speech Psychiatric: flat affect Laboratory Results Last 24 Hours Test 08/19/17 10:15 08/19/17 10:22 08/19/17 10:31 08/19/17 15:13 White Blood Count 23.20 K/uL Red Blood Count 1.96 M/uL Hemoglobin 6.3 g/dL 7.8 g/dL Hematocrit 20.0 % 24.1 % Mean Corpuscular Volume 102.0 fL Mean Corpuscular Hemoglobin 32.1 pg Mean Corpuscular Hemoglobin Concent 31.5 g/dl Platelet Count 325 K/uL Mean Platelet Volume 10.4 fL Neutrophils (%) (Auto) 83.1 % Lymphocytes (%) (Auto) 5.8 % Monocytes (%) (Auto) 9.7 % Eosinophils (%) (Auto) 0.0 % Basophils (%) (Auto) 0.1 % Neutrophils # (Auto) 19.29 K/uL Lymphocytes # (Auto) 1.34 K/uL Monocytes # (Auto) 2.24 K/uL Eosinophils # (Auto) 0.00 K/uL Basophils # (Auto) 0.02 K/uL RDW Standard Deviation 61.0 fL RDW Coefficient of Variation 16.7 % Immature Granulocyte % (Auto) 1.3 % Immature Granulocyte # (Auto) 0.31 K/uL Nucleated RBC Absolute Count (auto) 0.04 K/uL Nucleated Red Blood Cells % 0.2 % Polychromasia 1+ Anisocytosis PRESENT Tear Drop Cells 1+ Erythrocyte Sedimentation Rate 6 mm/hr Prothrombin Time 13.6 SECONDS Prothromb Time International Ratio 1.3 Activated Partial Thromboplast Time 20.5 SECONDS Partial Thromboplastin Ratio 0.8 Venous Blood pH 7.30 Venous Blood Partial Pressure CO2 34 mmHg Venous Blood Partial Pressure O2 31 mmHg Venous Blood HCO3 17 mmol/L Venous Blood Oxygen Saturation < 60.0 % Venous Blood Base Excess mEq/L Sodium Level 141 mmol/L Potassium Level 4.5 mmol/L Chloride Level 111 mmol/L Carbon Dioxide Level 17 mmol/L Anion Gap 13.0 mmol/L Blood Urea Nitrogen 23 mg/dl Creatinine 2.01 mg/dl Est Creatinine Clear Calc Drug Dose 25.3 ml/min Estimated GFR () 26.5 Estimated GFR (Non- 22.9 BUN/Creatinine Ratio 11.4 Random Glucose 183 mg/dl Calcium Level 8.3 mg/dl Phosphorus Level 5.5 mg/dl Magnesium Level 2.2 mg/dl Total Bilirubin 0.6 mg/dl Aspartate Amino Transf (AST/SGOT) 57 U/L Alanine Aminotransferase (ALT/SGPT) 28 U/L Alkaline Phosphatase 65 U/L Total Creatine Kinase 483 U/L Creatine Kinase MB 1.9 ng/ml Creatine Kinase MB Ratio 0.4 Troponin I < 0.015 ng/ml C-Reactive Protein 8.56 mg/dl Pro-B-Type Natriuretic Peptide 739 pg/ml Total Protein 4.8 gm/dl Albumin 2.2 gm/dl Globulin 2.6 gm/dl Albumin/Globulin Ratio 0.8 Lipase 115 U/L [place] Level 0.7 mMOL/L Bedside Lactic Acid Venous 7.93 mmol/L Urine Color RED Urine Appearance SL CLOUDY Urine pH 5.0 Urine Specific [place] >= 1.030 Urine Protein 2+ Urine Glucose (UA) NEG Urine Ketones NEG Urine Occult Blood 3+ Urine Nitrite POS Urine Bilirubin NEG Urine Urobilinogen NEG Urine Leukocyte Esterase NEG Urine RBC >30 /hpf Urine WBC >30 /hpf Urine Epithelial Cells 10-20 /lpf Urine Renal Cells 0-5 /lpf Urine Amorphous Sediment PRESENT Urine Bacteria 1+ Lactic Acid Level 6.4 mmol/L Diagnostic Results ABDOMEN AND PELVIS CT WITHOUT CONTRAST CT DOSE: 1407.38 mGy.cm HISTORY: Lower abdominal pain, anemia TECHNIQUE: Multiaxial CT images of the abdomen and pelvis were performed without contrast. A dose lowering technique was utilized adhering to the principles of ALARA. COMPARISON STUDY: Abdomen and pelvis CT 07/12/2017. FINDINGS: Bibasilar linear densities consistent with subsegmental atelectasis. No pneumoperitoneum. No pneumatosis. No acute fractures within the visualized osseous structures. Cholecystectomy. No hepatic or splenic masses. Mild acromion the adrenal glands is likely age-related. Calcifications at the pancreatic head, unchanged. Postoperative changes at the proximal duodenum remains stable. No retroperitoneal lymphadenopathy. IVC filter is noted. Normal caliber abdominal aorta. No renal stones or hydronephrosis. Stable 1.5 cm hypodense lesion within the right kidney. This favors a cyst. There is a catheter seen within the left common femoral vein extending into the left external iliac vein. Large heterogeneous collection seen within the midline of the abdominal wall at the rectus sheath. This is consistent with a rectus sheath hematoma. This measures 19 x 16 x 11 cm. This appears to demonstrate extraperitoneal extension within the deep pelvis and anterior to the bladder. The hematoma anterior to the bladder measures 11 x 4 cm and results in mass effect along the bladder. The bladder is decompressed by Mcintosh catheter. Trace perihepatic fluid which appears to be low density. Subcutaneous edema seen within the right leg likely due to the extensive DVT seen on the prior venous Doppler. Suboptimal evaluation for bowel pathology due to the lack of intravenous and oral contrast. However, there is no definite bowel wall thickening or obstruction. Fluid-filled colon. Normal appendix. Hysterectomy. IMPRESSION: 1. Large lower rectus sheath hematoma which measures approximately 19 x 16 x 11 cm. This demonstrates extraperitoneal extension within the deep pelvis. This results in mass effect along the bladder. The bladder is decompressed by Mcintosh catheter. 2. Subcutaneous edema within the right pelvis/lower extremity due to the extensive right lower extremity DVT which is better appreciated on the prior venous Doppler study. Electronically signed by: Edward Dave M.D. 08/19/2017 11:57 AM CHEST ONE VIEW PORTABLE HISTORY: Sepsis COMPARISON: Chest 07/28/2017. FINDINGS: No pneumothorax. No pleural effusions. Old, healed right clavicle fracture. The heart is normal in size. Bibasilar subsegmental atelectasis has slightly improved. No new focal lung consolidations to suggest pneumonia. IMPRESSION: No acute process. Slight improvement in the bibasilar subsegmental atelectasis. Electronically signed by: Edward Dave M.D. 08/19/2017 10:12 AM Assessment & Plan RECTAL SHEATH HEMATOMA Therapeutic Lovenox as an outpatient held on admission Serial H&H's Surgical consult - appreciate Dr. Cain's input Hypotension improving with packed red blood cells and IV fluids Continue to monitor HEME Anemia secondary to blood loss with large rectal sheath hematoma Transfuse packed red blood cells as needed to keep hemoglobin above 7 Chemical anticoagulation held Gross hematuria due to bladder cancer - urology consulted Platelet count 325,000 ID Complicated Urinary tract infection WBC 23,000 Lactic acid 7.9 Continue antibiotics for urinary tract infection We'll use Rocephin secondary to renal dysfunction follow serial lactic acid Check Pro calcitonin the morning Panculture pending Recent diagnosis of high-grade papillary urothelial bladder cancer Urology consulted - appreciate Dr. Suarez's input Mcintosh catheter in place with small urine volume and with gross hematuria Check urine culture Ceftriaxone for UTI Follow urine output RENAL CKD Stage III Creatinine elevated from 1.0 a few days ago to 2.0 today BUN [address] scan Received 2 L of IV fluids Hold furosemide as a scheduled med and follow based on clinical course Serial labs CARDIOVASCULAR No history of significant HTN Most recent echo was a dobutamine stress echo 11/23/10 with no induced ischemia No previous hx of CAD Hypotensive from blood loss anemia PULMONARY Hx asthma Adequate oxygen saturation on OxyMask Recent pulmonary embolus IVC filter in place Chest x-ray with no acute process Incentive spirometry for atelectasis Prior history of tobacco abuse but does not currently smoke Follow clinically ENDOCRINE No history of diabetes mellitus Random sugar 183 Watch BSG's closely Hypothyroidism - Home [id number] mCg Daily GI Hx GERD Pantoprazole 40 mg PO BID ELECTROLYTES Na+ 141 K+ 4.5 Ca+ 8.3 Mg 2.2 Phos 5.5 Follow serial labs NEURO A+OX3 No focal findings DVT PROPHYLAXIS No SCDs secondary to recent B/L DVTs TEDs Chemical prophylaxis held due to acute blood loss CCT: 60 minutes independant of procedures Please refer to Dr. Pacheco's addendum for further recommendations. Thank you for including us in the care of this patient. I have personally evaluated and examined this patient. I agree with assessment and plan of Jolene Weller PA-C. Seen in the ED, requiring blood transfusion, will require consults by general surgery and urology for possible surgical management.
[2017-08-19 18:12] LABS: HEMATOCRIT 29.8 % (37-47)
--- NOTE | 2017-08-19 18:18 | CONSULTATION REPORT ---
DATE OF CONSULTATION: 08/19/2017 Seen at the ICU at request of Grabiel Weller at approximately 5:30 on 08/19/2017. SUMMARY: I was called by Mr. Weller, approximately early afternoon with the findings that the patient was coming through the Emergency Room, what appeared to be a large hematoma in the abdominal wall in the rectus sheath extending down towards the bladder. She was hypotensive and she was being resuscitated. Also stated that her hemoglobin on admission was 6.3. As I see her now, she has received 1 unit of blood and her last vitals showed her temperature of 36.3, pulse 95, respirations 18, blood pressure 104/73, O2 sat is 96% on room air. The family is at the bedside. The ER records and consultation note from Dr. Suarez, urologist and other available records were reviewed. At this time, the patient is in no acute distress. She is alert, coherent and main thing she wanted to know if she could breathe better. She is on room air, she is 96% and she was in the 70s when she first came in. She is not complaining of any abdominal pain. Her abdomen obviously has a large anterior rectus sheath abdominal wall hematoma that extends down towards the bladder, it may be impinging upon the bladder. Dr. Zurita felt at this time that this may be related to her surgery that she had for bladder tumor and possibility of some leakage through that since she has had gross hematuria. The other thing is to certainly could be related to Lovenox injections that she was getting in fact she had a Lovenox injection this morning, prior to being transferred to the Emergency Room. IMPRESSION AND PLAN: In summary, at this time, there is no indication for any surgical intervention regarding the rectus sheath hematoma whether or not this primarily from anticoagulation or from what Dr. Suarez suspect that this is perforated from the recent surgery of the bladder, but we will treat this conservatively. I think she can be started her diet tomorrow and will keep her n.p.o. tonight, minimal oral intake until she stabilizes. This was discussed in detail with the family. SHIRLEY
--- NOTE | 2017-08-19 18:19 | CONSULTATION REPORT ---
DATE OF CONSULTATION: 08/19/2017 REASON FOR CONSULT: Rectus sheath hematoma. HISTORY OF PRESENT ILLNESS: The patient is an 81-year-old female with multiple medical problems and recently lower extremity DVT, PE, bleeding bladder tumor which led to placement of IVC filter, initiation of Lovenox and [facility] placement. She presented on 07/20/2017 for right leg pain, was found to have DVT, was started on anticoagulation, developed hematuria which led to TURB and a second procedure for evacuation of clot. She then developed PE and vena cava filter was placed by Dr. Sheehan. Eventually, she was discharged to [facility] on 08/08/2017. She was scheduled to be discharged tomorrow to return home. She began having some lower abdominal pain, some hypoxia and hypotension. She was evaluated in the Emergency Room and now admitted for anemia secondary to rectus sheath hematoma. She has been seen by urology. Mcintosh has been placed. Her pain this afternoon is improved. She has had some nausea, but no vomiting. PAST MEDICAL HISTORY: Asthma/COPD, bipolar, GERD, DVT with PE, hypertension, hypothyroidism, irritable bowel syndrome, mild dementia, depression, UTI, chronic kidney disease stage III, vitamin B12 deficiency, colon polyps, bladder tumor, strabismus right eye. PAST SURGICAL HISTORY: Hysterectomy, cholecystectomy, TURB, IVC filter placement, knee replacement, bilateral carpal tunnel surgery. SOCIAL HISTORY: She lives at home alone, manages to take care of herself inside the house. She does have some help outside the home for shopping in such. MEDICATIONS: At [facility] include Augmentin 500 mg p.o. b.i.d. for lower extremity cellulitis, Wellbutrin 150 mg b.i.d., clobetasol cream, Lovenox 90 mg subQ q. 12 hours, Lexapro 5 mg daily, ferrous sulfate 325 mg b.i.d., Lasix 20 mg daily, Neurontin 100 mg daily, Combivent 1 puff q.i.d., Synthroid 88 mcg daily, lithium 300 mg b.i.d., Namenda 10 mg b.i.d., miconazole vaginal cream b.i.d., Myrbetriq ER 50 mg daily, Singulair 10 mg daily, Prilosec 20 mg daily, potassium chloride 20 mEq daily, Flonase nasal spray, rivastigmine 6 mg b.i.d., p.r.n. Tylenol, Shanae-[place], Claritin, Gas-X, and Beconase. CURRENT INPATIENT MEDICATIONS: Include Lexapro 5 mg daily, Singulair 10 mg daily, Synthroid 88 mcg daily, Protonix 40 mg b.i.d., Wellbutrin 150 mg b.i.d., Rocephin 1 gram IV daily, Combivent 1 puff q.i.d., morphine 4 mg IV as needed, Zofran 4 mg IV every 6 hours as needed. ALLERGIES: CLARITHROMYCIN, SULFA, GABAPENTIN, HYDROCORTISONE, NITROFURANTOIN, APIXABAN, HEPARIN, MOXIFLOXACIN, FLUOXETINE. REVIEW OF SYSTEMS: ABDOMEN: Pain is improved. She has not had anything to eat today. Last bowel movement was 2 days ago. LOWER EXTREMITIES: She has had chronic swelling in the right leg. She has also had some discoloration recently, was started on Augmentin for cellulitis while at [facility]. OBJECTIVE: GENERAL: She is awake, alert in the ICU. Family members are present at bedside. VITAL SIGNS: Temperature 36.3, pulse 94, respirations 20, blood pressure 83/60, pulse ox 96% on room air. HEENT: Unremarkable. HEART: Regular, tachycardia. No murmur. LUNGS: Clear to auscultation. No accessory muscle use. ABDOMEN: Distended, soft. Mild lower abdominal tenderness and firmness. GENITOURINARY: Mcintosh catheter is in place. EXTREMITIES: Show trace edema on the left with 2+ edema on the right. Stevens and calf discoloration. LABORATORY DATA: White count was 23,000 on admission, hemoglobin 6.3, hematocrit 28.0, platelets 325. After 1 unit; her hemoglobin 7.8, hematocrit 24.1. Sodium 141, potassium 4.5, BUN 23, creatinine 2.01, glucose 183. IMAGING: CT of the abdomen and pelvis shows rectus sheath hematoma with extraperitoneal extension into the pelvis. The hematoma was measured at 19 x 16 x 11 cm. There is subcutaneous edema in the right pelvis and right lower extremity due to extensive right lower extremity DVT. IMPRESSION: Anemia, lower abdominal hematoma. PLAN: She was seen by urology and there is the possibility this may be related to a bleed from her bladder tumor versus rectus sheath hematoma. In either case, continued observation would be recommended. Her second unit of PRBCs is infusing currently. Dr. Velásquez will continue to follow patient during the weekend. SHIRLEY
[2017-08-19] MEDS ORDERED: ASCORBIC ACID 500 MG TAB PO ONE (20:15)
[2017-08-19] MEDS ORDERED: THIAMINE HCL INJ 300 MG in SODIUM CHLORIDE 0.9% 50ML 50 ML IV ONE (20:15)
[2017-08-19] MEDS ORDERED: ZINC SULFATE 220 MG CAP PO ONE (20:15)
[2017-08-19] MEDS: NORMOSOL R 1,000 ML IV SCH (20:27)
[2017-08-19] MEDS: BuPROPion SR 150 MG TABCR PO SCH (20:34)
[2017-08-19] MEDS: PANTOprazole SOD 40 MG TAB PO SCH (20:35)
[2017-08-19 20:47] LABS: CKMB/CK RATIO 0.6 (0-3.0)
[2017-08-19 21:38] LABS: BUN/CREATININE RATIO 13.7 (10-20); CALCIUM 7.9 mg/dl (8.5-10.1); CREATININE 2.31 mg/dl (0.60-1.20); PHOSPHORUS 5.5 mg/dl (2.5-4.9); POTASSIUM 4.8 mmol/L (3.5-5.1)
[2017-08-19 22:50] LABS: HEMATOCRIT 27.1 % (37-47)
[2017-08-19] MEDS ORDERED: NOREPINEPHRINE BIT INJ 8 MG in DEXTROSE 5% 500ML 500 ML IV PRN (23:27)
[2017-08-20] VITALS (23 sets, daily range): BP systolic 45–99; BP diastolic 34–61; PULSE 96–102; TEMP 36.4–37.2; O2SAT 83–100
--- NOTE | 2017-08-20 00:33 | Procedure Note ---
Procedure Note Procedure Date Aug 20, 2017. Procedure Description Procedure Name: Left Radial Arterial Catheterization Procedure time out: side/site verified, patient ID confirmed, correct procedure Consent obtained: emergent consent implied (Systolic Pressures in the 70's) Time of procedure: 00:00 Performed by: physician information technology teacher Indications: diagnostic, therapeutic Contraindications: none Description: Using sterile technique; the left radial artery was cleaned with a chloro- hexadine scrub after adequate palpation and visualization with the ultrasound, a finder needle with overlaying catheter was then used with approach at a 45* angle until a flash was obtained with direct visualization on ultrasound. Using Seldinger technique, there was initially no difficulty passing the guide wire, on the second attempt the guide wire was then passed successfully into the artery and the catheter was threaded over the guide wire; which was then removed. Arterial blood was seen pulsating from catheter tip and a luer lock valve was attached to the catheter. The A-line catheter was then secured by stat -lock and covered with a sterile surgical dressing. Pt was reassessed and no evidence of hematoma was appreciated. The tubing was placed between the first and second fingers and taped to the forearm, before a wrist support was placed. Pt tolerated the procedure well with no complications. Consent was obtained emergently. Complications: none Patient tolerated procedure: well Post-procedure vital signs: reviewed and stable
[2017-08-20 04:39] LABS: ALT/SGPT 204 U/L (12-78); AST/SGOT 315 U/L (15-37); BLOOD UREA NITROGEN 34 mg/dl (7-18); BUN/CREATININE RATIO 13.8 (10-20); CALCIUM 6.9 mg/dl (8.5-10.1); CARBON DIOXIDE 10 mmol/L (21-32); CHLORIDE 114 mmol/L (98-107); CREATININE 2.44 mg/dl (0.60-1.20); GLUCOSE 117 mg/dl (70-99); MAGNESIUM 2.1 mg/dl (1.8-2.4); POTASSIUM 4.8 mmol/L (3.5-5.1); SODIUM 142 mmol/L (136-145)
[2017-08-20 04:42] LABS: ALKALINE PHOSPHATASE 65 U/L (45-117); ANISOCYTOSIS PRESENT; BASO % 0.1 %; BASO ABS # 0.02 K/uL (0-0.2); CKMB/CK RATIO 0.9 (0-3.0); COMPLETE YES; ECHINOCYTES 1+; HEMATOCRIT 25.7 % (37-47); LYMPH % 7.3 %; LYMPH ABS # 2.56 K/uL (1.2-3.4); MEAN CELL VOLUME 92.1 fL (80-100); MEAN CORPUSCULAR HEMOGLOBIN 29.4 pg (25-34); MEAN CORPUSCULAR HGB CONC 31.9 g/dl (32-36); MEAN PLATELET VOLUME 10.4 fL (7.4-10.4); NEUT % 81.6 %; PLATELET COUNT 294 K/uL (130-400); POLYCHROMASIA 1+; RED BLOOD COUNT 2.79 M/uL (4.2-5.4); TEAR DROP CELLS OCCASIONAL; WHITE BLOOD COUNT 35.22 K/uL (4.8-10.8)
[2017-08-20] MEDS ORDERED: VANCOMYCIN INJ 2,000 MG in SODIUM CHLORIDE 0.9% 500ML 500 ML IV ONE (05:00)
[2017-08-20] MEDS ORDERED: PIPERACILL/TAZOBAC CONSULT ACTIVE PRN (05:00)
[2017-08-20] MEDS ORDERED: VANCOMYCIN IV ONE (05:00)
[2017-08-20] MEDS ORDERED: VANCOMYCIN CONSULT ACTIVE PRN (05:00)
[2017-08-20] MEDS ORDERED: PIPERACILL/TAZOBAC IV 4.5 GM in DEXTROSE 5% 100ML IV ONE (05:00)
[2017-08-20] MEDS ORDERED: SODIUM CHLORIDE 0.9% IV ONE (05:00)
[2017-08-20] MEDS: NORMOSOL R 1,000 ML IV SCH ×2 (05:14→08:22)
[2017-08-20 05:36] LABS: ISTAT ARTERIAL BLOOD GAS HCO3 13 meq/L (19-24); ISTAT ARTERIAL BLOOD GAS PCO2 22 mmHg (35-46); ISTAT ARTERIAL BLOOD GAS PO2 115 mmHg (80-95); ISTAT ARTERIAL BLOOD GAS pH 7.35 (7.35-7.45); ISTAT CARBON DIOXIDE 13 mEq/l (24-31); ISTAT SITE Art Line
[2017-08-20] MEDS ORDERED: LEVOTHYROXINE 88 MCG TAB PO SCH (06:00)
[2017-08-20] MEDS: IPRATROPIUM BROMIDE/ALBUTEROL respimat INH INH SCH (08:20)
[2017-08-20] MEDS: BuPROPion SR 150 MG TABCR PO SCH (08:23)
[2017-08-20] MEDS: MoRPHine SULFATE 2 MG/ML CARP IV PRN ×2 (08:50→09:56)
[2017-08-20] MEDS: PANTOprazole SOD 40 MG TAB PO SCH (08:54)
[2017-08-20] MEDS ORDERED: ZINC SULFATE 220 MG CAP PO SCH (09:00)
[2017-08-20] MEDS ORDERED: THIAMINE HCL INJ 100 MG in SYRINGE 9 ML IV SCH (09:00)
[2017-08-20] MEDS ORDERED: MONTELUKAST SOD 10 MG TAB PO SCH (09:00)
[2017-08-20] MEDS ORDERED: ESCITALOPRAM OXALATE 10 MG TAB PO SCH (09:00)
[2017-08-20] MEDS ORDERED: ASCORBIC ACID 500 MG TAB PO SCH (09:00)
[2017-08-20] MEDS ORDERED: FUROSEMIDE 20 MG TAB PO SCH (09:00)
--- NOTE | 2017-08-20 09:14 | Pharmacy Progress Note ---
Pharmacy Abx Initial Consult Date of Service Aug 20, 2017. Pharmacy Dosing Scope Date of Consult: 08/20/17 Consultation requested by: Rose Marie Muse PAC Pharmacy is consulted to initiate VANCOMYCIN / ZOSYN IV therapy, order appropriate labs and adjust drug dose/frequency. Subjective The patient is a 81 year old female admitted on Aug 19, 2017 at 12:23 with nausea, vomiting, SOB, hypoxemia, and hypotension. Found to have large rectus sheath hematoma. Broad spectrum ABX started empirically as patient has h/o frequent UTIs and severe sepsis from complicated UTI was part of her differential dx. Objective Height (Feet): 5 Height (Inches): 5.00 Weight (Kilograms): 94.200 Vital Signs (Past 12Hrs) Vital Signs Past 12 Hours Date Time Temp Pulse Resp B/P (MAP) Pulse Ox O2 Delivery O2 Flow Rate FiO2 08/20/17 06:00 96 (71) 95 98/55 08/20/17 06:00 96 98/55 (69) 95 Room Air 08/20/17 05:00 98 (70) 97 95/53 08/20/17 04:00 Room Air 08/20/17 04:00 100 (65) 96 88/52 08/20/17 04:00 100 26 88/52 (64) 96 Room Air 08/20/17 03:00 100 (70) 97 99/55 08/20/17 02:00 100 20 92/52 (65) 96 Room Air 08/20/17 02:00 100 (65) 96 92/52 08/20/17 01:00 98 82/61 (69) 95 97/54 08/20/17 00:01 37.2 99 18 84/49 (61) 95 Room Air 08/20/17 00:01 99 84/49 95 08/19/17 23:59 Room Air 08/19/17 23:00 99 84/49 96 08/19/17 22:00 102 94/60 96 08/19/17 22:00 102 20 94/60 (71) 96 Room Air 08/19/17 21:00 99 80/66 96 Lab Results (24Hrs) Laboratory Tests (24 Hours) Test 08/19/17 10:15 08/20/17 04:09 C-Reactive Protein 8.56 mg/dl (0-0.29) H Erythrocyte Sedimentation Rate 6 mm/hr (0-21) Lactic Acid Level 8.0 mmol/L (0.4-2.0) *H White Blood Count 35.22 K/uL (4.8-10.8) #*H Red Blood Count 2.79 M/uL (4.2-5.4) L Hemoglobin 8.2 g/dL (12.0-16.0) L Hematocrit 25.7 % (37-47) L Mean Corpuscular Volume 92.1 fL (80-100) # Mean Corpuscular Hemoglobin 29.4 pg (25-34) Mean Corpuscular Hemoglobin Concent 31.9 g/dl (32-36) L Platelet Count 294 K/uL (130-400) Mean Platelet Volume 10.4 fL (7.4-10.4) Neutrophils (%) (Auto) 81.6 % Lymphocytes (%) (Auto) 7.3 % Monocytes (%) (Auto) 10.0 % Eosinophils (%) (Auto) 0.0 % Basophils (%) (Auto) 0.1 % Neutrophils # (Auto) 28.76 K/uL (1.4-6.5) H Lymphocytes # (Auto) 2.56 K/uL (1.2-3.4) Monocytes # (Auto) 3.52 K/uL (0.11-0.59) H Eosinophils # (Auto) 0.00 K/uL (0-0.5) Basophils # (Auto) 0.02 K/uL (0-0.2) Procalcitonin 2.08 ng/ml (0-0.5) H Total Creatine Kinase 893 U/L (26-192) H Micro Results Date/Time Source Procedure Growth Status 08/19/17 10:15 Blood Blood Culture Pending Received 08/19/17 10:05 Blood Blood Culture Pending Received 08/19/17 13:25 Nasal MRSA DNA Surveillance Screen - Final Specimen Negative for MRSA by DNA Probe Complete 08/19/17 10:31 Urine,Catheterized Urine Culture Pending Received Risk Factors for Resistance * Resident in a assisted or extended-care facility ([facility]) * Hospitalization for 48 hours or more within the past 90 days (hospitalized earlier this month) Assessment & Plan Assessment * 81 year old female admitted with large rectus sheath hematoma, hypotension, hypoxemia and anemia. * Broad spectrum ABX initiated for possible severe sepsis - urinary source suspected. * Procalcitonin 2.08 this AM, Lactate trending up. * Patient currently on pressor support, mild tachycardia noted, sats in mid-90' s on room air * Blood and urine cx's pending, MRSA nasal swab negative, CXR = "no acute process" * UA: 10-20 epis, > 30 WBC, negative LE, + N, 1+ bacteria * Patient is also receiving Rocephin IV, might suggest d/c now that vanco + Zosyn ordered Plan Vancomycin IV * Loading dose: 2000 mg (~20 mg/kg) - likely achieving a peak conc ~30-35mcg/ mL * p'kinetic estimates: half-life > 24 hours (likely 30-36 hours); Vd 0.65-0.7 L/ kg * given extended half-life and predicted peak after today's load, will order random level w/ AM labs tomorrow and redose if between 15-20 Piperacillin/tazobactam * 4.5 g bolus administered over 30 minutes, then 4.5 g IV extended infusion every 8 hours for CrCl of ~ 20 mL/min * May need to reduce to Q 12 hr dosing if renal fxn further deteriorates. Pharmacy will continue to follow and will adjust dose/frequency as necessary. Thank you.
[2017-08-20] MEDS ORDERED: SCOPOLAMINE 1.5 MG TDSY TD SCH (10:00)
[2017-08-20] MEDS ORDERED: PIPERACILL/TAZOBAC IV 4.5 GM in DEXTROSE 5% 100ML 100 ML IV SCH (10:00)
[2017-08-20] MEDS ORDERED: MoRPHine SULF/NSS 250MG/250ML 250 ML IV PRN (10:00)
--- NOTE | 2017-08-20 10:33 | Progress Note ---
Subjective Date of Service: Aug 20, 2017. Subjective Pt evaluation today including: conversation w/ family, physical exam, lab review, conversation w/ healthcare risk control consultant, review of inpatient medication list Pain: Comfortable Voiding: crandall catheter in place (trace UOP) 81 yo female with a history of high grade bladder cancer, DVT, PE now with hypotension, multisystem organ failure in ICU. Care discussed with Gen Surg and ICU service - anuric since yesterday with minimal UOP. Possible etiologies reviewed - question over ongoing extravasation of urine vs new hydro since yesterday vs other causes of renal failure. CT cystogram suggested for evaluation. However, patient's family is present and desire to move to comfort measures only - CT not obtained. Problem List Medical Problems: (1) RAFAEL (acute kidney injury) Status: Acute (2) Anemia Status: Acute (3) Deep vein thrombosis (DVT) Status: Acute (4) DVT (deep venous thrombosis) Status: Acute (5) Hematuria Status: Acute (6) Hypotension Status: Acute (7) Hypothyroidism Status: Chronic (8) Hypoxia Status: Acute (9) Metabolic acidosis Status: Acute (10) Rectus sheath hematoma Status: Acute (11) Respiratory distress Status: Acute (12) Sepsis Status: Acute (13) UTI (urinary tract infection) Status: Acute Objective Vital Signs Date Time Temp Pulse Resp B/P (MAP) Pulse Ox O2 Delivery O2 Flow Rate FiO2 08/20/17 08:15 Room Air 08/20/17 06:00 96 (71) 95 98/55 08/20/17 06:00 96 98/55 (69) 95 Room Air 08/20/17 05:00 98 (70) 97 95/53 08/20/17 04:00 Room Air 08/20/17 04:00 100 (65) 96 88/52 08/20/17 04:00 100 26 88/52 (64) 96 Room Air 08/20/17 03:00 100 (70) 97 99/55 08/20/17 02:00 100 20 92/52 (65) 96 Room Air 08/20/17 02:00 100 (65) 96 92/52 08/20/17 01:00 98 82/61 (69) 95 97/54 08/20/17 00:01 37.2 99 18 84/49 (61) 95 Room Air 08/20/17 00:01 99 84/49 95 08/19/17 23:59 Room Air 08/19/17 23:00 99 84/49 96 08/19/17 22:00 102 94/60 96 08/19/17 22:00 102 20 94/60 (71) 96 Room Air 08/19/17 21:00 99 80/66 96 08/19/17 20:00 Room Air 08/19/17 20:00 99 96/59 95 08/19/17 20:00 36.9 99 18 96/59 (71) 95 Room Air 08/19/17 19:00 100 92/57 95 08/19/17 18:45 99 95 Room Air 08/19/17 18:31 98 97/61 (73) 95 08/19/17 18:30 97 94 08/19/17 18:15 97 95 08/19/17 18:01 96 81/67 (72) 95 08/19/17 18:00 97 95 08/19/17 17:45 95 95 Room Air 08/19/17 17:32 97 88/56 (67) 95 08/19/17 17:30 96 95 08/19/17 17:15 96 96 08/19/17 17:07 36.3 95 18 104/73 96 08/19/17 17:02 96 104/73 (83) 96 Room Air 08/19/17 17:00 95 95 08/19/17 16:46 97 88/61 (70) 92 08/19/17 16:45 95 94 08/19/17 16:30 36.3 94 20 96 Room Air 08/19/17 16:16 93 83/60 (68) 95 08/19/17 16:15 93 96 08/19/17 16:01 92 95/41 (59) 90 08/19/17 16:00 93 97 Room Air 08/19/17 15:46 93 101/79 (86) 99 08/19/17 15:45 94 99 08/19/17 15:31 95 96/51 (66) 95 08/19/17 15:30 93 95 08/19/17 15:30 Room Air 08/19/17 15:15 96 97 Room Air 08/19/17 15:02 94 72/36 (48) 08/19/17 15:00 90 86 08/19/17 14:52 36.6 91 92/58 08/19/17 14:49 36.6 94 20 92/58 98 08/19/17 14:45 92 96 Room Air 08/19/17 14:33 36.6 90 16 92/58 93 08/19/17 14:31 92 92/58 (69) 99 08/19/17 14:30 93 99 08/19/17 14:23 94 85/63 (70) 96 Room Air 08/19/17 14:15 92 96 08/19/17 14:02 95 60/45 (50) 94 08/19/17 14:00 92 98 Room Air 08/19/17 13:45 36.6 92 20 84/58 99 Nasal Cannula 5.0 08/19/17 13:07 36.9 92 19 102/68 100 08/19/17 13:06 92 19 102/68 100 5.0 08/19/17 13:01 102/68 08/19/17 12:54 96 21 100 Mask 5.0 08/19/17 12:46 84/59 08/19/17 12:39 94 18 96 Mask 5.0 08/19/17 12:39 36.9 95 16 93/63 100 5.0 08/19/17 12:37 93/63 08/19/17 12:33 103 08/19/17 12:31 84/52 08/19/17 12:24 94 21 100 Mask 5.0 08/19/17 12:17 87/37 08/19/17 12:09 96 19 100 Mask 5.0 08/19/17 12:03 96 21 94/59 100 Mask 5.0 08/19/17 12:01 94/59 08/19/17 11:59 83/52 08/19/17 11:56 82/70 08/19/17 11:55 57/44 08/19/17 11:54 91 25 94 08/19/17 11:49 92 21 96/48 100 Mask 5.0 08/19/17 11:33 107/64 Mask 5.0 08/19/17 11:32 08/19/17 11:19 94 27 91/62 Mask 5.0 08/19/17 11:14 08/19/17 11:02 91 26 08/19/17 10:47 91 24 100 Mask 5.0 08/19/17 10:32 91 20 100 Non-Rebreather 08/19/17 10:31 109/58 Physical Exam General Appearance: no apparent distress, + obese Abdomen: soft, + pertinent finding (distended) Neurologic/Psychiatric: + pertinent finding (somnolent) Laboratory Results Last 24 Hours Test 08/19/17 10:31 08/19/17 15:13 08/19/17 18:03 08/19/17 19:53 Urine Color RED Urine Appearance SL CLOUDY Urine pH 5.0 Urine Specific [place] >= 1.030 Urine Protein 2+ Urine Glucose (UA) NEG Urine Ketones NEG Urine Occult Blood 3+ Urine Nitrite POS Urine Bilirubin NEG Urine Urobilinogen NEG Urine Leukocyte Esterase NEG Urine RBC >30 /hpf Urine WBC >30 /hpf Urine Epithelial Cells 10-20 /lpf Urine Renal Cells 0-5 /lpf Urine Amorphous Sediment PRESENT Urine Bacteria 1+ Hemoglobin 7.8 g/dL 9.4 g/dL Hematocrit 24.1 % 29.8 % Lactic Acid Level 6.4 mmol/L Total Creatine Kinase 760 U/L Creatine Kinase MB 4.7 ng/ml Creatine Kinase MB Ratio 0.6 Troponin I 0.016 ng/ml Test 08/19/17 20:14 08/19/17 21:05 08/19/17 22:43 08/20/17 04:09 Lactic Acid Level 4.2 mmol/L 8.0 mmol/L Sodium Level 141 mmol/L 142 mmol/L Potassium Level 4.8 mmol/L 4.8 mmol/L Chloride Level 111 mmol/L 114 mmol/L Carbon Dioxide Level 19 mmol/L 10 mmol/L Anion Gap 11.0 mmol/L 18.0 mmol/L Blood Urea Nitrogen 32 mg/dl 34 mg/dl Creatinine 2.31 mg/dl 2.44 mg/dl Est Creatinine Clear Calc Drug Dose 22.0 ml/min 20.9 ml/min Estimated GFR () 22.4 21.0 Estimated GFR (Non- 19.3 18.1 BUN/Creatinine Ratio 13.7 13.8 Random Glucose 146 mg/dl 117 mg/dl Calcium Level 7.9 mg/dl 6.9 mg/dl Phosphorus Level 5.5 mg/dl 6.0 mg/dl Hemoglobin 8.5 g/dL 8.2 g/dL Hematocrit 27.1 % 25.7 % White Blood Count 35.22 K/uL Red Blood Count 2.79 M/uL Mean Corpuscular Volume 92.1 fL Mean Corpuscular Hemoglobin 29.4 pg Mean Corpuscular Hemoglobin Concent 31.9 g/dl Platelet Count 294 K/uL Mean Platelet Volume 10.4 fL Neutrophils (%) (Auto) 81.6 % Lymphocytes (%) (Auto) 7.3 % Monocytes (%) (Auto) 10.0 % Eosinophils (%) (Auto) 0.0 % Basophils (%) (Auto) 0.1 % Neutrophils # (Auto) 28.76 K/uL Lymphocytes # (Auto) 2.56 K/uL Monocytes # (Auto) 3.52 K/uL Eosinophils # (Auto) 0.00 K/uL Basophils # (Auto) 0.02 K/uL RDW Standard Deviation 61.6 fL RDW Coefficient of Variation 19.2 % Immature Granulocyte % (Auto) 1.0 % Immature Granulocyte # (Auto) 0.36 K/uL Nucleated RBC Absolute Count (auto) 0.56 K/uL Nucleated Red Blood Cells % 1.6 % Polychromasia 1+ Anisocytosis PRESENT Tear Drop Cells OCCASIONAL Echinocytes 1+ Magnesium Level 2.1 mg/dl Total Bilirubin 0.7 mg/dl Direct Bilirubin 0.3 mg/dl Aspartate Amino Transf (AST/SGOT) 315 U/L Alanine Aminotransferase (ALT/SGPT) 204 U/L Alkaline Phosphatase 65 U/L Total Creatine Kinase 893 U/L Creatine Kinase MB 8.4 ng/ml Creatine Kinase MB Ratio 0.9 Troponin I < 0.015 ng/ml Total Protein 4.3 gm/dl Albumin 1.9 gm/dl Procalcitonin 2.08 ng/ml Test 08/20/17 05:22 Blood Gas Sample Site Art Line Bedside Blood Gas pH (LAB) 7.35 Bedside Blood Gas pCO2 (LAB) 22 mmHg Bedside Blood Gas pO2 (LAB) 115 mmHg Bedside Blood Gas HCO3 (LAB) 13 meq/L Bedside Blood Gas Total CO2 13 mEq/l Bedside Blood Gas Base Excess (LAB) -13.0 meq/L Bedside Blood Gas O2 Saturation 99.0 % Adam Test NA Assessment and Plan A/P 81 yo female with multisystem organ failure. findings again reviewed with family, questions answered. Comfort measures only. Thank you for allowing our service to assist with the patient's care. Please recall any new questions or concerns.
--- NOTE | 2017-08-20 10:41 | Critical Care Progress Note ---
Critical Care Progress Note Date of Service Aug 20, 2017. Critical Care Progress Note Lengthy discussion was had overnight with the family with regards to further interventions needed in order to investigate decreased urine output and general medical decline. Family notified myself and Dr. Pacheco that they would want to keep the patient comfortable. Several medications were stopped and patient was given morphine IV for comfort as well as scopolamine patch. Patient went into asystole and Dr. Pacheco was called to pronounce . At 1033AM Dr. Pacheco examined the patient and there was no pulse, no breath sounds, and no heart sounds on exam. Patient was pronounced at 1033 AM on 08/20/2017. Family was at the bedside.
--- NOTE | 2017-08-20 11:00 | Death Summary ---
Summary of Admission Date Aug 19, 2017 at 12:23 Date & Time of Aug 20, 2017. 1033 am Cause of Septic Shock secondary to ureteral obstruction from rectal sheath hematoma Hospital Course 81 year old female with PMH of high grade bladder cancer, DVT, PE was brought to the hospital from [facility] due to hypotension, and decrease pulse oximetry. She was brought to the emergency department where she was found to have a lactate of 7.9 and Hgb of 6.3. Mcintosh catheter was placed which was hematuric and only 10ml of urine output. CT of the abdomen was done which showed a large rectus sheath hematoma extending into the extraperitoneal space. Patient was given PRBC and 2L of IV fluids. Patient was transferred to the ICU and was started on levophed. Patient was placed on vanc, zosyn and ceftriaxone and urology was consulted. Overnight the patient began to have multiorgan failure with elevated lactic acid of 8.0 and was anuric with minimal UOP. On the morning of 08/20 the patient was short of breath and was having increased levophed requirements. Discussion was had between family and medical team with regards to foregoing surgery vs stent placement in order to help relieve any ureteral obstruction from the hematoma. The patients family was present and desired to move to comfort measures only. Patient was receiving intermittent doses of morphine for her SOB and her medications were stopped. Patient went into asystole and was pronounced at 1033AM on 08/20/2017 Copy To [facility]
--- NOTE | 2017-08-20 11:07 | Progress Note ---
Progress Note Date of Service Aug 20, 2017. Progress Note Update 10:45 Went to examine patient after being paged that she was doing poorly. However, I was also told that she was made Comfort measures only by the critical care team. In the short time, I arrived in the ICU, she had been already pronounced by the resident. Critical care team will handle the summary after discussing with resident.
[2017-08-20] MEDS ORDERED: CHECK SCOPOLAMINE PATCH PLACEMENT SCH (16:00)
== END 2017-08-20 11:30 | disposition expired | DRG 871 ==
LOC: C.EDA 09:52 → C.MSICU 12:23 → ENRESERV 12:34
PROVIDERS: ADMIT Family Medicine; ATTEND Family Medicine
PROC: 06HN33Z Insertion of Infusion Device into Left Femoral Vein, Percutaneous Approach (ICD-10-PCS; principal; 2017-08-19)
PROC: 03HC33Z Insertion of Infusion Device into Left Radial Artery, Percutaneous Approach (ICD-10-PCS; 2017-08-20)
DX: A41.9 Sepsis, unspecified organism (principal); J96.01 Acute respiratory failure with hypoxia; G93.40 Encephalopathy, unspecified; R65.21 Severe sepsis with septic shock; I26.99 Other pulmonary embolism without acute cor pulmonale; D62 Acute posthemorrhagic anemia; N17.9 Acute kidney failure, unspecified; N39.0 Urinary tract infection, site not specified; Z51.5 Encounter for palliative care; M79.81 Nontraumatic hematoma of soft tissue; N18.3 Chronic kidney disease, stage 3 (moderate); C67.9 Malignant neoplasm of bladder, unspecified; E03.9 Hypothyroidism, unspecified; K21.9 Gastro-esophageal reflux disease without esophagitis; R31.0 Gross hematuria; Z66 Do not resuscitate; Z79.01 Long term (current) use of anticoagulants; Z79.899 Other long term (current) drug therapy; Z86.711 Personal history of pulmonary embolism; Z86.718 Personal history of other venous thrombosis and embolism